=== PATIENT | female | born 1980 | race Caucasian/White ===

== ENCOUNTER 2017-01-28 10:43 | Emergency (ER) | payer OTHER ==
[~2017-01-28] VITALS: Ht 157.5 cm; Wt 94.0 kg
[~2017-01-28 10:43] MED LIST: GLC/500 PO; GLIM4TAB2 PO; REPA2TAB13 PO
[2017-01-28 10:52] VITALS: TEMP 36.5; Ht 157.5 cm; Wt 94.0 kg
[2017-01-28] MEDS ORDERED: GI COCKTAIL PO STA (11:18)
--- NOTE | 2017-01-28 11:23 | EMERGENCY ROOM VISIT NOTE ---
History First contact with patient: 11:10 Chief Complaint: BACK PAIN Stated Complaint: BACK PAIN,CHEST PAIN History of Present Illness The patient is a 36 year old female who presents to the Emergency Room via private vehicle accompanied by male with complaints of "back pain, chest pain". The patient states that she was sitting comfortably at home around midnight this past evening, when she developed back pain described as between the shoulder blades, and chest pain. This is not associated with any shortness of breath. She states this has continued, and she is tried eozy-eia-jnemdlm medications without relief. She is tried Tums, aspirin and similar medications but continues to vomit. She states that last evening she did eat [place] food. She also has a history of reflux of which she takes ranitidine, but has not taken the medication recently. She currently points to the substernal/ epigastric region of her abdomen as a location of pain she rates as a 6/10. She has never had this before. She denies chance of . There is associated nausea, vomiting. Her bowel movements and urinations have been normal. She has a past medical history of diabetes. She denies any history of blood clots or shortness of breath. Review of Systems A complete 10-point Review of Systems was discussed with the patient, with pertinent positives and negatives listed in the History of Present Illness. All remaining Review of Systems questions can be considered negative unless otherwise specified. Past Medical/Surgical History Medical Problems: (1) Diabetes (2) HTN (hypertension) Surgical Problems: (1) Hx of tonsillectomy Family History FH: diabetes mellitus Social History Smoking Status: Never Smoker Patient lives locally. Current/Historical Medications Scheduled Cephalexin Monohydrate (Keflex), 500 MG PO BID Glimepiride (Glimepiride), 4 MG PO QAM Metformin Hcl (Glucophage), 500 MG PO BID Repaglinide (Prandin), 2 MG PO AC Physical Exam Vital Signs Date Time Temp Pulse Resp B/P (MAP) Pulse Ox O2 Delivery O2 Flow Rate FiO2 01/28/17 15:05 89 18 165/102 98 Room Air 01/28/17 14:05 98 96 182/113 96 Room Air 01/28/17 12:55 79 01/28/17 12:05 98 Room Air 01/28/17 12:05 72 17 144/94 98 Room Air 01/28/17 10:52 36.5 75 18 190/104 99 Room Air Physical Exam VITAL SIGNS - Vital signs and nursing notes were reviewed. Stable. Hypertensive at 190/104, non-tachycardic and is saturating well on room air at 99%. GENERAL -36-year-old female appearing her stated age who is in no acute distress. Communicates well with provider and answers questions appropriately. SKIN - Without rashes. No petechial rashes. There are well-healed scars on the back. HEAD - NC/AT. EYES - Sclera anicteric. EARS - No deformities of external structures noted on gross examination bilaterally. NOSE - Midline and without cyanosis. No epistaxis or purulent drainage noted. Septum midline without deviation or septal hematoma noted. MOUTH/OROPHARYNX - Without perioral cyanosis. LUNGS - Chest wall symmetric without accessory muscle use, intercostals retractions, or central cyanosis. Normal vesicular breath sounds CTA B/L. No wheezes, rales, or rhonchi appreciated. CARDIAC - RRR with S1/S2. No murmur, rubs, or gallops appreciated. ABDOMEN - Abdominal contour without pulsations or visible masses. BS normoactive all four quadrants. There is minimal epigastric abdominal tenderness. No palpable masses, hepatosplenomegaly, or ascites noted. EXTREMITIES - No clubbing or peripheral cyanosis. No pretibial edema present. +5 /5 strength noted in UE/LE bilaterally. NEUROLOGIC - Cranial nerves II through XII grossly intact. PSYCH - A&O, and cooperates fully with examiner. Pt is very pleasant and interacts well with examiner. Medical Decision & Procedures ER Provider Diagnostic Interpretation: CHEST ONE VIEW PORTABLE CLINICAL HISTORY: Chest and back pain. COMPARISON STUDY: Chest radiograph February 25, 2012. FINDINGS: Lung volumes are normal. No pneumothorax or pleural effusion is present. Pulmonary vascularity is normal. No consolidation is identified. Cardiomediastinal silhouette is normal. The appearance of the chest is unchanged. IMPRESSION: No acute cardiopulmonary findings. Electronically signed by: Chalino Jacobsen M.D. 01/28/2017 11:30 AM Dictated Date/Time: 01/28/2017 11:29 AM Laboratory Results 01/28/17 11:45 Red Blood Count 5.57, Mean Corpuscular Volume 83.5, Mean Corpuscular Hemoglobin 28.4, Mean Corpuscular Hemoglobin Concent 34.0, Mean Platelet Volume 9.7, Neutrophils (%) (Auto) 85.7, Lymphocytes (%) (Auto) 10.1, Monocytes (%) (Auto) 3.8, Eosinophils (%) (Auto) 0.0, Basophils (%) (Auto) 0.1, Neutrophils # (Auto) 10.24, Lymphocytes # (Auto) 1.21, Monocytes # (Auto) 0.45, Eosinophils # (Auto) 0.00, Basophils # (Auto) 0.01 01/28/17 11:45 Test 01/28/17 11:45 01/28/17 12:00 White Blood Count 11.95 K/uL (4.8-10.8) Red Blood Count 5.57 M/uL (4.2-5.4) Hemoglobin 15.8 g/dL (12.0-16.0) Hematocrit 46.5 % (37-47) Mean Corpuscular Volume 83.5 fL (80-100) Mean Corpuscular Hemoglobin 28.4 pg (25-34) Mean Corpuscular Hemoglobin Concent 34.0 g/dl (32-36) Platelet Count 279 K/uL (130-400) Mean Platelet Volume 9.7 fL (7.4-10.4) Neutrophils (%) (Auto) 85.7 % Lymphocytes (%) (Auto) 10.1 % Monocytes (%) (Auto) 3.8 % Eosinophils (%) (Auto) 0.0 % Basophils (%) (Auto) 0.1 % Neutrophils # (Auto) 10.24 K/uL (1.4-6.5) Lymphocytes # (Auto) 1.21 K/uL (1.2-3.4) Monocytes # (Auto) 0.45 K/uL (0.11-0.59) Eosinophils # (Auto) 0.00 K/uL (0-0.5) Basophils # (Auto) 0.01 K/uL (0-0.2) RDW Standard Deviation 38.0 fL (36.4-46.3) RDW Coefficient of Variation 12.6 % (11.5-14.5) Immature Granulocyte % (Auto) 0.3 % Immature Granulocyte # (Auto) 0.04 K/uL (0.00-0.02) Prothrombin Time 10.2 SECONDS (9.0-12.0) Prothromb Time International Ratio 1.0 (0.9-1.1) Activated Partial Thromboplast Time 26.8 SECONDS (21.0-31.0) Partial Thromboplastin Ratio 1.0 Anion Gap 8.0 mmol/L (3-11) Est Creatinine Clear Calc Drug Dose 96.4 ml/min Estimated GFR () 100.0 Estimated GFR (Non- 86.3 BUN/Creatinine Ratio 10.7 (10-20) Calcium Level 9.0 mg/dl (8.5-10.1) Total Bilirubin 0.8 mg/dl (0.2-1) Aspartate Amino Transf (AST/SGOT) 25 U/L (15-37) Alanine Aminotransferase (ALT/SGPT) 34 U/L (12-78) Alkaline Phosphatase 82 U/L (45-117) Troponin I < 0.015 ng/ml (0-0.045) Total Protein 8.7 gm/dl (6.4-8.2) Albumin 4.1 gm/dl (3.4-5.0) Globulin 4.6 gm/dl (2.5-4.0) Albumin/Globulin Ratio 0.9 (0.9-2) Thyroid Stimulating Hormone (TSH) 2.980 uIu/ml (0.300-4.500) Urine Color YELLOW Urine Appearance TURBID (CLEAR) Urine pH 6.0 (4.5-7.5) Urine Specific [place] 1.028 (1.000-1.030) Urine Protein 3+ (NEG) Urine Glucose (UA) 3+ (NEG) Urine Ketones 2+ (NEG) Urine Occult Blood 3+ (NEG) Urine Nitrite NEG (NEG) Urine Bilirubin NEG (NEG) Urine Urobilinogen NEG (NEG) Urine Leukocyte Esterase MODERATE (NEG) Urine WBC (Auto) >30 /hpf (0-5) Urine RBC (Auto) >30 /hpf (0-4) Urine Hyaline Casts (Auto) 1-5 /lpf (0-5) Urine Epithelial Cells (Auto) 10-20 /lpf (0-5) Urine Bacteria (Auto) 4+ (NEG) Urine Yeast (Auto) (NONE PRSENT) Urine Test NEG (NEG) Medications Administered Medications (Trade) Dose Ordered Sig/Clau Route Start Time Stop Time Status Last Admin Dose Admin Lidocaine HCl (Viscous Lidocaine 2% Soln) 20 ml STK-MED ONCE .ROUTE 01/28/17 11:25 01/28/17 11:26 DC 01/28/17 11:29 10 ML Al Hydroxide/Mg Hydroxide (Maalox Susp) 30 ml STK-MED ONCE .ROUTE 01/28/17 11:25 01/28/17 11:26 DC 01/28/17 11:29 30 ML Morphine Sulfate (MoRPHine SULFATE INJ) 4 mg NOW STAT IV 01/28/17 12:49 01/28/17 12:50 DC 01/28/17 12:54 4 MG Ondansetron HCl (Zofran Inj) 4 mg NOW STAT IV 01/28/17 12:49 01/28/17 12:50 DC 01/28/17 12:54 4 MG Medical Decision Patient was seen and evaluated as above. She presents to us today with chest pain in her back as well as anterior chest. This was after eating a [place] meal. She has a history of reflux, but has not been taking her ranitidine. Her bedside EKG, reveals normal sinus rhythm, with sinus arrhythmia, rate of 77 bpm, without ectopy or ischemic change. She does have a prolonged QT. I provided her with a GI cocktail, reevaluated her and she was feeling slightly better. She requests something more for pain, therefore was given morphine, a small amount of Zofran. I used caution to not provide a large Zofran dose secondary to the QT prolongation. CBC reveals leukocytosis of 11.95, red blood cell count high at 5.57. Coags normal. Sodium low at 134, glucose high at 283 , protein high at 8.7 urine reveals 2+ ketones, 3+ occult blood, moderate leukocyte, greater than 30 white blood cells, greater than 30 red blood cells, epithelial cells and bacteria. I suspect UTI she has had some dysuria as well as incomplete emptying. She denies any vaginal discharge. She'll be started on Keflex. Chest x-ray was negative. Case was discussed with the attending physician, with the troponin being negative, which was drawn almost 12 hours after her initial symptoms I do not suspect cardiac etiology. In regard to long etiology, she is PERC negative. She is not hypoxic neither she tachycardic. She does not smoke. Although the QT is prolonged, I do not suspect torsades or any other cardiac arrhythmia. I recommend she follows with her family doctor, and she indicated she does not have one. I did enlist the help of our geriatric case manager, to help her find a family doctor. She notes that she does have medical insurance. At this time she appears well, nontoxic but still hypertensive. She notes that she does have high blood pressure, and does not take any medication for this. She is to also follow-up with her family doctor regarding this. She appears stable for outpatient management. She was educated upon worrisome symptoms in which to return, had questions about it hurt , and was discharged home in good condition. I had this time suspect she is most likely experiencing reflux/acid burning. I will recommend she use an umxr-fyp-qwhodgh medication such as what she took previously: ranitidine. In evaluation treatment this patient following differential diagnoses were obtained: ME, PE, for solids, GERD, among others. Impression Primary Impression: Chest pain Additional Impressions: HTN (hypertension) UTI (urinary tract infection) Departure Information Dispostion Home / Self-Care Condition GOOD Prescriptions Cephalexin Monohydrate (Keflex) 500 Mg Cap 500 MG PO BID for 10 Days, #20 CAP Prov: Deniz Read PA-C 01/28/17 Referrals No Doctor, Assigned (PCP) Patient Instructions My [facility] Additional Instructions You have been treated in the Emergency Department your chest Pain. Laboratory results and imaging studies have ruled out any emergent causes for your pain which would warrant admission or surgery. You have been found to have a UTI on urinalysis. I recommend taking Keflex 500 mg twice daily for 10 days. For pain control, you can use the following ocah-xtc-bbhaqos medicines : - Regular strength (325mg/tab) Tylenol (acetaminophen) 2 tabs every 4-6 hours as needed. Do not exceed 12 tablets in a 24 hour period. Avoid taking more than 3 grams (3000 mg) of Tylenol per day. This includes any other sources of acetaminophen you may take on a regular basis. Drink plenty of water and stay well hydrated. As with any trip to the Emergency Department, you should follow-up with your Primary Care Provider from today's visit. Please follow-up to have your EKG repeated, as well as fear chest pain, and elevated blood pressure. It was found to be significantly high here. Please call them later today to schedule follow-up. Return to the emergency department if your symptoms persist despite treatment plan outlined above or if the following symptoms occur: increased fevers, chills , worsening nausea/vomiting, blood in your stool or urine. Please return to the emergency department with any new/concerning symptoms. Problem Qualifiers
[2017-01-28] MEDS ORDERED: ALUMINUM/MAGNESIUM SUSP 30 ML UDC ONE (11:25)
[2017-01-28] MEDS ORDERED: LIDOCAINE HCL 2% VISC SOLN 20 ML UDC ONE (11:25)
--- NOTE | 2017-01-28 11:31 | DIAGNOSTIC IMAGING REPORT ---
CHEST ONE VIEW PORTABLE CLINICAL HISTORY: Chest and back pain. COMPARISON STUDY: Chest radiograph February 25, 2012. FINDINGS: Lung volumes are normal. No pneumothorax or pleural effusion is present. Pulmonary vascularity is normal. No consolidation is identified. Cardiomediastinal silhouette is normal. The appearance of the chest is unchanged. IMPRESSION: No acute cardiopulmonary findings. Electronically signed by: Chalino Jacobsen M.D. 01/28/2017 11:30 AM Dictated Date/Time: 01/28/2017 11:29 AM
[2017-01-28 12:04] LABS: BASO % 0.1 %; BASO ABS # 0.01 K/uL (0-0.2); COMPLETE YES; HEMATOCRIT 46.5 % (37-47); IG% 0.3 %; LYMPH % 10.1 %; LYMPH ABS # 1.21 K/uL (1.2-3.4); MEAN CELL VOLUME 83.5 fL (80-100); MEAN CORPUSCULAR HEMOGLOBIN 28.4 pg (25-34); MEAN PLATELET VOLUME 9.7 fL (7.4-10.4); MONO % 3.8 %; NEUT % 85.7 %; PLATELET COUNT 279 K/uL (130-400); RED BLOOD COUNT 5.57 M/uL (4.2-5.4); WHITE BLOOD COUNT 11.95 K/uL (4.8-10.8)
[2017-01-28 12:05] VITALS: O2SAT 98
[2017-01-28 12:13] LABS: PROTHROMBIN TIME (PATIENT) 10.2 SECONDS (9.0-12.0)
[2017-01-28 12:24] LABS: ALT/SGPT 34 U/L (12-78); AST/SGOT 25 U/L (15-37); BLOOD UREA NITROGEN 9 mg/dl (7-18); BUN/CREATININE RATIO 10.7 (10-20); CARBON DIOXIDE 26 mmol/L (21-32); CHLORIDE 100 mmol/L (98-107); CREATININE 0.87 mg/dl (0.60-1.20); GLUCOSE 283 mg/dl (70-99); POTASSIUM 4.1 mmol/L (3.5-5.1); SODIUM 134 mmol/L (136-145)
[2017-01-28 12:34] LABS: ALB/GLOB RATIO 0.9 (0.9-2); ALKALINE PHOSPHATASE 82 U/L (45-117)
[2017-01-28 12:34] LABS: URINE APPEARANCE TURBID (CLEAR); URINE BILIRUBIN NEG (NEG); URINE COLOR YELLOW; URINE NITRITE NEG (NEG); URINE SPECIFIC GRAVITY 1.028 (1.000-1.030); UROBILINOGEN NEG (NEG); ZZUR CULT IF INDIC CLEAN CATCH YES
[2017-01-28 12:46] LABS: MANUAL MICROSCOPIC REQUIRED? NO; REVIEW REQ? YES
[2017-01-28] MEDS ORDERED: MoRPHine SULFATE 4 MG/ML 1 ML CARP\\VIAL IV STA (12:49)
[2017-01-28] MEDS ORDERED: ONDANSETRON INJ 2 MG/ML 2 ML VIAL IV STA (12:49)
[2017-01-28] MEDS ORDERED: CEPH500C PO (14:17)
[2017-01-28 15:05] VITALS: BP 165/102; PULSE 89; O2SAT 98
== END 2017-01-28 15:20 | disposition home or self-care (01) ==
LOC: C.EDB 10:44 → C.EDC 15:20
DX: R07.9 Chest pain, unspecified (principal); I10 Essential (primary) hypertension; N39.0 Urinary tract infection, site not specified; E11.9 Type 2 diabetes mellitus without complications; Z98.890 Other specified postprocedural states; Z79.84 Long term (current) use of oral hypoglycemic drugs; Z79.899 Other long term (current) drug therapy

== ENCOUNTER → 2017-09-26 | Outpatient (CLI) | payer OTHER ==
[~2017-09-26] MED LIST changes: +REPA2TAB12 PO; -REPA2TAB13 PO
[2017-09-26 13:04] LABS: BASO % 0.4 %; BASO ABS # 0.03 K/uL (0-0.2); EOS % 2.8 %; EOS ABS # 0.23 K/uL (0-0.5); HEMATOCRIT 43.4 % (37-47); HEMOGLOBIN 15.3 g/dL (12.0-16.0); IG# 0.01 K/uL (0.00-0.02); LYMPH % 36.8 %; LYMPH ABS # 3.08 K/uL (1.2-3.4); MEAN CELL VOLUME 85.3 fL (80-100); MEAN CORPUSCULAR HEMOGLOBIN 30.1 pg (25-34); MEAN CORPUSCULAR HGB CONC 35.3 g/dl (32-36); MEAN PLATELET VOLUME 10.2 fL (7.4-10.4); MONO % 6.3 %; MONO ABS # 0.53 K/uL (0.11-0.59); NEUT % 53.6 %; NEUT ABS # 4.48 K/uL (1.4-6.5); PLATELET COUNT 297 K/uL (130-400); RED CELL DISTRIBUTION WIDTH CV 12.4 % (11.5-14.5); RED CELL DISTRIBUTION WIDTH SD 39.3 fL (36.4-46.3); WHITE BLOOD COUNT 8.36 K/uL (4.8-10.8)
[2017-09-26 13:39] LABS: CREATININE RANDOM URINE 23.7 mg/dl
== END | disposition home or self-care (01) ==
LOC: C.LABBC 09:28
PROVIDERS: ATTEND Neuromusculoskeletal Medicine & OMM
DX: E11.9 Type 2 diabetes mellitus without complications (principal); E78.5 Hyperlipidemia, unspecified; E28.2 Polycystic ovarian syndrome; E66.9 Obesity, unspecified

== ENCOUNTER → 2017-10-05 | Outpatient (CLI) | payer OTHER ==
[2017-10-05 11:55] LABS: ALBUMIN 3.2 gm/dl (3.4-5.0); ALKALINE PHOSPHATASE 77 U/L (45-117); ALT/SGPT 24 U/L (12-78); AST/SGOT 15 U/L (15-37); BLOOD UREA NITROGEN 14 mg/dl (7-18); CALCIUM 8.8 mg/dl (8.5-10.1); CARBON DIOXIDE 28 mmol/L (21-32); CHOLESTEROL 208 mg/dl (0-200); GLUCOSE 275 mg/dl (70-99); LDL CHOLESTEROL CALCULATED 126 mg/dl; POTASSIUM 4.1 mmol/L (3.5-5.1); SODIUM 136 mmol/L (136-145); TOTAL PROTEIN 7.5 gm/dl (6.4-8.2)
== END | disposition home or self-care (01) ==
LOC: C.LABBC 08:47
PROVIDERS: ATTEND Urology
DX: E11.9 Type 2 diabetes mellitus without complications (principal); E28.2 Polycystic ovarian syndrome; E78.5 Hyperlipidemia, unspecified; E66.9 Obesity, unspecified

== ENCOUNTER 2020-08-21 22:27 | Observation (INO) ==
[2020-08-21 23:03] LABS: Basophils # (auto) 0.05 K/uL (0-0.2); Basophils % (auto) 0.9 %; Eosinophils # (auto) 0.24 K/uL (0-0.5); Eosinophils % (auto) 4.5 %; Hemoglobin 10.5 g/dL (12.0-16.0); Immature Granulocytes # (auto) 0.01 K/uL (0.00-0.02); Immature Granulocytes % (auto) 0.2 %; Lymphocytes # (auto) 1.92 K/uL (1.2-3.4); Lymphocytes % (auto) 36.2 %; Mean Corpuscular Hgb Conc 32.8 g/dL (32-36); Mean Corpuscular Volume 91.4 fL (80-100); Monocytes # (auto) 0.67 K/uL (0.11-0.59); Monocytes % (auto) 12.6 %; Neutrophils # (auto) 2.42 K/uL (1.4-6.5); Neutrophils % (auto) 45.6 %; Platelet Count 320 K/uL (130-400); RDW Coefficient of Variation 13.5 % (11.5-14.5); RDW Standard Deviation 44.9 fL (36.4-46.3); White Blood Count 5.31 K/uL (4.8-10.8)
--- NOTE | 2020-08-21 23:10 | Emergency Department Note ---
Impression & Plan Pulmonary edema, Shortness of breath ED Provider Note NAME: MARC NEWMAN AGE: 40 SEX: F : 1980 ARRIVES VIA: Walk-In INFORMANT: Patient, ED PROVIDER(S): Balwinder Rdz DO CHIEF COMPLAINT: Shortness of breath HPI: The patient is a 40-year-old female who presented to the emergency department for shortness of breath. The patient is status post for delivery. The patient's was complicated with preeclampsia. She gave at 27 weeks to a daughter. The patient was in high risk and delivered at [facility]. She has been having worsening shortness of breath and lower extremity edema over the course of the last few days. The patient noticed an increase in her symptoms especially with exertion and lying flat. She was seen by her primary care physician today and had some laboratory and radiographic studies ordered. She was called this evening and told to come to the emergency department for admission for further work-up of congestive heart failure. The patient denies having any chest pain but does complain of shortness of breath. She complains of orthopnea. She complains of dyspnea on exertion. Symptoms are improved with sitting up. She denies having any fever or cough. She has had no abdominal pain. ROS: See above HPI for pertinent positives & negatives. A total of 10 systems reviewed and were otherwise negative. PAST MEDICAL HISTORY: See Below PAST SURGICAL HISTORY: See Below FAMILY HISTORY: See Below SOCIAL HISTORY: See Below HOME MEDICATIONS: See Below ALLERGIES: See Below VITALS: See Below PHYSICAL EXAMINATION: GENERAL: Patient is awake alert in no acute distress patient is resting comfortably and showing no signs of anxiety EYES: The conjunctivae are clear. The pupils are round and reactive. EARS, NOSE, MOUTH AND THROAT: The nose is without any evidence of any deformity. Mucous membranes are moist. Tongue is midline. NECK: The neck is nontender and supple. Positive HJR RESPIRATORY: Shallow respirations were noted. There were rales at both bases left greater than right. CARDIOVASCULAR: Regular rate and rhythm noted there no murmurs rubs or gallops normal S1 normal S2. GASTROINTESTINAL: The abdomen is soft. Abdomen is nontender. MUSCULOSKELETAL/EXTREMITIES: There is no evidence of gross deformity full range of motion is noted in the hips and shoulders. SKIN: There is no obvious evidence of any rash. Pedal edema was noted bilaterally. NEUROLOGIC: Patient is awake alert and oriented x3. MEDICAL DECISION MAKING: The patient is a 40-year-old female who presented to the emergency department for shortness of breath. The patient is 5 weeks status post for preeclampsia on a recent . The patient was noted to continue having shortness of breath and lower extremity swelling. Her symptoms continue to worsen especially over the last few days. She had an outpatient x-ray and laboratory studies by her primary care physician. She was found to have pulmonary edema on radiographic studies and was sent to the emergency department for further evaluation. The patient was treated with Lasix in the emergency department. She was reevaluated multiple times. I discussed the patient's laboratory and radiographic studies with her. I also discussed her case with the on-call [facility] hospitalist. Triage Nursing notes reviewed. Prior medical records reviewed Vital Signs: reviewed and remarkable for elevated blood pressure. Differential diagnosis: Reactive airway disease, pneumonia, pneumothorax, COPD, CHF, infections, car diac ischemia, pulmonary embolism, musculoskeletal, gastrointestinal, as well as other pathologies. ER treatment provided: See below Diagnostics interpreted by me: ECG: EKG was obtained in the emergency department. My interpretation is normal sinus rhythm at 85 bpm. There is no ectopy. Poor R wave progression was noted. This was compared to a tracing from January 282016. No significant changes were noted. Cardiac Monitoring: An order was placed for continuous cardiac monitoring. The monitor shows a rate of 85 bpm with sinus rhythm. Laboratory studies: As stated above and show below. Imaging studies: See below Consultation(s): I discussed this case with Dr. Haque who is on-call for the [facility] group. Past Med/Surg History Medical History Endometriosis Facial cellulitis Hirsutism Irregular menstrual cycle Learning disability Supervision of elderly primigravida Surgical History History of tonsillectomy Hx of tonsillectomy S/P section 07/15/20 at [facility] Family History Unknown Endometriosis Grandmother (Maternal) Type 2 diabetes mellitus Denies family history of Ovarian cancer Prostate cancer Myocardial infarction Breast cancer Colorectal cancer Social History Smoking Status: Never smoker Hx Alcohol Use: No Hx Substance Use: No Preferred Language: Setswana Communication Ability: Effective Visual Impairment: No Limitations Hearing Ability: Normal Rock Cutter Required: No Beliefs That Will Affect Care: None marital status: marital status details: Deny Newman (39) [phone] Current Living Situation: Spouse Current Living Situation Comment: pt and spouse live next door to her parents. current occupational status: employed current occupation: [employer] Feels Safe at Home: Yes Childhood Exposure to Second-Hand Smoke: Yes Dental Care, Regularly: Yes Physical Activity Frequency: Does not Exercise Seatbelt Use: always Sunscreen Use: Yes Assistive Devices: None Allergies Allergies Allergy/AdvReac Type Severity Reaction Status Date / Time omeprazole Allergy Unknown HIVES Verified 08/21/20 23:03 Home Meds Home Medications Medication Instructions Recorded Confirmed prenat.vits,willie,kxb-gvua-oqgmg 1 tab PO DAILY 03/17/20 08/21/20 aspirin [Aspirin Low Dose] 81 mg PO DAILY 08/21/20 08/21/20 docusate sodium [Colace] 100 mg PO DAILY 08/21/20 08/21/20 insulin detemir U-100 [Levemir 10 unit SUBCUT HS 08/21/20 08/21/20 FlexTouch U-100 Insuln] ferrous fumarate-vitamin C 1 tab PO UD 08/22/20 08/22/20 Previous Rx's Medication Instructions Recorded lancets [OneTouch Delica Lancets] #100 ea 03/05/18 insulin aspart U-100 100 unit/mL See Rx Instructions SUBCUT BID #15 04/28/20 (3 mL) subcutaneous pen ml blood sugar diagnostic #400 ea 05/15/20 acetaminophen 325 mg tablet 650 mg PO QID PRN #90 tab 07/23/20 ibuprofen 600 mg tablet 600 mg PO Q6H PRN #30 tab 07/23/20 labetalol 200 mg tablet 400 mg PO Q8H #60 tab 07/23/20 pen needle, diabetic 31 gauge x #200 ea 07/23/20 1/4" hydrochlorothiazide 25 mg tablet 25 mg PO DAILY #30 tab 08/21/20 Results & Data (ED) Vital Signs Vital Signs - 24 hr 08/21/20 22:30 08/21/20 23:04 08/21/20 23:30 Temperature 36.5 C Temperature Source Temporal Artery Scan Pulse Rate 90 86 86 Pulse Rate from SpO2 Sensor 86 86 Respiratory Rate 18 16 18 Respiratory Effort / Characteristics Non-Labored Spontaneous Respiratory Depth Normal Blood Pressure 128/69 186/96 H 174/100 H Blood Pressure Mean 88 126 124 Pulse Oximetry 93 93 91 Oxygen Delivery Method Room Air Sepsis Recent Fever Within 48 Hours No Sepsis New/Unexplained Change in Mental Status N/A Sepsis Action Taken by Nursing No Action Required 08/22/20 00:30 Temperature Temperature Source Pulse Rate 85 Pulse Rate from SpO2 Sensor 85 Respiratory Rate 18 Respiratory Effort / Characteristics Respiratory Depth Blood Pressure 184/109 H Blood Pressure Mean 134 Pulse Oximetry 92 Oxygen Delivery Method Sepsis Recent Fever Within 48 Hours Sepsis New/Unexplained Change in Mental Status Sepsis Action Taken by Retirement Medications Current Medication List: was personally reviewed by me Laboratory Data Attestation: I reviewed the patient's lab results. Result diagrams: 08/21/20 22:50 08/21/20 22:50 Lab Results 08/21/20 08/21/20 08/21/20 Range/Units 22:50 22:50 22:50 WBC 5.31 (4.8-10.8) K/uL RBC 3.50 L (4.2-5.4) M/uL Hgb 10.5 L (12.0-16.0) g/dL Hct 32.0 L (37-47) % MCV 91.4 (80-100) fL MCH 30.0 (25-34) pg MCHC 32.8 (32-36) g/dL RDW Std Deviation 44.9 (36.4-46.3) fL RDW Coeff of Jessica 13.5 (11.5-14.5) % Plt Count 320 (130-400) K/uL MPV 9.0 (7.4-10.4) fL Immature Gran % (Auto) 0.2 % Neut % (Auto) 45.6 % Lymph % (Auto) 36.2 % Wagoner % (Auto) 12.6 % Eos % (Auto) 4.5 % Baso % (Auto) 0.9 % Neut # (Auto) 2.42 (1.4-6.5) K/uL Lymph # (Auto) 1.92 (1.2-3.4) K/uL Wagoner # (Auto) 0.67 H (0.11-0.59) K/uL Eos # (Auto) 0.24 (0-0.5) K/uL Baso # (Auto) 0.05 (0-0.2) K/uL Immature Gran # (Auto) 0.01 (0.00-0.02) K/uL PT 10.3 (9.0-12.0) Seconds INR 1.0 (0.9-1.1) APTT 25.4 (21.0-31.0) Seconds PTT Ratio 1.0 D-Dimer 1590 H* (0-500) ug/L FEU Sodium 139 (136-145) mmol/L Potassium 4.1 (3.5-5.1) mmol/L Chloride 109 H (98-107) mmol/L Carbon Dioxide 25 (21-32) mmol/L Anion Gap 5.0 (3-11) BUN 20 H (7-18) mg/dl Creatinine 1.20 (0.6-1.2) mg/dl Est Cr Clr Drug Dosing 73.0 ml/min Est GFR ( Amer) 65.9 Est GFR (Non-Af Amer) 56.9 BUN/Creatinine Ratio 16.8 (10-20) Glucose 94 (70-99) mg/dl Calcium 9.1 (8.5-10.1) mg/dl Magnesium 2.0 (1.8-2.4) mg/dl Total Bilirubin 0.4 (0.2-1) mg/dl AST 23 (15-37) U/L ALT 45 (12-78) U/L Alkaline Phosphatase 123 H (45-117) U/L Troponin I < 0.015 (0-0.045) ng/ml Total Protein 6.5 (6.4-8.2) gm/dl Albumin 3.0 L (3.4-5.0) gm/dl Globulin 3.5 (2.5-4.0) gm/dl Albumin/Globulin Ratio 0.9 (0.9-2) COVID-19 Eval Order SARS-CoV-2 (PCR) (Negative) Influenza Type A (PCR) (Neg) Influenza Type B (PCR) (Neg) RSV (RT-PCR) (Neg) 08/21/20 08/21/20 Range/Units 22:53 22:53 WBC (4.8-10.8) K/uL RBC (4.2-5.4) M/uL Hgb (12.0-16.0) g/dL Hct (37-47) % MCV (80-100) fL MCH (25-34) pg MCHC (32-36) g/dL RDW Std Deviation (36.4-46.3) fL RDW Coeff of Jessica (11.5-14.5) % Plt Count (130-400) K/uL MPV (7.4-10.4) fL Immature Gran % (Auto) % Neut % (Auto) % Lymph % (Auto) % Wagoner % (Auto) % Eos % (Auto) % Baso % (Auto) % Neut # (Auto) (1.4-6.5) K/uL Lymph # (Auto) (1.2-3.4) K/uL Wagoner # (Auto) (0.11-0.59) K/uL Eos # (Auto) (0-0.5) K/uL Baso # (Auto) (0-0.2) K/uL Immature Gran # (Auto) (0.00-0.02) K/uL PT (9.0-12.0) Seconds INR (0.9-1.1) APTT (21.0-31.0) Seconds PTT Ratio D-Dimer (0-500) ug/L FEU Sodium (136-145) mmol/L Potassium (3.5-5.1) mmol/L Chloride (98-107) mmol/L Carbon Dioxide (21-32) mmol/L Anion Gap (3-11) BUN (7-18) mg/dl Creatinine (0.6-1.2) mg/dl Est Cr Clr Drug Dosing ml/min Est GFR ( Amer) Est GFR (Non-Af Amer) BUN/Creatinine Ratio (10-20) Glucose (70-99) mg/dl Calcium (8.5-10.1) mg/dl Magnesium (1.8-2.4) mg/dl Total Bilirubin (0.2-1) mg/dl AST (15-37) U/L ALT (12-78) U/L Alkaline Phosphatase (45-117) U/L Troponin I (0-0.045) ng/ml Total Protein (6.4-8.2) gm/dl Albumin (3.4-5.0) gm/dl Globulin (2.5-4.0) gm/dl Albumin/Globulin Ratio (0.9-2) COVID-19 Eval Order CovFluRsv at [facility] SARS-CoV-2 (PCR) NEGATIVE (Negative) Influenza Type A (PCR) Negative (Neg) Influenza Type B (PCR) Negative (Neg) RSV (RT-PCR) Negative (Neg) Administered Medications Discontinued Medications Furosemide (Furosemide 40 Mg/4 Ml Vial) 40 mg IV NOW STA Stop: 08/21/20 23:38 Last Admin: 08/21/20 23:59 Dose: 40 mg Documented by: [id number] Imaging Data Attestation: I personally reviewed and interpreted this imaging study as follows: My Impression: 1 view chest x-ray was obtained in the emergency department. My interpretation is cardiomegaly with pulmonary vascular congestion. There is a pleural effusion at the left base. This was compared to a chest x-ray done earlier today. The changes at the left base appear increased compared to previous. Discharge Plan Visit Data Chief Complaint: Illness Stated Complaint: CHF, LE SWELLING, DYSPNEA ED Provider: Balwinder Rdz Discharge Problem: Pulmonary edema, Shortness of breath Patient Disposition: Being Evaluated by Hospitalist Condition: Good Forms Stand Alone Forms: My [facility] Prescriptions Prescriptions: No Action insulin aspart U-100 [Novolog Flexpen U-100 Insulin] 100 unit/mL (3 mL) insulin pen See Rx Instructions subcut BID Qty: 15 RF: 2 (DME) OneTouch Ultra Blue Test Strip Strip See Dose Instructions .ROUTE .MEDSUPPLY Qty: 400 RF: 1 labetalol 200 mg tablet 400 mg PO Q8H Qty: 60 RF: 0 acetaminophen 325 mg tablet 650 mg PO QID PRN (Reason: pain) Qty: 90 RF: 0 ibuprofen 600 mg tablet 600 mg PO Q6H PRN (Reason: pain) Qty: 30 RF: 0 (DME) pen needle, diabetic 31 gauge x 1/4" needle See Dose Instructions .ROUTE .MEDSUPPLY Qty: 200 RF: 5 prenat.vits,willie,uig-uvke-bgrhl Tablet 1 tab PO DAILY RF: 0 hydrochlorothiazide 25 mg tablet 25 mg PO DAILY Qty: 30 RF: 2 (DME) lancets [OneTouch Delica Lancets] 33 gauge misc See Dose Instructions .ROUTE .MEDSUPPLY Qty: 100 RF: 0 Levemir FlexTouch U-100 Insuln 100 unit/mL (3 mL) insulin pen 10 unit subcut HS RF: 0 aspirin [Aspirin Low Dose] 81 mg Tablet,Delayed Release (Dr/Ec) 81 mg PO DAILY RF: 0 docusate sodium [Colace] 100 mg Capsule 100 mg PO DAILY RF: 0 ferrous fumarate-vitamin C 200 mg (65 mg iron)-25 mg Tablet Extended Release 1 tab PO UD RF: 0 Referrals Referrals: Charles Gonzalez DO [Primary Care Provider] - Discharge Problem: Pulmonary edema Qualifiers: Chronicity: acute Qualified Code(s): J81.0 - Acute pulmonary edema
[2020-08-21 23:30] LABS: Alanine Aminotransferase 45 U/L (12-78); Aspartate Aminotransferase 23 U/L (15-37); BUN Creatinine Ratio 16.8 (10-20); Blood Urea Nitrogen 20 mg/dl (7-18); Calcium 9.1 mg/dl (8.5-10.1); Carbon Dioxide 25 mmol/L (21-32); Chloride 109 mmol/L (98-107); Est GFR (African American) 65.9; Est GFR (Non-African American) 56.9; Glucose 94 mg/dl (70-99); Potassium 4.1 mmol/L (3.5-5.1); Sodium 139 mmol/L (136-145)
[2020-08-21 23:33] LABS: Partial Thromboplastin Time 25.4 Seconds (21.0-31.0); Prothrombin Time 10.3 Seconds (9.0-12.0)
[2020-08-21 23:34] LABS: D Dimer 1590 ug/L FEU (0-500)
[2020-08-21 23:35] LABS: Albumin Globulin Ratio 0.9 (0.9-2); Alkaline Phosphatase 123 U/L (45-117); Bilirubin,Total 0.4 mg/dl (0.2-1); Globulin 3.5 gm/dl (2.5-4.0); Total Protein 6.5 gm/dl (6.4-8.2); Troponin I < 0.015 ng/ml (0-0.045)
[2020-08-21] MEDS ORDERED: FUROSEMIDE 40 MG/4 ML VIAL IV STA (23:37)
[2020-08-21 23:44] LABS: Influenza A virus by PCR Negative (Neg); Influenza B virus by PCR Negative (Neg); RSV by PCR Negative (Neg); SARS CoV2 RNA(COVID-19) InHosp NEGATIVE (Negative)
[2020-08-22 01:13] LABS: Appearance Urine Clear (Clear); Bacteria Urine Automated Negative (Negative); Bilirubin Urine Negative (Negative); Blood Urine 3+ (Negative); Color Urine Yellow; Glucose Urine UA Negative (Negative); Ketones Urine Negative (Negative); Leukocyte Esterase Urine Negative (Negative); Nitrite Urine Negative (Negative); Protein Urine 2+ (Negative); RBC Urine Automated >30 /hpf (0-4); Specific Gravity Urine 1.009 (1.000-1.030); Urobilinogen Urine Negative (Negative); pH Urine 6.5 (4.5-7.5)
--- NOTE | 2020-08-22 02:34 | History & Physical Report ---
Date of Service August 22, 2020 Assessment & Plan (1) Shortness of breath: Patient is a pleasant 40 year old female with PMHx DM2, HTN, PCOS, Preeclampsia that presents with worsening of LE swelling the past 2.5 weeks in addition to worsening SOB on exertion and orthopnea. LE Edema secondary to Post- Cardiomyopathy vs Preeclampsia -Patient presenting with features concerning for heart failure including LE edema, Orthopnea, JVD, rales bilateral. -BNP elevated at 1311 -CXR showing pulmonary edema -With recent delivery via 07/15/20 and hx of preeclampsia -Suspect that patients current Heart Failure picture is secondary to PPCM as she is only 4 weeks post -Cannot fully rule out Preeclampsia at this time as well with Cr 1.2 (>1.1), pulmonary edema, though lower suspicion as patients BPs have been significantly elevated in the past prior to . -Will order for Echo in AM -Pt given Lasix 40mg IV in ED to good effect, will continue Lasix 40mg IV QD for diuresis -Pending results of echo, may consider Cardiology consult in addition to starting HF medications -Patient IS NOT planning on continuing to breast feed at this time. -Will continue patient's ASA 81mg daily Elevated D-Dimer -D-Dimer elevated at 1590 -Patient post- with surgery () 1 month ago elevating risk -COVID-19 negative -No obvious signs of DVT, though will order for b/l venous dopplers to r/o -If patient's respiratory status worsens, would consider chest CTA to screen for PE Hypertension -Certainly does lead to cause for concern of preeclampsia, though patient with history of elevated BP in general -Will give 1x dose of IV labetalol 10mg -Will continue home Labetalol 400mg TID -Patient may require further BP control as her Nifedepine was dc'd as well DM2 -Will order for SSI and basal bolus -Pharmacy consulted for assistance in glucose management -Previously was on Metformin, though DC'd during PCOS -Was previously on metformin, though DC'd during -Can consider resuming in future Dispo: Med/Surg Telemetry for continuous monitoring and continued diuresis. FEN: DM2 diet DVT: Lovenox QD Code: Full (2) Neck mass: (3) Intellectual disability: (4) PCOS (polycystic ovarian syndrome): (5) HTN (hypertension): History of Present Illness Chief Complaint: B/L leg swelling Primary Care Provider: Charles Gonzalez DO Patient is a pleasant 40 year old female with PMHx DM2, HTN, PCOS, Preeclampsia that presents with worsening of LE swelling the past 2.5 weeks in addition to worsening SOB on exertion and orthopnea. Patient notes that she has had ongoing swelling since her Section on 07/15/20 where she delivered her 27 week old daughter due to the patient having significant issues with Preeclampsia. She notes that initially the swelling was restricted to her mid- calves and below, however, in the past 2.5 weeks has progressed upwards to the point where it was reaching her hips and pelvis. She notes that she saw her PCP today who had discontinued her nifedepine in addition to ordering for a BNP and XR. Patients results were concerning for new onset heart failure and she was encouraged to go to the ED for further evaluation. In the ED patient was again noted to have b/l edema to her pelvis. She was given 40mg IV lasix to good e ffect, putting out >1400ml of urine. She feels that her swelling may have improved slightly since arrival to the ED. She has never had this before prior to her . Patient notes that she has had ongoing issues with her blood pressure during her and her partner who is also present in the room states that the patient's BP is always more elevated when they are a physicians office. He states she has been running between 112-140 systolic since the delivery. Currently patient notes that she primarily has SOB on exertion that improves rapidly upon rest in addition to orthopnea. She denies any headache, visual changes, RUQ pain, chest pain, abdominal pain, dysuria, nausea, SOB at rest, fever, chills. She notes that she stopped breast feeding 1 week ago and does not have plans to continue doing so as much of her milk supply has stopped. Med Hx: DM2, HTN, PCOS, Preeclampsia Surg Hx: Section, Tonsillectomy Soc Hx: No tobacco, alcohol, or illicit drug use. Allergies Allergy/AdvReac Type Severity Reaction Status Date / Time omeprazole Allergy Unknown HIVES Verified 08/21/20 23:03 Home Medications Medication Instructions Recorded Confirmed Type lancets [OneTouch Delica Lancets] #100 ea 03/05/18 08/21/20 Rx prenat.vits,willie,bmo-dxxt-momnv 1 tab PO DAILY 03/17/20 08/21/20 History insulin aspart U-100 100 unit/mL See Rx Instructions SUBCUT BID #15 04/28/20 08/21/20 Rx (3 mL) subcutaneous pen ml blood sugar diagnostic #400 ea 05/15/20 08/21/20 Rx acetaminophen 325 mg tablet 650 mg PO QID PRN #90 tab 07/23/20 08/21/20 Rx ibuprofen 600 mg tablet 600 mg PO Q6H PRN #30 tab 07/23/20 08/21/20 Rx labetalol 200 mg tablet 400 mg PO Q8H #60 tab 07/23/20 08/21/20 Rx pen needle, diabetic 31 gauge x #200 ea 07/23/20 08/21/20 Rx /" aspirin [Aspirin Low Dose] 81 mg PO DAILY 08/21/20 08/21/20 History docusate sodium [Colace] 100 mg PO DAILY 08/21/20 08/21/20 History hydrochlorothiazide 25 mg tablet 25 mg PO DAILY #30 tab 08/21/20 08/21/20 Rx insulin detemir U-100 [Levemir 10 unit SUBCUT HS 08/21/20 08/21/20 History FlexTouch U-100 Insuln] ferrous fumarate-vitamin C 1 tab PO UD 08/22/20 08/22/20 History Past Med/Surg History Medical History Endometriosis Facial cellulitis Hirsutism Irregular menstrual cycle Learning disability Supervision of elderly primigravida Surgical History History of tonsillectomy Hx of tonsillectomy S/P section 07/15/20 at [facility] Family History Unknown Endometriosis Grandmother (Maternal) Type 2 diabetes mellitus Denies family history of Ovarian cancer Prostate cancer Myocardial infarction Breast cancer Colorectal cancer Social History Smoking Status: Never smoker Hx Alcohol Use: No Hx Substance Use: No Preferred Language: Swedish Communication Ability: Effective Visual Impairment: No Limitations Hearing Ability: Normal Communications Editor Required: No Beliefs That Will Affect Care: None marital status: marital status details: Deny Newman (40) [phone] Current Living Situation: Spouse Current Living Situation Comment: pt and spouse live next door to her parents. 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 [employer] Feels Safe at Home: No Is there a partner from a previous relationship who is making you feel unsafe now?: No Childhood Exposure to Second-Hand Smoke: Yes Dental Care, Regularly: Yes Physical Activity Frequency: Does not Exercise Seatbelt Use: always Sunscreen Use: Yes Assistive Devices: Glasses Review of Systems Review of Systems: All systems reviewed & are unremarkable except as noted in Subjective Physical Exam Constitutional: cooperative; no acute distress Eyes: PERRL, conjunctivae normal, anicteric sclerae Patient wears glasses that have a yellow tint to them, upon removal reveals anicteric sclerae ENMT: external ear and nose normal, oropharynx normal Mouth: + poor dentition Respiratory: normal respiratory effort; no respiratory distress and no labored breathing Auscultation: + diminished lung sounds and + rales (at bases ) Cardiovascular: Rate/Rhythm: regular rate and regular rhythm Heart Sounds: no murmur Extremities: + edema (2+ edema below the knee, 1+ from hips to knees); no calf tenderness Gastrointestinal (Abdomen): normal bowel sounds, soft, nontender, no h epatosplenomegaly Inspection/Auscultation: + abdominal surgical incision (low-transverse incision well healing) Musculoskeletal: no cyanosis or clubbing, extremities motor strength 5/5 Skin: no rashes, warm and dry Neurologic: PERRL, EOMI, accommodation nl, no face palsy, no dysarthria Psychiatric: A+Ox3, euthymic affect Results & Data Results & Data ([facility]) Vital Signs (Past 12 Hours) Vital Signs Temp Pulse Resp BP Pulse Ox 08/22/20 02:00 84 20 188/104 H 93 08/22/20 01:30 86 18 187/106 H 92 08/22/20 01:11 86 18 176/104 H 93 08/22/20 01:00 84 21 182/99 H 93 08/22/20 00:30 85 18 184/109 H 92 08/21/20 23:30 86 18 174/100 H 91 04/08/21 23:04 86 16 186/96 H 93 08/21/20 22:30 36.5 C 90 18 128/69 93 Laboratory Results Laboratory Results - last 24 hr 08/21/20 08/21/20 08/21/20 22:50 22:50 22:50 WBC 5.31 RBC 3.50 L Hgb 10.5 L Hct 32.0 L MCV 91.4 MCH 30.0 MCHC 32.8 RDW Std Deviation 44.9 RDW Coeff of Jessica 13.5 Plt Count 320 MPV 9.0 Immature Gran % (Auto) 0.2 Neut % (Auto) 45.6 Lymph % (Auto) 36.2 [place] % (Auto) 12.6 Eos % (Auto) 4.5 Baso % (Auto) 0.9 Neut # (Auto) 2.42 Lymph # (Auto) 1.92 [place] # (Auto) 0.67 H Eos # (Auto) 0.24 Baso # (Auto) 0.05 Immature Gran # (Auto) 0.01 PT 10.3 INR 1.0 APTT 25.4 PTT Ratio 1.0 D-Dimer 1590 H* Sodium 139 Potassium 4.1 Chloride 109 H Carbon Dioxide 25 Anion Gap 5.0 BUN 20 H Creatinine 1.20 Est Cr Clr Drug Dosing 73.0 Est GFR ( Amer) 65.9 Est GFR (Non-Af Amer) 56.9 BUN/Creatinine Ratio 16.8 Glucose 94 Calcium 9.1 Magnesium 2.0 Total Bilirubin 0.4 AST 23 ALT 45 Alkaline Phosphatase 123 H Troponin I < 0.015 Total Protein 6.5 Albumin 3.0 L Globulin 3.5 Albumin/Globulin Ratio 0.9 Urine Color Urine Appearance Urine pH Ur Specific Chana Urine Protein Urine Glucose (UA) Urine Ketones Urine Blood Urine Nitrite Urine Bilirubin Urine Urobilinogen Ur Leukocyte Esterase Urine WBC (Auto) Urine RBC (Auto) U Hyaline Cast (Auto) U Epithel Cells (Auto) Urine Bacteria (Auto) COVID-19 Eval Order SARS-CoV-2 (PCR) Influenza Type A (PCR) Influenza Type B (PCR) RSV (RT-PCR) 08/21/20 08/21/20 08/22/20 22:53 22:53 Unknown WBC RBC Hgb Hct MCV MCH MCHC RDW Std Deviation RDW Coeff of Jessica Plt Count MPV Immature Gran % (Auto) Neut % (Auto) Lymph % (Auto) [place] % (Auto) Eos % (Auto) Baso % (Auto) Neut # (Auto) Lymph # (Auto) [place] # (Auto) Eos # (Auto) Baso # (Auto) Immature Gran # (Auto) PT INR APTT PTT Ratio D-Dimer Sodium Potassium Chloride Carbon Dioxide Anion Gap BUN Creatinine Est Cr Clr Drug Dosing Est GFR ( Amer) Est GFR (Non-Af Amer) BUN/Creatinine Ratio Glucose Calcium Magnesium Total Bilirubin AST ALT Alkaline Phosphatase Troponin I Total Protein Albumin Globulin Albumin/Globulin Ratio Urine Color Yellow Urine Appearance Clear Urine pH 6.5 Ur Specific Chana 1.009 Urine Protein 2+ H Urine Glucose (UA) Negative Urine Ketones Negative Urine Blood 3+ H Urine Nitrite Negative Urine Bilirubin Negative Urine Urobilinogen Negative Ur Leukocyte Esterase Negative Urine WBC (Auto) 1-5 Urine RBC (Auto) >30 H U Hyaline Cast (Auto) 1-5 U Epithel Cells (Auto) 5-10 H Urine Bacteria (Auto) Negative COVID-19 Eval Order CovFluRsv at [facility] SARS-CoV-2 (PCR) NEGATIVE Influenza Type A (PCR) Negative Influenza Type B (PCR) Negative RSV (RT-PCR) Negative Diagnostic Findings XR abdomen 2V w PA chest CLINICAL HISTORY: R09.89 - Other specified symptoms and signs involving the circulatory and respiratory systems COMPARISON STUDY: 01/28/2017 FINDINGS: The heart is enlarged. There is radiographic evidence of mild pulmonary vascular congestion. There are small bilateral pleural effusions left greater than right. Left basilar opacities are statistically atelectatic. There is no free intraperitoneal air. Erect and supine views the abdomen reveal no abnormally dilated loops of large or small bowel. There are no transition zones indicate bowel obstruction. IMPRESSION: 1. No evidence of bowel obstruction. No evidence of free air 2. Cardiomegaly and radiographic evidence of congestive failure/fluid overload with small bilateral pleural effusions Code Status & VTE Plan VTE Prophylaxis Plan VTE Prophylaxis will be ordered: Yes Supervising Physician Co-Signing Physician Notes Patient seen and examined, chart reviewed, case discussed with Dr. Pelayo and I agree with his assessment and plan as above. Briefly, patient is a 40yo female with progressive LE edema, weight gain, orthopnea and GA. Patient had c- section performed on 07/15/20. She had preeclampsia during . Denies visual changes, CHERRY, nausea. Denies edema of hands. No seizure On exam she is afebrile, hypertensive, NAD, resting comfortably Skin - well healing site, no evidence of infection HEENT - NC/AT, PERRL, EOMI Heart - +S1/S2, regular Lungs - +Crackles in bilateral bases to mid-lung Abd - +BS, soft, NT/ND Ext - +pitting edema to thighs Neuro - nonfocal Labs and images reviewed Concern for post- cardiomyopathy, less likely pre-eclampsia with edema and hypertension - she is technically still within 6 week post- window -Lasix, monitor I/Os. She has responded quite well to 40mg IV given in ER -Check 2D echo -Labetalol PO and IV for BP control - patient with history of very high BPs in our system. -Remainder of plan as above Resident Activity Tracking Resident Involvement: Resident Care Provided Care Provided: Adult Hospital Medicine (1) HTN (hypertension) Hypertension type: unspecified Qualified Code(s): I10 - Essential (primary) hypertension
[2020-08-22] MEDS ORDERED: LABETALOL HCL IV 5 MG/ML 20ML IV STA ×4 (03:14→19:51)
[2020-08-22] MEDS ORDERED: LABETALOL HCL 100 MG TAB PO STA (03:31)
--- NOTE | 2020-08-22 05:37 | Billing Data ---
Date of Service August 22, 2020 Coding Level of Care Code 36379 OBS Care - Level 2
[2020-08-22] MEDS ORDERED: GLUCAGON FOR INJ 1 MG VIAL SQ PRN (05:53)
[2020-08-22] MEDS ORDERED: CARBOHYDRATES FOR HYPOGLYCEMIA PO PRN (05:53)
[2020-08-22] MEDS ORDERED: DEXTROSE 50% 50 ML SYRINGE IV PRN (05:53)
[2020-08-22] MEDS ORDERED: ACETAMINOPHEN 325 MG TAB PO PRN (05:53)
[2020-08-22] MEDS ORDERED: GLUCOSE 10 TABS/TUBE PO PRN (05:53)
[2020-08-22] MEDS ORDERED: ONDANSETRON INJ 2 MG/ML 2 ML VIAL IV PRN (05:53)
[2020-08-22] MEDS ORDERED: GLUCOSE 40% GEL 15 GM TUBE PO PRN (05:53)
[2020-08-22] MEDS ORDERED: PHARMACY GLYCEMIC MGMT CONSULT PRN (05:58)
--- NOTE | 2020-08-22 06:32 | Ultrasound Report ---
BILATERAL LOWER EXTREMITY VENOUS DOPPLER HISTORY: Acute pain and swelling of the lower extremities ?DVT COMPARISON STUDY: None. FINDINGS: There is normal compressibility, flow, and augmentation within the bilateral lower extremit y deep venous systems. Subcutaneous edema. Venous waveforms are noted bilaterally, possibly indicativ e of elevated right heart pressures. IMPRESSION: No DVT within the right or left lower extremity. ACT 112: Negative or not required by law. Electronically signed by: Raz Castro M.D. 08/22/2020 6:31 AM
--- NOTE | 2020-08-22 07:49 | XRay Report ---
SINGLE VIEW CHEST CLINICAL HISTORY: Dyspnea. FINDINGS: An AP, portable, upright chest radiograph is compared to study performed earlier the same d ay 08/21/2020. The examination is degraded by portable technique and apical lordotic positioning. The h eart appears mildly enlarged. There is perivascular congestion. There are small pleural effusions wit h left basilar consolidation. Trace fluid is noted along the minor fissure. No pneumothorax is seen. The bony thorax is grossly intact. IMPRESSION: 1. The heart appears mildly enlarged and there is pulmonary vascular congestion. 2. There are small pleural effusions with left basilar consolidation. This could represent atelectasi s versus a mild infectious/inflammatory pneumonitis. Clinical correlation will be required ACT 112: Negative or not required by law. Electronically signed by: Hank Jonas M.D. 08/22/2020 7:47 AM
[2020-08-22] MEDS: INSULIN ASPART 100 UNITS/ML 3 ML PEN SC SCH ×4 (08:19→20:30)
[2020-08-22] MEDS: ASPIRIN 81 MG ECTAB PO SCH (08:21)
[2020-08-22] MEDS: ENOXAPARIN INJ 40 MG/0.4 ML SYR SQ SCH ×2 (08:21→20:01)
[2020-08-22] MEDS: LABETALOL HCL 200 MG TAB PO SCH ×3 (08:21→23:48)
[2020-08-22] MEDS ORDERED: FUROSEMIDE 40 MG/4 ML VIAL IV SCH (09:00)
[2020-08-22] MEDS ORDERED: FUROSEMIDE 40 MG in SYRINGE 0 ML IV SCH (09:00)
[2020-08-22] MEDS ORDERED: INSULIN GLARGINE SOLOSTAR 100 UNITS/ML 3 ML PEN SC SCH ×2 (09:00→21:00)
--- NOTE | 2020-08-22 09:04 | XCELERA ---
[id number]
[2020-08-22] MEDS ORDERED: MAG SULFATE BOLUS FROM BAG 4 GM IV ONE (13:04)
[2020-08-22] MEDS ORDERED: MAGNESIUM SULFATE IV ONE (13:45)
[2020-08-22] MEDS ORDERED: DEXTROSE 5% IV ONE (13:45)
--- NOTE | 2020-08-22 13:46 | OB/GYN Consultation ---
Date of Consultation August 22, 2020 Assessment & Plan (1) HTN (hypertension): At this stage I do not think this is related to preeclampsia primarily because she is almost 6 weeks out from delivery her AST and ALT are normal her platelets are normal her creatinine is elevated but this is known as she has diabetic nephropathy she also does not have the classic signs or symptoms of preeclampsia such as a severe headache visual changes or right upper quadrant pain Her reflexes are not brisk, incision is clean dry and intact After reviewing her blood pressures the patient does have a long history of extremely high blood pressure levels, dating back to 2018. once again when she was she had a systolic of 230, which was treated acutely and she was transferred out to a tertiary care facility this is an extremely high level for however at this stage I do not think her blood pressures or potential pulmonary edema are related to . Certainly I see no evidence of preeclampsia at this time. I would not recommend any therapeutics for preeclampsia at this time sp ecifically would not recommend magnesium sulfate (2) Pulmonary edema: History of Present Illness Attending Physician: Thank you for the consult Patient is known to us that she was in May 2020 she had a severe hypertensive episode and was transferred to tertiary care center as her systolics were in the 230 range she subsequently delivered a baby at approximately 27 weeks gestational age with baby still being in the intensive care At that time the delivery date was July 15 we are now over 5-1/2 weeks The patient reported increased swelling especially in her legs going up to her right upper thigh and side she does not say she is overtly short of breath at this time she does not have a cough she does not have any visual changes she does not have a headache she does not have any right upper quadrant pain. Allergies Allergy/AdvReac Type Severity Reaction Status Date / Time omeprazole Allergy Unknown HIVES Verified 08/21/20 23:03 Home Medications Medication Instructions Recorded Confirmed Type lancets [OneTouch Delica Lancets] #100 ea 03/05/18 08/21/20 Rx prenat.vits,willie,zne-ynjt-sbgmh 1 tab PO DAILY 03/17/20 08/21/20 History insulin aspart U-100 100 unit/mL See Rx Instructions SUBCUT BID #15 04/28/20 08/21/20 Rx (3 mL) subcutaneous pen ml blood sugar diagnostic #400 ea 05/15/20 08/21/20 Rx acetaminophen 325 mg tablet 650 mg PO QID PRN #90 tab 07/23/20 08/21/20 Rx ibuprofen 600 mg tablet 600 mg PO Q6H PRN #30 tab 07/23/20 08/21/20 Rx labetalol 200 mg tablet 400 mg PO Q8H #60 tab 07/23/20 08/21/20 Rx pen needle, diabetic 31 gauge x #200 ea 07/23/20 08/21/20 Rx /" aspirin [Aspirin Low Dose] 81 mg PO DAILY 08/21/20 08/21/20 History docusate sodium [Colace] 100 mg PO DAILY 08/21/20 08/21/20 History hydrochlorothiazide 25 mg tablet 25 mg PO DAILY #30 tab 08/21/20 08/21/20 Rx insulin detemir U-100 [Levemir 10 unit SUBCUT HS 08/21/20 08/21/20 History FlexTouch U-100 Insuln] ferrous fumarate-vitamin C 1 tab PO UD 08/22/20 08/22/20 History Patient History Medical History Endometriosis Facial cellulitis Hirsutism Irregular menstrual cycle Learning disability Supervision of elderly primigravida Surgical History History of tonsillectomy Hx of tonsillectomy S/P section 07/15/20 at [facility] Family History Unknown Endometriosis Grandmother (Maternal) Type 2 diabetes mellitus Denies family history of Ovarian cancer Prostate cancer Myocardial infarction Breast cancer Colorectal cancer Social History Smoking Status: Never smoker Hx Alcohol Use: No Hx Substance Use: No Preferred Language: Tunisian Communication Ability: Effective Visual Impairment: No Limitations Hearing Ability: Normal Ncqa Specialist Required: No Beliefs That Will Affect Care: None marital status: marital status details: Deny Newman (39) [phone] Current Living Situation: Spouse Current Living Situation Comment: pt and spouse live next door to her parents. 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 [employer] Feels Safe at Home: No Is there a partner from a previous relationship who is making you feel unsafe now?: No Childhood Exposure to Second-Hand Smoke: Yes Dental Care, Regularly: Yes Physical Activity Frequency: Does not Exercise Seatbelt Use: always Sunscreen Use: Yes Assistive Devices: Glasses Physical Exam Constitutional: WD/WN, vitals as above Respiratory: normal respiratory effort Neurologic: patellar DTR's 2+ bilat, sensation intact Results & Data ([facility]) Vital Signs (Past 12 Hours) Vital Signs Temp Pulse Pulse Resp BP BP BP 08/22/20 11:34 97.7 F 79 16 183/99 H 08/22/20 08:17 97.7 F 81 19 182/90 H 178/100 H 08/22/20 07:12 83 08/22/20 05:40 97.7 F 82 84 18 180/99 H 08/22/20 05:00 198/110 H 08/22/20 04:48 176/102 H 08/22/20 04:30 86 18 176/102 H 08/22/20 02:30 87 21 175/99 H 08/22/20 02:00 84 20 188/104 H Pulse Ox Pulse Ox 08/22/20 11:34 93 08/22/20 08:17 91 08/22/20 07:12 08/22/20 05:40 95 95 08/22/20 05:00 94 08/22/20 04:48 92 08/22/20 04:30 91 08/22/20 02:30 92 08/22/20 02:00 93 PG Care Time/CCT Total # of Minutes Spent Total Time Spent with Patient: Total time spent is greater than 50% in coordination of care (as documented) at patient's floor/unit and/or counseling patient: Coding Level of Care Code 60384 Inpt Consult Level 3 Diagnoses HTN (hypertension) I10 Hypertension type: unspecified Pulmonary edema J81.0 Chronicity: acute (1) Pulmonary edema Chronicity: acute Qualified Code(s): J81.0 - Acute pulmonary edema (2) HTN (hypertension) Hypertension type: unspecified Qualified Code(s): I10 - Essential (primary) hypertension
--- NOTE | 2020-08-22 14:11 | Nephrology Consultation ---
Date of Consultation August 22, 2020 Assessment & Plan (1) HTN (hypertension): * Chronic hypertension was present prior to and previously managed w/ BAYLEE inhibitor therapy * Patient is s/p due to preecalmpsia 07/15/20. She does not intend to breast feed * LFT's are wnl. Primary service has ordered Labetalol 400 mg po TID for blood pressure management * Will start low dose Lisinopril for BP management and to lower urinary protein * Target SBP is < or = 130 mmHG. Attempt to transition entirely to BAYLEE + low dose diuretic * Urine microscopy is negative for cellular casts (2) Peripheral edema: * Agree w/ low dose Furosemide to help mobilize peripheral edema (3) Intellectual disability: History of Present Illness Reason for Consultation: HTN, peripheral edema Attending Physician: Livier Zambrano MD History of Present Illness Mrs. Newman is a 40 year old white female who is seen at the request of Dr. Zambrano for evaluation of HTN and peripheral edema. Medical records in the EMR were reviewed and are summarized as follows: Mrs. Newman has a longstanding h/o HTN. Notes from PCP indicate that BP has been poorly controlled in the past. Patient has mild cognitive impairment and adherence to prescribed medical therapy has been questionable. In early 2019 her blood pressure was managed w/ Lisinopril 20 mg daily. Mrs. Newman's medical history is also significant for insulin requiring T2DM, PCOS, and documented proteinuria. Mrs. Newman was last hospitalized 06/05. She was and presented w/ severe HTN (SBP 230 mmHg). She was transferred to a tertiary care facility and delivered her baby at 27 weeks gestation. She is now ~ 5 weeks and presented to the ED w/ concerns of progressive LE swelling and dyspnea. CXR revealed mild pulmonary edema. Mrs. Newman was given 40 mg IV Furosemide and admitted to the hospitalist service for ongoing medical management. Echocardiogram this admission reveals LVEF 55-60%, no RWMA. Nephrology consultation has been requested to assist w/ management of HTN and peripheral edema Allergies Allergy/AdvReac Type Severity Reaction Status Date / Time omeprazole Allergy Unknown HIVES Verified 08/21/20 23:03 Home Medications Medication Instructions Recorded Confirmed Type lancets [OneTouch Delica Lancets] #100 ea 03/05/18 08/21/20 Rx prenat.vits,willie,yxd-mfav-obxbx 1 tab PO DAILY 03/17/20 08/21/20 History insulin aspart U-100 100 unit/mL See Rx Instructions SUBCUT BID #15 04/28/20 08/21/20 Rx (3 mL) subcutaneous pen ml blood sugar diagnostic #400 ea 05/15/20 08/21/20 Rx acetaminophen 325 mg tablet 650 mg PO QID PRN #90 tab 07/23/20 08/21/20 Rx ibuprofen 600 mg tablet 600 mg PO Q6H PRN #30 tab 07/23/20 08/21/20 Rx labetalol 200 mg tablet 400 mg PO Q8H #60 tab 07/23/20 08/21/20 Rx pen needle, diabetic 31 gauge x #200 ea 07/23/20 08/21/20 Rx 05/19" aspirin [Aspirin Low Dose] 81 mg PO DAILY 08/21/20 08/21/20 History docusate sodium [Colace] 100 mg PO DAILY 08/21/20 08/21/20 History hydrochlorothiazide 25 mg tablet 25 mg PO DAILY #30 tab 08/21/20 08/21/20 Rx insulin detemir U-100 [Levemir 10 unit SUBCUT HS 08/21/20 08/21/20 History FlexTouch U-100 Insuln] ferrous fumarate-vitamin C 1 tab PO UD 08/22/20 08/22/20 History Patient History Medical History Endometriosis Facial cellulitis Hirsutism Irregular menstrual cycle Learning disability Supervision of elderly primigravida Surgical History History of tonsillectomy Hx of tonsillectomy S/P section 07/15/20 at [facility] Family History Unknown Endometriosis Grandmother (Maternal) Type 2 diabetes mellitus Denies family history of Ovarian cancer Prostate cancer Myocardial infarction Breast cancer Colorectal cancer Social History Smoking Status: Never smoker Hx Alcohol Use: No Hx Substance Use: No Preferred Language: [place] Communication Ability: Effective Visual Impairment: No Limitations Hearing Ability: Normal 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 Feels Safe at Home: No Is there a partner from a previous relationship who is making you feel unsafe now?: No Childhood Exposure to Second-Hand Smoke: Yes Dental Care, Regularly: Yes Physical Activity Frequency: Does not Exercise Seatbelt Use: always Sunscreen Use: Yes Assistive Devices: Glasses Review of Systems Constitutional: no fever Eyes: no problem reported Ear, Nose, Mouth, Throat: no problem reported Respiratory: no dyspnea Cardiovascular: + edema; no chest pain Gastrointestinal: no abdominal pain Genitourinary: no dysuria and no hematuria Musculoskeletal: no back pain Integumentary: no rash Neurologic: no dizziness and no confusion Physical Exam Constitutional: + overweight; not in distress Eyes: PERRL, conjunctivae normal, anicteric sclerae ENMT: external ear and nose normal, oropharynx normal Neck: trachea midline, no thyromegaly Respiratory: normal respiratory effort, lungs clear to auscultation Cardiovascular: Rate/Rhythm: regular rate and regular rhythm Extremities: + edema (1+ edema extending from the hips distal to the feet) Gastrointestinal (Abdomen): normal bowel sounds, soft, nontender, no hepatosplenomegaly Skin: no rashes Neurologic: awake; not confused Results & Data ([facility]) Vital Signs (Past 12 Hours) Vital Signs Temp Pulse Pulse Resp BP BP BP 08/22/20 11:34 36.5 C 79 16 183/99 H 08/22/20 08:17 36.5 C 81 19 182/90 H 178/100 H 08/22/20 07:12 83 08/22/20 05:40 36.5 C 82 84 18 180/99 H 08/22/20 05:00 198/110 H 08/22/20 04:48 176/102 H 08/22/20 04:30 86 18 176/102 H 08/22/20 02:30 87 21 175/99 H Pulse Ox Pulse Ox 08/22/20 11:34 93 08/22/20 08:17 91 08/22/20 07:12 08/22/20 05:40 95 95 08/22/20 05:00 94 08/22/20 04:48 92 08/22/20 04:30 91 08/22/20 02:30 92 Laboratory Tests 09/26/17 04/09/20 08/21/20 09:42 09:05 22:50 WBC Hgb Hct Plt Count Sodium 139 Potassium 4.1 Chloride 109 H Carbon Dioxide 25 BUN 20 H Creatinine 1.20 Glucose 94 AST 23 ALT 45 Alkaline Phosphatase 123 H Albumin 3.0 L Urine Color Ur Specific Fabius Urine Protein Urine Glucose (UA) Urine Blood Urine WBC (Auto) Urine RBC (Auto) U Hyaline Cast (Auto) Microalb/Creat Ratio 843.9 H Ur Total Protein 24 Hr 4215.0 H 08/21/20 08/22/20 22:50 Unknown WBC 5.31 Hgb 10.5 L Hct 32.0 L Plt Count 320 Sodium Potassium Chloride Carbon Dioxide BUN Creatinine Glucose AST ALT Alkaline Phosphatase Albumin Urine Color Yellow Ur Specific Fabius 1.009 Urine Protein 2+ H Urine Glucose (UA) Negative Urine Blood 3+ H Urine WBC (Auto) 1-5 Urine RBC (Auto) >30 H U Hyaline Cast (Auto) 1-5 Microalb/Creat Ratio Ur Total Protein 24 Hr PG Care Time/CCT Total # of Minutes Spent Total Time Spent with Patient: Total time spent is greater than 50% in coordination of care (as documented) at patient's floor/unit and/or counseling patient: Coding Level of Care Code 38294 Inpt Consult Level 5 Diagnoses HTN (hypertension) I10 Hypertension type: unspecified Peripheral edema R60.9 Intellectual disability F79 (1) HTN (hypertension) Hypertension type: unspecified Qualified Code(s): I10 - Essential (primary) hypertension
[2020-08-22] MEDS: lisinopril 10 MG TAB PO SCH (14:54)
--- NOTE | 2020-08-22 14:55 | Pharmacy Report ---
Pharmacy Glycemic Short Note 2 - Date of Service August 22, 2020 - Glycemic Short BSG Results (Last 24 hours): 08/21/20 08/22/20 08/22/20 22:50 05:42 07:43 Glucose 94 POC Glucose 91 91 08/22/20 11:19 Glucose POC Glucose 120 H OUTPATIENT ANTIDIABETIC REGIMEN: * Levemir 10 units HS * Novolog Sliding scale (~20 units/day) ASSESSMENT: * 40 year old female with PMHx DM2, HTN, PCOS, Preeclampsia that presents with worsening of LE swelling the past 2.5 weeks in addition to worsening SOB on exertion and orthopnea. 5 weeks post , s/p at 27 weeks gestation. * Patient took 10 units Levemir SOURCING INTERN yesterday, blood sugars at goal, will continue basal dose and CF/CR and titrate to goal. PLAN FOR INPATIENT GLYCEMIC CONTROL: * Basal insulin * Lantus 10 units SQ HS * Bolus insulin * NovoLog per scale ACHS or Q6hrs while NPO * Goal Range: Low 110 mg/dL - High 140 mg/dL * Correction Factor: 35 mg/dL/unit * Nutritional / Prandial insulin per carb ratio of 1 unit per 12 grams CHO consumed
--- NOTE | 2020-08-22 14:57 | Electrocardiogram Report ---
Test Reason : Blood Pressure : / mmHG Vent. Rate : 085 BPM Atrial Rate : 085 BPM P-R Int : 174 ms QRS Dur : 070 ms QT Int : 402 ms P-R-T Axes : 055 023 005 degrees QTc Int : 478 ms Normal sinus rhythm Possible Anterior infarct , age undetermined Abnormal ECG When compared with ECG of 28-JAN-2017 11:00, No significant change was found Confirmed by Jose Lamar ([id number]) on 08/22/2020 2:56:44 PM Referred By: Charles Gonzalez Confirmed By:Jose Lamar
[2020-08-22] MEDS ORDERED: ALPRAZolam 0.5 MG TABLET PO STA (15:54)
[2020-08-22 16:21] LABS: Appearance Urine Clear (Clear); Bacteria Urine Automated Negative (Negative); Bilirubin Urine Negative (Negative); Blood Urine 2+ (Negative); Color Urine Yellow; Epithelial Cell Urine Auto 0-5 /lpf (0-5); Glucose Urine UA Negative (Negative); Ketones Urine Negative (Negative); Leukocyte Esterase Urine Negative (Negative); Nitrite Urine Negative (Negative); Specific Gravity Urine 1.009 (1.000-1.030); Urobilinogen Urine Negative (Negative); pH Urine 7.5 (4.5-7.5)
[2020-08-22 16:47] LABS: Protein Urine 3+ (Negative)
[2020-08-22 17:16] LABS: Creatinine Urine Random 15.4 mg/dl; Total Protein Urine Random 153.7 mg/dl (0-11.9)
--- NOTE | 2020-08-22 18:19 | Hospitalist Progress Note ---
Date of Service August 22, 2020 Assessment & Plan (1) Shortness of breath: 40yo female with PMHx DM2, HTN, PCOS, preeclampsia with severe features, [place]07[place]15/[address] [facility] [place] presents with a 2.5 week history of worsening LE edema and severe range BP in addition to worsening SOB on exertion. Hypertensive urgency in setting of Chronic HTN LE edema Proteinuria Microscopic Hematuria -Presentation concerning for CHF given LE edema, Orthopnea, JVD, rales ирина ateral; BNP elevated at 1311, CXR showing pulmonary edema -EF 55-60% suggests against cardiomyopathy -Per OBGYN, PEE w/ SF is an unlikely unifying diagnosis given the time since delivery, normal AST/ALT/platelets. Cr elevated but not new given patient's history of diabetic nephropathy, and patient is without severe headache, visual changes, or RUQ pain -Nephrology consulted, recommends continuation of labetalol, starting low-dose lisinopril for BP and proteinuria management, target SBP<130, goal to eventually transition entirely to ACEI + low-dose diuretic -continue labetalol 400mg PO tid -lasix IV converted to lasix 40mg PO qd, to start 08/22 -continue lisinopril -continue ASA 81mg qd -CBC, CMP in AM -late night salivary cortisol DM2 -Previously on metformin though this was discontinued during -Continue SSI and basal/bolus -Pharmacy consult placed for glycemic control, recommendations appreciated Anxiety -08/22: patient very anxious and tearful today; xanax 0.5mg trialed with good effect -xanax 0.5mg PO q6h prn - will reevaluate daily -consider SSRI PCOS -Previously on metformin, though discontinued during -Recommend outpatient follow-up to consider restarting this Dispo: med/surg telemetry for continuous monitoring and diuresis FEN: DM2 diet DVT ppx: lovenox Code status: full (2) Neck mass: (3) Intellectual disability: (4) PCOS (polycystic ovarian syndrome): (5) HTN (hypertension): Admission and Anticipated Discharge Date Admission Date: August 22, 2020 Supervising Physician Co-Signing Physician Notes Resident Physician Supervision Note: I independently interviewed and examined the patient and verified the jansen history and physical, reviewed labs and image studies, discussed the case with the resident Dr. Mcqueen and agree with the findings and care plan. Subjective Patient seen at bedside this morning. Feels "fine" overall, no acute distress. Endorses mild shortness of breath, and the LE edema is bothering her, but otherw ise is relatively asymptomatic. Denies pain including leg pain, abdominal pain (including RUQ pain), or headache, denies CP, nausea, vomiting, vision changes, dizziness, lightheadedness, or other symptoms. Anxious and easily becomes tearful during interview, telling me she cries easily and doesn't want to be in the hospital, although she does feel safe here. Noted bruises on her back - tells me she feels safe at home and has a good relationship with her . No other concerns voiced. Asked me to call her - I did, could not reach him, left a voicemail. Review of Systems Review of Systems: See HPI Physical Exam Physical Exam: Well-appearing, NAD, cooperative CV: regular rhythm, no murmur or gallop appreciated, LE edema up to the hips Resp: no respiratory distress, no tachypnea or increased WOB, diminished lung sounds, no wheezes appreciated, faint rales appreciated at lung bases Abd: soft, nontender, nondistended Skin: two 5x5cm ecchymosis noted on back, one medially at the thoracic level, another a bit higher on the right side MSK: reflexes normal, not brisk Neuro: no focal deficits appreciated Psych: labile affect, pleasant and cooperative then quickly becomes tearful, anxious but redirectable, able to be reassured, linear logical thought process Results & Data Results & Data ([facility]) Vital Signs (Past 12 Hours) Vital Signs Temp Pulse Pulse Resp BP BP Pulse Ox 08/22/20 16:29 81 206/107 H 193/104 H 08/22/20 16:22 84 08/22/20 15:23 36.6 C 82 17 195/116 H 188/85 H 91 08/22/20 11:34 36.5 C 79 16 183/99 H 93 08/22/20 08:17 36.5 C 81 19 182/90 H 178/100 H 91 08/22/20 07:12 83 Resident Activity Tracking Resident Involvement: Resident Care Provided Care Provided: Adult Hospital Medicine (1) HTN (hypertension) Hypertension type: unspecified Qualified Code(s): I10 - Essential (primary) hypertension
[2020-08-22] MEDS ORDERED: ALPRAZolam 0.5 MG TABLET PO PRN (21:00)
[2020-08-23 06:33] LABS: Basophils # (auto) 0.05 K/uL (0-0.2); Basophils % (auto) 0.9 %; Eosinophils # (auto) 0.17 K/uL (0-0.5); Eosinophils % (auto) 3.1 %; Hematocrit (blood only) 31.1 % (37-47); Hemoglobin 10.4 g/dL (12.0-16.0); Immature Granulocytes # (auto) 0.01 K/uL (0.00-0.02); Immature Granulocytes % (auto) 0.2 %; Lymphocytes # (auto) 1.76 K/uL (1.2-3.4); Lymphocytes % (auto) 32.6 %; Mean Corpuscular Hemoglobin 29.9 pg (25-34); Mean Corpuscular Hgb Conc 33.4 g/dL (32-36); Mean Corpuscular Volume 89.4 fL (80-100); Mean Platelet Volume 9.1 fL (7.4-10.4); Monocytes # (auto) 0.77 K/uL (0.11-0.59); Monocytes % (auto) 14.3 %; Neutrophils # (auto) 2.64 K/uL (1.4-6.5); Neutrophils % (auto) 48.9 %; Platelet Count 310 K/uL (130-400); RDW Coefficient of Variation 13.4 % (11.5-14.5); RDW Standard Deviation 44.2 fL (36.4-46.3); Red Blood Count 3.48 M/uL (4.2-5.4)
[2020-08-23 07:06] LABS: Albumin Globulin Ratio 0.8 (0.9-2); Albumin Level 2.7 gm/dl (3.4-5.0); BUN Creatinine Ratio 15.4 (10-20); Bilirubin,Total 0.6 mg/dl (0.2-1); Calcium 8.7 mg/dl (8.5-10.1); Creatinine Clr Calc Pharmacy 94.7 ml/min; Est GFR (African American) 95.9; Est GFR (Non-African American) 82.8; Globulin 3.5 gm/dl (2.5-4.0); Potassium 3.5 mmol/L (3.5-5.1); Total Protein 6.2 gm/dl (6.4-8.2)
--- NOTE | 2020-08-23 07:21 | Hospitalist Progress Note ---
Date of Service August 23, 2020 Assessment & Plan (1) Shortness of breath: 40yo female with PMHx DM2, HTN, PCOS, preeclampsia with severe features, recent (07/15/20 at [facility] [place] presents with a 2.5 week history of worsening LE edema and severe range BP in addition to worsening SOB on exertion. Hypertensive urgency in setting of Chronic HTN LE edema Proteinuria Microscopic Hematuria -Presentation concerning for CHF given LE edema, Orthopnea, JVD, rales bi lateral; BNP elevated at 1311, CXR showing pulmonary edema -EF 55-60% suggests against cardiomyopathy -Per OBGYN, PEE w/ SF is an unlikely unifying diagnosis given the time since delivery, normal AST/ALT/platelets. Cr elevated but not new given patient's history of diabetic nephropathy, and patient is without severe headache, visual changes, or RUQ pain -Nephrology consulted, recommends continuation of labetalol, starting low-dose lisinopril for BP and proteinuria management, target SBP<130, goal to eventually transition entirely to ACEI + low-dose diuretic -continue labetalol 400mg PO tid -lasix IV converted to lasix 40mg PO qd (on 08/22) -continue lisinopril (increased from 5mg qd to 40mg qd on 08/23 - patient was on an ACEI before ) -hydralazine 25mg tid (added 08/23 per nephro recommendation) -nocturnal pulse oximetry to evaluate for possible sleep apnea -continue ASA 81mg qd -CBC, CMP in AM DM2 -Previously on metformin though this was discontinued during -Continue SSI and basal/bolus -Pharmacy consult placed for glycemic control, recommendations appreciated Anxiety -08/22: patient very anxious and tearful today; xanax 0.5mg trialed with good effect -08/23: patient more calm and comfortable on exam; will continue to treat anxiety -continue xanax 0.5mg PO tid scheduled (changed from q6h prn to tid scheduled on 08/23 per nephro recommendation) -start sertraline 50mg PO qAM PCOS -Previously on metformin, though discontinued during -Recommend outpatient follow-up to consider restarting this Dispo: med/surg telemetry for continuous monitoring and diuresis FEN: DM2 diet DVT ppx: lovenox Code status: full (2) Neck mass: (3) Intellectual disability: (4) PCOS (polycystic ovarian syndrome): (5) HTN (hypertension): Admission and Anticipated Discharge Date Admission Date: August 22, 2020 Supervising Physician Co-Signing Physician Notes Resident Physician Supervision Note: I independently interviewed and examined the patient and verified the jansen history and physical, reviewed labs and image studies, discussed the case with the resident Dr. Mcqueen and agree with the findings and care plan. Subjective Patient seen at bedside this morning. Feels "okay" today. Per patient, shortness of breath has resolved. The LE edema continues to bug her, but "not too much". Otherwise feels well. Denies leg pain, abdominal pain, or headache, denies CP, nausea, vomiting, vision changes, dizziness, lightheadedness. Calm, cooperative, interactive today. Spoke to her today, his questions were answered to his satisfaction, he is pleased with our care and appreciated the call. Review of Systems Review of Systems: See HPI Physical Exam Physical Exam: Well-appearing, NAD CV: regular rhythm, no murmur or gallop appreciated, LE edema up to the hips, same level as 08/22 Resp: lung sounds diminished but CTABL, no tachypnea or increased WOB Abd: soft, nontender, nondistended Neuro: no focal deficits appreciated Psych: euthymic, pleasant, cooperative, mood stable, linear logical thought process Results & Data Results & Data ([facility]) Vital Signs (Past 12 Hours) Vital Signs Temp Pulse Pulse Pulse Resp BP Pulse Ox 08/23/20 07:09 83 08/23/20 06:46 36.7 C 87 18 200/96 H 91 08/23/20 04:00 36.6 C 81 18 198/102 H 90 08/23/20 00:00 79 08/22/20 23:00 36.6 C 81 81 H 197/102 H 91 08/22/20 20:31 81 197/104 H Resident Activity Tracking Resident Involvement: Resident Care Provided Care Provided: Adult Hospital Medicine (1) HTN (hypertension) Hypertension type: unspecified Qualified Code(s): I10 - Essential (primary) hypertension
[2020-08-23] MEDS: ASPIRIN 81 MG ECTAB PO SCH (07:51)
[2020-08-23] MEDS: ENOXAPARIN INJ 40 MG/0.4 ML SYR SQ SCH ×2 (07:51→20:27)
[2020-08-23] MEDS: LABETALOL HCL 200 MG TAB PO SCH ×2 (07:51→16:55)
[2020-08-23] MEDS: FUROSEMIDE 40 MG TAB PO SCH (07:51)
[2020-08-23] MEDS: lisinopril 10 MG TAB PO SCH (07:52)
[2020-08-23] MEDS: INSULIN ASPART 100 UNITS/ML 3 ML PEN SC SCH ×4 (07:55→20:40)
--- NOTE | 2020-08-23 08:26 | Ultrasound Report ---
ABDOMINAL ULTRASOUND, RIGHT UPPER QUADRANT HISTORY: lower extremity edema, elevated Alk Phos. COMPARISON: None. FINDINGS: Pancreas: The pancreatic head and tail are obscured by overlying bowel gas. The remaining portions of the pancreas are within normal limits. Liver: Mildly enlarged measuring 19 cm in length. A right pleural effusion is noted. The Gallbladder: The gallbladder is completely filled with stones. No definite gallbladder wall thickenin g. CBD: 6 mm. Right kidney: No hydronephrosis. IMPRESSION: 1. The gallbladder is completely filled with stones. No definite gallbladder wall thickening. 2. Hepatomegaly. 3. Right pleural effusion. ACT 112: Negative or not required by law. Electronically signed by: Mark Mcclure M.D. 08/23/2020 8:24 AM
--- NOTE | 2020-08-23 12:16 | Nephrology Progress Note ---
Date of Service August 23, 2020 Assessment & Plan (1) Hypertensive urgency: 40-year-old female with recent preeclampsia during status post on 07/15/2020. she has been doing well until recently when she started to have shortness of breath, weight gain and came to the hospital. Prior to hospital admission, at home her blood pressure has been very well controlled with history of primary hypertension and diabetes before. Since admission her blood pressure has been running high with systolic around 190s to 200. Has more than 10 g proteinuria, hypoalbuminemia as well as lower extremity edema. She was seen by OBGYN and concluded at that she does not have pr eeclampsia. Blood pressure remained elevated or on labetalol, lisinopril and Lasix although volume status and respiratory status slightly improved. Spoke with her Deny ( H: [phone], C: [phone]) over telephone who reported that she was previously diagnosed with extreme social anxiety although she was not on any medication. She also had significantly elevated blood pressure prior to DC from [facility] however within 2 hours after coming home her blood pressure came down to 130s from 170s systolic. BP also 120 to 130 at her PCP visit. Creatinine has been normal, electrolyte acceptable. Unclear whether more than 10 g of proteinuria, hypoalbuminemia, recent weight gain and poorly-controlled hypertension all can be attributed to her underlying hypertension and diabetes or she in fact has preeclampsia superimposed on primary hypertension although she does not have headache or visual changes. --start on hydralazine 25 mg t.i.d. and increase dose as needed --increase lisinopril to 40 mg p.o. daily, continue on furosemide 40 and labetalol current dose. --recommend changing Xanax .5 mg t.i.d. instead of p.r.n. Will follow Thank you for allowing me to participate in your patient's care. It was a pleasure to see August (2) Pulmonary edema: (3) Nephrotic syndrome: Admission and Anticipated Discharge Date Admission Date: August 22, 2020 Subjective Delaney was seen and evaluated in her room this morning. Shortness of breath im proved but she continues to have some lower extremity edema. Denies headache, chest pain, visual changes or flank pain. She denies being anxious. Blood pressure remained elevated with systolic around 190s to 200 diastolic 90-100. Creatinine and other electrolyte acceptable. Review of Systems Review of Systems: All systems reviewed & are unremarkable except as noted in Subjective Physical Exam Constitutional: WD/WN, vitals as above no acute distress Neck: normal visual inspection Respiratory: normal respiratory effort; no respiratory distress Auscultation: + rales Cardiovascular: Rate/Rhythm: regular rate and regular rhythm Heart Sounds: normal S1 and normal S2 Extremities: + edema Skin: no rashes, warm and dry Neurologic: no focal motor deficits and not confused Psychiatric: A+Ox3, euthymic affect Results & Data ([facility]) Vital Signs (Past 12 Hours) Vital Signs Temp Pulse Pulse Pulse Resp BP BP 08/23/20 11:52 36.7 C 83 18 190/99 H 188/107 H 08/23/20 07:09 83 08/23/20 06:46 36.7 C 87 18 200/96 H 08/23/20 04:00 36.6 C 81 18 198/102 H Pulse Ox 08/23/20 11:52 94 08/23/20 07:09 08/23/20 06:46 91 08/23/20 04:00 90 PG Care Time/CCT Total # of Minutes Spent Total Time Spent with Patient: Total time spent is greater than 50% in coordination of care (as documented) at patient's floor/unit and/or counseling patient: Coding Level of Care Code 45517 Subseq Hosp Care Lvl 3 Diagnoses Hypertensive urgency I16.0 Pulmonary edema J81.0 Chronicity: acute Nephrotic syndrome N04.9 (1) Pulmonary edema Chronicity: acute Qualified Code(s): J81.0 - Acute pulmonary edema
[2020-08-23] MEDS: lisinopril 40 MG TAB PO SCH (12:56)
[2020-08-23] MEDS: hydrALAZINE HCL 25 MG TAB PO SCH ×2 (12:56→20:27)
[2020-08-23] MEDS: ALPRAZolam 0.5 MG TABLET PO SCH ×2 (14:30→20:27)
[2020-08-23] MEDS: SERTRALINE HCL 50 MG TABLET PO SCH (14:36)
[2020-08-23] MEDS ORDERED: INSULIN GLARGINE SOLOSTAR 100 UNITS/ML 3 ML PEN SC SCH (21:00)
[2020-08-24] MEDS: LABETALOL HCL 200 MG TAB PO SCH ×3 (00:28→17:34)
[2020-08-24] MEDS: lisinopril 40 MG TAB PO SCH (07:25)
[2020-08-24] MEDS: FUROSEMIDE 40 MG TAB PO SCH ×2 (07:26→17:34)
[2020-08-24] MEDS: SERTRALINE HCL 50 MG TABLET PO SCH (07:26)
[2020-08-24] MEDS: ASPIRIN 81 MG ECTAB PO SCH (07:26)
[2020-08-24] MEDS: hydrALAZINE HCL 25 MG TAB PO SCH (07:26)
[2020-08-24] MEDS: ENOXAPARIN INJ 40 MG/0.4 ML SYR SQ SCH ×2 (07:27→20:32)
[2020-08-24] MEDS: ALPRAZolam 0.5 MG TABLET PO SCH ×3 (07:30→20:32)
[2020-08-24 07:49] LABS: Basophils # (auto) 0.05 K/uL (0-0.2); Basophils % (auto) 0.9 %; Eosinophils # (auto) 0.16 K/uL (0-0.5); Eosinophils % (auto) 2.8 %; Hematocrit (blood only) 30.6 % (37-47); Hemoglobin 10.3 g/dL (12.0-16.0); Immature Granulocytes # (auto) 0.01 K/uL (0.00-0.02); Immature Granulocytes % (auto) 0.2 %; Lymphocytes # (auto) 1.82 K/uL (1.2-3.4); Lymphocytes % (auto) 32.1 %; Mean Corpuscular Hemoglobin 30.1 pg (25-34); Mean Corpuscular Hgb Conc 33.7 g/dL (32-36); Mean Corpuscular Volume 89.5 fL (80-100); Monocytes # (auto) 0.69 K/uL (0.11-0.59); Monocytes % (auto) 12.2 %; Neutrophils # (auto) 2.94 K/uL (1.4-6.5); Neutrophils % (auto) 51.8 %; Platelet Count 296 K/uL (130-400); RDW Coefficient of Variation 13.3 % (11.5-14.5); RDW Standard Deviation 43.6 fL (36.4-46.3); Red Blood Count 3.42 M/uL (4.2-5.4); White Blood Count 5.67 K/uL (4.8-10.8)
--- NOTE | 2020-08-24 07:53 | Hospitalist Progress Note ---
Date of Service August 24, 2020 Assessment & Plan (1) Shortness of breath: 40yo female with PMHx DM2, HTN, PCOS, preeclampsia with severe features, recent (07/15/20 at [facility] [place]) presents with a 2.5 week history of worsening LE edema and severe range BP in addition to worsening SOB on exertion. Hypertensive urgency in setting of Chronic HTN Acute on chronic diastolic heart failure causing LE edema Proteinuria Microscopic Hematuria -Presentation concerning for HF given LE edema, orthopnea, JVD, bilateral rales on admission; BNP elevated at 1311, CXR showing pulmonary edema -EF 55-60% suggests against cardiomyopathy; HFpEF remains in the diff erential -OBGYN consult - low suspicion for preeclampsia (OBGYN has signed off) -Nephrology following, appreciate ongoing recommendations -Nocturnal pulse oximetry unremarkable - low suspicion for VERNELL contributing to elevated BP -Lasix 40mg PO bid (increased from daily to twice daily on 08/24 per nephrology) -Hydralazine 50mg PO tid (increased from 25mg tid to 50mg tid on 08/24 per nephrology) -Labetalol 400mg PO tid -Lisinopril 40mg qd -ASA 81mg qd -CBC, CMP in AM DM2 -Previously on metformin though this was discontinued during -Continue SSI and basal/bolus -Pharmacy consult placed for glycemic control, recommendations appreciated -Patient had endocrinology appointment planned just prior to delivery, did not make appointment - recommend following up with them Anxiety -Per patient's , patient has been diagnosed in the past with severe social anxiety, but did not pursue treatment; patient was not on anxiety meds prior to admission -Continue xanax 0.5mg PO tid scheduled -Continue sertraline 50mg PO qAM (started 08/23) PCOS -Previously on metformin, though discontinued during -Recommend outpatient endocrinology follow-up as above Dispo: med/surg telemetry for continuous monitoring and diuresis FEN: DM2 diet DVT ppx: lovenox Code status: full (2) Neck mass: (3) Intellectual disability: (4) PCOS (polycystic ovarian syndrome): (5) HTN (hypertension): Admission and Anticipated Discharge Date Admission Date: August 22, 2020 Supervising Physician Co-Signing Physician Notes Resident Physician Supervision Note: I independently interviewed and examined the patient and verified the jansen history and physical, reviewed labs and image studies, discussed the case with the resident Dr. Mcqueen and agree with the findings and care plan. Subjective Patient seen at bedside. Feels well today, edema continues, subjectively unchanged per patient from yesterday. No SOB, CP, abdominal pain, headache, nausea, vomiting, or other symptoms. Reports her anxiety is "fine" today, she feels "alright", tolerating the hospital well but misses her . Let patient know I would give him another call today. RN noted dark BM today described as gritty and blackish in color but not tarry - noted that patient is on oral iron supplementation at home. Review of Systems Review of Systems: See HPI Physical Exam Physical Exam: Well-appearing, NAD CV: regular rhythm, no murmur or gallop appreciated, LE edema up to the hips unchanged from prevous day Resp: lung sounds diminished but CTABL, no tachypnea or increased WOB Abd: soft, nontender, nondistended Skin: two bruises noted on back, unchanged from 08/22 Neuro: no focal deficits appreciated Psych: euthymic, pleasant, cooperative, mood stable, linear logical thought process Results & Data Results & Data ([facility]) Vital Signs (Past 12 Hours) Vital Signs Temp Pulse Pulse Pulse Pulse Resp BP 08/24/20 07:09 85 08/24/20 06:50 36.9 C 77 20 177/96 H 08/24/20 05:51 88 08/24/20 05:13 90 08/24/20 03:45 36.8 C 90 20 179/91 H 08/24/20 03:34 87 08/24/20 00:29 95 H 08/24/20 00:25 36.6 C 91 H 18 188/112 H 08/23/20 22:58 87 08/23/20 21:34 87 Pulse Ox Pulse Ox 08/24/20 07:09 08/24/20 06:50 93 08/24/20 05:51 08/24/20 05:13 91 08/24/20 03:45 96 08/24/20 03:34 89 L 08/24/20 00:29 93 08/24/20 00:25 89 L 08/23/20 22:58 89 L 08/23/20 21:34 93 Resident Activity Tracking Resident Involvement: Resident Care Provided Care Provided: Adult Hospital Medicine (1) HTN (hypertension) Hypertension type: unspecified Qualified Code(s): I10 - Essential (primary) hypertension
[2020-08-24 08:20] LABS: Albumin Level 2.7 gm/dl (3.4-5.0); BUN Creatinine Ratio 17.9 (10-20); Calcium 8.7 mg/dl (8.5-10.1); Creatinine Clr Calc Pharmacy 94.7 ml/min; Est GFR (African American) 95.9; Est GFR (Non-African American) 82.8; Potassium 3.7 mmol/L (3.5-5.1)
[2020-08-24 08:23] LABS: Albumin Globulin Ratio 0.9 (0.9-2); Bilirubin,Total 0.5 mg/dl (0.2-1); Total Protein 5.7 gm/dl (6.4-8.2)
[2020-08-24] MEDS: INSULIN ASPART 100 UNITS/ML 3 ML PEN SC SCH ×4 (08:33→21:18)
--- NOTE | 2020-08-24 10:42 | Nephrology Progress Note ---
Date of Service August 24, 2020 Assessment & Plan (1) Hypertensive urgency: 40-year-old female with recent preeclampsia during status post on 07/15/2020. she has been doing well until recently when she started to have shortness of breath, weight gain and came to the hospital. Prior to hospital admission, at home her blood pressure has been very well controlled with history of primary hypertension and diabetes before. Since admission her blood pressure has been running high with systolic around 190s to 200. Has more than 10 g proteinuria, hypoalbuminemia as well as lower extremity edema. She was seen by OBGYN and concluded at that she does not have pr eeclampsia. Blood pressure remained elevated or on labetalol, lisinopril and Lasix although volume status and respiratory status slightly improved. Spoke with her Deny ( H: [phone], C: [phone]) over telephone who reported that she was previously diagnosed with extreme social anxiety although she was not on any medication. She also had significantly elevated blood pressure prior to DC from [facility] however within 2 hours after coming home her blood pressure came down to 130s from 170s systolic. BP also 120 to 130 at her PCP visit. Creatinine has been normal, electrolyte acceptable. Unclear whether more than 10 g of proteinuria, hypoalbuminemia, recent weight gain and poorly-controlled hypertension all can be attributed to her underlying hypertension and diabetes or she in fact has preeclampsia superimposed on primary hypertension although she does not have headache or visual changes. --increase hydralazine to 50 mg t.i.d. and increase dose as needed --continue lisinopril 40 mg p.o. daily, increase furosemide to 40 mg BID and labetalol current dose. --on Xanax .5 mg t.i.d but did not make much difference yet Will follow (2) Pulmonary edema: (3) Nephrotic syndrome: Admission and Anticipated Discharge Date Admission Date: August 22, 2020 Subjective August was seen and examined in his room this am. Denies SOB, CP, headache, visual changes, has persistent LE edema. BP remained elevated. Decent UO. Review of Systems Review of Systems: All systems reviewed & are unremarkable except as noted in Subjective Physical Exam Constitutional: WD/WN, vitals as above no acute distress Neck: normal visual inspection Respiratory: Auscultation: + diminished lung sounds; no crackles and no wheezes Cardiovascular: Rate/Rhythm: regular rate and regular rhythm Heart Sounds: normal S1 and normal S2 Extremities: + edema Skin: no rashes, warm and dry Neurologic: no focal motor deficits and not confused Psychiatric: A+Ox3, euthymic affect Results & Data ([facility]) Vital Signs (Past 12 Hours) Vital Signs Temp Pulse Pulse Pulse Pulse Resp BP 08/24/20 07:09 85 08/24/20 06:50 36.9 C 77 20 177/96 H 08/24/20 05:51 88 08/24/20 05:13 90 08/24/20 03:45 36.8 C 90 20 179/91 H 08/24/20 03:34 87 08/24/20 00:29 95 H 08/24/20 00:25 36.6 C 91 H 18 188/112 H 08/23/20 22:58 87 Pulse Ox Pulse Ox 08/24/20 07:09 08/24/20 06:50 93 08/24/20 05:51 08/24/20 05:13 91 08/24/20 03:45 96 08/24/20 03:34 89 L 08/24/20 00:29 93 08/24/20 00:25 89 L 08/23/20 22:58 89 L PG Care Time/CCT Total # of Minutes Spent Total Time Spent with Patient: Total time spent is greater than 50% in coordination of care (as documented) at patient's floor/unit and/or counseling patient: Coding Level of Care Code 35068 Subseq Hosp Care Lvl 3 Diagnoses Hypertensive urgency I16.0 Pulmonary edema J81.0 Chronicity: acute Nephrotic syndrome N04.9 (1) Pulmonary edema Chronicity: acute Qualified Code(s): J81.0 - Acute pulmonary edema
--- NOTE | 2020-08-24 11:00 | Pharmacy Report ---
Pharmacy Glycemic Short Note 2 - Date of Service August 24, 2020 - Glycemic Short BSG Results (Last 24 hours): 08/23/20 08/23/20 08/23/20 12:03 16:22 19:59 Glucose POC Glucose 108 H 102 H 115 H 08/24/20 08/24/20 07:22 08:00 Glucose 91 POC Glucose 117 H OUTPATIENT ANTIDIABETIC REGIMEN: * Levemir 10 units HS * Novolog Sliding scale (~20 units/day) ASSESSMENT: 08/24 * Patient received total of 9 units of insulin yesterday, no basal insulin * Fasting BSG 91 mg/dL - plan to continue to hold basal insulin * BSGs well controlled over last 48 hrs PLAN FOR INPATIENT GLYCEMIC CONTROL: * Basal insulin * Lantus - hold * Bolus insulin * NovoLog per scale ACHS or Q6hrs while NPO * Goal Range: Low 110 mg/dL - High 140 mg/dL * Correction Factor: 35 mg/dL/unit * Nutritional / Prandial insulin per carb ratio of 1 unit per 12 grams CHO consumed PLAN FOR INPATIENT GLYCEMIC CONTROL: * A1c 5.1 - would ensure patient not experiencing frequent hypoglycemia outpatient if home regimen would be continued on discharge
[2020-08-24] MEDS: hydrALAZINE TAB 50 MG TAB PO SCH ×2 (13:25→20:32)
[2020-08-24 13:42] LABS: Appearance Urine Clear (Clear); Bilirubin Urine Negative (Negative); Blood Urine Negative (Negative); Color Urine Yellow; Epithelial Cell Urine Auto >30 /lpf (0-5); Glucose Urine UA Negative (Negative); Ketones Urine Trace (Negative); Leukocyte Esterase Urine Negative (Negative); Nitrite Urine Negative (Negative); Protein Urine 4+ (Negative); Specific Gravity Urine 1.021 (1.000-1.030); Urobilinogen Urine Negative (Negative); pH Urine 5.5 (4.5-7.5)
[2020-08-24 14:02] LABS: Bacteria Urine Automated 1+ (Negative); RBC Urine Automated 0-4 /hpf (0-4)
[2020-08-25] MEDS: LABETALOL HCL 200 MG TAB PO SCH ×2 (00:15→08:30)
[2020-08-25 07:47] LABS: Basophils # (auto) 0.07 K/uL (0-0.2); Basophils % (auto) 1.3 %; Eosinophils # (auto) 0.18 K/uL (0-0.5); Eosinophils % (auto) 3.4 %; Hematocrit (blood only) 29.9 % (37-47); Hemoglobin 10.1 g/dL (12.0-16.0); Lymphocytes # (auto) 1.98 K/uL (1.2-3.4); Lymphocytes % (auto) 37.9 %; Mean Corpuscular Hemoglobin 30.1 pg (25-34); Mean Corpuscular Hgb Conc 33.8 g/dL (32-36); Mean Corpuscular Volume 89.3 fL (80-100); Mean Platelet Volume 9.3 fL (7.4-10.4); Monocytes # (auto) 0.38 K/uL (0.11-0.59); Monocytes % (auto) 7.3 %; Neutrophils # (auto) 2.61 K/uL (1.4-6.5); Neutrophils % (auto) 50.1 %; Platelet Count 269 K/uL (130-400); RDW Coefficient of Variation 13.2 % (11.5-14.5); RDW Standard Deviation 43.1 fL (36.4-46.3); Red Blood Count 3.35 M/uL (4.2-5.4); White Blood Count 5.22 K/uL (4.8-10.8)
[2020-08-25 08:25] LABS: Albumin Level 2.7 gm/dl (3.4-5.0); BUN Creatinine Ratio 17.7 (10-20); Calcium 8.4 mg/dl (8.5-10.1); Creatinine Clr Calc Pharmacy 84.6 ml/min; Est GFR (African American) 84.2; Est GFR (Non-African American) 72.7; Potassium 3.7 mmol/L (3.5-5.1)
[2020-08-25 08:28] LABS: Albumin Globulin Ratio 0.9 (0.9-2); Bilirubin,Total 0.6 mg/dl (0.2-1); Globulin 3.2 gm/dl (2.5-4.0); Total Protein 5.9 gm/dl (6.4-8.2)
[2020-08-25] MEDS: ASPIRIN 81 MG ECTAB PO SCH (08:30)
[2020-08-25] MEDS: ALPRAZolam 0.5 MG TABLET PO SCH (08:30)
[2020-08-25] MEDS: SERTRALINE HCL 50 MG TABLET PO SCH (08:31)
[2020-08-25] MEDS: hydrALAZINE TAB 50 MG TAB PO SCH ×2 (08:31→13:24)
[2020-08-25] MEDS: ENOXAPARIN INJ 40 MG/0.4 ML SYR SQ SCH (08:32)
[2020-08-25] MEDS: FUROSEMIDE 40 MG TAB PO SCH (08:32)
[2020-08-25] MEDS: INSULIN ASPART 100 UNITS/ML 3 ML PEN SC SCH ×2 (08:35→12:04)
[2020-08-25] MEDS: lisinopril 40 MG TAB PO SCH (08:51)
--- NOTE | 2020-08-25 10:36 | Nephrology Progress Note ---
Date of Service August 25, 2020 Assessment & Plan (1) Hypertensive urgency: 40-year-old female with recent preeclampsia during status post on 07/15/2020. she has been doing well until recently when she started to have shortness of breath, weight gain and came to the hospital. Prior to hospital admission, at home her blood pressure has been very well controlled with history of primary hypertension and diabetes before. Since admission her blood pressure has been running high with systolic around 190s to 200. Has more than 10 g proteinuria, hypoalbuminemia as well as lower extremity edema. She was seen by OBGYN and concluded at that she does not have pr eeclampsia. Blood pressure remained elevated or on labetalol, lisinopril and Lasix although volume status and respiratory status slightly improved. Spoke with her Deny ( H: [phone], C: [phone]) over telephone who reported that she was previously diagnosed with extreme social anxiety although she was not on any medication. She also had significantly elevated blood pressure prior to DC from [facility] however within 2 hours after coming home her blood pressure came down to 130s from 170s systolic. BP also 120 to 130 at her PCP visit. Creatinine has been normal, electrolyte acceptable. Unclear whether more than 10 g of proteinuria, hypoalbuminemia, recent weight gain and poorly-controlled hypertension all can be attributed to her underlying hypertension and diabetes or she in fact has preeclampsia superimposed on primary hypertension although she does not have headache or visual changes. --decrease Xanax to 0.5 mg b.i.d. and plan to slowly taper off as there has been no significant effect on blood pressure and she has been feeling more tired --continue hydralazine 50 mg t.i.d. and increase dose as needed --continue lisinopril 40 mg p.o. daily, furosemide 40 mg BID and labetalol current dose. Will follow (2) Pulmonary edema: (3) Nephrotic syndrome: Admission and Anticipated Discharge Date Admission Date: August 22, 2020 Subjective Delaney was seen and examined in her room this morning. Spoke with her Deny over telephone at bedside. She reports being more tired and lethargy after she was started on Xanax. Blood pressure remained significantly elevated without much improvement. Lower extremity edema improved and she is more than 1 L net negative. Denies shortness of breath. Renal function electrolyte acceptable. Review of Systems Review of Systems: All systems reviewed & are unremarkable except as noted in Subjective Physical Exam Constitutional: WD/WN, vitals as above no acute distress Neck: normal visual inspection Respiratory: normal respiratory effort, lungs clear to auscultation Cardiovascular: RRR, no murmur, no edema Skin: no rashes, warm and dry Neurologic: no focal motor deficits and not confused Psychiatric: A+Ox3, euthymic affect Results & Data ([facility]) Vital Signs (Past 12 Hours) Vital Signs Temp Pulse Pulse Resp BP Pulse Ox 08/25/20 07:30 82 08/25/20 07:27 36.4 C L 81 16 186/100 H 90 08/25/20 04:14 36.7 C 85 20 178/109 H 92 08/24/20 23:10 36.5 C 83 20 185/104 H 95 PG Care Time/CCT Total # of Minutes Spent Total Time Spent with Patient: Total time spent is greater than 50% in coordination of care (as documented) at patient's floor/unit and/or counseling patient: Coding Level of Care Code 87731 Subseq Hosp Care Lvl 3 Diagnoses Hypertensive urgency I16.0 Pulmonary edema J81.0 Chronicity: acute Nephrotic syndrome N04.9 (1) Pulmonary edema Chronicity: acute Qualified Code(s): J81.0 - Acute pulmonary edema
--- NOTE | 2020-08-25 15:30 | Ultrasound Report ---
US duplex renal artery CLINICAL HISTORY: Resistant hypertension. Assess for renal artery stenosis. COMPARISON STUDY: None. FINDINGS: The right kidney measures 11.3 cm and the left kidney measures 10.4 cm. No hydronephrosis. The bilateral renal veins are patent. Resistive indices within the bilateral renal arcuate arteries a re within normal limits. The peak systolic velocity within the mid right renal artery is 89 cm/s in t he proximal left renal artery is 68 cm/s. IMPRESSION: No evidence for renal artery stenosis. ACT 112: Negative or not required by law. Electronically signed by: Mark Mcclure M.D. 08/25/2020 3:29 PM
--- NOTE | 2020-08-25 16:20 | Med Student Discharge Summary ---
Date of Service August 25, 2020 Admission HPI Per Admitting Provider Patient is a pleasant 40 year old female with PMHx DM2, HTN, PCOS, Preeclampsia that presents with worsening of LE swelling the past 2.5 weeks in addition to worsening SOB on exertion and orthopnea. Patient notes that she has had ongoing swelling since her Section on 07/15/20 where she delivered her 27 week old daughter due to the patient having significant issues with Preeclampsia. She notes that initially the swelling was restricted to her mid- calves and below, however, in the past 2.5 weeks has progressed upwards to the point where it was reaching her hips and pelvis. She notes that she saw her PCP today who had discontinued her nifedepine in addition to ordering for a BNP and XR. Patients results were concerning for new onset heart failure and she was encouraged to go to the ED for further evaluation. In the ED patient was again noted to have b/l edema to her pelvis. She was given 40mg IV lasix to good effect, putting out >1400ml of urine. She feels that her swelling may have improved slightly since arrival to the ED. She has never had this before prior to her . Patient notes that she has had ongoing issues with her blood pressure during her and her partner who is also present in the room states that the patient's BP is always more elevated when they are a physicians office. He states she has been running between 112-140 systolic since the delivery. Currently patient notes that she primarily has SOB on exertion that improves rapidly upon rest in addition to orthopnea. She denies any headache, visual changes, RUQ pain, chest pain, abdominal pain, dysuria, nausea, SOB at rest, fever, chills. She notes that she stopped breast feeding 1 week ago and does not have plans to continue doing so as much of her milk supply has stopped. Med Hx: DM2, HTN, PCOS, Preeclampsia Surg Hx: Section, Tonsillectomy Soc Hx: No tobacco, alcohol, or illicit drug use. Admission Exam (Per Admitting) Constitutional Constitutional: cooperative; no acute distress Eyes PERRL, conjunctivae normal, anicteric sclerae Patient wears glasses that have a yellow tint to them, upon removal reveals anicteric sclerae ENMT external ear and nose normal, oropharynx normal Mouth: + poor dentition Respiratory normal respiratory effort; no respiratory distress and no labored breathing + diminished lung sounds and + rales (at bases ) Cardiovascular Rate/Rhythm: regular rate and regular rhythm Heart Sounds: no murmur + edema (2+ edema below the knee, 1+ from hips to knees); no calf tenderness Gastrointestinal (Abdomen) Gastrointestinal (Abdomen): normal bowel sounds, soft, nontender, no hepatosplenomegaly Inspection/Auscultation: + abdominal surgical incision (low- transverse incision well healing) Musculoskeletal Musculoskeletal: no cyanosis or clubbing, extremities motor strength 5/5 Skin Skin: no rashes, warm and dry Neurologic Neurologic: PERRL, EOMI, accommodation nl, no face palsy, no dysarthria Psychiatric Psychiatric: A+Ox3, euthymic affect Discharge Data Consultations 08/22/20 11:52 Consult Nephrology Routine 08/22/20 13:02 Consult Obstetrics Routine Hospital Course (1) Hypertensive urgency: 40F with a history of diabetes, hypertension, and 6 weeks ago at 27 weeks gestation due to preeclampsia w/ severe features, presented 3 days ago with progressive bilateral lower extremity edema and shortness of breath. Hypertension and Edema Multifactorial -Nephropathy--Patient has 4+ proteinuria, this is consistent with findings from 18 months ago. Patient was admitted with a mildly elevated creatinine of 1.2, during her stay it came down to .88. BUN was within normal range, 20 on admission and 16 at discharge. -Chronic hypertension--180s/100 for majority of hospital stay. Highest was 206/107, lowest was 149/87. Patient has had high bp in the 180s for several years. -Stress and anxietypatient attributes her high readings to anxiety, describes them as normal at home but elevated in the office. She is under a great deal of stress right now due to her still being in the NICU at [facility]. -Sleep apneapatients weight is a risk factor for sleep apnea, which may contribute to her resistant hypertension. -CHF--presentation was concerning for congestive heart failure and post- cardiomyopathyLess likely considering ECHO showed normal ejection fraction, no ventricular hypertrophy, mild tricuspid and mitral regurgitation. HFpEF remains in the differential. -Pre-eclampsia low on differential per OB6 wks post-, normal liver enzymes, lack of headaches, visual changes, or RUQ pain. -Fibromuscular dysplasia with renal artery stenosispatient is a young woman with resistant hypertension. Renal artery duplex was completed and showed no evidence of stenosis, making this diagnosis unlikely. Medications to continue on discharge to address hypertension and edema -Lasix 40mg PO bid (increased from daily to twice daily on 08/24 per nephrology) -Hydralazine 50mg PO tid (increased from 25mg tid to 50mg tid on 08/24 per nephrology) -Labetalol 400mg PO tid -Lisinopril 40mg qd -Aspirin 81mg qd -Sertraline 50 mg qd Recommend close follow-up with PCP for hypertension and nephropathy. (2) Type 2 diabetes mellitus: Previously well controlled on metforminlast A1c was 5.1. Metformin was discontinued during pregnancyrecommend restarting. -Glucose 141 08/25 (3) Anxiety: Patient was given .5mg Xanax tid to help with tearfulness and anxiety during her hospital stay. Per , patient was diagnosed with social anxiety which she was not being treated for. This was considered as a possible factor in her resistant hypertension and treatment with 50mg sertraline was initiated. Recommend continuation of sertraline outpatient with close follow-up with PCP, as well as connection with counseling to manage her anxiety. Discharge Plan Discharge Items Patient Disposition: Home - Self-Care Reason For Visit: ?PPCM VS PREECLAMPSIA Discharge Diagnosis: Resistant Hypertension Nephropathy Social Anxiety Condition on Discharge: Good Activity: Per Instructions section Non-emergency contact: Hospitalist, Fisheries Director and [employer] Call non-emergency contact if: you have any medication questions and your symptoms worsen Follow-up/Referrals: Charles Gonzalez, [Primary Care Provider] - 09/01/20 9:20 am (You have an appt on TuesdaySeptember 01 at 0920am. Please arrive 15 minutes proir to your appt. It is important that you keep your appt. If for any reason this appt does not fit your schedule please call [phone] to reschedule. ) Diet: Carb Consistent or DM2 Addtl Attending Provider Instructions: You were admitted to [facility] on 08/22/2020 for severe high blood pressure and generalized swelling in your legs that spread up to your abdomen. Given that you have had high blood pressure as well as protein in your urine since before your , it is most likely that your symptoms are due to these chronic conditions. Additionally, anxiety can often increase blood pressure and, in your case, is likely worsening your high blood pressure as well. You were given several medications for the high blood pressure: Linisopril, Labetalol and Hydralazine. Your blood pressure mildly improved on these medications, but you were also started on medications for social anxiety, which will likely continue to help decrease your blood pressure and help you feel better overall. You will continue to take all three blood pressure medications as well as the Zoloft anti-depressant medication after discharge. Additionally, we tested your urine, and consulted the kidney physician, which confirmed the presence of your protein-losing kidney condition (nephropathy). This is likely the cause of your severe lower extremity swelling, and it is most likely due to both your high blood pressure and diabetes. You were given Lasix which helped to improve your swelling. You should continue to take Lasix twice daily after discharge. You should follow up closely with your PCP after discharge for further evaluation and management of the nephropathy, and you should continue to take your regular diabetes medications. Lastly, we took an ultrasound of your heart (echocardiogram) while you were here, which thankfully showed intact function although it did show slight increase in size of your heart. You should also follow up with your PCP regarding this. We hope you continue to feel better. It was a pleasure to help provide your care while you were hospitalized. Pending Studies at Discharge: Yes Studies:: bilateral renal artery duplex Stand-Alone Forms: My [facility] Query[facility], Smoking Cessation Medications and DC Order Prescriptions: New labetalol 200 mg Tablet 400 mg PO Q8H Qty: 90 RF: 3 hydralazine 50 mg Tablet 50 mg PO TID Qty: 90 RF: 3 lisinopril [Zestril] 40 mg Tablet 40 mg PO QAM Qty: 90 RF: 3 sertraline 50 mg Tablet 50 mg PO QAM Qty: 30 RF: 2 furosemide 40 mg Tablet 40 mg PO BID17 Qty: 60 RF: 3 hydralazine 50 mg tablet 50 mg PO TID Qty: 90 RF: 3 Continued insulin aspart U-100 [Novolog Flexpen U-100 Insulin] 100 unit/mL (3 mL) insulin pen See Rx Instructions subcut BID Qty: 15 RF: 2 (DME) [employer] Ultra Blue Test Strip Strip See Dose Instructions .ROUTE .MEDSUPPLY Qty: 400 RF: 1 acetaminophen 325 mg tablet 650 mg PO QID PRN (Reason: pain) Qty: 90 RF: 0 ibuprofen 600 mg tablet 600 mg PO Q6H PRN (Reason: pain) Qty: 30 RF: 0 (DME) pen needle, diabetic 31 gauge x 1/4" needle See Dose Instructions .ROUTE .MEDSUPPLY Qty: 200 RF: 5 prenat.vits,willie,qyi-zgac-qejar Tablet 1 tab PO DAILY RF: 0 (DME) lancets [OneTouch Delica Lancets] 33 gauge misc See Dose Instructions .ROUTE .MEDSUPPLY Qty: 100 RF: 0 Levemir FlexTouch U-100 Insuln 100 unit/mL (3 mL) insulin pen 10 unit subcut HS RF: 0 aspirin [Aspirin Low Dose] 81 mg Tablet,Delayed Release (Dr/Ec) 81 mg PO DAILY RF: 0 docusate sodium [Colace] 100 mg Capsule 100 mg PO DAILY RF: 0 ferrous fumarate-vitamin C 200 mg (65 mg iron)-25 mg Tablet Extended Release 1 tab PO UD RF: 0 Discontinued labetalol 200 mg tablet 400 mg PO Q8H Qty: 60 RF: 0 hydrochlorothiazide 25 mg tablet 25 mg PO DAILY Qty: 30 RF: 2 Discharge Orders: Discharge Order (Routine); Ordered 08/25/20 Ordered By: Jonathan De Santiago Admission Data Admit Date/Time: 08/22/20 01:57 Attending Provider: Oscar Blake Admit Provider: Sher Pelayo Primary Care Provider: Charles Gonzalez Other Providers: Chiara Haque ; Rajendra Ayon ; Jacob Guerra ; Livier Zambrano Other Interventions: Discharge Summary Assessment (RN) Last Done: 08/25/20 13:50 Supervising Attestation I personally examined the patient and verified all jansen points of history and exam, discussed case, and agree with decision making with Jose SNOW Feeling okay. Swelling is improved from whenever she was admitted, feels up to going home. Extensive discussion with patient and (over the phone) . Discussed plans and follow-up. Vitals noted, in general she is awake and alert pleasant no distress. HEENT normocephalic atraumatic mucous membranes moist. Breathing unlabored no accessory muscle use good effort. Skin shows no rashes no pallor or icterus. Bilateral lower extremity approximately 1-2+ edema. No erythema no cords. Hypertensive urgency/nephrotic syndromeappears stable for home and close outpatient management. Meds as per current regimen, with her anxiety as well as her track record of blood pressure control, I suspect that her pressures will drop significantly just on discharge, although certainly they we will be monitoring her closely anyway. Continue current diuresis, with p.o. diuretics, follow-up outpatient BMP closely. Discussed movement to help mobilize venous stasis type fluid. Otherwise as above.
--- NOTE | 2020-08-25 20:22 | Billing Data ---
Date of Service August 25, 2020 Coding Level of Care Code D/C Day Management <30 mins
--- NOTE | 2020-08-25 20:22 | Billing Data ---
Date of Service August 25, 2020 Coding Level of Care Code 75334 OBS Care - Discharge Comment disregard <30mins discharge, thanks
[2020-08-25] MEDS ORDERED: ALPRAZolam 0.5 MG TABLET PO SCH (21:00)
== END 2020-08-25 17:00 | disposition home or self-care (01) ==
LOC: ED 22:27 → 2N 22:27 → SUATTDRO 08-22 01:57 → 2N 08-22 05:21 → 2W 08-23 23:36

== ENCOUNTER 2021-10-05 09:14 | Inpatient (IN) ==
[2021-10-05] MEDS ORDERED: LABETALOL HCL IV 5 MG/ML 20ML IV STA (09:53)
[2021-10-05] MEDS ORDERED: MAG SULFATE BOLUS FROM BAG 4 GM IV ONE (10:03)
--- NOTE | 2021-10-05 10:05 | Emergency Department Note ---
Impression & Plan Hypertension ADMIT ED Provider Note HPI: The patient is a 41-year-old female with history of severe preeclampsia, baseline hypertension, type 2 diabetes, intellectual disability, anxiety, presents the emergency department with a chief complaint of hypertension. Patient is following unremarkable performed at [facility] on September 11, 2021. Patient presents with her spouse at the bedside who states that the patient has had elevated blood pressure readings at home, she has had some acute on chronic issues with visual changes and blurry vision. This has reportedly been thought to be secondary to hypertensive disease following patient's recent inpatient stay at [facility] where she was evaluated by ophthalmology according to the patient's spouse. Patient denies any chest pain or shortness of breath, denies any nausea or vomiting, she has not had any seizure-like activity. On arrival patient does have elevated blood pressure at 192/91, she is in no acute distress on my initial evaluation. ROS: -Neuro: Acute on chronic visual changes -General: Concern for hypertension *10 point review systems was conducted and is otherwise negative unless stated above *Outpatient medications and allergy history reviewed PE: General: Alert, NAD HEENT: Normocephalic, atraumatic Eyes: Extraocular eye movement is intact, no scleral erythema Pulmonary: Clear to auscultation bilaterally, no wheezing Cardio: Regular rate and rhythm GI: Abdomen is soft, nontender : No suprapubic tenderness MSK: No evidence of trauma or malformation of the extremities, no edema Skin: No evidence of rash Neuro: Alert, no focal deficits Psychiatric: Cooperative electronic device monitor: - An order was placed for continuous cardiac monitoring - Patient was noted to be in sinus rhythm with rate of 80 EKG: Rate: 76 Rhythm: Sinus rhythm Intervals: Within normal limits ST changes: No ST elevation Time: 0940 Medical Decision Making: Patient presented to the emergency department with concern for hypertension, she has had elevated readings on her blood pressure cuff at home according to her spouse at the bedside who is the primary historian, patient does answer simple questions appropriately on my exam however she does have a history of intellectual disability and her spouse is serving as the primary historian. Patient has complained of some acute on chronic visual changes during this time, in review of her recent documentation this is more of a chronic issue, she has not had any amaurosis fugax or symptoms that would concern me for central retinal artery occlusion, she does not have any pain, low suspicion for glaucoma, blurriness of vision has been a chronic issue for her I do not think this represents an acute retinal detachment. According to the patient spouse at the bedside, she has been evaluated for this issue at [facility] by ophthalmology and this was thought to be multifactorial including hypertension and diabetic retinopathy. CT imaging of the head was obtained that shows no evidence of any acute intracranial process, patient was given IV labetalol shortly after arrival and started on magnesium 4 g given concern for preeclampsia as she is only 4 weeks . She was also given a dose of IV hydralazine. I did discuss the case initially with on-call [facility] who is familiar with the patient, Dr. Jose, states that the patient's symptoms were thought to likely be secondary to her underlying hypertension and not necessarily preeclampsia on her last visit earlier this month. She was sent to [facility] at this time and therefore I did also contact the on-call [facility] physician at [facility], Dr. Mcdonnell, who is in agreement at this time that this is a medical issue primarily and that the patient is likely not to be suffering from preeclampsia, does not recommend continuing on magnesium drip following the initial bolus of 4 g. On my reassessment the patient's blood pressure has down trended into the 150s systolic, her lab work shows evidence of a mildly elevated high-sensitivity troponin in the 30s, EKG does not show any acute ischemic changes, creatinine is elevated at 2.02 and the patient's baseline creatinine is around 1.1. Patient is comfortable appearing on my reassessment, given her lab abnormalities, presenting hypertension requiring multiple IV antihypertensive medications for correction, and the fact that she is on 4 oral antihypertensive medications at home with poor control, I did discuss with the patient and her and they are in agreement for admission. Dr. Jose [facility] with [facility] consultation if needed, therefore I did discuss the case with the on-call hospitalist for [facility], Dr. Weller, who accepted the patient to a monitored bed for further management of hypertensive urgency and acute kidney injury. Patient was admitted in improved condition. Critical care time: 35 minutes -Management of hypertensive urgency in patient with acute kidney injury, requiring IV medications for blood pressure control, interpretation of diagnostic studies, time spent at the bedside, discussion with multiple subspecialty physicians as well as admitting physician/medicine service, arrangement of admission Diagnosis: 1. Hypertensive urgency 2. Acute kidney injury 3. Proteinuria 4. status, week #5 5. Acute on chronic visual changes Disposition: Admission Baltazar Mitchell DO Emergency Medicine Past Med/Surg History Medical History Chronic hypertension affecting Elderly primigravida, antepartum Endometriosis Facial cellulitis Hirsutism Irregular menstrual cycle Learning disability Nephrotic syndrome Preeclampsia complicating hypertension Pulmonary edema Shortness of breath Supervision of elderly primigravida Type 2 diabetes mellitus affecting , antepartum Surgical History History of tonsillectomy Hx of tonsillectomy S/P section S/P section Family History Unknown Endometriosis Grandmother (Maternal) Type 2 diabetes mellitus Denies family history of Ovarian cancer Prostate cancer Myocardial infarction Breast cancer Colorectal cancer Social History Smoking Status: Never smoker Second Hand Exposure: No; Hx Alcohol Use: No Hx Substance Use: No Preferred Language: Tongan Communication Ability: Effective Visual Impairment: No Limitations Hearing Ability: Normal Exploitation Analyst Required: No Beliefs That Will Affect Care: None marital status: marital status details: Deny Newman (40) [phone] Current Living Situation: Spouse and Family Current Living Situation Comment: lives with spouse, daughter, guinea pigs, cat-spouse changing litter current occupational status: unemployed 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 Feels Safe at Home: Yes Childhood Exposure to Second-Hand Smoke: Yes Dental Care, Regularly: Yes Physical Activity Frequency: Does not Exercise Seatbelt Use: always Sunscreen Use: Yes Assistive Devices: Glasses Allergies Allergies Allergy/AdvReac Type Severity Reaction Status Date / Time omeprazole Allergy Unknown HIVES Verified 10/01/21 16:03 nifedipine AdvReac Severe Edema and Unverified 10/01/21 16:03 Congestive Heart Failure Home Meds Home Medications Medication Instructions Recorded Confirmed prenat.vits,willie,oqm-[id number]-nmjrn 1 tab PO QAM 03/17/20 10/01/21 labetalol 200 mg tablet 800 mg PO TID tab 09/18/21 10/01/21 calcium carbonate 500 mg calcium 500 mg PO UD 09/19/21 10/01/21 (1,250 mg) chewable tablet famotidine 20 mg tablet 20 mg PO BID PRN 09/19/21 10/01/21 iron,carbonyl 65 mg-vitamin C 125 1 tab PO TID 09/19/21 10/01/21 mg tablet,delayed release (Vitron-C) chlorthalidone 25 mg tablet 25 mg PO DAILY 10/01/21 10/01/21 lisinopril 20 mg tablet 20 mg PO BID 10/01/21 10/01/21 Previous Rx's Medication Instructions Recorded lancets 33 gauge (Exavio [employer] #100 ea 03/05/18 Lancets) blood sugar diagnostic #400 ea 01/27/21 pen needle, diabetic 31 gauge x #200 ea 02/05/21 1/" insulin aspart U-100 100 unit/mL See Rx Instructions SUBCUT BID #15 03/27/21 (3 mL) subcutaneous pen (Novolog ml Flexpen U-100 Insulin aspart) insulin detemir U-100 100 unit/mL 16 unit SUBCUT HS #15 ml 04/02/21 (3 mL) subcutaneous pen (Levemir FlexTouch U-100 Insulin) magnesium oxide 400 mg (241.3 mg 400 mg PO BID #60 tab 06/05/21 magnesium) tablet blood sugar diagnostic #200 ea 06/08/21 lancing device with lancets kit #1 ea 06/08/21 ([employer]uch [employer] Lanc Device) breast pump #1 ea 06/24/21 docusate sodium 100 mg capsule 100 mg PO BID PRN #30 cap 09/18/21 hydralazine 25 mg tablet 50 mg PO QID #90 tab 10/02/21 Results & Data (ED) Vital Signs Vital Signs - 24 hr 10/05/21 09:19 10/05/21 09:44 10/05/21 10:00 Temperature 36.4 C L Temperature Source Temporal Artery Scan Pulse Rate 78 72 Pulse Rate [Apical] Pulse Rate from SpO2 Sensor 76 Pulse Rhythm [Apical] Pulse Strength [Apical] Respiratory Rate 18 16 Respiratory Effort / Characteristics Non-Labored Spontaneous Respiratory Depth Normal Respiratory Pattern Regular Blood Pressure 192/91 H Blood Pressure [Left Arm] Blood Pressure Mean 124 Blood Pressure Mean [Left Arm] Blood Pressure Position Sitting Blood Pressure Position [Left Arm] Pulse Oximetry 94 91 89 L Oxygen Delivery Method Room Air Room Air Oxygen Flow Rate Sepsis Recent Fever Within 48 Hours No Sepsis New/Unexplained Change in Mental Status No Sepsis Action Taken by Nursing No Action Required 10/05/21 10:01 10/05/21 10:04 10/05/21 10:24 Temperature Temperature Source Pulse Rate 79 79 Pulse Rate [Apical] Pulse Rate from SpO2 Sensor 79 74 Pulse Rhythm [Apical] Pulse Strength [Apical] Respiratory Rate 20 16 Respiratory Effort / Characteristics Respiratory Depth Respiratory Pattern Blood Pressure 197/108 H 192/102 H 204/128 H Blood Pressure [Left Arm] Blood Pressure Mean 137 132 153 Blood Pressure Mean [Left Arm] Blood Pressure Position Blood Pressure Position [Left Arm] Pulse Oximetry 91 90 Oxygen Delivery Method Oxygen Flow Rate Sepsis Recent Fever Within 48 Hours Sepsis New/Unexplained Change in Mental Status Sepsis Action Taken by Nursing 10/05/21 10:30 10/05/21 10:45 10/05/21 10:50 Temperature Temperature Source Pulse Rate 79 78 Pulse Rate [Apical] Pulse Rate from SpO2 Sensor 76 Pulse Rhythm [Apical] Pulse Strength [Apical] Respiratory Rate 16 19 Respiratory Effort / Characteristics Respiratory Depth Respiratory Pattern Blood Pressure 195/110 H 184/141 H Blood Pressure [Left Arm] Blood Pressure Mean 138 155 Blood Pressure Mean [Left Arm] Blood Pressure Position Blood Pressure Position [Left Arm] Pulse Oximetry 91 90 Oxygen Delivery Method Oxygen Flow Rate Sepsis Recent Fever Within 48 Hours Sepsis New/Unexplained Change in Mental Status Sepsis Action Taken by Nursing 10/05/21 11:00 10/05/21 11:10 10/05/21 11:15 Temperature Temperature Source Pulse Rate 76 78 Pulse Rate [Apical] Pulse Rate from SpO2 Sensor Pulse Rhythm [Apical] Pulse Strength [Apical] Respiratory Rate 13 19 Respiratory Effort / Characteristics Respiratory Depth Respiratory Pattern Blood Pressure 196/96 H 183/86 H Blood Pressure [Left Arm] Blood Pressure Mean 129 118 Blood Pressure Mean [Left Arm] Blood Pressure Position Blood Pressure Position [Left Arm] Pulse Oximetry 97 96 Oxygen Delivery Method Oxygen Flow Rate Sepsis Recent Fever Within 48 Hours Sepsis New/Unexplained Change in Mental Status Sepsis Action Taken by Nursing 10/05/21 11:20 10/05/21 11:30 10/05/21 11:31 Temperature Temperature Source Pulse Rate 77 77 77 Pulse Rate [Apical] Pulse Rate from SpO2 Sensor Pulse Rhythm [Apical] Pulse Strength [Apical] Respiratory Rate 17 15 19 Respiratory Effort / Characteristics Respiratory Depth Respiratory Pattern Blood Pressure 188/89 H Blood Pressure [Left Arm] Blood Pressure Mean 122 Blood Pressure Mean [Left Arm] Blood Pressure Position Blood Pressure Position [Left Arm] Pulse Oximetry 97 97 97 Oxygen Delivery Method Oxygen Flow Rate Sepsis Recent Fever Within 48 Hours Sepsis New/Unexplained Change in Mental Status Sepsis Action Taken by Nursing 10/05/21 11:40 10/05/21 11:45 10/05/21 11:50 Temperature Temperature Source Pulse Rate 78 70 Pulse Rate [Apical] Pulse Rate from SpO2 Sensor Pulse Rhythm [Apical] Pulse Strength [Apical] Respiratory Rate 14 14 Respiratory Effort / Characteristics Respiratory Depth Respiratory Pattern Blood Pressure 170/82 H Blood Pressure [Left Arm] Blood Pressure Mean 111 Blood Pressure Mean [Left Arm] Blood Pressure Position Blood Pressure Position [Left Arm] Pulse Oximetry 98 97 Oxygen Delivery Method Oxygen Flow Rate Sepsis Recent Fever Within 48 Hours Sepsis New/Unexplained Change in Mental Status Sepsis Action Taken by Nursing 10/05/21 12:00 10/05/21 12:10 10/05/21 12:15 Temperature Temperature Source Pulse Rate 79 72 73 Pulse Rate [Apical] Pulse Rate from SpO2 Sensor 79 Pulse Rhythm [Apical] Pulse Strength [Apical] Respiratory Rate 12 16 20 Respiratory Effort / Characteristics Respiratory Depth Respiratory Pattern Blood Pressure 158/82 H 159/77 H Blood Pressure [Left Arm] Blood Pressure Mean 107 104 Blood Pressure Mean [Left Arm] Blood Pressure Position Blood Pressure Position [Left Arm] Pulse Oximetry 98 98 95 Oxygen Delivery Method Oxygen Flow Rate Sepsis Recent Fever Within 48 Hours Sepsis New/Unexplained Change in Mental Status Sepsis Action Taken by Nursing 10/05/21 12:31 10/05/21 12:40 10/05/21 12:46 Temperature Temperature Source Pulse Rate 80 79 Pulse Rate [Apical] 71 Pulse Rate from SpO2 Sensor Pulse Rhythm [Apical] Regular Pulse Strength [Apical] Normal Respiratory Rate 18 19 19 Respiratory Effort / Characteristics Non-Labored Spontaneous Respiratory Depth Normal Respiratory Pattern Regular Blood Pressure 172/90 H Blood Pressure [Left Arm] 150/73 H Blood Pressure Mean 117 Blood Pressure Mean [Left Arm] 98 Blood Pressure Position Blood Pressure Position [Left Arm] Sitting Pulse Oximetry 91 92 92 Oxygen Delivery Method Nasal Cannula Room Air Room Air Oxygen Flow Rate 2 Sepsis Recent Fever Within 48 Hours Sepsis New/Unexplained Change in Mental Status Sepsis Action Taken by Nursing 10/05/21 12:50 10/05/21 13:00 10/05/21 13:10 Temperature Temperature Source Pulse Rate 76 77 70 Pulse Rate [Apical] Pulse Rate from SpO2 Sensor 76 Pulse Rhythm [Apical] Pulse Strength [Apical] Respiratory Rate 15 15 18 Respiratory Effort / Characteristics Respiratory Depth Respiratory Pattern Blood Pressure 182/94 H Blood Pressure [Left Arm] Blood Pressure Mean 123 Blood Pressure Mean [Left Arm] Blood Pressure Position Blood Pressure Position [Left Arm] Pulse Oximetry 93 95 91 Oxygen Delivery Method Room Air Oxygen Flow Rate Sepsis Recent Fever Within 48 Hours Sepsis New/Unexplained Change in Mental Status Sepsis Action Taken by Nursing 10/05/21 13:15 10/05/21 13:20 10/05/21 13:30 Temperature Temperature Source Pulse Rate 71 64 77 Pulse Rate [Apical] Pulse Rate from SpO2 Sensor Pulse Rhythm [Apical] Pulse Strength [Apical] Respiratory Rate 16 14 17 Respiratory Effort / Characteristics Respiratory Depth Respiratory Pattern Blood Pressure 171/99 H 176/95 H Blood Pressure [Left Arm] Blood Pressure Mean 123 122 Blood Pressure Mean [Left Arm] Blood Pressure Position Blood Pressure Position [Left Arm] Pulse Oximetry 94 93 93 Oxygen Delivery Method Room Air Room Air Room Air Oxygen Flow Rate Sepsis Recent Fever Within 48 Hours Sepsis New/Unexplained Change in Mental Status Sepsis Action Taken by Nursing 10/05/21 13:40 10/05/21 13:47 Temperature Temperature Source Pulse Rate 76 Pulse Rate [Apical] 75 Pulse Rate from SpO2 Sensor 77 Pulse Rhythm [Apical] Pulse Strength [Apical] Respiratory Rate 14 18 Respiratory Effort / Characteristics Respiratory Depth Respiratory Pattern Blood Pressure Blood Pressure [Left Arm] 154/84 H Blood Pressure Mean Blood Pressure Mean [Left Arm] 107 Blood Pressure Position Blood Pressure Position [Left Arm] Pulse Oximetry 90 91 Oxygen Delivery Method Room Air Room Air Oxygen Flow Rate Sepsis Recent Fever Within 48 Hours Sepsis New/Unexplained Change in Mental Status Sepsis Action Taken by Nursing Laboratory Data Result diagrams: 10/05/21 09:45 10/05/21 09:45 Lab Results 10/05/21 10/05/21 10/05/21 Range/Units 09:45 09:45 09:45 WBC 6.25 (4.8-10.8) K/uL RBC 3.90 L (4.2-5.4) M/uL Hgb 11.1 L (12.0-16.0) g/dL Hct 35.1 L (37-47) % MCV 90.0 (80-100) fL MCH 28.5 (25-34) pg MCHC 31.6 L (32-36) g/dL RDW Std Deviation 49.0 H (36.4-46.3) fL RDW Coeff of Jessica 15.1 H (11.5-14.5) % Plt Count 356 (130-400) K/uL MPV 9.3 (7.4-10.4) fL Immature Gran % (Auto) 0.3 % Neut % (Auto) 65.5 % Lymph % (Auto) 17.9 % [place] % (Auto) 10.6 % Eos % (Auto) 5.1 % Baso % (Auto) 0.6 % Neut # (Auto) 4.09 (1.4-6.5) K/uL Lymph # (Auto) 1.12 L (1.2-3.4) K/uL [place] # (Auto) 0.66 H (0.11-0.59) K/uL Eos # (Auto) 0.32 (0-0.5) K/uL Baso # (Auto) 0.04 (0-0.2) K/uL Immature Gran # (Auto) 0.02 (0.00-0.02) K/uL Sodium 139 (136-145) mmol/L Potassium 3.2 L (3.5-5.1) mmol/L Chloride 105 (98-107) mmol/L Carbon Dioxide 23 (21-32) mmol/L Anion Gap 11 (3-11) BUN 24 H (6-23) mg/dl Creatinine 2.02 H (0.6-1.2) mg/dl Est Cr Clr Drug Dosing Not Reportable Est GFR ( Amer) 34.9 ml/min Est GFR (Non-Af Amer) 30.1 ml/min BUN/Creatinine Ratio 11.9 (10-20) Glucose 105 H (70-99(Fasting)) mg/dl Calcium 9.7 (8.5-10.1) mg/dl Total Bilirubin 0.9 (0.2-1.0) mg/dl AST 18 (13-39) U/L ALT 20 (7-52) U/L Alkaline Phosphatase 111 H (34-104) U/L Troponin I High Sens 36.6 H (0-14) pg/ml Total Protein 5.4 L (6.0-8.3) gm/dl Albumin 2.9 L (3.4-5.0) gm/dl Globulin 2.5 (2.5-4.0) gm/dl Albumin/Globulin Ratio 1.2 (0.9-2) Lipase 12 (11-82) U/L Urine Color Yellow Urine Appearance Clear (Clear) Urine pH 6.0 (4.5-7.5) Ur Specific [place] 1.015 (1.000-1.030) Urine Protein 3+ H (Negative) Urine Glucose (UA) Negative (Negative) Urine Ketones Trace H (Negative) Urine Blood Trace H (Negative) Urine Nitrite Negative (Negative) Urine Bilirubin Negative (Negative) Urine Urobilinogen Negative (Negative) Ur Leukocyte Esterase Negative (Negative) Urine WBC (Auto) 10-30 H (0-5) /hpf Urine RBC (Auto) 10-30 H (0-4) /hpf U Hyaline Cast (Auto) 1-5 (0-5) /lpf U Epithel Cells (Auto) >30 H (0-5) /lpf Urine Bacteria (Auto) 1+ H (Negative) Ur Renal Epithelial Cell Not Reportable Granular Casts 1-5 H (0) /lpf SARS-CoV-2, RNA, NAAT (NEGATIVE) 10/05/21 Range/Units 12:10 WBC (4.8-10.8) K/uL RBC (4.2-5.4) M/uL Hgb (12.0-16.0) g/dL Hct (37-47) % MCV (80-100) fL MCH (25-34) pg MCHC (32-36) g/dL RDW Std Deviation (36.4-46.3) fL RDW Coeff of Jessica (11.5-14.5) % Plt Count (130-400) K/uL MPV (7.4-10.4) fL Immature Gran % (Auto) % Neut % (Auto) % Lymph % (Auto) % [place] % (Auto) % Eos % (Auto) % Baso % (Auto) % Neut # (Auto) (1.4-6.5) K/uL Lymph # (Auto) (1.2-3.4) K/uL [place] # (Auto) (0.11-0.59) K/uL Eos # (Auto) (0-0.5) K/uL Baso # (Auto) (0-0.2) K/uL Immature Gran # (Auto) (0.00-0.02) K/uL Sodium (136-145) mmol/L Potassium (3.5-5.1) mmol/L Chloride (98-107) mmol/L Carbon Dioxide (21-32) mmol/L Anion Gap (3-11) BUN (6-23) mg/dl Creatinine (0.6-1.2) mg/dl Est Cr Clr Drug Dosing Est GFR ( Amer) ml/min Est GFR (Non-Af Amer) ml/min BUN/Creatinine Ratio (10-20) Glucose (70-99(Fasting)) mg/dl Calcium (8.5-10.1) mg/dl Total Bilirubin (0.2-1.0) mg/dl AST (13-39) U/L ALT (7-52) U/L Alkaline Phosphatase (34-104) U/L Troponin I High Sens (0-14) pg/ml Total Protein (6.0-8.3) gm/dl Albumin (3.4-5.0) gm/dl Globulin (2.5-4.0) gm/dl Albumin/Globulin Ratio (0.9-2) Lipase (11-82) U/L Urine Color Urine Appearance (Clear) Urine pH (4.5-7.5) Ur Specific [place] (1.000-1.030) Urine Protein (Negative) Urine Glucose (UA) (Negative) Urine Ketones (Negative) Urine Blood (Negative) Urine Nitrite (Negative) Urine Bilirubin (Negative) Urine Urobilinogen (Negative) Ur Leukocyte Esterase (Negative) Urine WBC (Auto) (0-5) /hpf Urine RBC (Auto) (0-4) /hpf U Hyaline Cast (Auto) (0-5) /lpf U Epithel Cells (Auto) (0-5) /lpf Urine Bacteria (Auto) (Negative) Ur Renal Epithelial Cell Granular Casts (0) /lpf SARS-CoV-2, RNA, NAAT NEGATIVE (NEGATIVE) Administered Medications Nitroglycerin (Nitroglycerin 2% Ointment 30gm Tube) 0.5 inch EXT Q6H HUGO Stop: 11/04/21 12:59 Last Admin: 10/05/21 13:05 Dose: 0.5 inch Documented by: [id number] Discontinued Medications Hydralazine HCl (Hydralazine Hcl 20 Mg/Ml Vial) 10 mg IV NOW STA Stop: 10/05/21 11:04 Last Admin: 10/05/21 11:27 Dose: 10 mg Documented by: [id number] Labetalol HCl (Labetalol Hcl Iv 5 Mg/Ml 20ml) 20 mg IV NOW STA Stop: 10/05/21 09:54 Last Admin: 10/05/21 10:02 Dose: 20 mg Documented by: [id number] Cosigned by: [id number] Magnesium Sulfate (Mag Sulfate Bolus From Bag) 4 gm IV ONE ONE Stop: 10/05/21 10:16 Last Admin: 10/05/21 10:48 Dose: 4 gm Documented by: [id number] Cosigned by: [id number] Potassium Chloride (Potassium Chloride Crtab 20 Meq Tabcr) 40 meq PO NOW STA Stop: 10/05/21 12:37 Last Admin: 10/05/21 12:43 Dose: 40 meq Documented by: [id number] Potassium Chloride (Potassium Chloride Crtab 20 Meq Tabcr) 20 meq PO NOW STA Stop: 10/05/21 13:39 Last Admin: 10/05/21 13:44 Dose: 20 meq Documented by: [id number] Imaging Data Radiologist's Impression: Chest X-Ray 10/05/21 09:44 XR chest 1V portable HISTORY: Atypical Chest Pain COMPARISON: Chest 09/19/2021. FINDINGS: The cardiac silhouette remains mildly enlarged. No pneumothorax. No pleural effusions. No focal lung consolidations to suggest pneumonia. No evidence for pulmonary edema. IMPRESSION: Mild cardiomegaly, unchanged. ACT 112: Negative or not required by law. Electronically signed by: Mark Mcclure M.D. 10/05/2021 10:[address] 10/05/21 10:04 CT head/brain wo con CLINICAL HISTORY: visual changes, HTN Technique: Contiguous axial CT images of the head were acquired from the base of the skull to the vertex without intravenous contrast administration. Images were viewed in brain, subdural and bone windows. Automated dose lowering techniques and/or adjustment according to patient size were utilized for this exam. Comparison: None available at the time of this dictation. Findings: The ventricles, basal cisterns, and cerebral sulci are normal. There is no acute intracranial hemorrhage or evidence of acute territorial infarction. Neither mass effect, shift of the midline structures, nor abnormal extra-axial fluid collections are shown. Imaged portions of the paranasal sinuses and mastoid air cells are clear. The orbits appear normal. There are no acute fractures of the calvaria or scalp s welling. Impression: No acute intracranial hemorrhage, no evidence of acute territorial infarction or other acute intracranial disease process. ACT 112: Negative or not required by law. Electronically signed by: Shaji James M.D. 10/05/2021 10:24 AM Discharge Plan Visit Data Chief Complaint: Hypertension Stated Complaint: HIGH BLOOD PRESSURE ED Provider: Baltazar Mitchell Discharge Problem: Hypertension Forms Stand Alone Forms: [facility] [employer] Prescriptions Prescriptions: No Action (DME) OneTouch Ultra Blue Test Strip Strip See Dose Instructions .ROUTE .MEDSUPPLY Qty: 400 RF: 1 (DME) pen needle, diabetic 31 gauge x 1/4" needle See Dose Instructions .ROUTE .MEDSUPPLY Qty: 200 RF: 5 insulin aspart U-100 [Novolog Flexpen U-100 Insulin] 100 unit/mL (3 mL) i nsulin pen See Rx Instructions subcut BID Qty: 15 RF: 2 Levemir FlexTouch U-100 Insuln 100 unit/mL (3 mL) insulin pen 16 unit subcut HS Qty: 15 RF: 2 docusate sodium 100 mg capsule 100 mg PO BID PRN (Reason: constipation) Qty: 30 RF: 0 labetalol 200 mg tablet 800 mg PO TID RF: 0 prenat.vits,willie,[id number] Tablet 1 tab PO QAM RF: 0 (DME) breast pump Device See Rx Instructions .ROUTE .MEDSUPPLY Qty: 1 RF: 0 lisinopril 20 mg tablet 20 mg PO BID RF: 0 chlorthalidone 25 mg tablet 25 mg PO DAILY RF: 0 hydralazine 25 mg tablet 50 mg PO QID Qty: 90 RF: 0 (DME) blood sugar diagnostic Strip See Rx Instructions miscellaneous .MEDSUPPLY Qty: 200 RF: 8 (DME) lancing device with lancets [OneTouch Delica Lanc Device] Kit See Rx Instructions miscellaneous .MEDSUPPLY Qty: 1 RF: 0 (DME) lancets [OneTouch Delica Lancets] 33 gauge misc See Dose Instructions .ROUTE .MEDSUPPLY Qty: 100 RF: 0 magnesium oxide 400 mg (241.3 mg magnesium) tablet 400 mg PO BID Qty: 60 RF: 0 calcium carbonate [Tums 500] 500 mg calcium (1,250 mg) Tablet,Chewable 500 mg PO UD RF: 0 Vitron-C 65 mg iron- 125 mg Tablet,Delayed Release (Dr/Ec) 1 tab PO TID RF: 0 famotidine 20 mg tablet 20 mg PO BID PRN (Reason: Acid Reflux) RF: 0 Referrals Referrals: Charles Gonzalez DO [Primary Care Provider] - Discharge Problem: Hypertension Qualifiers: Hypertension type: unspecified Qualified Code(s): I10 - Essential (primary) hypertension
--- NOTE | 2021-10-05 10:08 | XRay Report ---
XR chest 1V portable HISTORY: Atypical Chest Pain COMPARISON: Chest 09/19/2021. FINDINGS: The cardiac silhouette remains mildly enlarged. No pneumothorax. No pleural effusions. No f ocal lung consolidations to suggest pneumonia. No evidence for pulmonary edema. IMPRESSION: Mild cardiomegaly, unchanged. ACT 112: Negative or not required by law. Electronically signed by: Mark Mcclure M.D. 10/05/2021 10:06 AM
[2021-10-05 10:14] LABS: Basophils # (auto) 0.04 K/uL (0-0.2); Basophils % (auto) 0.6 %; Eosinophils # (auto) 0.32 K/uL (0-0.5); Eosinophils % (auto) 5.1 %; Hematocrit (blood only) 35.1 % (37-47); Hemoglobin 11.1 g/dL (12.0-16.0); Immature Granulocytes # (auto) 0.02 K/uL (0.00-0.02); Immature Granulocytes % (auto) 0.3 %; Lymphocytes # (auto) 1.12 K/uL (1.2-3.4); Lymphocytes % (auto) 17.9 %; Mean Corpuscular Hemoglobin 28.5 pg (25-34); Mean Corpuscular Hgb Conc 31.6 g/dL (32-36); Mean Platelet Volume 9.3 fL (7.4-10.4); Monocytes # (auto) 0.66 K/uL (0.11-0.59); Monocytes % (auto) 10.6 %; Neutrophils # (auto) 4.09 K/uL (1.4-6.5); Neutrophils % (auto) 65.5 %; Platelet Count 356 K/uL (130-400); RDW Coefficient of Variation 15.1 % (11.5-14.5); White Blood Count 6.25 K/uL (4.8-10.8)
[2021-10-05] MEDS ORDERED: MAG SULFATE BOLUS FROM BAG IV ONE (10:15)
--- NOTE | 2021-10-05 10:25 | CT Scan Report ---
CT head/brain wo con CLINICAL HISTORY: visual changes, HTN Technique: Contiguous axial CT images of the head were acquired from the base of the skull to the jose nuvia without intravenous contrast administration. Images were viewed in brain, subdural and [facility]. Automated dose lowering techniques and/or adjustment according to patient size were utilized for this exam. Comparison: None available at the time of this dictation. Findings: The ventricles, basal cisterns, and cerebral sulci are normal. There is no acute intracranial hemorrh age or evidence of acute territorial infarction. Neither mass effect, shift of the midline structures , nor abnormal extra-axial fluid collections are shown. Imaged portions of the paranasal sinuses and mastoid air cells are clear. The orbits appear normal. There are no acute fractures of the calvaria or scalp swelling. Impression: No acute intracranial hemorrhage, no evidence of acute territorial infarction or other acute intracra nial disease process. ACT 112: Negative or not required by law. Electronically signed by: Shaji James M.D. 10/05/2021 10:24 AM
[2021-10-05 10:30] LABS: Appearance Urine Clear (Clear); Bilirubin Urine Negative (Negative); Blood Urine Trace (Negative); Color Urine Yellow; Epithelial Cell Urine Auto >30 /lpf (0-5); Glucose Urine UA Negative (Negative); Ketones Urine Trace (Negative); Leukocyte Esterase Urine Negative (Negative); Nitrite Urine Negative (Negative); Protein Urine 3+ (Negative); Specific Gravity Urine 1.015 (1.000-1.030); Urobilinogen Urine Negative (Negative)
[2021-10-05] MEDS ORDERED: MAGNESIUM SULFATE / WTR 40 GM/1,000 ML BAG IV SCH (10:45)
[2021-10-05 10:46] LABS: Bacteria Urine Automated 1+ (Negative)
[2021-10-05 10:51] LABS: Troponin I High Sensitivity 36.6 pg/ml (0-14)
[2021-10-05 10:56] LABS: Alanine Aminotransferase 20 U/L (7-52); Albumin Globulin Ratio 1.2 (0.9-2); Albumin Level 2.9 gm/dl (3.4-5.0); Alkaline Phosphatase 111 U/L (34-104); Anion Gap 11 (3-11); Aspartate Aminotransferase 18 U/L (13-39); BUN Creatinine Ratio 11.9 (10-20); Bilirubin,Total 0.9 mg/dl (0.2-1.0); Blood Urea Nitrogen 24 mg/dl (6-23); Calcium 9.7 mg/dl (8.5-10.1); Carbon Dioxide 23 mmol/L (21-32); Chloride 105 mmol/L (98-107); Est GFR (African American) 34.9 ml/min; Est GFR (Non-African American) 30.1 ml/min; Globulin 2.5 gm/dl (2.5-4.0); Glucose 105 mg/dl (70-99(Fasting)); Lipase 12 U/L (11-82); Potassium 3.2 mmol/L (3.5-5.1); Sodium 139 mmol/L (136-145); Total Protein 5.4 gm/dl (6.0-8.3)
[2021-10-05] MEDS ORDERED: hydrALAZINE HCL 20 MG/ML VIAL IV STA (11:03)
[2021-10-05] MEDS ORDERED: POTASSIUM CHLORIDE CRTAB 20 MEQ TABCR PO STA ×2 (12:36→13:38)
[2021-10-05] MEDS: NITROGLYCERIN 2% OINTMENT 30GM TUBE EXT SCH ×2 (13:05→20:52)
--- NOTE | 2021-10-05 13:37 | History & Physical Report ---
Date of Service October 05, 2021 Assessment & Plan (1) HTN (hypertension): Plan: Patient here with hypertensive urgency. Evidence of endorgan damage with acute kidney injury. Existing difficult to control blood pressure in the peripartum period with consideration of preeclampsia Given 4 g magnesium in the emergency department intravenously, labetalol 20 and hydralazine 10 Personal discussion with [employer] [facility] on-call does not recommend any additional magnesium Personal discussion with nephrology continuation of labetalol 800 3 times daily hydralazine 100 3 times daily adding Nitropaste half inch every 6 consideration of adding Procardia or methyldopa Holding previous outpatient lisinopril 20 twice daily due to acute kidney injury (2) Type 2 diabetes mellitus: Plan: Longstanding insulin requiring diabetic typically taking 16 units of Levemir at bedtime and sliding scale. Sliding scale according to her has a carb ratio of 1:12 with correction factor of 20 we will continue sliding scale insulin plus carbohydrate conservative diet. Patient has previous history of endorgan damage including retinopathy requiring laser surgery and nephropathy including protein losing nephropathy and consideration of nephrotic syndrome. (3) Nephrotic syndrome: Plan: Acute kidney injury on chronic kidney disease stage II. Her GFR typically is around 80s and her prepregnancy.. Patient will have nephrology consultation, stopping BAYLEE inhibitor, low-salt diet, she has no electrolyte abnormalities of concern right now with exception of mildly low potassium which could be related to her recent complaints of diarrhea. Referral urine collection and peripheral smear for schistocytes to be undertaken for hypertensive angiopathy. (4) Elevated troponin: Plan: Patient is elevated troponin with a history of some chest pain 1 night prior. EKG does not have acute current of injury. Certainly could be demand ischemia from her significant hypertension. We will trend her troponins. Plan: Patient is a full code Heparin will be used for DVT prevention. History of Present Illness Primary Care Provider: Charles Gonzalez, 41-year-old female who presents with hypertensive urgency, acute kidney injury, and in the state approximately 24 days. Patient has pre-existing history of labile hypertension chronic kidney disease of diabetes endorgan damage with concern for nephrotic syndrome in the past. Patient's had a challenging high risk peripartum. As she has had rachid vation of blood pressure and proteinuria which could have been exacerbations of her chronic conditions versus preeclampsia. She had established at [facility] for high risk given her comorbid medical conditions and her age of 41 years. Patient was admitted to their facility and delivered September 11 due to concerns for preeclampsia with worsening renal function and difficult to control blood pressure. Prior to her delivery the patient had laser surgery for retinopathy and she did have worsening of vision associate with a high blood pressure and eventually found to be associate with a retinal intravitreous hemorrhage. She remains with variable vision changes now worsening in her left eye. Patient presented to the emergency department on 10/05/2021 due to elevated blood pressure readings as an outpatient. The emergency room physician spent time discussing with both [place] and our OB here and it was decided that this is likely not due to preeclampsia although wearing the 6-week period from delivery and we should not initiate more aggressive magnesium replacement but just control her hypertension. This was based upon reevaluation of this patient at [facility] for similar presentation being discharged approximately September 24. In the emergency department she is accompanied by her . He said last evening she did have transient chest pain but it occurred 20 minutes after taking medications, it was not associate with any other additional symptoms. During that time she also felt mildly short of breath. These issues have subsequently resolved. In the emergency department she is found to be markedly hypertensive which was controlled with intravenous labetalol and hydralazine. Elevation of her creatinine to 2.012 from a baseline of 1. Interestingly prepump delivery she was 2.35 creatinine. She does have evidence of 3+ protein in her urine along with red and white cells. Otherwise she has not been having any other new issues with vision as she is got chronic vision issues her left eye visual issue occurred days ago. She has no bloody vaginal discharge, she is not breast-feeding, she has been having no changes in urine production and has been recently having some mild diarrhea. She IS COVID-negative in the emergency department Allergies Allergy/AdvReac Type Severity Reaction Status Date / Time omeprazole Allergy Unknown HIVES Verified 10/01/21 16:03 nifedipine AdvReac Severe Edema and Unverified 10/01/21 16:03 Congestive Heart Failure Home Medications Medication Instructions Recorded Confirmed Type lancets 33 gauge (Davideuch Delnano #100 ea 03/05/18 10/01/21 Rx Lancets) prenat.vits,willie,pld-jfki-shaok 1 tab PO QAM 03/17/20 10/01/21 History blood sugar diagnostic #400 ea 01/27/21 10/01/21 Rx pen needle, diabetic 31 gauge x #200 ea 02/05/21 10/01/21 Rx 1/4" insulin aspart U-100 100 unit/mL See Rx Instructions SUBCUT BID #15 03/27/21 10/01/21 Rx (3 mL) subcutaneous pen (Novolog ml Flexpen U-100 Insulin aspart) insulin detemir U-100 100 unit/mL 16 unit SUBCUT HS #15 ml 04/02/21 10/01/21 Rx (3 mL) subcutaneous pen (Levemir FlexTouch U-100 Insulin) magnesium oxide 400 mg (241.3 mg 400 mg PO BID #60 tab 06/05/21 10/01/21 Rx magnesium) tablet blood sugar diagnostic #200 ea 06/08/21 10/01/21 Rx lancing device with lancets kit #1 ea 06/08/21 10/01/21 Rx (OneTouch Delica Lanc Device) breast pump #1 ea 06/24/21 10/01/21 Rx docusate sodium 100 mg capsule 100 mg PO BID PRN #30 cap 09/18/21 10/01/21 Rx labetalol 200 mg tablet 800 mg PO TID tab 09/18/21 10/01/21 History calcium carbonate 500 mg calcium 500 mg PO UD 09/19/21 10/01/21 History (1,250 mg) chewable tablet famotidine 20 mg tablet 20 mg PO BID PRN 09/19/21 10/01/21 History iron,carbonyl 65 mg-vitamin C 125 1 tab PO TID 09/19/21 10/01/21 History mg tablet,delayed release (Vitron-C) chlorthalidone 25 mg tablet 25 mg PO DAILY 10/01/21 10/01/21 History lisinopril 20 mg tablet 20 mg PO BID 10/01/21 10/01/21 History hydralazine 25 mg tablet 50 mg PO QID #90 tab 10/02/21 10/02/21 Rx Past Med/Surg History Medical History (Updated 10/05/21 @ 13:33 by Sher Encinas MD) Chronic hypertension affecting Elderly primigravida, antepartum Endometriosis Facial cellulitis Hirsutism Irregular menstrual cycle Learning disability Nephrotic syndrome Preeclampsia complicating hypertension Pulmonary edema Shortness of breath Supervision of elderly primigravida Type 2 diabetes mellitus affecting , antepartum Surgical History (Updated 10/05/21 @ 00:08 by Lindsey Loja) History of tonsillectomy Hx of tonsillectomy S/P section 07/15/20 at [facility] S/P section 09/11/21 Family History Unknown Endometriosis Grandmother (Maternal) Type 2 diabetes mellitus Denies family history of Ovarian cancer Prostate cancer Myocardial infarction Breast cancer Colorectal cancer Social History Smoking Status: Never smoker Second Hand Exposure: No; Hx Alcohol Use: No Hx Substance Use: No Preferred Language: Austrian Communication Ability: Effective Visual Impairment: No Limitations Hearing Ability: Normal Ct Scan Technologist Required: No Beliefs That Will Affect Care: None marital status: marital status details: Deny Newman (40) [phone] Current Living Situation: Spouse and Family Current Living Situation Comment: lives with spouse, daughter, guinea pigs, cat-spouse changing litter current occupational status: unemployed 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 Feels Safe at Home: Yes Childhood Exposure to Second-Hand Smoke: Yes Dental Care, Regularly: Yes Physical Activity Frequency: Does not Exercise Seatbelt Use: always Sunscreen Use: Yes Assistive Devices: Glasses Review of Systems Review of Systems: Mild distress and fatigue no headache, patient has bilateral visual changes consistent with her diabetic retinopathy no speech or swallowing issues 1 day prior to admission chest pain, passing 5 minutes no associated symptoms or radiation, no pressure or palpitations 1 day prior to admission shortness of breath, no chest pain now resolved, no cough or wheezes no abdominal pain, nausea or vomiting, loose bowel movements of late no dysuria, hematuria or frequency no focal joint pain or swelling no back pain, CVA tenderness or radicular pain no bruising, bleeding or rashes no focal signs of weakness or numbness or altered sensation exception of her visual changes no complaints of anxiety or depression.. Physical Exam Physical Exam: The patient appeared well nourished and normally developed. He does have a look of compensated chronic illness Vital signs as documented. Head exam is normocephalic atraumatic Neck is without JVD, thyromegaly, or carotid bruits. Lungs are clear to auscultation, no focal loss of breath sounds Cardiac exam, Rhythm is regular.. No murmurs, rubs or gallops. Abdominal exam reveals normal bowel sounds, soft non tender, no masses no renal bruits are heard Extremities are nonedematous and both pedal pulses are present Neurologic exam is alert and oriented, no focal loss of strength or sensation Skin is without bruises or rashes Psychologically is without concerns for anxiety or depression.. Results & Data Results & Data ([facility]) Vital Signs (Past 12 Hours) Vital Signs Temp Pulse Pulse Resp BP BP Pulse Ox 10/05/21 13:00 77 15 182/94 H 95 10/05/21 12:50 76 15 93 10/05/21 12:46 79 19 172/90 H 92 10/05/21 12:40 80 19 92 10/05/21 12:31 71 18 150/73 H 91 10/05/21 12:15 73 20 159/77 H 95 10/05/21 12:10 72 16 98 10/05/21 12:00 79 12 158/82 H 98 10/05/21 11:50 70 14 97 10/05/21 11:45 170/82 H 10/05/21 11:40 78 14 98 10/05/21 11:31 77 19 188/89 H 97 10/05/21 11:30 77 15 97 10/05/21 11:20 77 17 97 10/05/21 11:15 183/86 H 10/05/21 11:10 78 19 96 10/05/21 11:00 76 13 196/96 H 97 10/05/21 10:50 78 19 90 10/05/21 10:45 79 16 184/141 H 91 10/05/21 10:30 195/110 H 10/05/21 10:24 204/128 H 10/05/21 10:04 79 16 192/102 H 90 10/05/21 10:01 79 20 197/108 H 91 10/05/21 10:00 72 16 89 L 10/05/21 09:44 91 10/05/21 09:19 97.5 F L 78 18 192/91 H 94 Diagnostic Findings Chest X-Ray 10/05/21 09:44 XR chest 1V portable HISTORY: Atypical Chest Pain COMPARISON: Chest 09/19/2021. FINDINGS: The cardiac silhouette remains mildly enlarged. No pneumothorax. No pleural effusions. No focal lung consolidations to suggest pneumonia. No evidence for pulmonary edema. IMPRESSION: Mild cardiomegaly, unchanged. ACT 112: Negative or not required by law. Electronically signed by: Mark Mcclure M.D. 10/05/2021 10:[address] 10/05/21 10:04 CT head/brain wo con CLINICAL HISTORY: visual changes, HTN Technique: Contiguous axial CT images of the head were acquired from the base of the skull to the vertex without intravenous contrast administration. Images were viewed in brain, subdural and bone windows. Automated dose lowering techniques and/or adjustment according to patient size were utilized for this exam. Comparison: None available at the time of this dictation. Findings: The ventricles, basal cisterns, and cerebral sulci are normal. There is no acute intracranial hemorrhage or evidence of acute territorial infarction. Neither mass effect, shift of the midline structures, nor abnormal extra-axial fluid collections are shown. Imaged portions of the paranasal sinuses and mastoid air cells are clear. The orbits appear normal. There are no acute fractures of the calvaria or scalp swelling. Impression: No acute intracranial hemorrhage, no evidence of acute territorial infarction or other acute intracranial disease process. ACT 112: Negative or not required by law. Electronically signed by: Shaji James M.D. 10/05/2021 10:24 AM ECG Additional Comments: Sinus rhythm LVH by voltage flattened T waves Code Status & VTE Plan VTE Prophylaxis Plan VTE Prophylaxis will be ordered: Yes PG Care Time/CCT Total # of Minutes Spent Total Time Spent with Patient: Total time spent is greater than 50% in coordination of care (as documented) at patient's floor/unit and/or counseling patient: Coding Level of Care Code 74516 Initial Inpt Care Lvl 3 Diagnoses HTN (hypertension) I10 Hypertension type: unspecified Type 2 diabetes mellitus E11.9 Nephrotic syndrome N04.9 Elevated troponin R77.8 (1) HTN (hypertension) Hypertension type: unspecified Qualified Code(s): I10 - Essential (primary) hypertension
--- NOTE | 2021-10-05 15:24 | Electrocardiogram Report ---
Test Reason : Blood Pressure : / mmHG Vent. Rate : 076 BPM Atrial Rate : 076 BPM P-R Int : 162 ms QRS Dur : 074 ms QT Int : 400 ms P-R-T Axes : 051 000 -61 degrees QTc Int : 450 ms Sinus rhythm with frequent Premature ventricular complexes Nonspecific ST and T wave abnormality Abnormal ECG When compared with ECG of 19-SEP-2021 17:20, Premature ventricular complexes are now Present Nonspecific T wave abnormality, worse in Inferior leads Nonspecific T wave abnormality now evident in Anterolateral leads Confirmed by Balwinder Arellano ([id number]) on 10/05/2021 3:23:52 PM Referred By: REFERRED SELF Confirmed By:Balwinder Arellano
[2021-10-05] MEDS ORDERED: CARBOHYDRATES FOR HYPOGLYCEMIA PO PRN (16:59)
[2021-10-05] MEDS ORDERED: ONDANSETRON INJ 2 MG/ML 2 ML VIAL IV PRN (16:59)
[2021-10-05] MEDS ORDERED: GLUCOSE 40% GEL 15 GM TUBE PO PRN (16:59)
[2021-10-05] MEDS ORDERED: FAMOTIDINE 20 MG TAB PO PRN (16:59)
[2021-10-05] MEDS ORDERED: GLUCOSE 10 TABS/TUBE PO PRN (16:59)
[2021-10-05] MEDS ORDERED: ALUMINUM/MAGNESIUM SUSP 30 ML UDC PO PRN (16:59)
[2021-10-05] MEDS ORDERED: DOCUSATE SODIUM 100 MG CAP PO PRN (16:59)
[2021-10-05] MEDS ORDERED: ACETAMINOPHEN 325 MG TAB PO PRN (16:59)
[2021-10-05] MEDS ORDERED: DEXTROSE 50% 50 ML SYRINGE IV PRN (16:59)
[2021-10-05] MEDS ORDERED: GLUCAGON FOR INJ 1 MG VIAL SQ PRN (16:59)
--- NOTE | 2021-10-05 18:23 | Nephrology Consultation ---
Date of Consultation October 05, 2021 Assessment & Plan (1) Hypertension: Titrate nitro paste as needed/tolerated to 2 inches. Hydralazine increased to 100 mg TID. Continue labetalol 800 mg TID. Lisinopril held. Diuretics held for now. Consider minoxidil as alternative addition in the future as needed. Presentation atypical for pre-eclampsia. Remains on tele monitor. Low sodium diet. Document I/O's. (2) ТАТЬЯНА (acute kidney injury): No emergent indications for dialysis. Medications appropriate for kidney dysfunction. Non-oliguric by recent history. Granular casts. Active sediment. Renal US pending. Peripheral smear pending. LFTS normal. Hgb stable. Atypical presentation for TMA/pre-eclampsia. Complement levels with AM labs. Cannot exclude GN. Non-oliguric. No acute indication for HD. Primary goal is improvement BP control. ACEi held. (3) Diabetic nephropathy: Baseline creatinine 1.1-1.5 mg/dL. Notable recent increase in proteinuria concerning. ACEi held. Close outpatient follow up will be necessary. Delaney followed with Dr. Montaño in the past. (4) Nephrotic syndrome: 24 hours urine requested. History of Present Illness Reason for Consultation: Accelerated hypertension, ТАТЬЯНА Requesting Physician: Sher Encinas MD Attending Physician: Sher Encinas MD History of Present Illness Mrs. Delaney Newman was seen and evaluated in her hospital room this evening. I was contacted by Dr. Encinas and discussed the patient's medical history and plan of care when she was in the emergency department earlier today. 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 Montaño. I also spoke to the patient's by phone and reviewed the plan of care. BP unfortunately remains accelerated despite IV hydralazine and labetalol. Nitro paste recently applied. Mrs. Newman attributes elevated BP in part to anxiety. Overall, she reports feeling well otherwise. She denies any acute visual changes. She reports some changes following recent vitreous hemorrhage during recent hospitalization at [facility]. Records from [facility] were reviewed today. She denies any headache or focal neurologic deficits. She has not experienced chest pain or shortness of breath. She denies fluid retention or edema. She has been taking medications at home as prescribed. Her expressed concerns that BP has been well controlled with IV medications during her recent hospitalizations but not once medications are converted to PO at hospital discharge. Mrs. Newman notes that her BP is always slightly elevated. She does not believe it was at goal on her home regimen of labetalol 100 mg TID, hydralazine 50 mg QID, lisinopril 20 mg BID, and chlorthalidone 25 mg daily. She describes a history of paroxysmal accelerated BP readings. She does not experience palpitations or flushing. She rarely experiences headaches. Prior evaluation for secondary causes included a renal duplex demonstrating no TRAVIS in August of 2020. Mrs. Newman is non-oliguric. Appetite is good. She denies nausea. She denies any GI symptoms including vomiting or diarrhea. She does no consume NSAIDS. No concerning bleeding or bruising reported. No skin rash. No synovitis or joint effusions. Mrs. Newman is a 41-year-old female with IDDM, complications of DM including retinopathy and DKD, CKD II A3, resistant hypertension, history of pre- eclampsia, and social anxiety disorder. August underwent emergency at [facility] on September 11 for pre-eclampsia. Subsequent readmission for accelerated hypertension. Similar history with prior in July 2020. Urine PCR 2 g/g in August. 24 hour urine demonstrating 2.3 grams in May 2021. PCR most recently 9.8 g/g. Lisinopril was started ~1.5 weeks ago. She feels that she has been tolerating the medication well. Complications of her recent and delivery included acute anemia requiring PRBC transfusion support. Hemoglobin is currently stable at 11.6. UA demonstrating 3+ protein, trace blood, 10-30 WBC, 10-30 RBC, and 1-5 granular casts. Baseline creatinine following recently hospitalization was 1.5 mg/dL. Previously 1.2 mg/dL. Serum electrolytes have been normal. Allergies Allergy/AdvReac Type Severity Reaction Status Date / Time omeprazole Allergy Intermediate HIVES Verified 10/05/21 15:04 nifedipine AdvReac Severe Edema and Verified 10/05/21 15:04 Congestive Heart Failure Home Medications Medication Instructions Recorded Confirmed Type lancets 33 gauge (OneTouch Delica #100 ea 03/05/18 10/01/21 Rx Lancets) prenat.vits,willie,war-yptn-vaftr 1 tab PO QAM 03/17/20 10/05/21 History blood sugar diagnostic #400 ea 01/27/21 10/01/21 Rx pen needle, diabetic 31 gauge x #200 ea 02/05/21 10/01/21 Rx 1/4" insulin aspart U-100 100 unit/mL See Rx Instructions SUBCUT BID #15 03/27/21 10/05/21 Rx (3 mL) subcutaneous pen (Novolog ml Flexpen U-100 Insulin aspart) insulin detemir U-100 100 unit/mL 16 unit SUBCUT HS #15 ml 04/02/21 10/05/21 Rx (3 mL) subcutaneous pen (Levemir FlexTouch U-100 Insulin) magnesium oxide 400 mg (241.3 mg 400 mg PO BID #60 tab 06/05/21 10/05/21 Rx magnesium) tablet blood sugar diagnostic #200 ea 06/08/21 10/01/21 Rx lancing device with lancets kit #1 ea 06/08/21 10/01/21 Rx (OneTouch Delica Lanc Device) breast pump #1 ea 06/24/21 10/01/21 Rx docusate sodium 100 mg capsule 100 mg PO BID PRN #30 cap 09/18/21 10/05/21 Rx labetalol 200 mg tablet 800 mg PO TID tab 09/18/21 10/05/21 History calcium carbonate 500 mg calcium 500 mg PO DIRECTED PRN 09/19/21 10/05/21 History (1,250 mg) chewable tablet famotidine 20 mg tablet 20 mg PO BID PRN 09/19/21 10/05/21 History iron,carbonyl 65 mg-vitamin C 125 1 tab PO TID 09/19/21 10/05/21 History mg tablet,delayed release (Vitron-C) chlorthalidone 25 mg tablet 25 mg PO DAILY 10/01/21 10/05/21 History lisinopril 20 mg tablet 20 mg PO BID 10/01/21 10/05/21 History hydralazine 25 mg tablet 50 mg PO QID #90 tab 10/02/21 10/05/21 Rx Patient History Medical History Chronic hypertension affecting Elderly primigravida, antepartum Endometriosis Facial cellulitis Hirsutism Irregular menstrual cycle Learning disability Nephrotic syndrome Preeclampsia complicating hypertension Pulmonary edema Shortness of breath Supervision of elderly primigravida Type 2 diabetes mellitus affecting , antepartum Surgical History History of tonsillectomy Hx of tonsillectomy S/P section S/P section Family History Unknown Endometriosis Grandmother (Maternal) Type 2 diabetes mellitus Denies family history of Ovarian cancer Prostate cancer Myocardial infarction Breast cancer Colorectal cancer Social History Smoking Status: Never smoker Second Hand Exposure: No; Hx Alcohol Use: No Hx Substance Use: No Preferred Language: Persian Communication Ability: Effective Visual Impairment: No Limitations Hearing Ability: Normal Ehs Engineer Required: No Beliefs That Will Affect Care: None marital status: marital status details: Deny Newman [phone]) [phone] Current Living Situation: Spouse and Family Current Living Situation Comment: lives with spouse, daughter, guinea pigs, cat-spouse changing litter current occupational status: unemployed 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 Feels Safe at Home: Yes Safety Concerns: Feels Safe At This Time Childhood Exposure to Second-Hand Smoke: Yes Dental Care, Regularly: Yes Physical Activity Frequency: Does not Exercise Seatbelt Use: always Sunscreen Use: Yes Assistive Devices: None Review of Systems Review of Systems: All systems reviewed & are unremarkable except as noted in HPI & below Physical Exam Constitutional: well developed; no acute distress Eyes: + anicteric sclerae; no corneal abnormality ENMT: Mouth: no oral mucosal abnormality and oral mucous membranes not dry Neck: normal visual inspection and trachea midline Thyroid: normal thyroid Respiratory: normal respiratory effort Auscultation: lungs clear to a uscultation bilaterally Cardiovascular: Rate/Rhythm: regular rate Heart Sounds: normal S1 and normal S2; no murmur Extremities: normal capillary refill and + pedal edema Musculoskeletal: Extremities: no cyanosis and no clubbing Skin: normal turgor; no lesions Neurologic: Motor/Sensory: no tremor and no asterixis Psychiatric: Orientation: alert and oriented x 3 Results & Data ([facility]) Vital Signs (Past 12 Hours) Vital Signs Temp Pulse Pulse Resp BP BP Pulse Ox 10/05/21 17:01 76 10/05/21 17:00 36.4 C L 79 18 170/80 H 95 05 16:23 67 16 184/97 H 94 05 16:07 67 16 180/96 H 92 05 15:15 74 14 172/91 H 94 05 15:10 69 18 94 05 15:00 71 77 18 187/98 H 185/95 H 94 05 14:50 74 18 94 05 14:45 76 13 92 05 14:40 77 18 92 05 14:30 77 17 190/98 H 93 05 14:20 75 14 92 05/ 14:15 75 16 185/102 H 94 05 14:10 75 16 93 05 14:00 75 14 194/99 H 91 05 13:50 74 17 92 05 13:47 75 18 154/84 H 91 05 13:45 77 14 90 05 13:40 76 14 90 05 13:30 77 17 176/95 H 93 05 13:20 64 14 93 05 13:15 71 16 171/99 H 94 05 13:10 70 18 91 05 13:00 77 15 182/94 H 95 10/05/21 12:50 76 15 93 10/05/21 12:46 79 19 172/90 H 92 05 12:40 80 19 92 05 12:31 71 18 150/73 H 91 05 12:15 73 20 159/77 H 95 05 12:10 72 16 98 05 12:00 79 12 158/82 H 98 05 11:50 70 14 97 05 11:45 170/82 H 05 11:40 78 14 98 05 11:31 77 19 188/89 H 97 05 11:30 77 15 97 05 11:20 77 17 97 05/ 11:15 183/86 H 05 11:10 78 19 96 05 11:00 76 13 196/96 H 97 05 10:50 78 19 90 10/05/21 10:45 79 16 184/141 H 91 10/05/21 10:30 195/110 H 10/05/21 10:24 204/128 H 10/05/21 10:04 79 16 192/102 H 90 10/05/21 10:01 79 20 197/108 H 91 10/05/21 10:00 72 16 89 L 10/05/21 09:44 91 10/05/21 09:19 36.4 C L 78 18 192/91 H 94 Laboratory Results Laboratory Results - last 24 hr 10/05/21 10/05/21 10/05/21 09:45 09:45 09:45 WBC 6.25 RBC 3.90 L Hgb 11.1 L Hct 35.1 L MCV 90.0 MCH 28.5 MCHC 31.6 L RDW Std Deviation 49.0 H RDW Coeff of Jessica 15.1 H Plt Count 356 MPV 9.3 Immature Gran % (Auto) 0.3 Neut % (Auto) 65.5 Lymph % (Auto) 17.9 [place] % (Auto) 10.6 Eos % (Auto) 5.1 Baso % (Auto) 0.6 Neut # (Auto) 4.09 Lymph # (Auto) 1.12 L [place] # (Auto) 0.66 H Eos # (Auto) 0.32 Baso # (Auto) 0.04 Immature Gran # (Auto) 0.02 Peripher Smr Path Cons Sodium 139 Potassium 3.2 L Chloride 105 Carbon Dioxide 23 Anion Gap 11 BUN 24 H Creatinine 2.02 H Est Cr Clr Drug Dosing Not Reportable Est GFR ( Amer) 34.9 Est GFR (Non-Af Amer) 30.1 BUN/Creatinine Ratio 11.9 Glucose 105 H POC Glucose Calcium 9.7 Total Bilirubin 0.9 AST 18 ALT 20 Alkaline Phosphatase 111 H Troponin I High Sens 36.6 H Total Protein 5.4 L Albumin 2.9 L Globulin 2.5 Albumin/Globulin Ratio 1.2 Lipase 12 Urine Color Yellow Urine Appearance Clear Urine pH 6.0 Ur Specific [place] 1.015 Urine Protein 3+ H Urine Glucose (UA) Negative Urine Ketones Trace H Urine Blood Trace H Urine Nitrite Negative Urine Bilirubin Negative Urine Urobilinogen Negative Ur Leukocyte Esterase Negative Urine WBC (Auto) 10-30 H Urine RBC (Auto) 10-30 H U Hyaline Cast (Auto) 1-5 U Epithel Cells (Auto) >30 H Urine Bacteria (Auto) 1+ H Ur Renal Epithelial Cell Not Reportable Granular Casts 1-5 H SARS-CoV-2, RNA, NAAT 10/05/21 10/05/21 10/05/21 12:10 16:57 17:20 WBC RBC Hgb Hct MCV MCH MCHC RDW Std Deviation RDW Coeff of Jessica Plt Count MPV Immature Gran % (Auto) Neut % (Auto) Lymph % (Auto) [place] % (Auto) Eos % (Auto) Baso % (Auto) Neut # (Auto) Lymph # (Auto) [place] # (Auto) Eos # (Auto) Baso # (Auto) Immature Gran # (Auto) Peripher Smr Path Cons Pending Sodium Potassium Chloride Carbon Dioxide Anion Gap BUN Creatinine Est Cr Clr Drug Dosing Est GFR ( Amer) Est GFR (Non-Af Amer) BUN/Creatinine Ratio Glucose POC Glucose 88 Calcium Total Bilirubin AST ALT Alkaline Phosphatase Troponin I High Sens Total Protein Albumin Globulin Albumin/Globulin Ratio Lipase Urine Color Urine Appearance Urine pH Ur Specific [place] Urine Protein Urine Glucose (UA) Urine Ketones Urine Blood Urine Nitrite Urine Bilirubin Urine Urobilinogen Ur Leukocyte Esterase Urine WBC (Auto) Urine RBC (Auto) U Hyaline Cast (Auto) U Epithel Cells (Auto) Urine Bacteria (Auto) Ur Renal Epithelial Cell Granular Casts SARS-CoV-2, RNA, NAAT NEGATIVE 10/05/21 17:20 WBC RBC Hgb Hct MCV MCH MCHC RDW Std Deviation RDW Coeff of Jessica Plt Count MPV Immature Gran % (Auto) Neut % (Auto) Lymph % (Auto) [place] % (Auto) Eos % (Auto) Baso % (Auto) Neut # (Auto) Lymph # (Auto) [place] # (Auto) Eos # (Auto) Baso # (Auto) Immature Gran # (Auto) Peripher Smr Path Cons Sodium Potassium Chloride Carbon Dioxide Anion Gap BUN Creatinine Est Cr Clr Drug Dosing Est GFR ( Amer) Est GFR (Non-Af Amer) BUN/Creatinine Ratio Glucose POC Glucose Calcium Total Bilirubin AST ALT Alkaline Phosphatase Troponin I High Sens 45.9 H Total Protein Albumin Globulin Albumin/Globulin Ratio Lipase Urine Color Urine Appearance Urine pH Ur Specific [place] Urine Protein Urine Glucose (UA) Urine Ketones Urine Blood Urine Nitrite Urine Bilirubin Urine Urobilinogen Ur Leukocyte Esterase Urine WBC (Auto) Urine RBC (Auto) U Hyaline Cast (Auto) U Epithel Cells (Auto) Urine Bacteria (Auto) Ur Renal Epithelial Cell Granular Casts SARS-CoV-2, RNA, NAAT PG Care Time/CCT Total # of Minutes Spent Total Time Spent with Patient: Total time spent is greater than 50% in coordination of care (as documented) at patient's floor/unit and/or counseling patient: Coding Level of Care Code 71334 Inpt Consult Level 5 Diagnoses Hypertension I10 Hypertension type: unspecified Diabetic nephropathy E11.21 Nephrotic syndrome N04.9 ТАТЬЯНА (acute kidney injury) N17.9 (1) Hypertension Hypertension type: unspecified Qualified Code(s): I10 - Essential (primary) hypertension
[2021-10-05] MEDS: INSULIN ASPART PER UNIT SC SCH ×2 (18:31→20:55)
[2021-10-05] MEDS: hydrALAZINE TAB 50 MG TAB PO SCH ×2 (19:38→20:52)
[2021-10-05] MEDS: LABETALOL HCL 200 MG TAB PO SCH ×2 (19:39→20:53)
[2021-10-05] MEDS: HEPARIN SOD 5,000 UNIT/0.5 ML VIAL SQ SCH (20:53)
[2021-10-05] MEDS: MAGNESIUM OXIDE 400 MG TAB PO SCH (20:54)
[2021-10-05] MEDS: INSULIN GLARGINE SOLOSTAR 100 UNITS/ML 3 ML PEN SC SCH (20:55)
[2021-10-06] MEDS: NITROGLYCERIN 2% OINTMENT 30GM TUBE EXT SCH ×4 (01:50→20:49)
[2021-10-06 06:08] LABS: Hematocrit (blood only) 31.9 % (37-47); Hemoglobin 10.2 g/dL (12.0-16.0); Mean Corpuscular Hemoglobin 28.7 pg (25-34); Mean Corpuscular Volume 89.9 fL (80-100); Mean Platelet Volume 9.2 fL (7.4-10.4); Platelet Count 301 K/uL (130-400); RDW Coefficient of Variation 15.1 % (11.5-14.5); RDW Standard Deviation 49.1 fL (36.4-46.3); Red Blood Count 3.55 M/uL (4.2-5.4); White Blood Count 4.85 K/uL (4.8-10.8)
[2021-10-06 06:39] LABS: BUN Creatinine Ratio 12.5 (10-20); Creatinine Clr Calc Pharmacy 35.9 ml/min; Est GFR (African American) 32.2 ml/min; Est GFR (Non-African American) 27.8 ml/min; Magnesium 1.9 mg/dl (1.7-2.4); Potassium 3.8 mmol/L (3.5-5.1)
[2021-10-06 07:02] LABS: Estimated Average Glucose 120 mg/dl; Hemoglobin A1C 5.8 % (4.5-5.6)
--- NOTE | 2021-10-06 07:39 | Ultrasound Report ---
US renal/blad retro comp CLINICAL HISTORY: ТАТЬЯНА TECHNIQUE: Multiple sonographic real-time images of the kidneys and bladder were obtained. COMPARISON: None available at the time of this dictation. FINDINGS: The right kidney measures 12.7 cm in length, and the left kidney measures 11.4 cm in length. The right kidney is normal in size, contour, cortical thickness, and echogenicity. No hydronephrosis is identified. No renal lesion is identified. No perinephric fluid collection is seen. The left kidney is normal in size, contour, cortical thickness and echogenicity. No hydronephrosis i s identified. No renal lesion is identified. No perinephric fluid collection is seen. The bladder is partially distended. No large intraluminal mass is seen. IMPRESSION: Unremarkable renal ultrasound. ACT 112: Negative or not required by law. Electronically signed by: Shaji James M.D. 10/06/2021 7:38 AM
[2021-10-06] MEDS: INSULIN ASPART PER UNIT SC SCH ×4 (08:41→20:53)
[2021-10-06] MEDS: LABETALOL HCL 200 MG TAB PO SCH ×3 (08:42→20:51)
[2021-10-06] MEDS: hydrALAZINE TAB 50 MG TAB PO SCH ×3 (08:43→20:50)
[2021-10-06] MEDS: HEPARIN SOD 5,000 UNIT/0.5 ML VIAL SQ SCH ×2 (08:43→20:51)
[2021-10-06] MEDS: MAGNESIUM OXIDE 400 MG TAB PO SCH ×2 (08:43→20:50)
--- NOTE | 2021-10-06 09:35 | Nephrology Progress Note ---
Date of Service October 06, 2021 Assessment & Plan (1) Hypertension: Plan: Hydralazine increased to 100 mg TID. Continue labetalol 800 mg TID. Nitro paste 1 inch applied this AM. Chlorthalidone 25 mg daily restarted this AM. Consider supplementing with added spironolactone as needed. Lisinopril held due to ТАТЬЯНА. Presentation atypical for pre-eclampsia. Remains on tele monitor. Low sodium diet. Document I/O's. (2) ТАТЬЯНА (acute kidney injury): Plan: No emergent indications for dialysis. Medications appropriate for kidney dysfunction. Creatinine stable. Volume status acceptable. PO intake is very good. Non-oliguric. Granular casts. Active sediment. Renal US demonstrated normal appearing kidney. Peripheral smear pending. LFTS normal. Hgb stable. Atypical presentation for TMA/pre-eclampsia. Complement levels with AM labs. Cannot exclude GN. Non-oliguric. No acute indication for HD. Primary goal is improvement BP control. ACEi held. Peripheral smear and complement levels pending. Repeat UA/microscopy today. (3) Diabetic nephropathy: Plan: Baseline creatinine 1.1-1.5 mg/dL. Notable recent increase in proteinuria concerning. ACEi held. Close outpatient follow up will be necessary. Delaney followed with Dr. Montaño in the past. (4) Nephrotic syndrome: Plan: 24 hours urine pending. Admission and Anticipated Discharge Date Admission Date: October 05, 2021 Subjective No acute events overnight. Delaney feels reasonably well this AM. She reports a mild headache. She has had similar headaches in the past. Describes suboccipital tension. No chest pain or shortness of breath. No vision changes. Appetite is good. Review of Systems Review of Systems: All systems reviewed & are unremarkable except as noted in HPI & below Physical Exam Constitutional: well developed; no acute distress Eyes: + anicteric sclerae; no corneal abnormality ENMT: Mouth: no oral mucosal abnormality and oral mucous membranes not dry Neck: normal visual inspection and trachea midline Thyroid: normal thyroid Respiratory: normal respiratory effort Auscultation: lungs clear to auscultation bilaterally Cardiovascular: Rate/Rhythm: regular rate Heart Sounds: normal S1 and normal S2; no murmur Extremities: normal capillary refill and + pedal edema Musculoskeletal: Extremities: no cyanosis and no clubbing Skin: normal turgor; no lesions Neurologic: Motor/Sensory: no tremor and no asterixis Psychiatric: Orientation: alert and oriented x 3 Results & Data [facility]) Vital Signs (Past 12 Hours) Vital Signs Temp Pulse Pulse Resp BP Pulse Ox 10/06/21 09:18 78 10/06/21 07:25 36.9 C 78 19 175/79 H 90 10/06/21 04:09 37.3 C 79 18 158/77 H 92 10/06/21 00:00 36.8 C 75 75 19 174/80 H 94 Laboratory Results Laboratory Results - last 24 hr 10/05/21 10/05/21 10/05/21 09:45 09:45 09:45 WBC 6.25 RBC 3.90 L Hgb 11.1 L Hct 35.1 L MCV 90.0 MCH 28.5 MCHC 31.6 L RDW Std Deviation 49.0 H RDW Coeff of Jessica 15.1 H Plt Count 356 MPV 9.3 Immature Gran % (Auto) 0.3 Neut % (Auto) 65.5 Lymph % (Auto) 17.9 [place] % (Auto) 10.6 Eos % (Auto) 5.1 Baso % (Auto) 0.6 Neut # (Auto) 4.09 Lymph # (Auto) 1.12 L [place] # (Auto) 0.66 H Eos # (Auto) 0.32 Baso # (Auto) 0.04 Immature Gran # (Auto) 0.02 Peripher Smr Path Cons Sodium 139 Potassium 3.2 L Chloride 105 Carbon Dioxide 23 Anion Gap 11 BUN 24 H Creatinine 2.02 H Est Cr Clr Drug Dosing Not Reportable Est GFR ( Amer) 34.9 Est GFR (Non-Af Amer) 30.1 BUN/Creatinine Ratio 11.9 Glucose 105 H POC Glucose Estimat Average Glucose Hemoglobin A1c Calcium 9.7 Magnesium Total Bilirubin 0.9 AST 18 ALT 20 Alkaline Phosphatase 111 H Troponin I High Sens 36.6 H Total Protein 5.4 L Albumin 2.9 L Globulin 2.5 Albumin/Globulin Ratio 1.2 Lipase 12 Urine Color Yellow Urine Appearance Clear Urine pH 6.0 Ur Specific [place] 1.015 Urine Protein 3+ H Urine Glucose (UA) Negative Urine Ketones Trace H Urine Blood Trace H Urine Nitrite Negative Urine Bilirubin Negative Urine Urobilinogen Negative Ur Leukocyte Esterase Negative Urine WBC (Auto) 10-30 H Urine RBC (Auto) 10-30 H U Hyaline Cast (Auto) 1-5 U Epithel Cells (Auto) >30 H Urine Bacteria (Auto) 1+ H Ur Renal Epithelial Cell Not Reportable Granular Casts 1-5 H Complement C3 Complement C4 Tot Complement (CH50) SARS-CoV-2, RNA, NAAT 10/05/21 10/05/21 10/05/21 12:10 16:57 17:20 WBC RBC Hgb Hct MCV MCH MCHC RDW Std Deviation RDW Coeff of Jessica Plt Count MPV Immature Gran % (Auto) Neut % (Auto) Lymph % (Auto) [place] % (Auto) Eos % (Auto) Baso % (Auto) Neut # (Auto) Lymph # (Auto) [place] # (Auto) Eos # (Auto) Baso # (Auto) Immature Gran # (Auto) Peripher Smr Path Cons Pending Sodium Potassium Chloride Carbon Dioxide Anion Gap BUN Creatinine Est Cr Clr Drug Dosing Est GFR ( Amer) Est GFR (Non-Af Amer) BUN/Creatinine Ratio Glucose POC Glucose 88 Estimat Average Glucose Hemoglobin A1c Calcium Magnesium Total Bilirubin AST ALT Alkaline Phosphatase Troponin I High Sens Total Protein Albumin Globulin Albumin/Globulin Ratio Lipase Urine Color Urine Appearance Urine pH Ur Specific [place] Urine Protein Urine Glucose (UA) Urine Ketones Urine Blood Urine Nitrite Urine Bilirubin Urine Urobilinogen Ur Leukocyte Esterase Urine WBC (Auto) Urine RBC (Auto) U Hyaline Cast (Auto) U Epithel Cells (Auto) Urine Bacteria (Auto) Ur Renal Epithelial Cell Granular Casts Complement C3 Complement C4 Tot Complement (CH50) SARS-CoV-2, RNA, NAAT NEGATIVE 10/05/21 10/05/21 10/06/21 17:20 20:53 00:26 WBC RBC Hgb Hct MCV MCH MCHC RDW Std Deviation RDW Coeff of Jessica Plt Count MPV Immature Gran % (Auto) Neut % (Auto) Lymph % (Auto) [place] % (Auto) Eos % (Auto) Baso % (Auto) Neut # (Auto) Lymph # (Auto) [place] # (Auto) Eos # (Auto) Baso # (Auto) Immature Gran # (Auto) Peripher Smr Path Cons Sodium Potassium Chloride Carbon Dioxide Anion Gap BUN Creatinine Est Cr Clr Drug Dosing Est GFR ( Amer) Est GFR (Non-Af Amer) BUN/Creatinine Ratio Glucose POC Glucose 116 H Estimat Average Glucose Hemoglobin A1c Calcium Magnesium Total Bilirubin AST ALT Alkaline Phosphatase Troponin I High Sens 45.9 H 43.7 H Total Protein Albumin Globulin Albumin/Globulin Ratio Lipase Urine Color Urine Appearance Urine pH Ur Specific [place] Urine Protein Urine Glucose (UA) Urine Ketones Urine Blood Urine Nitrite Urine Bilirubin Urine Urobilinogen Ur Leukocyte Esterase Urine WBC (Auto) Urine RBC (Auto) U Hyaline Cast (Auto) U Epithel Cells (Auto) Urine Bacteria (Auto) Ur Renal Epithelial Cell Granular Casts Complement C3 Complement C4 Tot Complement (CH50) SARS-CoV-2, RNA, NAAT 10/06/21 10/06/21 10/06/21 05:41 05:41 05:41 WBC 4.85 RBC 3.55 L Hgb 10.2 L Hct 31.9 L MCV 89.9 MCH 28.7 MCHC 32.0 RDW Std Deviation 49.1 H RDW Coeff of Jessica 15.1 H Plt Count 301 MPV 9.2 Immature Gran % (Auto) Neut % (Auto) Lymph % (Auto) [place] % (Auto) Eos % (Auto) Baso % (Auto) Neut # (Auto) Lymph # (Auto) [place] # (Auto) Eos # (Auto) Baso # (Auto) Immature Gran # (Auto) Peripher Smr Path Cons Sodium 138 Potassium 3.8 Chloride 106 Carbon Dioxide 24 Anion Gap 8 BUN 27 H Creatinine 2.16 H Est Cr Clr Drug Dosing 35.9 Est GFR ( Amer) 32.2 Est GFR (Non-Af Amer) 27.8 BUN/Creatinine Ratio 12.5 Glucose 79 POC Glucose Estimat Average Glucose 120 Hemoglobin A1c 5.8 H Calcium 9.0 Magnesium 1.9 Total Bilirubin AST ALT Alkaline Phosphatase Troponin I High Sens Total Protein Albumin Globulin Albumin/Globulin Ratio Lipase Urine Color Urine Appearance Urine pH Ur Specific [place] Urine Protein Urine Glucose (UA) Urine Ketones Urine Blood Urine Nitrite Urine Bilirubin Urine Urobilinogen Ur Leukocyte Esterase Urine WBC (Auto) Urine RBC (Auto) U Hyaline Cast (Auto) U Epithel Cells (Auto) Urine Bacteria (Auto) Ur Renal Epithelial Cell Granular Casts Complement C3 Complement C4 Tot Complement (CH50) SARS-CoV-2, RNA, NAAT 10/06/21 10/06/21 05:41 07:28 WBC RBC Hgb Hct MCV MCH MCHC RDW Std Deviation RDW Coeff of Jessica Plt Count MPV Immature Gran % (Auto) Neut % (Auto) Lymph % (Auto) [place] % (Auto) Eos % (Auto) Baso % (Auto) Neut # (Auto) Lymph # (Auto) [place] # (Auto) Eos # (Auto) Baso # (Auto) Immature Gran # (Auto) Peripher Smr Path Cons Sodium Potassium Chloride Carbon Dioxide Anion Gap BUN Creatinine Est Cr Clr Drug Dosing Est GFR ( Amer) Est GFR (Non-Af Amer) BUN/Creatinine Ratio Glucose POC Glucose 90 Estimat Average Glucose Hemoglobin A1c Calcium Magnesium Total Bilirubin AST ALT Alkaline Phosphatase Troponin I High Sens Total Protein Albumin Globulin Albumin/Globulin Ratio Lipase Urine Color Urine Appearance Urine pH Ur Specific [place] Urine Protein Urine Glucose (UA) Urine Ketones Urine Blood Urine Nitrite Urine Bilirubin Urine Urobilinogen Ur Leukocyte Esterase Urine WBC (Auto) Urine RBC (Auto) U Hyaline Cast (Auto) U Epithel Cells (Auto) Urine Bacteria (Auto) Ur Renal Epithelial Cell Granular Casts Complement C3 Pending Complement C4 Pending Tot Complement (CH50) Pending SARS-CoV-2, RNA, NAAT PG Care Time/CCT Total # of Minutes Spent Total Time Spent with Patient: Total time spent is greater than 50% in coordination of care (as documented) at patient's floor/unit and/or counseling patient: Coding Level of Care Code 67115 Subseq Hosp Care Lvl 3 Diagnoses Hypertension I10 Hypertension type: unspecified ТАТЬЯНА (acute kidney injury) N17.9 Diabetic nephropathy E11.21 Nephrotic syndrome N04.9 (1) Hypertension Hypertension type: unspecified Qualified Code(s): I10 - Essential (primary) hypertension
--- NOTE | 2021-10-06 10:54 | Hospitalist Progress Note ---
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 HTN - Admitted for hypertensive emergency with BP peaked at 204/128 and signs of ТАТЬЯНА and elevated troponin - Differential for etiology include pre-eclampsia vs. worsening renal function from nephrotic syndrome vs. ТАТЬЯНА - s/p magnesium for eclampsia prevention. No additional doses required per OB - No evidence of secondary causes: no renal artery stenosis, normal aldosterone and TSH levels, no sleep apnea - Hydralazine 100 mg TID, labetalol 800 mg TID. Chlorthalidone 25 mg daily restarted this AM - BP 158/77 today with goal of <130/80 outpatient going forward - Consider supplementing with added spironolactone as needed - Lisinopril held due to ТАТЬЯНА - Plan for close outpatient follow-up ТАТЬЯНА - Creatine of 2.02 at admission, up from 1.1-1.5 baseline. 2.16 today - Likely secondary to hypertension vs. worsening nephrotic syndrome - No indication for dialysis currently: no signs of fluid overload, no electrolyte abnormalities, no signs of uremia, or ingestion of toxins - Lisinopril on hold to prevent further insult - Nephro consulted: pending peripheral smear, complement levels for additional etiology work up - Repeat UA/micro with FeNa today - Low sodium diet - Encourage PO fluid intake of 3L/day. Will defer IV fluids given elevated BPs, however want to ensure intravascular hydration with PO fluid maintenance - Track I&Os Diabetic nephropathy - Baseline creatinine of 1.1-1.5 - Lisinopril held due to acute ТАТЬЯНА - Most recent A1c 5.8 this admission, highest in past was in 14s in 2018 Elevated troponin - Troponin peaked at 45.9, downtrending - EKG showed no acute injury - Likely secondary to hypertension - Tapering nitro paste for control of chest pain Diabetes - Continue home regimen of 16u Levemir, sliding scale carb ratio of 1:12 with correction of 20 - Carb consistent diet Proteinuria/Nephrotic syndrome workup - 3+ proteinuria - Differential includes nephrotic syndrome with history of edema and hypoalbuminemia of 2.9 - 24 hour urine pending - Complement C3 and C4 pending - Appreciate ongoing assistance from nephrology team FEN/GI: Carb consistent DVT Prophylaxis: Heparin subQ Code Status: Full code (2) Hypertension: (3) Elevated troponin: (4) Type 2 diabetes mellitus: (5) Diabetic nephropathy: (6) Nephrotic syndrome: Admission and Anticipated Discharge Date Admission Date: October 05, 2021 Supervising Physician Co-Signing Physician Notes I personally examined the patient and verified all jansen points of history and exam, discussed case, and agree with decision making with Thomas Vann MS2 feeling ok no acute complaints. BP noted. plan noted, appreciate nephrology input vitals noted nad heent nc at mmm breathing unlabored no accessory muscles good effort skin no rashes no pallor or icterus uncontrolled HTN, ТАТЬЯНА, proteinuria - extensive w/u underway, working to manage BP as well, fortunately no significant sx. very mild trop but with marked HTN - check echo otherwise as above Subjective August is feeling well this morning. No acute events overnight. She reports a brief episode of chest achiness and has been urinating. Review of Systems Constitutional: no fatigue and no weakness Eyes: + problem reported (left eye blurriness) Respiratory: no dyspnea and no snoring Gastrointestinal: no nausea and no vomiting Genitourinary: no urinary incontinence and no hematuria Neurologic: no localized weakness, no tremor(s), no seizure-like activity, no dizziness, no syncope and no confusion Psychiatric: no anxiety Hematologic / Lymphatic: no easy bleeding and no easy bruising Physical Exam Constitutional: cooperative; no acute distress Respiratory: normal respiratory effort, lungs clear to auscultation Cardiovascular: Rate/Rhythm: regular rate and regular rhythm Heart Sounds: normal S1 and normal S2 Extremities: + pedal edema (bilaterally) Gastrointestinal (Abdomen): normal bowel sounds, soft, nontender, no hepatosplenomegaly Skin: no rashes, warm and dry Neurologic: normal touch/pain/proprioception and CN's II-XI intact bilaterally Results & Data Results & Data ([facility]) Vital Signs (Past 12 Hours) Vital Signs Temp Pulse Pulse Resp BP Pulse Ox 10/06/21 09:18 78 10/06/21 07:25 36.9 C 78 19 175/79 H 90 10/06/21 04:09 37.3 C 79 18 158/77 H 92 10/06/21 00:00 36.8 C 75 75 19 174/80 H 94 Laboratory Results 10/06/21 10/06/21 10/06/21 Range/Units 11:23 09:03 07:28 POC Glucose 99 90 (70-99) mg/dl Troponin I High Sens 36.0 H (0-14) pg/ml 10/06/21 10/06/21 10/06/21 Range/Units 05:41 05:41 05:41 Sodium 138 (136-145) mmol/L Potassium 3.8 (3.5-5.1) mmol/L Chloride 106 (98-107) mmol/L Carbon Dioxide 24 (21-32) mmol/L Anion Gap 8 (3-11) BUN 27 H (6-23) mg/dl Creatinine 2.16 H (0.6-1.2) mg/dl Est Cr Clr Drug Dosing 35.9 ml/min Est GFR ( Amer) 32.2 ml/min Est GFR (Non-Af Amer) 27.8 ml/min BUN/Creatinine Ratio 12.5 (10-20) Glucose 79 (70-99(Fasting)) mg/dl Estimat Average Glucose 120 mg/dl Hemoglobin A1c 5.8 H (4.5-5.6) % Calcium 9.0 (8.5-10.1) mg/dl Magnesium 1.9 (1.7-2.4) mg/dl Complement C3 Pending Complement C4 Pending Tot Complement (CH50) Pending 10/06/21 10/06/21 10/05/21 Range/Units 05:41 00:26 20:53 WBC 4.85 (4.8-10.8) K/uL RBC 3.55 L (4.2-5.4) M/uL Hgb 10.2 L (12.0-16.0) g/dL Hct 31.9 L (37-47) % MCV 89.9 (80-100) fL MCH 28.7 (25-34) pg MCHC 32.0 (32-36) g/dL RDW Std Deviation 49.1 H (36.4-46.3) fL RDW Coeff of Jessica 15.1 H (11.5-14.5) % Plt Count 301 (130-400) K/uL MPV 9.2 (7.4-10.4) fL POC Glucose 116 H (70-99) mg/dl Troponin I High Sens 43.7 H (0-14) pg/ml 10/05/21 10/05/21 Range/Units 17:20 16:57 POC Glucose 88 (70-99) mg/dl Troponin I High Sens 45.9 H (0-14) pg/ml 10/05/21 Range/Units 09:45 Ur Random Creatinine 50.6 mg/dl Ur Random Sodium 103 mmol/L Diagnostic Findings Renal US: Unremarkable renal ultrasound. Head CT: No acute intracranial hemorrhage, no evidence of acute territorial infarction or other acute intracranial disease process. CXR: Mild cardiomegaly, unchanged. (1) Hypertension Hypertension type: unspecified Qualified Code(s): I10 - Essential (primary) hypertension
[2021-10-06] MEDS: CHLORTHALIDONE 25 MG TAB PO SCH (10:56)
[2021-10-06 11:41] LABS: Creatinine Urine Random 50.6 mg/dl
--- NOTE | 2021-10-06 14:36 | XCELERA ---
[id number]
--- NOTE | 2021-10-06 15:47 | Billing Data ---
Date of Service October 06, 2021 Coding Level of Care Code 69281 Subseq Hosp Care Lvl 2
[2021-10-06] MEDS: INSULIN GLARGINE SOLOSTAR 100 UNITS/ML 3 ML PEN SC SCH (20:37)
[2021-10-06 22:48] LABS: Urine Total Protein > 1000.0 mg/dl
[2021-10-06 22:49] LABS: Total Volume Urine 690 mL
[2021-10-07] MEDS: METOPROLOL TARTRATE 1 MG/ML VIAL IV PRN ×2 (03:06→06:32)
[2021-10-07] MEDS: NITROGLYCERIN 2% OINTMENT 30GM TUBE EXT SCH ×5 (03:06→23:36)
[2021-10-07 06:24] LABS: Hematocrit (blood only) 29.7 % (37-47); Hemoglobin 9.6 g/dL (12.0-16.0); Mean Corpuscular Hemoglobin 29.1 pg (25-34); Mean Corpuscular Hgb Conc 32.3 g/dL (32-36); Mean Platelet Volume 9.1 fL (7.4-10.4); Platelet Count 266 K/uL (130-400); RDW Coefficient of Variation 15.1 % (11.5-14.5); RDW Standard Deviation 49.8 fL (36.4-46.3); White Blood Count 5.21 K/uL (4.8-10.8)
[2021-10-07 06:38] LABS: BUN Creatinine Ratio 12.4 (10-20); Calcium 8.3 mg/dl (8.5-10.1); Creatinine Clr Calc Pharmacy 29.2 ml/min; Est GFR (African American) 24.9 ml/min; Est GFR (Non-African American) 21.5 ml/min; Magnesium 1.7 mg/dl (1.7-2.4); Potassium 3.8 mmol/L (3.5-5.1)
[2021-10-07] MEDS ORDERED: hydrALAZINE HCL 20 MG/ML VIAL IV STA (07:37)
[2021-10-07] MEDS: INSULIN ASPART PER UNIT SC SCH ×4 (08:08→20:12)
[2021-10-07] MEDS: LABETALOL HCL 200 MG TAB PO SCH ×3 (08:12→20:10)
[2021-10-07] MEDS: CHLORTHALIDONE 25 MG TAB PO SCH (08:12)
[2021-10-07] MEDS: MAGNESIUM OXIDE 400 MG TAB PO SCH ×2 (08:13→20:10)
[2021-10-07] MEDS: HEPARIN SOD 5,000 UNIT/0.5 ML VIAL SQ SCH ×2 (08:13→20:09)
[2021-10-07] MEDS: hydrALAZINE TAB 50 MG TAB PO SCH ×3 (08:13→20:09)
--- NOTE | 2021-10-07 09:09 | Hospitalist Progress Note ---
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 HTN - Admitted for hypertensive emergency with BP peaked at 204/128 and signs of ТАТЬЯНА and elevated troponin - Likely secondary to worsening renal function from nephrotic syndrome vs. ТАТЬЯНА - s/p magnesium for eclampsia prevention. No additional doses required per OB - No evidence of secondary causes thus far: no renal artery stenosis per updated duplex, previously normal aldosterone, no sleep apnea, normal random cortisol - Elevated TSH at 6.027, normal T4. Repeat - Ordered AM cortisol for further work up - Hydralazine 100 mg TID, labetalol 800 mg TID, chlorthalidone 25 mg daily, and tapering nitro paste. Added spironolactone 25 mg daily - Metoprolol 5 mg IV PRN for persistent SBP >185, DBP >95, or BP>120 - Lisinopril held due to ТАТЬЯНА - Plan for close outpatient follow-up ТАТЬЯНА - Creatine of 2.67 today, up from 2.02 at admission and 1.1-1.5 baseline - Likely secondary to hypertension vs. worsening nephrotic syndrome - No indication for dialysis currently: no signs of fluid overload, no electrolyte abnormalities, no signs of uremia, or ingestion of toxins - Lisinopril on hold to prevent further insult - FENa 3.3%, although on chlorthalidone, suggesting intrinsic renal injury - No schistocytes on peripheral smear - Nephro consult appreciated: pending complement levels for additional etiology work up - Low sodium diet - Track I&Os Diabetic nephropathy - Baseline creatinine of 1.1-1.5 - Lisinopril held due to acute ТАТЬЯНА - Most recent A1c 5.8 this admission, highest in past was in 14s in 2018 Nephrotic Syndrome - 24 hour urine protein 6.9 g - Complement C3 and C4 pending - PLA2r ordered - HIV, Hep C antibodies from 04/2021 negative; denies h/o IVDU - Consider kidney biopsy - Appreciate ongoing assistance from nephrology team Hematuria - RBCs on admission UA - Appreciate ongoing assistance from nephrology team: Serologic GN evaluation (including KERVIN, dsDNA, and ANCA) if urine microscopy continues to demonstrate active sediment - Repeat UA ordered Elevated troponin - Troponin peaked at 45.9, downtrending - EKG showed no acute injury - Likely secondary to hypertension and persistent elevation d/t ТАТЬЯНА Anemia - Hgb 9.6 - Peripheral smear demonstrate normochromic, normocytic RBCs - RBCs 3.3 down from 3.9 at admission. Baseline 3.5 - Likely secondary to CKD vs. malnutrition - Consider reticulocyte count, B12, folate, iron studies Diabetes - Continue home regimen of 16u Levemir, sliding scale carb ratio of 1:12 with correction of 20 - Carb consistent diet FEN/GI: Carb consistent, low salt. Encourage PO fluid intake of 3L/day. Will defer IV fluids given elevated BPs, however want to ensure intravascular hydration with PO fluid maintenance DVT Prophylaxis: Heparin subQ Disposition: Med/Surg with tele Code Status: Full code (2) Hypertension: (3) Elevated troponin: (4) Type 2 diabetes mellitus: (5) Diabetic nephropathy: (6) Nephrotic syndrome: Admission and Anticipated Discharge Date Admission Date: October 05, 2021 Supervising Physician Co-Signing Physician Notes I personally examined the patient and verified all jansen points of history and exam, discussed case, and agree with decision making with Thomas Vann MS2 still feels OK. nephrology input appreciated. pt updated to the best of my ability. vitals noted nad heent nc at mmm breathing unlabored no accessory muscles good effort skin no rashes no pallor or icterus uncontrolled HTN, ТАТЬЯНА, proteinuria - appearing most c/w nephrotic syndrome, possible nephritic as well; extensive w/u underway, working to manage BP as well, fortunately no significant sx. otherwise as above Subjective blood pressure was asymptomatically elevated at 178/111 this AM and responded to 2 doses of metoprolol 5 mg IV and hydralazine 10 mg IV. She reports feeling well this morning and no symptoms with the hypertension. She reports two brief episodes of whole-body tingling that last 1 second. No new bleeding or bruising. Review of Systems Constitutional: no fatigue Respiratory: no dyspnea and no snoring Gastrointestinal: no nausea and no vomiting Genitourinary: no urinary incontinence and no hematuria Neurologic: no localized weakness, no tremor(s), no seizure-like activity, no dizziness, no syncope and no confusion Hematologic / Lymphatic: as per Subjective / HPI Physical Exam Constitutional: cooperative; no acute distress Respiratory: normal respiratory effort, lungs clear to auscultation Cardiovascular: Rate/Rhythm: regular rate and regular rhythm Heart Sounds: normal S1 and normal S2 Extremities: + pedal edema (bilaterally) Gastrointestinal (Abdomen): normal bowel sounds, soft, nontender, no hepatosplenomegaly Skin: no rashes, warm and dry healing bruise on right upper arm Neurologic: normal touch/pain/proprioception and CN's II-XI intact bilaterally Results & Data Results & Data ([facility]) Vital Signs (Past 12 Hours) Vital Signs Temp Pulse Pulse Resp BP BP Pulse Ox 10/07/21 07:33 36.8 C 79 17 195/96 H 92 10/07/21 06:13 78 185/103 H 10/07/21 03:42 89 180/95 H 10/07/21 03:06 79 178/111 H 10/07/21 02:51 36.8 C 79 18 178/111 H 97 10/06/21 23:30 75 10/06/21 23:25 37.2 C 77 20 178/92 H 96 Laboratory Results 10/07/21 10/07/21 Range/Units 05:55 05:55 WBC 5.21 (4.8-10.8) K/uL RBC 3.30 L (4.2-5.4) M/uL Hgb 9.6 L (12.0-16.0) g/dL Hct 29.7 L (37-47) % MCV 90.0 (80-100) fL MCH 29.1 (25-34) pg MCHC 32.3 (32-36) g/dL RDW Std Deviation 49.8 H (36.4-46.3) fL RDW Coeff of Jessica 15.1 H (11.5-14.5) % Plt Count 266 (130-400) K/uL MPV 9.1 (7.4-10.4) fL Sodium 137 (136-145) mmol/L Potassium 3.8 (3.5-5.1) mmol/L Chloride 106 (98-107) mmol/L Carbon Dioxide 23 (21-32) mmol/L Anion Gap 8 (3-11) BUN 33 H (6-23) mg/dl Creatinine 2.67 H D (0.6-1.2) mg/dl Est Cr Clr Drug Dosing 29.2 ml/min Est GFR ( Amer) 24.9 ml/min Est GFR (Non-Af Amer) 21.5 ml/min BUN/Creatinine Ratio 12.4 (10-20) Glucose 101 H (70-99(Fasting)) mg/dl POC Glucose (70-99) mg/dl Calcium 8.3 L (8.5-10.1) mg/dl Magnesium 1.7 (1.7-2.4) mg/dl 10/06/21 Range/Units 16:20 Troponin I High Sens 29.3 H (0-14) pg/ml 10/06/21 10/05/21 Range/Units 09:03 21:30 Troponin I High Sens 36.0 H (0-14) pg/ml Urine Total Volume 690 mL Ur Total Protein 24 Hr 6900.0 H (0-149.1) mg/24 Hr Urine Total Protein > 1000.0 mg/dl 10/05/21 Range/Units 09:45 Ur Random Creatinine 50.6 mg/dl Ur Random Sodium 103 mmol/L 10/07/21 10/07/21 10/07/21 Range/Units 10:14 10:14 10:14 Ionized Calcium 1.14 (1.12-1.32) mmol/L TSH 6.027 H (0.300-4.500) uIu/ml Free T4 1.12 (0.61-1.60) ng/dl Random Cortisol 8.08 mcg/dl Micro Urine Specimen: More than three types of organisms present, all moderate counts mixed probable skin fabiola. No further identifications or sensitivities to follow. Peripheral Blood Smear: #1. Normochromic/normocytic red blood cells, mild anisocytosis of the red blood cells, unremarkable leukocytes and unremarkable platelets are all seen. #2. Blasts, schistocytes, and spherocytes are all not seen. #3. Rare echinocytes are noted. #4. There is no evidence of intravascular or extravascular hemolysis on this slide. Diagnostic Findings ECHO: LV systolic function is normal. No regional wall motion abnormalities noted. Ejection fraction = 55-60% There is mild tricuspid regurgitation. Compared with study from 08/22/20, no significant change. Renal Artery Duplex: No evidence of renal artery stenosis. (1) Hypertension Hypertension type: unspecified Qualified Code(s): I10 - Essential (primary) hypertension
--- NOTE | 2021-10-07 09:48 | Nephrology Progress Note ---
Date of Service October 07, 2021 Assessment & Plan (1) Hypertension: Plan: Accelerated BP overnight and early this AM. Additional IV metoprolol was provided. Remains on PO hydralazine 100 mg TID, labetalol 800 mg TID, and chlorthalidone 25 mg daily. A low dose of spironolactone will be added now with close monitoring of the serum metabolic profile. Remains on Nitro paste 1 inch. Unfortunately, we continue to see persistent uncontrolled hypertension. I would consider adding Minoxidil and attempting to wean topical nitro. Lisinopril held due to ТАТЬЯНА. Renal artery duplex will be updated today. Low sodium diet. Document strict I/O's. (2) ТАТЬЯНА (acute kidney injury): Plan: No emergent indications for dialysis. Medications appropriate for kidney dysfunction. Unfortunately rise in creatinine in past 24 hours. Volume status acceptable. Electrolytes normal. Thankfully, there is no emergent indication for dialysis. Urine protein excretion increased from 2.2 in May to 6.9 grams. Ultimately, Delaney should have a kidney biopsy for definitive diagnosis. Now that 24 hour urine has been completed, urine microscopy will be repeated. Non-oliguric. Granular casts. Active sediment. Renal US demonstrated normal appearing kidneys. No schistocytes on peripheral smear. Atypical presentation for TMA/pre-eclampsia. Complement levels pending. Cannot exclude GN. Continue to hold ACEi. Complement levels pending. (3) Diabetic nephropathy: Plan: Baseline creatinine 1.1-1.5 mg/dL. Notable recent increase in proteinuria concerning. ACEi held. Ultimately, Delaney will need to return to a facility able to perform kidney biopsy for definitive diagnosis. Followed by Dr. oMntaño as outpatient. (4) Nephrotic syndrome: Plan: As above. Admission and Anticipated Discharge Date Admission Date: October 05, 2021 Subjective No acute events overnight. Delaney feels well this AM. She denies any headaches. She denies visual changes. No shortness of breath. No chest pain or palpitations. She reports some persistent fluid retention in her legs and abdomen but notes that edema in her ankles has improved. Appetite is good. Review of Systems Review of Systems: All systems reviewed & are unremarkable except as noted in HPI & below Physical Exam Constitutional: well developed; no acute distress Eyes: + anicteric sclerae; no corneal abnormality ENMT: Mouth: no oral mucosal abnormality and oral mucous membranes not dry Neck: normal visual inspection and trachea midline Thyroid: normal thyroid Respiratory: normal respiratory effort Auscultation: lungs clear to auscultation bilaterally Cardiovascular: Rate/Rhythm: regular rate Heart Sounds: normal S1 and normal S2; no murmur Extremities: normal capillary refill and + pedal edema (improved) Musculoskeletal: Extremities: no cyanosis and no clubbing Skin: normal turgor; no lesions Neurologic: Motor/Sensory: no tremor and no asterixis Psychiatric: Orientation: alert and oriented x 3 Results & Data ([facility]) Vital Signs (Past 12 Hours) Vital Signs Temp Pulse Pulse Resp BP BP Pulse Ox 10/07/21 09:15 79 159/85 H 10/07/21 07:33 36.8 C 79 17 195/96 H 92 10/07/21 06:13 78 185/103 H 10/07/21 03:42 89 180/95 H 10/07/21 03:06 79 178/111 H 10/07/21 02:51 36.8 C 79 18 178/111 H 97 10/06/21 23:30 75 10/06/21 23:25 37.2 C 77 20 178/92 H 96 Laboratory Results Laboratory Results - last 24 hr 10/05/21 10/05/21 10/05/21 09:45 17:20 21:30 WBC RBC Hgb Hct MCV MCH MCHC RDW Std Deviation RDW Coeff of Jessica Plt Count MPV Peripher Smr Path Cons Sodium Potassium Chloride Carbon Dioxide Anion Gap BUN Creatinine Est Cr Clr Drug Dosing Est GFR ( Amer) Est GFR (Non-Af Amer) BUN/Creatinine Ratio Glucose POC Glucose Calcium Magnesium Troponin I High Sens Ur Random Creatinine 50.6 Ur Random Sodium 103 Urine Total Volume 690 Ur Total Protein 24 Hr 6900.0 H Urine Total Protein > 1000.0 10/06/21 10/06/21 10/06/21 09:03 11:23 16:20 WBC RBC Hgb Hct MCV MCH MCHC RDW Std Deviation RDW Coeff of Jessica Plt Count MPV Peripher Smr Path Cons Sodium Potassium Chloride Carbon Dioxide Anion Gap BUN Creatinine Est Cr Clr Drug Dosing Est GFR ( Amer) Est GFR (Non-Af Amer) BUN/Creatinine Ratio Glucose POC Glucose 99 Calcium Magnesium Troponin I High Sens 36.0 H 29.3 H Ur Random Creatinine Ur Random Sodium Urine Total Volume Ur Total Protein 24 Hr Urine Total Protein 10/06/21 10/06/21 10/07/21 16:27 20:37 05:55 WBC 5.21 RBC 3.30 L Hgb 9.6 L Hct 29.7 L MCV 90.0 MCH 29.1 MCHC 32.3 RDW Std Deviation 49.8 H RDW Coeff of Jessica 15.1 H Plt Count 266 MPV 9.1 Peripher Smr Path Cons Sodium Potassium Chloride Carbon Dioxide Anion Gap BUN Creatinine Est Cr Clr Drug Dosing Est GFR ( Amer) Est GFR (Non-Af Amer) BUN/Creatinine Ratio Glucose POC Glucose 165 H 108 H Calcium Magnesium Troponin I High Sens Ur Random Creatinine Ur Random Sodium Urine Total Volume Ur Total Protein 24 Hr Urine Total Protein 10/07/21 10/07/21 05:55 07:06 WBC RBC Hgb Hct MCV MCH MCHC RDW Std Deviation RDW Coeff of Jessica Plt Count MPV Peripher Smr Path Cons Sodium 137 Potassium 3.8 Chloride 106 Carbon Dioxide 23 Anion Gap 8 BUN 33 H Creatinine 2.67 H D Est Cr Clr Drug Dosing 29.2 Est GFR ( Amer) 24.9 Est GFR (Non-Af Amer) 21.5 BUN/Creatinine Ratio 12.4 Glucose 101 H POC Glucose 101 H Calcium 8.3 L Magnesium 1.7 Troponin I High Sens Ur Random Creatinine Ur Random Sodium Urine Total Volume Ur Total Protein 24 Hr Urine Total Protein PG Care Time/CCT Total # of Minutes Spent Total Time Spent with Patient: Total time spent is greater than 50% in coordination of care (as documented) at patient's floor/unit and/or counseling patient: Coding Level of Care Code 20043 Subseq Hosp Care Lvl 3 Diagnoses Hypertension I10 Hypertension type: unspecified ТАТЬЯНА (acute kidney injury) N17.9 Diabetic nephropathy E11.21 Nephrotic syndrome N04.9 (1) Hypertension Hypertension type: unspecified Qualified Code(s): I10 - Essential (primary) hypertension
[2021-10-07] MEDS ORDERED: SPIRONOLACTONE 25 MG TAB PO SCH (10:30)
[2021-10-07 10:58] LABS: Albumin Level 2.8 gm/dl (3.4-5.0); Bilirubin Direct 0.1 mg/dl (0-0.2); Bilirubin,Total 0.5 mg/dl (0.2-1.0)
[2021-10-07 11:22] LABS: Thyroid Stimulating Hormone 6.027 uIu/ml (0.300-4.500)
[2021-10-07 12:00] LABS: T4 Free Thyroxine 1.12 ng/dl (0.61-1.60)
--- NOTE | 2021-10-07 14:20 | Ultrasound Report ---
US duplex renal artery CLINICAL HISTORY: ТАТЬЯНА, accelerated hypertension TECHNIQUE: Real-time grayscale and color and spectral Doppler ultrasound imaging of the kidneys was p erformed. Comparison: None available at the time of this dictation. FINDINGS: Right kidney measures 11.3 cm. Left kidney measures 11.4 cm. RIGHT: Normal echogenicity with preserved corticomedullary differentiation. Normal cortical thickness. No hy dronephrosis. No convincing evidence of calculus or mass. Spectral analysis: Intrarenal resistive indices range from 0.59 to 0.62. Waveforms are normal in appearance.. Renal mickey ry patent with peak systolic velocity 33 cm/s proximally, 48 cm/s in the midportion, and 49 cm/s dist ally. Renal vein patent. LEFT: Normal echogenicity with preserved corticomedullary differentiation. Normal cortical thickness. No hy dronephrosis. No convincing evidence of calculus or mass. Spectral analysis: Intrarenal resistive indices range from 0.62 to 0.69. Waveforms are normal in appearance. Renal arter y patent with peak systolic velocity 68 cm/s proximally, 61 cm/s in the midportion, and 62 cm/s dista lly. Renal vein patent. Abdominal aorta: Patent. Peak systolic velocity 101 cm/s. Reference ranges: Normal main renal artery peak systolic velocity less than 180 cm/s. Ratio of renal artery PSV to aort ic PSV less than 3.5 equates to normal or less than 60% stenosis. Only one of the two criteria listed needs to be met for diagnosis. IMPRESSION: No evidence of renal artery stenosis. ACT 112: Negative or not required by law. Electronically signed by: Shaji James M.D. 10/07/2021 2:18 PM
--- NOTE | 2021-10-07 14:56 | Billing Data ---
Date of Service October 07, 2021 Coding Level of Care Code 18386 Subseq Hosp Care Lvl 3
[2021-10-07 16:02] LABS: BUN Creatinine Ratio 13.1 (10-20); Calcium 8.5 mg/dl (8.5-10.1); Creatinine Clr Calc Pharmacy 30.1 ml/min; Est GFR (African American) 25.8 ml/min; Est GFR (Non-African American) 22.3 ml/min; Potassium 3.6 mmol/L (3.5-5.1)
[2021-10-07 16:27] LABS: Bacteria Urine Automated Negative (Negative); Epithelial Cell Urine Auto >30 /lpf (0-5)
[2021-10-07] MEDS: INSULIN GLARGINE SOLOSTAR 100 UNITS/ML 3 ML PEN SC SCH (20:10)
[2021-10-08] MEDS: NITROGLYCERIN 2% OINTMENT 30GM TUBE EXT SCH (06:21)
[2021-10-08 07:31] LABS: Hematocrit (blood only) 29.3 % (37-47); Hemoglobin 9.4 g/dL (12.0-16.0); Mean Corpuscular Hemoglobin 29.2 pg (25-34); Mean Corpuscular Hgb Conc 32.1 g/dL (32-36); Mean Platelet Volume 9.5 fL (7.4-10.4); Platelet Count 268 K/uL (130-400); RDW Coefficient of Variation 15.1 % (11.5-14.5); RDW Standard Deviation 50.7 fL (36.4-46.3); Red Blood Count 3.22 M/uL (4.2-5.4)
[2021-10-08] MEDS: INSULIN ASPART PER UNIT SC SCH ×4 (07:46→20:06)
[2021-10-08 07:52] LABS: Albumin Globulin Ratio 1.2 (0.9-2); Albumin Level 2.9 gm/dl (3.4-5.0); BUN Creatinine Ratio 15.4 (10-20); Bilirubin,Total 0.6 mg/dl (0.2-1.0); Calcium 8.3 mg/dl (8.5-10.1); Creatinine Clr Calc Pharmacy 32.2 ml/min; Est GFR (African American) 28.3 ml/min; Est GFR (Non-African American) 24.4 ml/min; Globulin 2.4 gm/dl (2.5-4.0); Magnesium 1.7 mg/dl (1.7-2.4); Potassium 3.7 mmol/L (3.5-5.1); Total Protein 5.3 gm/dl (6.0-8.3)
[2021-10-08] MEDS: METOPROLOL TARTRATE 1 MG/ML VIAL IV PRN (07:57)
[2021-10-08] MEDS: LABETALOL HCL 200 MG TAB PO SCH ×3 (08:31→20:04)
[2021-10-08] MEDS: MAGNESIUM OXIDE 400 MG TAB PO SCH ×2 (08:31→20:04)
[2021-10-08] MEDS: hydrALAZINE TAB 50 MG TAB PO SCH ×3 (08:31→20:05)
[2021-10-08] MEDS: CHLORTHALIDONE 25 MG TAB PO SCH (08:31)
[2021-10-08] MEDS: HEPARIN SOD 5,000 UNIT/0.5 ML VIAL SQ SCH ×2 (08:32→20:06)
[2021-10-08] MEDS ORDERED: amLODIPine BESYLATE 5 MG TAB PO SCH (09:00)
[2021-10-08] MEDS: SPIRONOLACTONE 25 MG TAB PO SCH (09:26)
--- NOTE | 2021-10-08 09:29 | Nephrology Progress Note ---
Date of Service October 08, 2021 Assessment & Plan (1) Hypertension: Plan: Improved control throughout day yesterday. Will stop nitro paste this AM. Increased spironolactone to 50 mg daily. Start amlodipine 5 mg daily. Remains on PO hydralazine 100 mg TID, labetalol 800 mg TID, and chlorthalidone 25 mg daily. Lisinopril held due to ТАТЬЯНА. Renal artery duplex negative for TRAVIS. Low sodium diet. Document strict I/O's. (2) ТАТЬЯНА (acute kidney injury): Plan: No emergent indications for dialysis. Medications appropriate for kidney dysfunction. Creatinine relatively stable. Volume status acceptable. Electrolytes normal. Thankfully, there is no emergent indication for dialysis. Urine protein excretion increased from 2.2 in May to 6.9 grams. Ultimately, kidney biopsy will be required for definitive diagnosis. Still a few RBC's and WBC's on repeat urine microscopy. No obvious GN. Non-oliguric. Granular casts. Active sediment. Renal US demonstrated normal appearing kidneys. No schistocytes on peripheral smear. Atypical presentation for TMA/pre-eclampsia. Complement levels pending. PLA2r pending. Consider sending KERVIN, dsDNA, and ANCA titers if there is no improvement. Continue to hold ACEi. Complement levels pending. (3) Diabetic nephropathy: Plan: Baseline creatinine 1.1-1.5 mg/dL. Notable recent increase in proteinuria concerning. ACEi held. Ultimately, Delaney will need to return to a facility able to perform kidney biopsy for definitive diagnosis. Plan of care discussed with Dr. Garcia this AM. Followed by Dr. Montaño as outpatient. (4) Nephrotic syndrome: Plan: As above. Admission and Anticipated Discharge Date Admission Date: October 05, 2021 Subjective No acute events overnight. Delaney feels reasonably well this AM. She denies fluid retention. No headaches. Review of Systems Review of Systems: All systems reviewed & are unremarkable except as noted in HPI & below Physical Exam Constitutional: well developed; no acute distress Eyes: + anicteric sclerae; no corneal abnormality ENMT: Mouth: no oral mucosal abnormality and oral mucous membranes not dry Neck: normal visual inspection and trachea midline Thyroid: normal thyroid Respiratory: normal respiratory effort Auscultation: lungs clear to auscultation bilaterally Cardiovascular: Rate/Rhythm: regular rate Heart Sounds: normal S1 and normal S2; no murmur Extremities: normal capillary refill and + pedal edema (improved) Musculoskeletal: Extremities: no cyanosis and no clubbing Skin: normal turgor; no lesions Neurologic: Motor/Sensory: no tremor and no asterixis Psychiatric: Orientation: alert and oriented x 3 Results & Data ([facility]) Vital Signs (Past 12 Hours) Vital Signs Temp Pulse Pulse Pulse Resp BP BP 10/08/21 07:57 85 192/97 H 10/08/21 07:55 36.8 C 85 18 190/92 H 10/08/21 06:20 92 H 10/08/21 03:51 36.6 C 80 17 10/07/21 23:06 69 10/07/21 22:42 36.7 C 76 18 163/88 H BP Pulse Ox 10/08/21 07:57 10/08/21 07:55 192/97 H 95 10/08/21 06:20 151/98 H 10/08/21 03:51 169/91 H 96 10/07/21 23:06 10/07/21 22:42 95 Laboratory Results Laboratory Results - last 24 hr 10/07/21 10/07/21 10/07/21 10:14 10:14 10:14 WBC RBC Hgb Hct MCV MCH MCHC RDW Std Deviation RDW Coeff of Jessica Plt Count MPV Sodium Potassium Chloride Carbon Dioxide Anion Gap BUN Creatinine Est Cr Clr Drug Dosing Est GFR ( Amer) Est GFR (Non-Af Amer) BUN/Creatinine Ratio Glucose POC Glucose Calcium Ionized Calcium 1.14 Magnesium Total Bilirubin Direct Bilirubin AST ALT Alkaline Phosphatase Total Protein Albumin Globulin Albumin/Globulin Ratio TSH 6.027 H Free T4 1.12 Random Cortisol 8.08 Urine WBC (Auto) Urine RBC (Auto) U Hyaline Cast (Auto) U Epithel Cells (Auto) Urine Bacteria (Auto) Ur Renal Epithelial Cell Phospholip A2 Rec IFA Phospholip A2 Rec HARESH 10/07/21 10/07/21 10/07/21 10:14 11:21 13:48 WBC RBC Hgb Hct MCV MCH MCHC RDW Std Deviation RDW Coeff of Jessica Plt Count MPV Sodium Potassium Chloride Carbon Dioxide Anion Gap BUN Creatinine Est Cr Clr Drug Dosing Est GFR ( Amer) Est GFR (Non-Af Amer) BUN/Creatinine Ratio Glucose POC Glucose 97 132 H Calcium Ionized Calcium Magnesium Total Bilirubin 0.5 Direct Bilirubin 0.1 AST 17 ALT 14 Alkaline Phosphatase 85 Total Protein 5.0 L Albumin 2.8 L Globulin Albumin/Globulin Ratio TSH Free T4 Random Cortisol Urine WBC (Auto) Urine RBC (Auto) U Hyaline Cast (Auto) U Epithel Cells (Auto) Urine Bacteria (Auto) Ur Renal Epithelial Cell Phospholip A2 Rec IFA Phospholip A2 Rec HARESH 10/07/21 10/07/21 10/07/21 14:55 15:55 16:29 WBC RBC Hgb Hct MCV MCH MCHC RDW Std Deviation RDW Coeff of Jessica Plt Count MPV Sodium 139 Potassium 3.6 Chloride 107 Carbon Dioxide 23 Anion Gap 9 BUN 34 H Creatinine 2.59 H Est Cr Clr Drug Dosing 30.1 Est GFR ( Amer) 25.8 Est GFR (Non-Af Amer) 22.3 BUN/Creatinine Ratio 13.1 Glucose 153 H POC Glucose 149 H Calcium 8.5 Ionized Calcium Magnesium Total Bilirubin Direct Bilirubin AST ALT Alkaline Phosphatase Total Protein Albumin Globulin Albumin/Globulin Ratio TSH Free T4 Random Cortisol Urine WBC (Auto) 5-10 H Urine RBC (Auto) 5-10 H U Hyaline Cast (Auto) 5-10 H U Epithel Cells (Auto) >30 H Urine Bacteria (Auto) Negative Ur Renal Epithelial Cell 5-10 H Phospholip A2 Rec IFA Phospholip A2 Rec HARESH 10/07/21 10/08/21 10/08/21 20:06 06:43 06:43 WBC 4.60 L RBC 3.22 L Hgb 9.4 L Hct 29.3 L MCV 91.0 MCH 29.2 MCHC 32.1 RDW Std Deviation 50.7 H RDW Coeff of Jessica 15.1 H Plt Count 268 MPV 9.5 Sodium 139 Potassium 3.7 Chloride 108 H Carbon Dioxide 23 Anion Gap 8 BUN 37 H Creatinine 2.40 H Est Cr Clr Drug Dosing 32.2 Est GFR ( Amer) 28.3 Est GFR (Non-Af Amer) 24.4 BUN/Creatinine Ratio 15.4 Glucose 85 POC Glucose 144 H Calcium 8.3 L Ionized Calcium Magnesium 1.7 Total Bilirubin 0.6 Direct Bilirubin AST 19 ALT 16 Alkaline Phosphatase 86 Total Protein 5.3 L Albumin 2.9 L Globulin 2.4 L Albumin/Globulin Ratio 1.2 TSH Free T4 Random Cortisol Urine WBC (Auto) Urine RBC (Auto) U Hyaline Cast (Auto) U Epithel Cells (Auto) Urine Bacteria (Auto) Ur Renal Epithelial Cell Phospholip A2 Rec IFA Phospholip A2 Rec HARESH 10/08/21 10/08/21 06:43 07:19 WBC RBC Hgb Hct MCV MCH MCHC RDW Std Deviation RDW Coeff of Jessica Plt Count MPV Sodium Potassium Chloride Carbon Dioxide Anion Gap BUN Creatinine Est Cr Clr Drug Dosing Est GFR ( Amer) Est GFR (Non-Af Amer) BUN/Creatinine Ratio Glucose POC Glucose 89 Calcium Ionized Calcium Magnesium Total Bilirubin Direct Bilirubin AST ALT Alkaline Phosphatase Total Protein Albumin Globulin Albumin/Globulin Ratio TSH Free T4 Random Cortisol Urine WBC (Auto) Urine RBC (Auto) U Hyaline Cast (Auto) U Epithel Cells (Auto) Urine Bacteria (Auto) Ur Renal Epithelial Cell Phospholip A2 Rec IFA Pending Phospholip A2 Rec HARESH Pending PG Care Time/CCT Total # of Minutes Spent Total Time Spent with Patient: Total time spent is greater than 50% in coordination of care (as documented) at patient's floor/unit and/or counseling patient: Coding Level of Care Code 56297 Subseq Hosp Care Lvl 3 Diagnoses Hypertension I10 Hypertension type: unspecified ТАТЬЯНА (acute kidney injury) N17.9 Diabetic nephropathy E11.21 Nephrotic syndrome N04.9 (1) Hypertension Hypertension type: unspecified Qualified Code(s): I10 - Essential (primary) hypertension
--- NOTE | 2021-10-08 13:16 | Hospitalist Progress Note ---
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 HTN - Admitted for hypertensive emergency with BP peaked at 204/128 and signs of ТАТЬЯНА and elevated troponin - Likely secondary to worsening renal function from nephrotic syndrome vs. ТАТЬЯНА - s/p magnesium for eclampsia prevention. No additional doses required per OB - No evidence of other secondary causes thus far: no renal artery stenosis per updated duplex, previously normal aldosterone, no sleep apnea, normal random cortisol - Elevated TSH at 6.027, normal T4. Repeat - Hydralazine 100 mg TID, labetalol 800 mg TID, and chlorthalidone 25 mg daily. Increased spironolactone 50 mg daily. Added amlodipine 5 mg daily. Discontinued nitro paste. - Metoprolol 5 mg IV PRN for persistent SBP >185, DBP >95, or HR>120 - Lisinopril held due to ТАТЬЯНА - Plan for close outpatient follow-up ТАТЬЯНА - Creatine downtrending at 2.4 today. 2.02 at admission and 1.1-1.5 baseline - Likely secondary to hypertension vs. worsening nephrotic syndrome - No indication for dialysis currently: no signs of fluid overload, no electrolyte abnormalities, no signs of uremia, or ingestion of toxins - Lisinopril on hold to prevent further insult - FENa 3.3%, although on chlorthalidone, suggesting intrinsic renal injury - No schistocytes on peripheral smear - Nephro following and assisting - Low sodium diet - Track I&Os Diabetic nephropathy - Baseline creatinine of 1.1-1.5 - Lisinopril held due to acute ТАТЬЯНА - Most recent A1c 5.8 this admission, highest in past was in 14s in 2018 Nephrotic Syndrome - 24 hour urine protein 6.9 g - Complement C3 and C4 pending - PLA2r pending - HIV, Hep C antibodies from 04/2021 negative; denies h/o IVDU - Discussed with nephrology- will work with CM to coordinate outpatient kidney biopsy with Dr. Smith at [facility] following discharge - Nephro following and assisting - Considering drawing other rheumatological labs per nephrology Hematuria - RBCs on UA - Consider serologic GN evaluation (including KERVIN, dsDNA, and ANCA) if no improvement - Nephro following and assisting Elevated troponin - Troponin peaked at 45.9, downtrending - EKG showed no acute injury - Likely secondary to hypertension and persistent elevation d/t ТАТЬЯНА Anemia - Hgb 9.6 - Peripheral smear demonstrate normochromic, normocytic RBCs - RBCs 3.22 down from 3.9 at admission. Baseline 3.5 - Likely secondary to CKD Diabetes - Continue home regimen of 16u Levemir, sliding scale carb ratio of 1:12 with correction of 20 - Carb consistent diet FEN/GI: Carb consistent, low salt. Encourage PO fluid intake of 3L/day. Will defer IV fluids given elevated BPs, however want to ensure intravascular hydration with PO fluid maintenance DVT Prophylaxis: Heparin subQ Disposition: Med/Surg with tele Code Status: Full code (2) Hypertension: (3) Elevated troponin: (4) Type 2 diabetes mellitus: (5) Diabetic nephropathy: (6) Nephrotic syndrome: Admission and Anticipated Discharge Date Admission Date: October 05, 2021 Supervising Physician Co-Signing Physician Notes I personally examined the patient and verified all jansen points of history and exam, discussed case, and agree with decision making with Thomas Vann MS2 still feels OK. no new complaints. updated pt and to the best of my ability. he noted that he recalled years ago that she went through a similar (albeit shorter) episode that ended with her being on steroids for a little wh ile and the problem corrected. vitals noted nad heent nc at mmm breathing unlabored no accessory muscles good effort skin no rashes no pallor or icterus uncontrolled HTN, ТАТЬЯНА, proteinuria - appearing most c/w nephrotic syndrome, possible nephritic as well; extensive w/u underway, complement/etc pending, bx being set up as outpt, working to manage BP as well (improving), fortunately no significant sx. otherwise as above Subjective This morning, Delaney had an elevated BP of 192/97 that responded to metoprolol 5mg IV. Delaney feels well this morning with no pain or shortness of breath. Review of Systems Respiratory: no dyspnea Cardiovascular: no chest pain Gastrointestinal: no nausea and no vomiting Genitourinary: no urinary incontinence Neurologic: no localized weakness, no tremor(s), no seizure-like activity, no dizziness, no syncope and no confusion Physical Exam Constitutional: cooperative; no acute distress Respiratory: normal respiratory effort, lungs clear to auscultation Cardiovascular: Rate/Rhythm: regular rate and regular rhythm Heart Sounds: normal S1 and normal S2 Extremities: + pedal edema (bilaterally, improved) Gastrointestinal (Abdomen): normal bowel sounds, soft, nontender, no hepatosplenomegaly Neurologic: normal touch/pain/proprioception Results & Data Results & Data ([facility]) Vital Signs (Past 12 Hours) Vital Signs Temp Pulse Pulse Pulse Resp BP BP 10/08/21 12:34 36.5 C 74 18 10/08/21 08:15 76 158/75 H 10/08/21 07:57 85 192/97 H 10/08/21 07:55 36.8 C 85 18 190/92 H 10/08/21 06:20 92 H 10/08/21 03:51 36.6 C 80 17 BP Pulse Ox 10/08/21 12:34 96 10/08/21 08:15 10/08/21 07:57 10/08/21 07:55 192/97 H 95 10/08/21 06:20 151/98 H 10/08/21 03:51 169/91 H 96 Laboratory Results 10/08/21 10/08/21 10/08/21 Range/Units 11:27 07:19 06:43 POC Glucose 168 H 89 (70-99) mg/dl Phospholip A2 Rec IFA Pending Phospholip A2 Rec HARESH Pending 10/08/21 10/08/21 10/07/21 Range/Units 06:43 06:43 20:06 WBC 4.60 L (4.8-10.8) K/uL RBC 3.22 L (4.2-5.4) M/uL Hgb 9.4 L (12.0-16.0) g/dL Hct 29.3 L (37-47) % MCV 91.0 (80-100) fL MCH 29.2 (25-34) pg MCHC 32.1 (32-36) g/dL RDW Std Deviation 50.7 H (36.4-46.3) fL RDW Coeff of Jessica 15.1 H (11.5-14.5) % Plt Count 268 (130-400) K/uL MPV 9.5 (7.4-10.4) fL Sodium 139 (136-145) mmol/L Potassium 3.7 (3.5-5.1) mmol/L Chloride 108 H (98-107) mmol/L Carbon Dioxide 23 (21-32) mmol/L Anion Gap 8 (3-11) BUN 37 H (6-23) mg/dl Creatinine 2.40 H (0.6-1.2) mg/dl Est Cr Clr Drug Dosing 32.2 ml/min Est GFR ( Amer) 28.3 ml/min Est GFR (Non-Af Amer) 24.4 ml/min BUN/Creatinine Ratio 15.4 (10-20) Glucose 85 (70-99(Fasting)) mg/dl POC Glucose 144 H (70-99) mg/dl Calcium 8.3 L (8.5-10.1) mg/dl Magnesium 1.7 (1.7-2.4) mg/dl Total Bilirubin 0.6 (0.2-1.0) mg/dl AST 19 (13-39) U/L ALT 16 (7-52) U/L Alkaline Phosphatase 86 (34-104) U/L Total Protein 5.3 L (6.0-8.3) gm/dl Albumin 2.9 L (3.4-5.0) gm/dl Globulin 2.4 L (2.5-4.0) gm/dl Albumin/Globulin Ratio 1.2 (0.9-2) 10/07/21 10/07/21/ Range/Units 16:29 15:55 14:55 Sodium 139 (136-145) mmol/L Potassium 3.6 (3.5-5.1) mmol/L Chloride 107 (98-107) mmol/L Carbon Dioxide 23 (21-32) mmol/L Anion Gap 9 (3-11) BUN 34 H (6-23) mg/dl Creatinine 2.59 H (0.6-1.2) mg/dl Est Cr Clr Drug Dosing 30.1 ml/min Est GFR ( Amer) 25.8 ml/min Est GFR (Non-Af Amer) 22.3 ml/min BUN/Creatinine Ratio 13.1 (10-20) Glucose 153 H (70-99(Fasting)) mg/dl POC Glucose 149 H (70-99) mg/dl Calcium 8.5 (8.5-10.1) mg/dl Urine WBC (Auto) 5-10 H (0-5) /hpf Urine RBC (Auto) 5-10 H (0-4) /hpf U Hyaline Cast (Auto) 5-10 H (0-5) /lpf U Epithel Cells (Auto) >30 H (0-5) /lpf Urine Bacteria (Auto) Negative (Negative) Ur Renal Epithelial Cell 5-10 H (0-5) /lpf 05// Range/Units 13:48 POC Glucose 132 H (70-99) mg/dl (1) Hypertension Hypertension type: unspecified Qualified Code(s): I10 - Essential (primary) hypertension
--- NOTE | 2021-10-08 18:23 | Billing Data ---
Date of Service October 08, 2021 Coding Level of Care Code 41297 Subseq Hosp Care Lvl 2
[2021-10-08] MEDS: INSULIN GLARGINE SOLOSTAR 100 UNITS/ML 3 ML PEN SC SCH (20:05)
[2021-10-09 06:21] LABS: Hematocrit (blood only) 30.8 % (37-47); Hemoglobin 9.8 g/dL (12.0-16.0); Mean Corpuscular Hemoglobin 28.7 pg (25-34); Mean Corpuscular Hgb Conc 31.8 g/dL (32-36); Mean Corpuscular Volume 90.3 fL (80-100); Mean Platelet Volume 9.6 fL (7.4-10.4); Platelet Count 276 K/uL (130-400); RDW Coefficient of Variation 15.2 % (11.5-14.5); RDW Standard Deviation 50.1 fL (36.4-46.3); Red Blood Count 3.41 M/uL (4.2-5.4); White Blood Count 5.07 K/uL (4.8-10.8)
[2021-10-09 06:55] LABS: BUN Creatinine Ratio 15.8 (10-20); Calcium 8.3 mg/dl (8.5-10.1); Creatinine Clr Calc Pharmacy 31.6 ml/min; Est GFR (African American) 27.4 ml/min; Est GFR (Non-African American) 23.6 ml/min; Potassium 3.9 mmol/L (3.5-5.1)
[2021-10-09] MEDS: INSULIN ASPART PER UNIT SC SCH ×2 (08:19→12:24)
[2021-10-09] MEDS: LABETALOL HCL 200 MG TAB PO SCH ×2 (08:20→13:36)
[2021-10-09] MEDS: CHLORTHALIDONE 25 MG TAB PO SCH (08:21)
[2021-10-09] MEDS: SPIRONOLACTONE 25 MG TAB PO SCH (08:21)
[2021-10-09] MEDS: hydrALAZINE TAB 50 MG TAB PO SCH ×2 (08:22→13:37)
[2021-10-09] MEDS: HEPARIN SOD 5,000 UNIT/0.5 ML VIAL SQ SCH (08:22)
[2021-10-09] MEDS: MAGNESIUM OXIDE 400 MG TAB PO SCH (08:28)
[2021-10-09] MEDS ORDERED: amLODIPine BESYLATE 5 MG TAB PO SCH (09:00)
--- NOTE | 2021-10-09 10:45 | Hospitalist Progress Note ---
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 HTN - Admitted for hypertensive emergency with BP peaked at 204/128 and signs of ТАТЬЯНА and elevated troponin - Likely secondary to worsening renal function from nephrotic syndrome vs. ТАТЬЯНА - s/p magnesium for eclampsia prevention. No additional doses required per OB - No evidence of other secondary causes thus far: no renal artery stenosis per updated duplex, previously normal aldosterone, no sleep apnea, normal random cortisol - Elevated TSH at 6.027, normal T4. Repeat - Hydralazine 100 mg TID, labetalol 800 mg TID, and chlorthalidone 25 mg daily. Increased amlodipine 10 mg daily. Increase spironolactone 100 mg PRN. - Metoprolol 5 mg IV PRN for persistent SBP >185, DBP >95, or HR>120 - Lisinopril held due to ТАТЬЯНА - Recommend checking BP at home. Plan for close outpatient follow-up with Dr. Montaño within 1 week of discharge ТАТЬЯНА - Creatine stable at 2.47 today. 2.02 at admission and 1.1-1.5 baseline - Likely secondary to hypertension vs. worsening nephrotic syndrome - No indication for dialysis currently: no signs of fluid overload, no electrolyte abnormalities, no signs of uremia, or ingestion of toxins - Lisinopril on hold to prevent further insult - FENa 3.3%, although on chlorthalidone, suggesting intrinsic renal injury - No schistocytes on peripheral smear - Nephro following and assisting - Low sodium diet - Track I&Os Diabetic nephropathy - Baseline creatinine of 1.1-1.5 - Lisinopril held due to acute ТАТЬЯНА - Most recent A1c 5.8 this admission, highest in past was in 14s in 2018 Nephrotic Syndrome - 24 hour urine protein 6.9 g - Complement C3 and C4 pending - PLA2r pending - HIV, Hep C antibodies from 04/2021 negative; denies h/o IVDU - Discussed with nephrology- will work with CM to coordinate outpatient kidney biopsy with Dr. Smith at [facility] [address] following discharge - Nephro following and assisting - Considering drawing other rheumatological labs per nephrology Hematuria - RBCs on UA - Consider serologic GN evaluation (including KERVIN, dsDNA, and ANCA) if no improvement - Nephro following and assisting Elevated troponin - Troponin peaked at 45.9, downtrending - EKG showed no acute injury - Likely secondary to hypertension and persistent elevation d/t ТАТЬЯНА Anemia - Hgb 9.6 - Peripheral smear demonstrate normochromic, normocytic RBCs - RBCs 3.22 down from 3.9 at admission. Baseline 3.5 - Likely secondary to CKD Diabetes - Continue home regimen of 16u Levemir, sliding scale carb ratio of 1:12 with correction of 20 - Carb consistent diet FEN/GI: Carb consistent, low salt. Encourage PO fluid intake of 3L/day. Will defer IV fluids given elevated BPs, however want to ensure intravascular hydration with PO fluid maintenance DVT Prophylaxis: Heparin subQ Disposition: Med/Surg with tele Code Status: Full code (2) Hypertension: (3) Elevated troponin: (4) Type 2 diabetes mellitus: (5) Diabetic nephropathy: (6) Nephrotic syndrome: Admission and Anticipated Discharge Date Admission Date: October 05, 2021 Subjective No acute overnight events. Delaney feels well this morning with no pain or shortness of breath. Review of Systems Respiratory: no dyspnea Cardiovascular: no chest pain Neurologic: no tingling and no headache(s) Physical Exam Constitutional: cooperative; no acute distress Respiratory: normal respiratory effort, lungs clear to auscultation Cardiovascular: Rate/Rhythm: regular rate and regular rhythm Heart Sounds: normal S1 and normal S2 Extremities: + pedal edema (bilaterally, improved) Gastrointestinal (Abdomen): normal bowel sounds, soft, nontender, no hepatosplenomegaly Neurologic: normal touch/pain/proprioception Results & Data Results & Data ([facility]) Vital Signs (Past 12 Hours) Vital Signs Temp Pulse Pulse Resp BP BP Pulse Ox 10/09/21 08:00 77 10/09/21 07:49 36.6 C 79 18 174/103 H 98 10/09/21 03:44 36.5 C 77 18 134/81 96 10/08/21 23:21 36.5 C 75 16 139/81 96 10/08/21 22:56 72 Laboratory Results 10/09/21 10/09/21 10/09/21 Range/Units 07:24 05:36 05:36 WBC 5.07 (4.8-10.8) K/uL RBC 3.41 L (4.2-5.4) M/uL Hgb 9.8 L (12.0-16.0) g/dL Hct 30.8 L (37-47) % MCV 90.3 (80-100) fL MCH 28.7 (25-34) pg MCHC 31.8 L (32-36) g/dL RDW Std Deviation 50.1 H (36.4-46.3) fL RDW Coeff of Jessica 15.2 H (11.5-14.5) % Plt Count 276 (130-400) K/uL MPV 9.6 (7.4-10.4) fL Sodium 138 (136-145) mmol/L Potassium 3.9 (3.5-5.1) mmol/L Chloride 108 H (98-107) mmol/L Carbon Dioxide 23 (21-32) mmol/L Anion Gap 7 (3-11) BUN 39 H (6-23) mg/dl Creatinine 2.47 H (0.6-1.2) mg/dl Est Cr Clr Drug Dosing 31.6 ml/min Est GFR ( Amer) 27.4 ml/min Est GFR (Non-Af Amer) 23.6 ml/min BUN/Creatinine Ratio 15.8 (10-20) Glucose 77 (70-99(Fasting)) mg/dl POC Glucose 82 (70-99) mg/dl Calcium 8.3 L (8.5-10.1) mg/dl 10/08/21 10/08/21 10/08/21 Range/Units 20:02 16:13 11:27 POC Glucose 116 H 110 H 168 H (70-99) mg/dl (1) Hypertension Hypertension type: unspecified Qualified Code(s): I10 - Essential (primary) hypertension
--- NOTE | 2021-10-09 10:49 | Nephrology Progress Note ---
Date of Service October 09, 2021 Assessment & Plan (1) Hypertension: Plan: Increase amlodipine to 10 mg daily. Remains on chlorthalidone 25 mg daily, spironolactone 50 mg daily, hydralazine 100 mg TID, and labetalol 800 mg TID. Tolerating current therapy well. Increase spironolactone to 100 mg PRN. Lisinopril held due to ТАТЬЯНА. Renal artery duplex negative for TRAVIS. Low sodium diet. Document strict I/O's. Home monitoring of BP encouraged. Follow up with Dr. Montaño in the nephrology clinic within 1 week of discharge. (2) ТАТЬЯНА (acute kidney injury): Plan: Creatinine stable. No emergent indications for dialysis. Medications appropriate for kidney dysfunction. Volume status acceptable. Electrolytes normal. 24 hour urine protein excretion: 4.2 grams in 2019, 2.2 grams in May 2020 and 6.9 grams this admission. Ultimately, kidney biopsy would be required for definitive diagnosis. Unclear if this would change management expert. Still a few RBC's and WBC's on repeat urine microscopy. No obvious GN. Given rise in creatinine. Biopsy would be encouraged once BP adequately controlled. Non-oliguric. Granular casts. Active sediment. Renal US demonstrated normal appearing kidneys. No schistocytes on peripheral smear. Atypical presentation for TMA/pre-eclampsia. Complement levels pending. PLA2r pending. Continue to hold ACEi. (3) Diabetic nephropathy: Plan: Baseline creatinine 1.1-1.5 mg/dL. Notable recent increase in proteinuria concerning. ACEi held. Care coordination assistance appreciated with outpatient kidney biopsy at [facility] post discharge. Plan of care discussed with Dr. Garcia this AM. Followed by Dr. Montaño as outpatient. (4) Nephrotic syndrome: Plan: As above. Admission and Anticipated Discharge Date Admission Date: October 05, 2021 Subjective No acute overnight events. Delaney feels well this morning. She is hopeful to be discharged home before the weekend. We discussed the indications for kidney biopsy. Delaney expressed understanding. She also expressed understanding of the importance of close outpatient follow up and home BP monitoring. Review of Systems Review of Systems: All systems reviewed & are unremarkable except as noted in HPI & below Physical Exam Constitutional: well developed; no acute distress Eyes: + anicteric sclerae; no corneal abnormality ENMT: Mouth: no oral mucosal abnormality and oral mucous membranes not dry Neck: normal visual inspection and trachea midline Thyroid: normal thyroid Respiratory: normal respiratory effort Auscultation: lungs clear to auscultation bilaterally Cardiovascular: Rate/Rhythm: regular rate Heart Sounds: normal S1 and normal S2; no murmur Extremities: normal capillary refill and + pedal edema (improved) Musculoskeletal: Extremities: no cyanosis and no clubbing Skin: normal turgor; no lesions Neurologic: Motor/Sensory: no tremor and no asterixis Psychiatric: Orientation: alert and oriented x 3 Results & Data ([facility]) Vital Signs (Past 12 Hours) Vital Signs Temp Pulse Pulse Resp BP BP Pulse Ox 10/09/21 08:00 77 10/09/21 07:49 36.6 C 79 18 174/103 H 98 10/09/21 03:44 36.5 C 77 18 134/81 96 10/08/21 23:21 36.5 C 75 16 139/81 96 10/08/21 22:56 72 Laboratory Results Laboratory Results - last 24 hr 10/08/21 10/08/21 10/08/21 11:27 16:13 20:02 WBC RBC Hgb Hct MCV MCH MCHC RDW Std Deviation RDW Coeff of Jessica Plt Count MPV Sodium Potassium Chloride Carbon Dioxide Anion Gap BUN Creatinine Est Cr Clr Drug Dosing Est GFR ( Amer) Est GFR (Non-Af Amer) BUN/Creatinine Ratio Glucose POC Glucose 168 H 110 H 116 H Calcium 10/09/21 10/09/21 10/09/21 05:36 05:36 07:24 WBC 5.07 RBC 3.41 L Hgb 9.8 L Hct 30.8 L MCV 90.3 MCH 28.7 MCHC 31.8 L RDW Std Deviation 50.1 H RDW Coeff of Jessica 15.2 H Plt Count 276 MPV 9.6 Sodium 138 Potassium 3.9 Chloride 108 H Carbon Dioxide 23 Anion Gap 7 BUN 39 H Creatinine 2.47 H Est Cr Clr Drug Dosing 31.6 Est GFR ( Amer) 27.4 Est GFR (Non-Af Amer) 23.6 BUN/Creatinine Ratio 15.8 Glucose 77 POC Glucose 82 Calcium 8.3 L PG Care Time/CCT Total # of Minutes Spent Total Time Spent with Patient: Total time spent is greater than 50% in coordination of care (as documented) at patient's floor/unit and/or counseling patient: Coding Level of Care Code 08269 Subseq Hosp Care Lvl 3 Diagnoses Hypertension I10 Hypertension type: unspecified ТАТЬЯНА (acute kidney injury) N17.9 Diabetic nephropathy E11.21 Nephrotic syndrome N04.9 (1) Hypertension Hypertension type: unspecified Qualified Code(s): I10 - Essential (primary) hypertension
--- NOTE | 2021-10-09 15:13 | Discharge Summary ---
Date of Service October 09, 2021 Admission HPI Per Admitting Provider 41-year-old female who presents with hypertensive urgency, acute kidney injury, and in the state approximately 24 days. Patient has pre-existing history of labile hypertension chronic kidney disease of diabetes endorgan damage with concern for nephrotic syndrome in the past. Patient's had a challenging high risk peripartum. As she has had elevation of blood pressure and proteinuria which could have been exacerbations of her chronic conditions versus preeclampsia. She had established at [facility] for high risk given her comorbid medical conditions and her age of 41 years. Patient was admitted to their facility and delivered September 11 due to concerns for preeclampsia with worsening renal function and difficult to control blood pressure. Prior to her delivery the patient had laser surgery for retinopathy and she did have worsening of vision associate with a high blood pressure and eventually found to be associate with a retinal intravitreous hemorrhage. She remains with variable vision changes now worsening in her left eye. Patient presented to the emergency department on 10/05/2021 due to elevated blood pressure readings as an outpatient. The emergency room physician spent time discussing with both Clementina and our OB here and it was decided that this is likely not due to preeclampsia although wearing the 6-week period from delivery and we should not initiate more aggressive magnesium replacement but just control her hypertension. This was based upon reevaluation of this patient at [facility] for similar presentation being discharged approximately September 24. In the emergency department she is accompanied by her . He said last evening she did have transient chest pain but it occurred 20 minutes after taking medications, it was not associate with any other additional symptoms. During that time she also felt mildly short of breath. These issues have subsequently resolved. In the emergency department she is found to be markedly hypertensive which was controlled with intravenous labetalol and hydralazine. Elevation of her creatinine to 2.012 from a baseline of 1. Interestingly prepump delivery she was 2.35 creatinine. She does have evidence of 3+ protein in her urine along with red and white cells. Otherwise she has not been having any other new issues with vision as she is got chronic vision issues her left eye visual issue occurred days ago. She has no bloody vaginal discharge, she is not breast-feeding, she has been having no changes in urine production and has been recently having some mild diarrhea. She IS COVID-negative in the emergency department Admission Exam Per Admitting Provider The patient appeared well nourished and normally developed. He does have a look of compensated chronic illness Vital signs as documented. Head exam is normocephalic atraumatic Neck is without JVD, thyromegaly, or carotid bruits. Lungs are clear to auscultation, no focal loss of breath sounds Cardiac exam, Rhythm is regular.. No murmurs, rubs or gallops. Abdominal exam reveals normal bowel sounds, soft non tender, no masses no renal bruits are heard Extremities are nonedematous and both pedal pulses are present Neurologic exam is alert and oriented, no focal loss of strength or sensation Skin is without bruises or rashes Psychologically is without concerns for anxiety or depression. Principal Diagnosis Nephrotic Syndrome, Hypertensive Urgency Discharge Exam Constitutional WD/WN, vitals as above well developed, + obese and cooperative Eyes PERRL, conjunctivae normal, anicteric sclerae ENMT Mouth: + poor dentition Respiratory normal respiratory effort, lungs clear to auscultation Cardiovascular RRR, no murmur, no edema Musculoskeletal no cyanosis or clubbing, extremities motor strength 5/5 Skin no rashes, warm and dry Discharge Data Allergies Allergy/AdvReac Type Severity Reaction Status Date / Time omeprazole Allergy Intermediate HIVES Verified 10/05/21 15:04 nifedipine AdvReac Severe Edema and Verified 10/05/21 15:04 Congestive Heart Failure Consultations 10/05/21 12:33 ED Decision to Admit Stat 10/05/21 16:59 Consult Nephrology Routine Ordered Studies 10/05/21 10:04 CT head/brain wo con Stat 10/05/21 18:17 US renal/blad retro comp Routine 10/07/21 07:53 US duplex renal artery Routine Hospital Course (1) Severe preeclampsia: 41 year old female who has recently had a history of severe preeclampsia and chronic hypertension affecting her , type 2 diabetes affecting , history of cranial nerve palsies and demyelinating disease who presented to the hospital on 10/05 after being found to have elevated blood pressures in the outpatient clinic. She was seen by the hospitalist team and after discussion with her she and Thanh beyer was admitted to the hospital for management of her hypertension as a possible preeclamptic presentation. Initial lab work was concerning for acute kidney injury secondary to hypertensive urgency continue monitoring showed a more likely scenario of nephrotic syndrome that was causing the hypertension to be continuously uncontrolled. Renal ultrasound was negative for any vascular or parenchymal abnormalities.CT head without contrast negative for any intracranial hemorrhage, territorial infarct or intracranial disease process. 24 hour urine protein e xcretion: 4.2 grams in 2019, 2.2 grams in May 2020 and 6.9 grams this admission. Nephrology recommendations: We will likely need renal biopsy in the future for confirmation of diagnosis. Primary control of hypertension in the meantime as below. Low-sodium diet, will need to follow-up with Dr. Montaño in the next week for repeat lab work and monitoring. Current hypertension regimen: Labetalol 800 mg TID Hydralazine 100 mg TID Chlorthalidone 25 mg Daily Spironolactone 50 mg Daily Amlodipine 10 mg Daily Follow up [address] Montaño. BMP in 3-4 days. All other medical conditions managed per home regimens. (2) Type 2 diabetes mellitus: (3) Nephrotic syndrome: (4) Diabetic nephropathy: (5) ТАТЬЯНА (acute kidney injury): (6) Elevated troponin: Total Time Total Time Spent Total Time Spent (In Minutes): <30 Discharge Plan Discharge Items Patient Disposition: Home - Self-Care Reason For Visit: HYPERTENSIVE URGENCY Discharge Diagnosis: HTN emergency nephrotic syndrome, unclear etiology Activity: Per Instructions section Non-emergency contact: Primary Care Provider and Bead Picker Call non-emergency contact if: you have any medication questions, your symptoms worsen and your temperature is above 101 Follow-up/Referrals: Katherine Montaño MD [Physician] - (within 1 week of discharge) Charles Gonzalez DO [Primary Care Provider] - 10/15/21 2:00 pm Diet: Low Sodium (2gm) Addtl Attending Provider Instructions: You were seen in [facility] for evaluation of high blood pressure. Upon arrival here, you underwent extensive evaluation determine the cause of this issue. During your work-up, you were found to have significant evidence of kidney stress. In addition to treating your high blood pressure, we did consult our kidney doctor colleagues (nephrology) who made recommendations with your blood pressure regimen and helped investigate the cause of kidney stress. At this time, more information is still needed before the exact cause of your kidney stress (nephrotic syndrome) is found. This will include a biopsy of the kidneysee message below. Upon your discharge, please note the following medication additions/deletions/changes: Labetalol 800 mg TID Hydralazine 100 mg TID Chlorthalidone 25 mg Daily Spironolactone 50 mg Daily Amlodipine 10 mg Daily Please follow-up with your primary care physician within 1 week to review this visit. You will also have an appointment with Dr. Montaño to follow up on your kidney disease next week. Further, please obtain labs to evaluate your kidneys within the next 5 to 7 days. In the interim, if you experience worsening headache, new changes in vision, chest pain, palpitations, shortness of breath, sudden onset acute sharp back/chest pain, or other worrisome symptoms, please report to the ER immediately for evaluation. Is a pleasure for caring for you while here, we wish you all the best in your recovery. ------ Biopsy information: [facility] Central Scheduling should contact you regarding your kidney biopsy. If you do not hear from them within one week of your discharge, please call [phone] and select option 3 for central scheduling to follow up. Pending Studies at Discharge: No Stand-Alone Forms: My [facility] [employer], Smoking Cessation Medications and DC Order Prescriptions: New labetalol 200 mg Tablet 800 mg PO TID 30 Days Qty: 360 RF: 0 amlodipine [Norvasc] 5 mg Tablet 10 mg PO QAM 30 Days Qty: 60 RF: 0 hydralazine 50 mg Tablet 100 mg PO TID 30 Days Qty: 180 RF: 0 spironolactone 25 mg Tablet 50 mg PO QAM 30 Days Qty: 60 RF: 0 chlorthalidone 25 mg Tablet 25 mg PO QAM 30 Days Qty: 30 RF: 0 Continued (DME) blood sugar diagnostic Strip See Dose Instructions .ROUTE .MEDSUPPLY Qty: 400 RF: 1 (DME) pen needle, diabetic 31 gauge x 1/4" needle See Dose Instructions .ROUTE .MEDSUPPLY Qty: 200 RF: 5 insulin aspart U-100 [Novolog Flexpen U-100 Insulin] 100 unit/mL (3 mL) insulin pen See Rx Instructions subcut BID Qty: 15 RF: 2 Levemir FlexTouch U-100 Insuln 100 unit/mL (3 mL) insulin pen 16 unit subcut HS Qty: 15 RF: 2 docusate sodium 100 mg capsule 100 mg PO BID PRN (Reason: constipation) Qty: 30 RF: 0 famotidine 20 mg tablet See Rx Instructions .ROUTE .COMPLEX Qty: 180 RF: 0 prenat.vits,willie,wub-qawy-gfgzn Tablet 1 tab PO QAM RF: 0 (DME) breast pump Device See Rx Instructions .ROUTE .MEDSUPPLY Qty: 1 RF: 0 (DME) blood sugar diagnostic Strip See Rx Instructions miscellaneous .MEDSUPPLY Qty: 200 RF: 8 (DME) lancing device with lancets [Trunk Show Lanc Device] Kit See Rx Instructions miscellaneous .MEDSUPPLY Qty: 1 RF: 0 (DME) lancets [OneTouch Delica Lancets] 33 gauge misc See Dose Instructions .ROUTE .MEDSUPPLY Qty: 100 RF: 0 magnesium oxide 400 mg (241.3 mg magnesium) tablet 400 mg PO BID Qty: 60 RF: 0 calcium carbonate 500 mg calcium (1,250 mg) Tablet,Chewable 500 mg PO DIRECTED PRN (Reason: HEARTBURN/INDIGESTION) RF: 0 Vitron-C 65 mg iron- 125 mg Tablet,Delayed Release (Dr/Ec) 1 tab PO TID RF: 0 Discontinued labetalol 200 mg tablet 800 mg PO TID RF: 0 lisinopril 20 mg tablet 20 mg PO BID RF: 0 chlorthalidone 25 mg tablet 25 mg PO DAILY RF: 0 hydralazine 25 mg tablet 50 mg PO QID Qty: 90 RF: 0 Discharge Orders: Discharge Order (Routine); Ordered 10/09/21 Ordered By: Maria M Pepper Admission Data Admit Date/Time: 10/05/21 12:59 Attending Provider: Oscar Blake Admit Provider: Sher Encinas Primary Care Provider: Charles Gonzalez Other Providers: Sher Encinas ; Keon Rojas Other Interventions: Discharge Summary Assessment (RN) Last Done: 10/09/21 14:14 Supervising Physician Co-Signing Physician Notes I personally examined the patient and verified all jansen points of history and exam, discussed case, and agree with decision making with Dr Pepper feels up to going home. vitals noted nad heent nc at mmm breathing unlabored no accessory muscles good effort skin no rashes no pallor or icterus uncontrolled HTN, ТАТЬЯНА, proteinuria - appearing most c/w nephrotic syndrome, pos sible nephritic as well; extensive w/u underway, complement/etc pending, bx being set up as outpt, BP reasonable for dc on current meds, fortunately no significant sx.close outpt nephrology and PCP follow up otherwise as above Resident Activity Tracking Resident Involvement: Resident Care Provided Care Provided: Adult Hospital Medicine
--- NOTE | 2021-10-09 18:17 | Billing Data ---
Date of Service October 09, 2021 Coding Level of Care Code D/C DAY MANAGEMENT <30 MINS
[2021-10-10 02:36] LABS: Complement C3 90 mg/dL (83-193); Complement Total(CH50) >60 U/mL (31-60)
== END 2021-10-09 16:32 | disposition home or self-care (01) | DRG 305 ==
LOC: ED 09:14 → 2S 12:59 → SUATTDRO 12:59 → 2S 16:23

== ENCOUNTER 2022-12-29 07:23 | Inpatient (IN) ==
--- NOTE | 2022-12-28 08:38 | Anesthesiology Consultation ---
Date of Service December 28, 2022 Assessment & Plan (1) Encounter for pre-operative examination: - COVID screening: Per assessment on 12/28/22: No known COVID-19 positive co ntacts or current COVID-19 related symptoms. No recent Covid positive test result. - PCP visit (02/02/22): "Hypertension: Well-controlled at this time. Patient was advised to continue all medications despite slight lower extremity swelling and follow-up with nephrology. Was explained to the patient that the benefits outweigh the risk at this time as uncontrolled hypertension and hypertensive urgency poses a greater health risk than lower extremity swelling at this time. Advised to limit dietary sodium intake. Limit caffeine intake.. Type 2 diabetes: Well-controlled based on last A1c. Advised patient to reestablish with endocrinology for continued management. We will take over if needed. For now we will continue current regimen.. Nephrotic syndrome: Managed by nephrology. Renal function currently at its baseline." - Seen by PCP (11/22/22): "She was gone for 2 weeks on vacation and reports her cat is always a little crazy when they first get back. The cat bit her on her left hand a couple days ago. She then developed redness, swelling, and drainage the next day. The cat is not vaccinated but patient reports that the cat has never been outside. Denies fever, chills.. Plan.. Start Augmentin. Her tetanus vaccine is up to date, 08/27/21. Likelihood of rabies is low. Informed patient to call with any questions or concerns, if symptoms persist. Otherwise, follow up as scheduled.. BP 144/83" - Check BSG AM DOS - Preop testing: No recent labs or EKG. Will order CBC, BMP + EKG for DOS. Chart Review Chart Review: Acceptable Risk for Surgery (pending preop testing DOS) and Patient NOT seen in Pre Admission Testing Consults Requested none ASA ASA3 Proposed Anesthesia Anesthesia Type: General Risk / Benefits Reviewed With: PT / POA / Parent / Guardian, Accepts Plan and Informed Consent Obtained History Surgery Operation Date: 12/29/22 09:00 Proposed Procedures p Dilation of the Cervix, Evacuation and Curettage (Removal of Products of Conception) - Donny Romero MD Height/Weight Height: 5 ft 2 in Weight: 101.151 kg Allergies Allergy/AdvReac Type Severity Reaction Status Date / Time omeprazole Allergy Unknown Hives Verified 12/29/22 07:52 nifedipine AdvReac Severe Edema, Verified 12/29/22 07:52 Congestive Heart Failure Medications Home Medications Medication Instructions Recorded Confirmed Last Taken lancets 33 gauge (RiskIQTouch Delica #100 ea 03/05/18 12/28/22 Unknown Lancets) pen needle, diabetic 31 gauge x #200 ea 02/05/21 12/28/22 Unknown 05/19" blood sugar diagnostic #200 ea 06/08/21 12/28/22 Unknown lancing device with lancets kit #1 ea 06/08/21 12/28/22 Unknown (OneTouch Delica Lancing Device kit) chlorthalidone 25 mg tablet 25 mg PO QAM 90 days #90 tabs 02/25/22 12/29/22 12/28/22 08:30 blood sugar diagnostic (OneTouch #400 strips 10/20/22 12/28/22 Unknown Ultra Test strips) ferrous fumarate-ascorbic 1 tab PO TID 12/28/22 12/29/22 12/28/22 21:00 acid-ascorbate sod 65 mg iron-125 mg tablet hydralazine 100 mg tablet 100 mg PO TID 12/28/22 12/29/22 12/29/22 07:00 insulin aspart U-100 100 unit/mL 1 sliding scale dose subcut UD 12/28/2212/2912/28/22 21:00 (3 mL) subcutaneous pen (Novolog 7 units FlexPen U-100 Insulin aspart) lisinopril 10 mg tablet 10 mg PO QAM 12/28/22 12/29/22 12/28/22 08:30 vitamins no.144-folic 1 tab PO DAILY 12/28/22 12/29/22 12/28/22 08:30 acid 400 mcg chewable tablet () insulin detemir U-100 100 unit/mL 16 unit subcut HS 12/29/22 12/29/22 12/28/22 21:00 (3 mL) subcutaneous pen (Levemir 16 units FlexPen) spironolactone 25 mg tablet 50 mg PO QAM 12/29/22 12/29/22 12/28/22 08:30 (Aldactone) Active Medications Generic Name Dose Route Start Last Admin Trade Name Freq PRN Reason Stop Dose Admin Lactated Ringer's 1,000 mls @ 125 mls/hr 12/29/22 06:00 12/29/22 08:06 Lr IV 12/29/22 13:59 125 mls/hr .Q8H HUGO Administration NPO Date Last Intake of Fluids: 12/29/22 Time Last Intake of Fluids: 00:00 Date Last Intake of Solids: 12/29/22 Time Last Intake of Solids: 00:00 Past Medical History Medical History Demyelinating disease Per [facility] neurology visit 01/02/21, "doubt that she has multiple sclerosis. However.. 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, left Per remote [facility] neurology notes (12/2020) Social anxiety disorder Stage 2 chronic kidney disease Monitored by [facility] nephro/PCP Type 2 diabetes mellitus affecting , antepartum Exercise / Class Metabolic Activity II 4-5 Yardwork/Stairs/Walk up hill Past Family History Family History Unknown Endometriosis Grandmother (Maternal) Type 2 diabetes mellitus Denies family history of Ovarian cancer Prostate cancer Myocardial infarction Breast cancer Colorectal cancer Past Surgical History Surgical History Hx of tonsillectomy S/P section 07/15/20 C S/P section 09/11/21 Past Anesthesia History No Hx of Anesthesia Complications and No Family Hx of Anesthesia Complications History of PONV No Hx of PONV and No Hx of Motion Sickness Social History Smoking Status: Never smoker Do You Dip or Chew Tobacco: No Hx Alcohol Use: No Hx Substance Use: No Physical Exam Vital Signs Last Vital Signs Temp 98.2 F 12/29/22 07:56 Pulse 86 12/29/22 07:56 Resp 18 12/29/22 07:56 BP 189/100 H 12/29/22 07:56 Pulse Ox 98 12/29/22 07:56 O2 Del Method Room Air 12/29/22 07:56 ENMT Mouth: no dentition abnormality Thyromental Distance: > or= 3.5 Finger Breadths Mallampati Class: II Neck normal visual inspection Respiratory normal respiratory effort Auscultation: lungs clear to auscultation bilaterally Cardiovascular Rate/Rhythm: regular rate and regular rhythm Testing Laboratory Results 12/29/22 07:37 12/29/22 07:37 12/29/22 08:00 POC Glucose 117 H Electrocardiogram Date: 10/05/21 SR with frequent PVCs at 76bpm. NS ST/TWA. Echocardiogram Date: 10/06/21 EF 55-60%. No regional wall motion abnormalities. Mild TR. Compared with prior study 08/22/2020, no significant change per report. Other Testing Renal artery duplex Date: 10/07/21 No evidence of renal artery stenosis. Mansi ultrasound Date: 10/05/21 FINDINGS: The right kidney measures 12.7 cm in length, and the left kidney measures 11.4 cm in length. The right kidney is normal in size, contour, cortical thickness, and echogenicity. No hydronephrosis is identified. No renal lesion is identified. No perinephric fluid collection is seen. The left kidney is normal in size, contour, cortical thickness and echogenicity. No hydronephrosis is identified. No renal lesion is identified. No perinephric fluid collection is seen. The bladder is partially distended. No large intraluminal mass is seen. IMPRESSION: Unremarkable renal ultrasound. Head CT Date: 10/05/21 Findings: The ventricles, basal cisterns, and cerebral sulci are normal. There is no acute intracranial hemorrhage or evidence of acute territorial infarction. Neither mass effect, shift of the midline structures, nor abnormal extra-axial fluid collections are shown. Imaged portions of the paranasal sinuses and mastoid air cells are clear. The orbits appear normal. There are no acute fractures of the calvaria or scalp swelling. Impression: No acute intracranial hemorrhage, no evidence of acute territorial infarction or other acute intracranial disease process. Carotid doppler Date: 01/09/21 Blood pressure in the right arm measured 199/100. Blood pressure in the left arm measured 218/110. No evidence for a hemodynamically significant stenosis. Significantly elevated blood pressure, as above. Cervical spine MRI Date: 01/09/21 The cervical spinal cord is normal in morphology and signal intensity. There are right posterolateral disc protrusions at C4-C5 and C5-C6 as above. No destructive bony process is seen.
[~2022-12-29 07:23] MED LIST changes: +DEXAMETHASONE SOD INJ 4 MG/ML VIAL ONE; +DOXYCYCLINE HYCLATE 100 MG CAP PO SCH; -GLC/500 PO; -GLIM4TAB2 PO; +LACTATED RINGER'S 1,000 ML IV SCH; +LIDOCAINE 2% 2 ML VIAL/AMP(20MG/ML) INFIL ONE; +MIDAZOLAM HCL 1 MG/ML 2ML VIAL ONE; +ONDANSETRON INJ 2 MG/ML 2 ML VIAL ONE; +PROPOFOL IV EMULSION 10 MG/ML 20 ML VIAL IV ONE; -REPA2TAB12 PO; +fentaNYL citrate PF 100 MCG/2 ML VIAL ONE
[2022-12-29] MEDS ORDERED: KETAMINE 50 MG/5 ML SYRINGE ONE (07:59)
[2022-12-29] MEDS ORDERED: DOXYCYCLINE HYCLATE 100 MG PO SCH (08:00)
[2022-12-29] MEDS ORDERED: [UNRECOGNIZED DRUG - OTHER] PO SCH (08:00)
[2022-12-29 08:03] LABS: Basophils # (auto) 0.06 K/uL (0-0.2); Basophils % (auto) 0.6 %; Eosinophils # (auto) 0.27 K/uL (0-0.50); Eosinophils % (auto) 2.5 %; Hematocrit (blood only) 34.2 % (37.0-47.0); Hemoglobin 11.2 g/dl (12.0-16.0); Immature Granulocytes # (auto) 0.09 K/uL (0.01-0.20); Immature Granulocytes % (auto) 0.8 %; Lymphocytes # (auto) 2.41 K/uL (1.2-3.4); Lymphocytes % (auto) 22.1 %; Mean Corpuscular Hemoglobin 28.9 pg (25.0-34.0); Mean Corpuscular Hgb Conc 32.7 g/dL (32.0-36.0); Mean Corpuscular Volume 88.1 fL (80.0-100.0); Mean Platelet Volume 9.8 fL (9.4-12.4); Monocytes # (auto) 0.74 K/uL (0.11-0.59); Monocytes % (auto) 6.8 %; Neutrophils # (auto) 7.33 K/uL (1.40-6.50); Neutrophils % (auto) 67.2 %; Platelet Count 309 K/uL (130-400); RDW Coefficient of Variation 12.7 % (11.5-14.5); RDW Standard Deviation 40.7 fL (36.4-46.3); Red Blood Count 3.88 M/uL (4.20-5.40)
[2022-12-29 08:06] LABS: BUN Creatinine Ratio 24.3 (10-20); Calcium 9.3 mg/dl (8.6-10.3); Creatinine Clr Calc Pharmacy 38.3 ml/min; Est GFR (African American) 32.3 ml/min; Est GFR (Non-African American) 27.9 ml/min; Potassium 4.4 mmol/L (3.5-5.1)
[2022-12-29] MEDS ORDERED: ePHEDrine sulfate 50 MG/ML AMP IV PRN (08:44)
[2022-12-29] MEDS ORDERED: ONDANSETRON INJ 2 MG/ML 2 ML VIAL IV PRN ×2 (08:44→22:10)
[2022-12-29] MEDS ORDERED: ATROPINE SULFATE 0.1 MG/ML 10ML SYR IV PRN (08:44)
--- NOTE | 2022-12-29 08:52 | History & Physical Bridge Note ---
Date of Service December 29, 2022 History & Physical Bridge Note I have examined the patient, reviewed the History & Physical and in the interval since the performance of the History & Physical I have noted the following changes of clinical significance: no changes noted
[2022-12-29] MEDS ORDERED: SUCCINYLCHOLINE CHLORIDE 20 MG/ML 10 ML VIAL IV ONE (09:40)
[2022-12-29] MEDS ORDERED: ROCURONIUM BROMIDE 10 MG/ML 5 ML VIAL IV ONE (09:40)
[2022-12-29] MEDS ORDERED: DOXYCYCLINE HYCLATE 200 MG in DEXTROSE 5% 250 ML IV STA (09:50)
[2022-12-29] MEDS ORDERED: PHENYLEPHRINE 100MCG/ML 5ML SYR ONE (10:16)
[2022-12-29] MEDS ORDERED: GLYCOPYRROLATE 0.2 MG/ML VIAL ONE (10:20)
--- NOTE | 2022-12-29 10:43 | Post Operative Brief Note ---
PG Immediate Post Op with CF Date of Surgery December 29, 2022 Pre & Post Diagnosis Operation Date: 12/29/22 09:00 Pre-Op Diagnosis: Missed Post-Op Diagnosis: Missed I identified the patient and participated in the time-out.: Yes Procedure Operation Date: 12/29/22 09:00 Actual Procedures p Cervical Dilation, Aborted D&E(Not Applicable) - Donny Romero MD Surgeon Donny Romero MD Inventory Control Manager None Estimated Blood Loss 20 Findings Consistent with Post-Op Diagnosis Specimens Specimen Description: A: Products of conception Drains Other (Patient straight cathed: 200 mL clear yellow urine drained)
[2022-12-29] MEDS: fentaNYL citrate PF 100 MCG/2 ML VIAL IV PRN ×4 (11:00→11:20)
--- NOTE | 2022-12-29 11:34 | Anesthesiology Progress Note ---
Date of Service December 29, 2022 Anesthesia Post Procedure Vital Signs Vital Signs: Temp Pulse Pulse Resp BP Pulse Ox O2 Del Method 12/29/22 11:25 94 H 13 164/88 H 97 Room Air 12/29/22 11:15 91 H 13 147/84 H 95 Oxymask 12/29/22 11:05 92 H 21 153/93 H 95 Oxymask 12/29/22 10:55 98 H 22 165/72 H 98 Oxymask 12/29/22 10:49 96.8 F L 103 H 18 169/97 H 96 Oxymask 12/29/22 07:56 98.2 F 86 18 189/100 H 98 Room Air O2 Flow Rate 12/29/22 11:25 12/29/22 11:15 2 12/29/22 11:05 3 12/29/22 10:55 4 12/29/22 10:49 5 12/29/22 07:56 Transfer of Care Handoff Completed per policy Notes Mental Status: alert / awake / arousable and participated in evaluation Patient Amnestic to Procedure: Yes Nausea / Vomiting: adequately controlled Pain: adequately controlled Airway Patency, RR, SpO2: stable & adequate BP & HR: stable & adequate Hydration State: stable & adequate Anesthetic Complications: no major complications apparent and Pt Satisfied with anesthetic care
[2022-12-29] MEDS ORDERED: miSOPROStoL 200 MCG TAB PV SCH (13:00)
[2022-12-29] MEDS ORDERED: miSOPROStoL 200 MCG TAB PV ONE (13:00)
[2022-12-29] MEDS ORDERED: PHARMACY GLYCEMIC MGMT CONSULT PRN (13:14)
--- NOTE | 2022-12-29 13:25 | Pharmacy Report ---
Pharmacy Glycemic Short Note 2 - Date of Service December 29, 2022 - Glycemic Short BSG Results (Last 24 hours): 12/29/22 12/29/22 12/29/22 07:37 08:00 10:54 Glucose 109 H POC Glucose 117 H 189 H OUTPATIENT ANTIDIABETIC REGIMEN: * Levemir 16 units SC HS * NovoLog 7-20 units TID with meals + Sliding scale ASSESSMENT: * 42 yo female, admitted for cervical Dilation, D&E, now changing to medical evacuation of missed . * Type 2 diabetic on insulin as above, will initiate SC basal bolus insulin and titrate to goal blood sugar. * Patient NPO at this time. PLAN FOR INPATIENT GLYCEMIC CONTROL: * Basal insulin * Lantus 0-16 units SC HS (0 units BSG < 180, 10 units BSG 180-220, 16 units BSG >220) * Bolus insulin * NovoLog per scale ACHS or Q4hrs while NPO * Goal Range: Low 110 mg/dL - High 140 mg/dL * Correction Factor: 30 mg/dL/unit * Nutritional / Prandial insulin per carb ratio of 1 unit per 15 grams CHO consumed
[2022-12-29] MEDS ORDERED: GLUCOSE 10 TAB/TUBE PO PRN (13:30)
[2022-12-29] MEDS ORDERED: GLUCAGON FOR INJ 1 MG VIAL IM PRN (13:30)
[2022-12-29] MEDS ORDERED: DEXTROSE 50% 50 ML SYRINGE IV PRN (13:30)
[2022-12-29] MEDS ORDERED: GLUCOSE 40% GEL 15 GM TUBE PO PRN (13:30)
[2022-12-29] MEDS ORDERED: CARBOHYDRATES FOR HYPOGLYCEMIA PO PRN (13:30)
[2022-12-29] MEDS: INSULIN ASPART PER UNIT CHARGE SC SCH ×3 (13:39→20:57)
[2022-12-29] MEDS ORDERED: hydrALAZINE TAB 50 MG TAB PO SCH ×2 (14:00→21:00)
[2022-12-29] MEDS ORDERED: hydrALAZINE TAB 50 MG TAB PO ONE (14:43)
--- NOTE | 2022-12-29 15:47 | Electrocardiogram Report ---
Test Reason : Blood Pressure : / mmHG Vent. Rate : 078 BPM Atrial Rate : 078 BPM P-R Int : 156 ms QRS Dur : 068 ms QT Int : 414 ms P-R-T Axes : 056 008 037 degrees QTc Int : 471 ms Normal sinus rhythm Normal ECG When compared with ECG of 05-OCT-2021 09:40, Premature ventricular complexes are no longer Present Nonspecific T wave abnormality no longer evident in Inferior leads Nonspecific T wave abnormality no longer evident in Anterolateral leads Confirmed by Balwinder Arellano ([id number]) on 12/29/2022 3:47:19 PM Referred By: Donny Romero Confirmed By:Balwinder Arellano
[2022-12-29] MEDS ORDERED: LABETALOL HCL IV 5 MG/ML 20ML IV STA (16:37)
[2022-12-29] MEDS ORDERED: miSOPROStoL 200 MCG TAB PV STA (17:03)
[2022-12-29] MEDS ORDERED: miSOPROStoL 200 MCG TAB SL STA (20:37)
[2022-12-29] MEDS: hydrALAZINE TAB 50 MG TAB PO SCH (20:56)
[2022-12-29] MEDS: LANTUS PER UNIT CHARGE SC SCH (20:59)
[2022-12-29] MEDS: miSOPROStoL 200 MCG TAB PO SCH (21:29)
--- NOTE | 2022-12-29 23:36 | Operative Report ---
PG Post Operative Report Pre & Post Diagnosis Operation Date: 12/29/22 09:00 Pre-Op Diagnosis: Missed Post-Op Diagnosis: Missed I identified the patient and participated in the time-out.: Yes Procedure Operation Date: 12/29/22 09:00 Actual Procedures p Cervical Dilation attempted evacuation (Not Applicable) - Donny Romero MD Surgeon Donny Romero MD Hotel Front Desk Agent None Estimated Blood Loss 20 Findings Consistent with Post-Op Diagnosis Specimens None Complications Inability complete case Description of Procedure Patient was taken to the operating room after consents were ensured. Patient was properly identified. Anesthesia obtained. Patient prepped and draped in the normal sterile fashion. A preprocedural timeout was performed. A speculum was placed within the vagina and cervix was initially difficult to identify. Extensive evaluation was noted to have a small cervix with an anterior cephalad pulled appearance. The cervix was grasped cyst and was dilated up to 43 [place] under ultrasound guidance. The tract of the cervix into the uterus was noted to be very anterior and is suspected that the uterus was likely adhesed to the anterior abdominal wall. Attempt at placement of the suction curette was noted to have the suction curette visualized within the uterine cavity by ultrasound but the angle of the uterus cervix limited mobility of the curette and no products were able to be obtained with 2 passes. Attempt at grasping the fetus with forceps was unsuccessful as a forceps were not able to reach to the level fetus secondary to the severely anterior and upward position of the uterus. After several attempts which were unsuccessful the decision was made to end and proceed with medical management of the missed . The patient was awoken from anesthesia and taken to recovery room in stable condition. The patient was ultimately transferred up to labor and delivery for medical management of a second trimester missed . On labor and delivery I reviewed results and findings. Discussed inability to complete the procedure due to patient's anatomy and equipment limitations. Discussed proceeding with medical management which patient was agreeable to. I attest to the content of the Intraoperative Record and any orders documented therein. Any exceptions are noted below. GENERAL HOUSE WORKER Minor Procedure Codes D&E/D&C 80988 D&E, 2nd Tri (MAB)
[2022-12-30] MEDS: LACTATED RINGER'S 1,000 ML IV PRN ×3 (00:31→18:02)
[2022-12-30] MEDS: INSULIN ASPART PER UNIT CHARGE SC SCH ×6 (01:14→20:06)
[2022-12-30] MEDS ORDERED: PROMETHAZINE HCL 25 MG in SODIUM CHLORIDE 0.9% 50 ML IV PRN (01:23)
[2022-12-30] MEDS: hydrALAZINE TAB 50 MG TAB PO SCH ×6 (02:12→20:06)
[2022-12-30] MEDS: miSOPROStoL 200 MCG TAB PO SCH ×3 (02:20→09:26)
[2022-12-30] MEDS ORDERED: LANTUS PER UNIT CHARGE SC ONE (08:00)
--- NOTE | 2022-12-30 08:59 | Gynecologic Progress Note ---
Date of Service December 30, 2022 Assessment & Plan (1) Type 2 diabetes mellitus: (2) Missed with demise before 20 completed weeks of gestation: Plan: Delaney is a 42-year-old who with a 14-week missed . Patient is status post attempted D&E. Patient is status post fifth dose of Cytotec. Please see HPI for additional details. Greater than 80 minutes was spent in care of patient. (3) Chronic hypertension: Admission and Anticipated Discharge Date Admission Date: December 29, 2022 Subjective Delaney is a 42-year-old with a 14-week missed . Attempt at surgical management via a D&C was unsuccessful secondary to patient's anatomy and OR limitations. Suspected that the patient has a adhered uterus to the anterior abdominal wall which is pulling the uterus anterior and cephalad. As of this point she has received 5 doses of Cytotec per standard protocol for a second trimester missed medical management. Patient has had no noted response to the Cytotec at present. Minimal bleeding appreciated. Ultrasound again today confirms intrauterine location of the fetus. I discussed management completed up to this point. I reviewed that we cannot give another dose of Cytotec per protocol for 12 hours. I discussed at that point we can restart the protocol for a second attempt. Patient voiced her preference for expectant management over the next couple of weeks. We discussed risks and benefits of expectant management including risk of hemorrhage and infection. We also discussed potential to [facility] family-planning group for a second opinion/evaluation. Results & Data Vital Signs (Past 12 Hours) Vital Signs Temp Pulse Resp BP 12/30/22 00:55 37.1 C 18 12/30/22 08:06 97 H 196/91 H 12/30/22 08:03 96 H 175/81 H 12/30/22 06:31 94 H 188/85 H 12/30/22 04:29 37.1 C 97 H 18 195/89 H 12/30/22 04:27 99 H 199/91 H 12/30/22 02:11 102 H 178/84 H 12/30/22 00:55 18 12/30/22 00:55 37.1 C 18 184/74 H 12/30/22 00:54 91 H 189/89 H 12/29/22 20:56 66 12/29/22 20:56 144/71 H PG Care Time/CCT Total # of Minutes Spent Total Time Spent with Patient: Total time spent is greater than 50% in coordination of care (as documented) at patient's floor/unit and/or counseling patient: Coding Level of Care Code 30328 INT INP/OBS CARE 3/75MIN Diagnoses Type 2 diabetes mellitus E11.9 Missed with demise before 20 completed weeks of gestation O02.1 Chronic hypertension I10
--- NOTE | 2022-12-30 09:23 | Communication Note ---
Date of Service: December 30, 2022 Introduced myself to pt as oncoming provider. Just received 4th dose of 400mcg of cytotec after initial 800mcg load. Essentially no cervical change has happened, see prior provider's note for details. Discussed case with Dr. Renae, manager of investigations family planning doctor at [facility]. She stated that there is no specific data to say we must stop at 5 doses of cytotec and can actually keep going with 400mcg cytotec q3hr PV with no max dose. She says often times, it will be like this and can keep going until the fetus delivers as long as no s/s of infection, bleeding ok, etc. She also spoke with prior provider regarding case as he was still here and noted that if there was concern for desiring surgical management and we would not be comfortable doing it here, could reach back out to discuss transfer to [facility]. Discussed this conversation with the pt, she would like to discuss this with her when he returns from taking care of the kids at home. She desires to shower so will do this now while we are waiting for his return. Home med list was also reviewed and home lisinopril and chlorthalidone were restarted for BP management, she is on sliding scale for T2DM
[2022-12-30] MEDS: lisinopril 10 MG TAB PO SCH (09:58)
[2022-12-30] MEDS: CHLORTHALIDONE 25 MG TAB PO SCH (09:58)
--- NOTE | 2022-12-30 12:19 | Gynecologic Progress Note ---
Date of Service December 30, 2022 Assessment & Plan (1) Missed with demise before 20 completed weeks of gestation: (2) Chronic hypertension: (3) Type 2 diabetes mellitus: Plan 42 yo admitted for medical management of 14wk MAB -BPs mild range, improved with home BP regimen -upon return of , options were reviewed with continuing medical management, repeat attempt at procedure but would likely rec transfer if desiring of this. Risks and benefits of each were reviewed extensively with and pt. Hard to know how long it will take for delivery with medical management and they desired for myself to have discussion w/ [facility] family planning to discuss. Had discussed case previously with provider at [facility], discussed it with them in the setting of pt inquiring about transfer for procedure. They feel that it would be best for the pt to continue with medical management as she is clinically stable, and with this would at the earliest be able to do procedure tomorrow. They state it has taken more than 8 doses/24hrs for delivery and that there is no limit to use of the cytotec in this setting. This was discussed w/ pt and her again and they are amenable to attempting cytotec again. 400mcg cytotec placed PV, cervix is very anterior and difficult to check. Will continue q3hr dosing per discussion with [facility] family planning Admission and Anticipated Discharge Date Admission Date: December 29, 2022 Subjective Resting in bed, at bedside Physical Exam Genitourinary: 1-1.5/50/-2, very ant Results & Data Vital Signs (Past 12 Hours) Vital Signs Temp Pulse Resp BP 12/30/22 11:27 98.6 F 20 12/30/22 08:03 98.2 F 20 12/30/22 00:55 98.8 F 18 12/30/22 11:28 87 143/69 H 12/30/22 09:15 93 H 188/90 H 12/30/22 08:06 97 H 196/91 H 12/30/22 08:03 96 H 175/81 H 12/30/22 06:31 94 H 188/85 H 12/30/22 04:29 98.8 F 97 H 18 195/89 H 12/30/22 04:27 99 H 199/91 H 12/30/22 02:11 102 H 178/84 H 12/30/22 00:55 18 12/30/22 00:55 98.8 F 18 184/74 H 12/30/22 00:54 91 H 189/89 H PG Care Time/CCT Total # of Minutes Spent Total Time Spent with Patient: Total time spent is greater than 50% in coordination of care (as documented) at patient's floor/unit and/or counseling patient: Coding Level of Care Code None Diagnoses Missed with demise before 20 completed weeks of gestation O02.1 Chronic hypertension I10 Type 2 diabetes mellitus E11.9
[2022-12-30] MEDS: miSOPROStoL 200 MCG TAB PV SCH ×4 (12:36→22:30)
--- NOTE | 2022-12-30 13:15 | Pharmacy Report ---
Pharmacy Glycemic Short Note 2 - Date of Service December 30, 2022 - Glycemic Short BSG Results (Last 24 hours): 12/29/22 12/29/22 12/29/22 13:25 15:58 20:36 POC Glucose 163 H 163 H 178 H 12/30/22 12/30/22 12/30/22 00:57 04:30 08:04 POC Glucose 185 H 175 H 177 H 12/30/22 12:11 POC Glucose 147 H OUTPATIENT ANTIDIABETIC REGIMEN: * Levemir 16 units SC HS * NovoLog 7-20 units TID with meals + Sliding scale ASSESSMENT: 12/30/22 * Patient remains inpatient, NPO, continues receiving Cervidil to deliver miscarriage. * Patient is receiving 1-2 units of insulin Q4H, no basal given last night (178mg/dl BSG, just below hold parameter). * Change Lantus parameters slightly and give small dose of basal this AM. * Tighten NovoLog parameters slightly. 12/29/22 * 42 yo female, admitted for cervical Dilation, D&E, now changing to medical evacuation of missed . * Type 2 diabetic on insulin as above, will initiate SC basal bolus insulin and titrate to goal blood sugar. * Patient NPO at this time. PLAN FOR INPATIENT GLYCEMIC CONTROL: * Basal insulin * Lantus 0-16 units SC HS (0 units BSG < 140, 10 units BSG 140-220, 16 units BSG >220) * Bolus insulin * NovoLog per scale ACHS or Q4hrs while NPO * Goal Range: Low 110 mg/dL - High 140 mg/dL * Correction Factor: 20 mg/dL/unit * Nutritional / Prandial insulin per carb ratio of 1 unit per 10 grams CHO consumed
--- NOTE | 2022-12-30 16:11 | Labor Progress Brief Note ---
Date of Service December 30, 2022 Subjective Resting comfortably Assessment & Plan (1) Missed with demise before 20 completed weeks of gestation: (2) Chronic hypertension: (3) Type 2 diabetes mellitus: Plan 42 yo admitted for medical management of 14wk MAB -BPs normal, BG appropriate -7th dose of cytotec total administered, 400mcg PV. Continue current plan Admission and Anticipated Discharge Date Admission Date: December 29, 2022 Physical Exam Genitourinary: 1-1.5/50/-2, very ant Results & Data Vital Signs (Past 12 Hours) Vital Signs Temp Pulse Resp BP 12/30/22 15:59 98.6 F 18 12/30/22 11:27 98.6 F 20 12/30/22 08:03 98.2 F 20 12/30/22 16:00 86 122/60 12/30/22 13:29 88 143/69 H 12/30/22 11:28 87 143/69 H 12/30/22 09:15 93 H 188/90 H 12/30/22 08:06 97 H 196/91 H 12/30/22 08:03 96 H 175/81 H 12/30/22 06:31 94 H 188/85 H 12/30/22 04:29 98.8 F 97 H 18 195/89 H 12/30/22 04:27 99 H 199/91 H Coding Level of Care Code None Diagnoses Missed with demise before 20 completed weeks of gestation O02.1 Chronic hypertension I10 Type 2 diabetes mellitus E11.9
--- NOTE | 2022-12-30 19:29 | Labor Progress Brief Note ---
Date of Service December 30, 2022 Subjective Resting comfortably Assessment & Plan (1) Missed with demise before 20 completed weeks of gestation: (2) Chronic hypertension: (3) Type 2 diabetes mellitus: Plan 42 yo admitted for medical management of 14wk MAB -BPs normal, BG appropriate -8th dose of cytotec total administered, 400mcg PV. Continue current plan Admission and Anticipated Discharge Date Admission Date: December 29, 2022 Physical Exam Genitourinary: SVE unchanged, approx 1cm, very ant but difficult to reach Results & Data Vital Signs (Past 12 Hours) Vital Signs Temp Pulse Resp BP 12/30/22 15:59 98.6 F 18 12/30/22 11:27 98.6 F 20 12/30/22 08:03 98.2 F 20 12/30/22 19:11 85 141/70 H 12/30/22 18:07 95 H 105/50 L 12/30/22 16:00 86 122/60 12/30/22 13:29 88 143/69 H 12/30/22 11:28 87 143/69 H 12/30/22 09:15 93 H 188/90 H 12/30/22 08:06 97 H 196/91 H 12/30/22 08:03 96 H 175/81 H Coding Level of Care Code None Diagnoses Missed with demise before 20 completed weeks of gestation O02.1 Chronic hypertension I10 Type 2 diabetes mellitus E11.9
[2022-12-30] MEDS: LANTUS PER UNIT CHARGE SC SCH (20:06)
--- NOTE | 2022-12-30 22:34 | Labor Progress Brief Note ---
Date of Service December 30, 2022 Subjective Resting comfortably Assessment & Plan (1) Missed with demise before 20 completed weeks of gestation: (2) Chronic hypertension: (3) Type 2 diabetes mellitus: Plan 42 yo admitted for medical management of 14wk MAB -BPs normal, BG appropriate -9th total dose of cytotec administered, 400mcg PV placed. Cervix is ?slightly softer, maybe slightly more dilated. Will continue to reassess Admission and Anticipated Discharge Date Admission Date: December 29, 2022 Results & Data Vital Signs (Past 12 Hours) Vital Signs Temp Pulse Resp BP 12/30/22 19:10 98.6 F 18 12/30/22 15:59 98.6 F 18 12/30/22 11:27 98.6 F 20 12/30/22 22:04 70 114/57 L 12/30/22 20:02 85 136/67 12/30/22 19:11 85 141/70 H 12/30/22 18:07 95 H 105/50 L 12/30/22 16:00 86 122/60 12/30/22 13:29 88 143/69 H 12/30/22 11:28 87 143/69 H Coding Level of Care Code None Diagnoses Missed with demise before 20 completed weeks of gestation O02.1 Chronic hypertension I10 Type 2 diabetes mellitus E11.9
[2022-12-31] MEDS: miSOPROStoL 200 MCG TAB PV SCH ×3 (01:23→08:19)
[2022-12-31] MEDS: hydrALAZINE TAB 50 MG TAB PO SCH ×2 (01:23→04:40)
[2022-12-31] MEDS: INSULIN ASPART PER UNIT CHARGE SC SCH ×3 (01:24→08:20)
[2022-12-31] MEDS: LACTATED RINGER'S 1,000 ML IV PRN (01:57)
--- NOTE | 2022-12-31 05:10 | Labor Progress Brief Note ---
Date of Service December 31, 2022 Subjective Resting comfortably Assessment & Plan (1) Missed with demise before 20 completed weeks of gestation: (2) Chronic hypertension: (3) Type 2 diabetes mellitus: Plan 42 yo admitted for medical management of 14wk MAB -BPs normal, BG appropriate -11th total dose of cytotec administered, 400mcg PV placed. Not really changed from prior exam. Will review case with on coming providers when next set would be due to discuss poc Admission and Anticipated Discharge Date Admission Date: December 29, 2022 Results & Data Vital Signs (Past 12 Hours) Vital Signs Temp Pulse Resp BP 12/30/22 19:10 98.6 F 18 12/31/22 04:36 18 12/31/22 04:36 98.1 F 18 12/31/22 00:14 84 131/61 12/30/22 22:04 70 114/57 L 12/30/22 20:02 85 136/67 12/30/22 19:11 85 141/70 H 12/30/22 18:07 95 H 105/50 L Coding Level of Care Code None Diagnoses Missed with demise before 20 completed weeks of gestation O02.1 Chronic hypertension I10 Type 2 diabetes mellitus E11.9
[2022-12-31] MEDS: CHLORTHALIDONE 25 MG TAB PO SCH (08:37)
[2022-12-31] MEDS: lisinopril 10 MG TAB PO SCH (08:37)
--- NOTE | 2022-12-31 08:53 | Gynecologic Progress Note ---
Date of Service December 31, 2022 Assessment & Plan (1) Missed with demise before 20 completed weeks of gestation: (2) Chronic hypertension: (3) Type 2 diabetes mellitus: Plan 42 yo admitted for medical management of 14wk MAB -BPs normal, BG appropriate -has received 11 total doses of cytotec, the first being the 800mcg load and subsequent cytotecs 400mcg q3h, all pv in the last 24 hours. SVE is unchanged, maybe 1-1.5cm dilated, BSUS shows fetus still near fundus which is very anterior. [facility] [place] family planning attending control panel operator Dr. Renae was contacted. Case again reviewed and noted that continuing the medical regimen as she had recommended has not demonstrated any progression. Pt continues to deny any cramping or abd pain. VSS remain stable, has remained NPO. She is willing to add pt on for D&E today, however as a consulting physician cannot accept this pt for transfer so will need to go through [employer] attending control panel operator. Transfer center has been involved with trying to get [employer] provider control panel operator however they are in the OR at a point in the case that they cannot talk so they will call us back to discuss whether transfer to [facility] [employer] floor vs through the ER. Dr. Bloom is the on- coming call provider and aware of discussions w/ transfer center and physicians at [facility] [place]. This was all discussed with the pt and and they are desiring to proceed when able Admission and Anticipated Discharge Date Admission Date: December 29, 2022 Subjective Resting comfortably Results & Data Vital Signs (Past 12 Hours) Vital Signs Temp Pulse Resp BP 12/31/22 07:24 98.8 F 18 12/31/22 07:23 96 H 150/76 H 12/31/22 04:36 18 12/31/22 04:36 98.1 F 18 12/31/22 00:14 84 131/61 12/30/22 22:04 70 114/57 L PG Care Time/CCT Total # of Minutes Spent Total Time Spent with Patient: Total time spent is greater than 50% in coordination of care (as documented) at patient's floor/unit and/or counseling patient: Coding Level of Care Code None Diagnoses Missed with demise before 20 completed weeks of gestation O02.1 Chronic hypertension I10 Type 2 diabetes mellitus E11.9
--- NOTE | 2022-12-31 10:40 | Pharmacy Report ---
Pharmacy Glycemic Short Note 2 - Date of Service December 31, 2022 - Glycemic Short BSG Results (Last 24 hours): 12/30/22 12/30/22 12/30/22 12:11 16:02 20:00 POC Glucose 147 H 103 H 97 12/31/22 12/31/22 12/31/22 00:15 04:39 08:11 POC Glucose 84 92 82 OUTPATIENT ANTIDIABETIC REGIMEN: * Levemir 16 units SC HS * NovoLog 7-20 units TID with meals + Sliding scale ASSESSMENT: 12/31/22: * Patient currently still NPO. She received 5 units of basal insulin and 5 units of bolus insulin yesterday in the morning only. * BSGs trended down from 177 mg/dl in the morning to 97 mg/dl at HS. * Fasting BSG today = 82 mg/dl. Will hold off on basal insulin until HS today. HS basal ordered on a scale based on BSG. * Novolog parameters continued the same. 12/30/22 * Patient remains inpatient, NPO, continues receiving Cervidil to deliver miscarriage. * Patient is receiving 1-2 units of insulin Q4H, no basal given last night (178mg/dl BSG, just below hold parameter). * Change Lantus parameters slightly and give small dose of basal this AM. * Tighten NovoLog parameters slightly. 12/29/22 * 42 yo female, admitted for cervical Dilation, D&E, now changing to medical evacuation of missed . * Type 2 diabetic on insulin as above, will initiate SC basal bolus insulin and titrate to goal blood sugar. * Patient NPO at this time. PLAN FOR INPATIENT GLYCEMIC CONTROL: * Basal insulin * Lantus 0-15 units SC HS (0 units BSG < 140, 5 units BSG 140-180, 10 units BSG 181-220, 15 units BSG >220) * Bolus insulin * NovoLog per scale ACHS or Q4hrs while NPO * Goal Range: Low 110 mg/dL - High 140 mg/dL * Correction Factor: 20 mg/dL/unit * Nutritional / Prandial insulin per carb ratio of 1 unit per 10 grams CHO consumed
--- NOTE | 2022-12-31 10:48 | Communication Note ---
Date of Service: December 31, [address] Schmidt, promotor group ticket sales accepting physician , at [facility] [facility]. Patient will be accepted in transfer at [facility] for operative management and will be transferred to the promotor group ticket sales service with a floor bed. Explained that Dr. Medrano had been speaking with the family planning physician, Dr. Renae , who is a consulting doctor and cannot accept transfers, and Dr. Purdy the promotor group ticket sales doctor converting technician yesterday. After discussion, patient will be a direct transfer to the promotor group ticket sales service and then Dr. Renae will consult on the patient. Patient and spouse aware. Recent vitals Blood sugar 82 has been npo and on a sliding scale bp 137/65 managed on lisinopril and chlorthalidone in house, hydralizine prn not needed. puse 96, resp 18, temp37.
--- NOTE | 2023-01-03 17:20 | Discharge Summary ---
Date of Service January 03, 2023 Discharge Data Procedures Performed Operation Date: 12/29/22 09:00 Actual Procedures p Cervical Dilation(Not Applicable) - Donny Romero MD Hospital Course (1) Missed with demise before 20 completed weeks of gestation: Patient initially presented for dilation and evacuation of the uterus for a 14- week missed . Procedure was not able to be performed secondary to patient's anatomy. Transitioned patient to medical induction of a missed with Cytotec. Patient in total had approximately 11 doses of Cytotec without any signs of effectiveness. Patient denied any cramping pain or bleeding. Discussed limited options available and recommended transfer of care to [facility] family-planning department for further care and reattempt at D&E. Coding Level of Care Code None Diagnoses Missed with demise before 20 completed weeks of gestation O02.1
== END 2022-12-31 12:00 | disposition short-term general hospital (02) | DRG 779 ==
LOC: ASU 07:23 → 4E1 10:41 → 4S1 15:36

== ENCOUNTER 2023-09-22 20:50 | Inpatient (IN) ==
[2023-09-22 21:42] LABS: Basophils # (auto) 0.08 K/uL (0.00-0.20); Basophils % (auto) 0.9 %; Eosinophils # (auto) 0.35 K/uL (0.00-0.50); Eosinophils % (auto) 3.9 %; Hematocrit (blood only) 38.3 % (37.0-47.0); Hemoglobin 12.1 g/dl (12.0-16.0); Immature Granulocytes # (auto) 0.02 K/uL (0.01-0.20); Immature Granulocytes % (auto) 0.2 %; Lymphocytes # (auto) 1.52 K/uL (1.20-3.40); Lymphocytes % (auto) 16.8 %; Mean Corpuscular Hemoglobin 28.4 pg (25.0-34.0); Mean Corpuscular Hgb Conc 31.6 g/dL (32.0-36.0); Mean Corpuscular Volume 89.9 fL (80.0-100.0); Mean Platelet Volume 9.6 fL (9.4-12.4); Monocytes # (auto) 0.58 K/uL (0.11-0.59); Monocytes % (auto) 6.4 %; Neutrophils # (auto) 6.52 K/uL (1.40-6.50); Neutrophils % (auto) 71.8 %; Platelet Count 340 K/uL (130-400); RDW Coefficient of Variation 13.2 % (11.5-14.5); RDW Standard Deviation 43.8 fL (36.4-46.3); Red Blood Count 4.26 M/uL (4.20-5.40); White Blood Count 9.07 K/ul (4.8-10.8)
[2023-09-22 21:54] LABS: Appearance Urine Cloudy (Clear); Bacteria Urine Automated 1+ (None Seen); Bilirubin Urine Negative (Negative); Blood Urine Negative (Negative); Cast Urine Automated >20 /lpf (0-2); Color Urine Yellow; Glucose Urine UA 1+ (Negative); Ketones Urine Negative (Negative); Leukocyte Esterase Urine Negative (Negative); Nitrite Urine Negative (Negative); Protein Urine 4+ (Negative); RBC Urine Automated 0-2 /hpf (0-2); Specific Gravity Urine 1.015 (1.000-1.030); Urobilinogen Urine Negative (Negative); WBC Urine Automated 0-5 /hpf (0-5); pH Urine 5.5 (4.5-7.5)
[2023-09-22 21:58] LABS: Albumin Globulin Ratio 1.1 (0.9-2); Albumin Level 3.7 gm/dl (3.4-5.0); BUN Creatinine Ratio 13.8 (10-20); Bilirubin,Total 0.4 mg/dl (0.2-1.0); Calcium 8.2 mg/dl (8.6-10.3); Creatinine Clr Calc Pharmacy 16.9 ml/min; Est GFR (African American) 12.1 ml/min; Est GFR (Non-African American) 10.5 ml/min; Globulin 3.3 gm/dl (2.5-4.0); Magnesium 1.9 mg/dl (1.7-2.4); Phosphorus 5.4 mg/dl (2.5-4.9)
[2023-09-22] MEDS: hydrALAZINE HCL 20 MG/ML VIAL IV STA (22:45)
--- NOTE | 2023-09-22 23:04 | History & Physical Report ---
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 Patient's baseline Cr of 2-2.4. Presenting today with Cr of 4.78. Potassium is WNL. She does have low serum bicarbonate at 15. Patient reports normal UOP with no urinary complaints. Uncertain if there is an acute cause for patient's decline in renal function vs chronic progression of her kidney disease secondary to HTN, DM -Admit to medical with telemetry -Monitor strict intake/output -Check CK -Check urine Na and Cr -Check urine culture -Check renal ultrasound -Avoid nephrotoxic agents -Renal dosing where needed -Nephrology consultation appreciated -LR at 80mL/hr x 1L -Repeat chemistry in AM - consider initiation of PO NaHCO3 pending labs in AM (2) Type 2 diabetes mellitus: Plan: Patient reports overall well controlled blood sugars of late. She does not always take her insulin. Last [id number]=5.4 on 09/16/23 -Lantus 5u BID -ISS -Goal blood sugar 110 - 140 -Cautious use of insulin given patient's degree of renal compromise - may have delayed clearance (3) Chronic hypertension: Plan: Patient seems to have well controlled blood pressure at home when she is compliant with her medications. However, she does not take her medications routinely and her pressures are often close to 200. -Continue Hydralazine 100mg po TID -Continue Labetalol 600mg po TID -Clonidine 0.1mg po TID as needed for BP > 180/110mmHg. WOULD NOT continue Clonidine on discharge given patient's history of noncompliance and risk for rebound hypertension with Conidine non-compliance. -Hold Spironolactone, Chlorthalidone and Lisinopril (4) Anxiety: Plan: Chronic. 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 Patient had blood work performed on 09/16/23 and was found to have an elevated creatinine at 4.21. She had the blood work repeated today which again confirmed elevated Cr of 4.78 so patient was instructed to come to the ER. Patient with no complaints. She denies fever, chills, cough, chest pain or shortness of breath. She denies abdominal pain, nausea, vomiting, diarrhea. No urinary complaints, no hematuria or dysuria. She has some foamy urine but not as bad as it has been in the past. She reports she is eating and drinking normally. No NSAID use. Patient follows with Nephrology - last seen on 01/28/23. 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 Baseline Cr of 2-2.4. She has history of proteinuria - 9gm. Patient has variable compliance with her blood pressure medications. When she takes her medications regularly her blood pressure is well controlled - 140mmHg systolic at the highest. However, she does not routinely take her medications so her blood pressure is often 160-180 mmHg and at times up to 230 mmHg. She reports that her blood sugars have been well controlled lately - typically in the 100's. Allergies Allergy/AdvReac Type Severity Reaction Status Date / Time omeprazole Allergy Unknown Hives Verified 09/22/23 23:19 nifedipine AdvReac Severe Edema, Verified 09/22/23 23:19 Congestive Heart Failure Home Medications Medication Instructions Recorded Confirmed Type lancets 33 gauge (AccuVein #100 ea 03/05/18 09/22/23 Rx Lancets) pen needle, diabetic 31 gauge x #200 ea 02/05/21 09/22/23 Rx 1/4" blood sugar diagnostic #200 ea 06/08/21 09/22/23 Rx lancing device with lancets kit #1 ea 06/08/21 09/22/23 Rx ([employer] Delica Lancing Device kit) hydralazine 100 mg tablet 100 mg PO TID 12/28/22 09/22/23 History insulin aspart U-100 100 unit/mL 1 sliding scale dose subcut UD 12/28/22 09/22/23 History (3 mL) subcutaneous pen (Novolog FlexPen U-100 Insulin aspart) insulin detemir U-100 100 unit/mL 16 unit subcut HS 12/29/22 09/22/23 History (3 mL) subcutaneous pen (Levemir FlexPen) blood sugar diagnostic (OneTouch #400 strips 04/18/23 09/22/23 Rx Ultra Test strips) chlorthalidone 25 mg tablet 25 mg PO QAM 09/22/23 09/22/23 History citalopram 10 mg tablet 10 mg PO QAM 09/22/23 09/22/23 History hydroxyzine HCl 25 mg tablet 25 mg PO QID #360 tabs 09/22/23 09/22/23 Rx labetalol 200 mg tablet 600 mg PO TID 09/22/23 09/22/23 History lisinopril 40 mg tablet 40 mg PO QAM 09/22/23 09/22/23 History spironolactone 25 mg tablet 50 mg PO QAM 09/22/23 09/22/23 History Past Med/Surg History Medical History Diabetes mellitus, type 2 Anemia of chronic disease Chronic kidney disease, stage 4 (severe) History of COVID-19 2020 + Fall 2021>no current symptoms Social anxiety disorder History of PCOS History of pre-eclampsia Hypertension Demyelinating disease Per [facility] [place]/02/[place], "doubt that she has multiple sclerosis. However.. 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, left Per remote [facility] [place] (12/2020) Nephrotic syndrome Monitored by [facility] nephro/PCP Learning disability Issues with multiple or complex instructions Endometriosis Hx Hirsutism Surgical History Hx of total hysterectomy with removal of both tubes and ovaries 12/2022; [facility] [place], one ovary remains History of dilatation and curettage S/P section 09/11/21 S/P section 07/15/20 [facility] Hx of tonsillectomy Family History Unknown Endometriosis Grandmother (Maternal) Type 2 diabetes mellitus Denies family history of Ovarian cancer Prostate cancer Myocardial infarction Breast cancer Colorectal cancer Social History Smoking Status: Never smoker Second Hand Exposure: No; Do You Dip or Chew Tobacco: No; Hx Alcohol Use: No Hx Substance Use: No Preferred Language: Vietnamese Communication Ability: Effective Communication Ability Comment: learning disability with complex or mulitple in structions Visual Impairment: No Limitations Hearing Ability: Normal Mechanical Reliability Engineer Required: No Beliefs That Will Affect Care: None marital status: marital status details: Deny Newman (43) [phone] Current Living Situation: Spouse Current Living Situation Comment: Deny - spouse and 2 daughters and one cat current occupational status: unemployed 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 Feels Safe at Home: Yes Childhood Exposure to Second-Hand Smoke: Yes Diet: diabetic Dental Care, Regularly: Yes Physical Activity Frequency: Does not Exercise Seatbelt Use: always Sunscreen Use: Yes Assistive Devices: Glasses Review of Systems Review of Systems: All systems reviewed & are unremarkable except as noted in HPI & below Physical Exam Physical Exam: General: patient resting comfortably, NAD, non-toxic in appearance, AA&O x 4 Skin: warm, dry, intact, no rashes or lesions HEENT: NC/AT, PERRL, EOMI, anicteric sclera, conjunctiva without injection, external ear normal to inspection and nontender, nares patent, moist mucus membranes, dentition intact, no oropharyngeal lesions, neck supple, trachea midline, no LAD, no thyromegaly, no JVD Heart: +S1/S2, regular, no m/r/g Lungs: equal air entry bilaterally, no rales/rhonchi/wheezes Abd: +BS, soft, NT/ND, no masses/organomegaly/ascites Ext: warm, 2+ pulses in UE/LE bilaterally, no clubbing/cyanosis or edema Neuro: nonfocal, patient AA&O x 4, speech intact, no facial droop, moving all extremities on command with equal strength 5/5 Results & Data Results & Data Vital Signs (Past 12 Hours) Vital Signs Temp Pulse Resp BP Pulse Ox O2 Del Method 09/22/23 22:45 85 17 190/105 H 98 09/22/23 22:34 87 15 207/103 H 97 09/22/23 22:00 85 16 189/107 H 99 09/22/23 21:33 86 17 187/93 H 98 09/22/23 21:16 89 09/22/23 21:11 90 16 205/111 H 09/22/23 20:55 36.1 C L 86 16 165/97 H 97 Room Air Laboratory Results Laboratory Results WBC 9.07 K/ul (4.8-10.8) 09/22/23 21:23 RBC 4.26 M/uL (4.20-5.40) 09/22/23 21:23 Hgb 12.1 g/dl (12.0-16.0) 09/22/23 21:23 Hct 38.3 % (37.0-47.0) 09/22/23 21:23 MCV 89.9 fL (80.0-100.0) 09/22/23 21:23 MCH 28.4 pg (25.0-34.0) 09/22/23 21:23 MCHC 31.6 g/dL (32.0-36.0) L 09/22/23 21:23 RDW Std Deviation 43.8 fL (36.4-46.3) 09/22/23 21:23 RDW Coeff of Jessica 13.2 % (11.5-14.5) 09/22/23 21:23 Plt Count 340 K/uL (130-400) 09/22/23 21:23 MPV 9.6 fL (9.4-12.4) 09/22/23 21:23 Immature Gran % (Auto) 0.2 % 09/22/23 21:23 Neut % (Auto) 71.8 % 09/22/23 21:23 Lymph % (Auto) 16.8 % 09/22/23 21:23 [place] % (Auto) 6.4 % 09/22/23 21:23 Eos % (Auto) 3.9 % 09/22/23 21:23 Baso % (Auto) 0.9 % 09/22/23 21:23 Neut # (Auto) 6.52 K/uL (1.40-6.50) H 09/22/23 21:23 Lymph # (Auto) 1.52 K/uL (1.20-3.40) 09/22/23 21:23 [place] # (Auto) 0.58 K/uL (0.11-0.59) 09/22/23 21:23 Eos # (Auto) 0.35 K/uL (0.00-0.50) 09/22/23 21:23 Baso # (Auto) 0.08 K/uL (0.00-0.20) 09/22/23 21:23 Immature Gran # (Auto) 0.02 K/uL (0.01-0.20) 09/22/23 21:23 Sodium 136 mmol/L (136-145) 09/22/23 21:23 Potassium 5.0 mmol/L (3.5-5.1) 09/22/23 21:23 Chloride 110 mmol/L (98-107) H 09/22/23 21:23 Carbon Dioxide 15 mmol/L (21-32) L 09/22/23 21:23 Anion Gap 11 (3-11) 09/22/23 21:23 BUN 66 mg/dl (6-23) H 09/22/23 21:23 Creatinine 4.78 mg/dl (0.6-1.2) H* 09/22/23 21:23 Est Cr Clr Drug Dosing 16.9 ml/min 09/22/23 21:23 Est GFR ( Amer) 12.1 ml/min 09/22/23 21:23 Est GFR (Non-Af Amer) 10.5 ml/min 09/22/23 21:23 BUN/Creatinine Ratio 13.8 (10-20) 09/22/23 21:23 Glucose 119 mg/dl (70-99(Fasting)) H 09/22/23 21:23 Calcium 8.2 mg/dl (8.6-10.3) L 09/22/23 21:23 Phosphorus 5.4 mg/dl (2.5-4.9) H 09/22/23 21:23 Magnesium 1.9 mg/dl (1.7-2.4) 09/22/23 21:23 Total Bilirubin 0.4 mg/dl (0.2-1.0) 09/22/23 21:23 AST 22 U/L (13-39) 09/22/23 21:23 ALT 11 U/L (7-52) 09/22/23 21:23 Alkaline Phosphatase 67 U/L (34-104) 09/22/23 21:23 B-Natriuretic Peptide 70 pg/ml (0-100) 09/22/23 21: Total Protein 7.0 gm/dl (6.0-8.3) 09/22/23 21: Albumin 3.7 gm/dl (3.4-5.0) 09/22/23 21: Globulin 3.3 gm/dl (2.5-4.0) 09/22/23 21: Albumin/Globulin Ratio 1.1 (0.9-2) 09/22/23 21: Urine Color Yellow 09/22/23 21:23 Urine Appearance Cloudy (Clear) A 09/22/23 21: Urine pH 5.5 (4.5-7.5) 09/22/23 21: Ur Specific [place] 1.015 (1.000-1.030) 09/22/23 21: Urine Protein 4+ (Negative) H 09/22/23 21: Urine Glucose (UA) 1+ (Negative) H 09/22/23 21: Urine Ketones Negative (Negative) 09/22/23 21: Urine Blood Negative (Negative) 09/22/23 21: Urine Nitrite Negative (Negative) 09/22/23 21:23 Urine Bilirubin Negative (Negative) 09/22/23 21: Urine Urobilinogen Negative (Negative) 09/22/23 21: Ur Leukocyte Esterase Negative (Negative) 09/22/23 21:23 Urine WBC (Auto) 0-5 /hpf (0-5) 09/22/23 21: Urine RBC (Auto) 0-2 /hpf (0-2) 09/22/23 21:23 U Hyaline Cast (Auto) >20 /lpf (0-2) H 09/22/23 21:23 U Epithel Cells (Auto) 6-10 /hpf (0-2) H 09/22/23 21:23 Urine Bacteria (Auto) 1+ (None Seen) H 09/22/23 21:23 PG Care Time/CCT Total # of Minutes Spent Total Time Spent with Patient: Total time spent is greater than 50% in coordination of care (as documented) at patient's floor/unit and/or counseling patient: Coding Level of Care Code 99060 INT INP/OBS CARE 3/75MIN Diagnoses Acute kidney injury superimposed on CKD N17.9; N18.9 Type 2 diabetes mellitus E11.9 Chronic hypertension I10 Anxiety F41.9
--- NOTE | 2023-09-22 23:15 | Emergency Department Note ---
Impression & Plan Acute kidney failure, Chronic kidney disease ED Provider Note Diagnosis: ТАТЬЯНА on CKD Disposition: Admission CHIEF COMPLAINT: Abnormal blood work HPI: Patient is a 43-year-old female with history of diabetes chronic kidney disease presenting with abnormal kidney function as an outpatient. Patient states she had blood work last week showing increasing kidney function. Patient had a repeated today and it was even higher. Patient denies any active symptoms. Patient denies any chest pain shortness of breath. Patient's blood pressure elevated upon arrival in the emergency room. Patient states she missed multiple doses of blood pressure medications today. PAST MEDICAL HISTORY: See Below PAST SURGICAL HISTORY: See Below SOCIAL HISTORY: See Below HOME MEDICATIONS: See Below ALLERGIES: See Below VITALS: See Below PHYSICAL EXAMINATION: GENERAL: Well appearing, well nourished, NAD, non-toxic. EYE EXAM: Normal conjunctiva. OROPHARYNX: Moist mucus membranes. Grossly normal dentition. NECK: Supple, LUNGS: Clear to auscultation. Normal chest wall mechanics. HEART: NSR ABDOMEN: Abdomen soft, non-tender, normo-active bowel sounds, no masses, no rebound or guarding BACK: No CVA TTP. SKIN: No rashes and no bruising. UPPER EXTREMITIES: Upper extremities are grossly normal LOWER EXTREMITIES: Grossly normal, no edema. NEURO EXAM: A&O x3,, normal speech, moves all 4 extremities PSYCH: Cooperative MEDICAL DECISION MAKING: History obtained from: Patient ER Course: Patient is a 43-year-old female presenting with complaint of abnormal outpatient blood work. Patient found to have acute kidney injury on top of CKD. Upon review of patient's most recent nephrology note her baseline creatinine is between 2 and 2.5. Patient found earlier in the week to be at 4.1 and today at 4.7. Patient states she is asymptomatic. Patient denies any chest pain shortness of breath. Patient's potassium level is normal. Patient admitted to hospital service for further treatment evaluation. Labs (independently interpreted) are significant for: ТАТЬЯНА on CKD Medications given: Hydralazine Consultants: Hospitalist Triage Nursing notes reviewed and agree them. 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, left Nephrotic syndrome Learning disability Endometriosis Hirsutism Surgical History Hx of total hysterectomy with removal of both tubes and ovaries History of dilatation and curettage S/P section S/P section Hx of tonsillectomy Family History Unknown Endometriosis Grandmother (Maternal) Type 2 diabetes mellitus Denies family history of Ovarian cancer Prostate cancer Myocardial infarction Breast cancer Colorectal cancer Social History Smoking Status: Never smoker Second Hand Exposure: No; Do You Dip or Chew Tobacco: No; Hx Alcohol Use: No Hx Substance Use: No Preferred Language: Belarusian Communication Ability: Effective Communication Ability Comment: learning disability with complex or mulitple instructions Visual Impairment: No Limitations Hearing Ability: Normal Airline Pilot/First Officer Required: No Beliefs That Will Affect Care: None marital status: marital status details: Deny Newman (43) [phone] Current Living Situation: Spouse Current Living Situation Comment: Deny - spouse and 2 daughters and one cat current occupational status: unemployed 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 Feels Safe at Home: Yes Childhood Exposure to Second-Hand Smoke: Yes Diet: diabetic Dental Care, Regularly: Yes Physical Activity Frequency: Does not Exercise Seatbelt Use: always Sunscreen Use: Yes Assistive Devices: Glasses Allergies Allergies Allergy/AdvReac Type Severity Reaction Status Date / Time omeprazole Allergy Unknown Hives Verified 09/15/23 16:55 nifedipine AdvReac Severe Edema, Verified 09/15/23 16:55 Congestive Heart Failure Home Meds Home Medications Medication Instructions Recorded Confirmed hydralazine 100 mg tablet 100 mg PO TID 12/28/22 09/15/23 insulin aspart U-100 100 unit/mL 1 sliding scale dose subcut UD 12/28/22 09/15/23 (3 mL) subcutaneous pen (Novolog FlexPen U-100 Insulin aspart) insulin detemir U-100 100 unit/mL 16 unit subcut HS 12/29/22 09/15/23 (3 mL) subcutaneous pen (Levemir FlexPen) Previous Rx's Medication Instructions Recorded lancets 33 gauge (OneTouch Delica #100 ea 03/05/18 Lancets) pen needle, diabetic 31 gauge x #200 ea 02/05/2105/19" blood sugar diagnostic #200 ea 06/08/21 lancing device with lancets kit #1 ea 06/08/21 (OneTouch Delica Lancing Device kit) chlorthalidone 25 mg tablet See Rx Instructions .Route 01/31/23 .COMPLEX #90 tabs lisinopril 10 mg tablet 10 mg PO QAM #90 tabs 01/31/23 spironolactone 25 mg tablet See Rx Instructions .Route 01/31/23 .COMPLEX #180 tabs blood sugar diagnostic ([employer] Plasma [employer] TechnologiesTouch #400 strips 04/18/23 Ultra Test strips) citalopram 10 mg tablet 10 mg PO DAILY #90 tabs 09/16/23 hydroxyzine HCl 25 mg tablet 25 mg PO QID #360 tabs 09/22/23 Results & Data (ED) Vital Signs Vital Signs - 24 hr 09/22/23 20:55 09/22/23 21:11 09/22/23 21:16 Temperature 36.1 C L Temperature Source Temporal Artery Scan Pulse Rate 86 90 89 Pulse Rate from SpO2 Sensor Respiratory Rate 16 16 Respiratory Effort / Characteristics Non-Labored Spontaneous Respiratory Depth Normal Respiratory Pattern Regular Blood Pressure 165/97 H 205/111 H Blood Pressure Mean 119 142 Pulse Oximetry 97 Oxygen Delivery Method Room Air Sepsis Recent Fever Within 48 Hours No Sepsis New/Unexplained Change in Mental Status N/A Sepsis Action Taken by Nursing No Action Required 09/22/23 21:33 09/22/23 22:00 09/22/23 22:34 Temperature Temperature Source Pulse Rate 86 85 87 Pulse Rate from SpO2 Sensor 88 86 88 Respiratory Rate 17 16 15 Respiratory Effort / Characteristics Respiratory Depth Respiratory Pattern Blood Pressure 187/93 H 189/107 H 207/103 H Blood Pressure Mean 124 134 137 Pulse Oximetry 98 99 97 Oxygen Delivery Method Sepsis Recent Fever Within 48 Hours Sepsis New/Unexplained Change in Mental Status Sepsis Action Taken by Nursing 09/22/23 22:45 Temperature Temperature Source Pulse Rate 85 Pulse Rate from SpO2 Sensor 86 Respiratory Rate 17 Respiratory Effort / Characteristics Respiratory Depth Respiratory Pattern Blood Pressure 190/105 H Blood Pressure Mean 133 Pulse Oximetry 98 Oxygen Delivery Method Sepsis Recent Fever Within 48 Hours Sepsis New/Unexplained Change in Mental Status Sepsis Action Taken by Nursing Laboratory Data 09/22/23 21:23 09/22/23 21:23 Lab Results 09/22/23 Range/Units 21:23 WBC 9.07 (4.8-10.8) K/ul RBC 4.26 (4.20-5.40) M/uL Hgb 12.1 (12.0-16.0) g/dl Hct 38.3 (37.0-47.0) % MCV 89.9 (80.0-100.0) fL MCH 28.4 (25.0-34.0) pg MCHC 31.6 L (32.0-36.0) g/dL RDW Std Deviation 43.8 (36.4-46.3) fL RDW Coeff of Jessica 13.2 (11.5-14.5) % Plt Count 340 (130-400) K/uL MPV 9.6 (9.4-12.4) fL Immature Gran % (Auto) 0.2 % Neut % (Auto) 71.8 % Lymph % (Auto) 16.8 % [place] % (Auto) 6.4 % Eos % (Auto) 3.9 % Baso % (Auto) 0.9 % Neut # (Auto) 6.52 H (1.40-6.50) K/uL Lymph # (Auto) 1.52 (1.20-3.40) K/uL [place] # (Auto) 0.58 (0.11-0.59) K/uL Eos # (Auto) 0.35 (0.00-0.50) K/uL Baso # (Auto) 0.08 (0.00-0.20) K/uL Immature Gran # (Auto) 0.02 (0.01-0.20) K/uL Sodium 136 (136-145) mmol/L Potassium 5.0 (3.5-5.1) mmol/L Chloride 110 H (98-107) mmol/L Carbon Dioxide 15 L (21-32) mmol/L Anion Gap 11 (3-11) BUN 66 H (6-23) mg/dl Creatinine 4.78 H* (0.6-1.2) mg/dl Est Cr Clr Drug Dosing 16.9 ml/min Est GFR ( Amer) 12.1 ml/min Est GFR (Non-Af Amer) 10.5 ml/min BUN/Creatinine Ratio 13.8 (10-20) Glucose 119 H (70-99(Fasting)) mg/dl Calcium 8.2 L (8.6-10.3) mg/dl Phosphorus 5.4 H (2.5-4.9) mg/dl Magnesium 1.9 (1.7-2.4) mg/dl Total Bilirubin 0.4 (0.2-1.0) mg/dl AST 22 (13-39) U/L ALT 11 (7-52) U/L Alkaline Phosphatase 67 (34-104) U/L B-Natriuretic Peptide 70 (0-100) pg/ml Total Protein 7.0 (6.0-8.3) gm/dl Albumin 3.7 (3.4-5.0) gm/dl Globulin 3.3 (2.5-4.0) gm/dl Albumin/Globulin Ratio 1.1 (0.9-2) Urine Color Yellow Urine Appearance Cloudy A (Clear) Urine pH 5.5 (4.5-7.5) Ur Specific [place] 1.015 (1.000-1.030) Urine Protein 4+ H (Negative) Urine Glucose (UA) 1+ H (Negative) Urine Ketones Negative (Negative) Urine Blood Negative (Negative) Urine Nitrite Negative (Negative) Urine Bilirubin Negative (Negative) Urine Urobilinogen Negative (Negative) Ur Leukocyte Esterase Negative (Negative) Urine WBC (Auto) 0-5 (0-5) /hpf Urine RBC (Auto) 0-2 (0-2) /hpf U Hyaline Cast (Auto) >20 H (0-2) /lpf U Epithel Cells (Auto) 6-10 H (0-2) /hpf Urine Bacteria (Auto) 1+ H (None Seen) Administered Medications Discontinued Medications Hydralazine HCl (Hydralazine Hcl 20 Mg/Ml Vial) 10 mg IV NOW STA Stop: 09/22/23 22:38 Last Admin: 09/22/23 22:45 Dose: 10 mg Documented By: LOVELYW Discharge Plan Visit Data Chief Complaint: Abnormal Labs/Diagnostic Testing Stated Complaint: ACUTE KIDNEY FAILURE, DOC REF, ABN LABS ED Provider: Keon Valerio Discharge Problem: Acute kidney failure, Chronic kidney disease Forms Stand Alone Forms: My [facility] Prescriptions Prescriptions: No Action (DME) pen needle, diabetic 31 gauge x 1/4" needle See Dose Instructions .ROUTE .MEDSUPPLY Qty: 200 5RF Dose Instruction: As directed Rx Instructions: INJECT INSULIN TWICE DAILY; DX CODE- E11.65 chlorthalidone 25 mg tablet See Rx Instructions .ROUTE .COMPLEX Qty: 90 3RF Hold Instructions: татьяна Dose Instruction: TAKE 1 TABLET BY MOUTH EVERY DAY IN THE MORNING Rx Instructions: TAKE 1 TABLET BY MOUTH EVERY DAY IN THE MORNING spironolactone 25 mg tablet See Rx Instructions .ROUTE .COMPLEX Qty: 180 3RF Dose Instruction: TAKE 2 TABLETS BY MOUTH EVERY DAY IN THE MORNING Rx Instructions: TAKE 2 TABLETS BY MOUTH EVERY DAY IN THE MORNING lisinopril 10 mg tablet 10 mg PO QAM Qty: 90 3RF (DME) OneTouch Ultra Test Strip See Rx Instructions .ROUTE .COMPLEX Qty: 400 1RF Dose Instruction: USE UP TO 4 STRIPS DAILY. DX E11.65 Rx Instructions: USE UP TO 4 STRIPS DAILY. DX E11.65 citalopram 10 mg tablet 10 mg PO DAILY Qty: 90 1RF hydroxyzine HCl 25 mg tablet 25 mg PO QID Qty: 360 1RF (DME) blood sugar diagnostic Strip See Rx Instructions miscellaneous .MEDSUPPLY Qty: 200 8RF Rx Instructions: As directed to check blood sugars 4-6 times a day during (DME) lancing device with lancets [[employer] Delica Lanc Device] Kit See Rx Instructions miscellaneous .MEDSUPPLY Qty: 1 0RF Rx Instructions: As directed (DME) lancets [OneTouch Delica Lancets] 33 gauge misc See Dose Instructions .ROUTE .MEDSUPPLY Qty: 100 0RF Dose Instruction: As directed Rx Instructions: As directed hydralazine 100 mg tablet 100 mg PO TID Patient Comments: blood pressure was going down ,now currently taking 50 mg three times a day. not aware insulin aspart U-100 [Novolog FlexPen U-100 Insulin] 100 unit/mL (3 mL) insulin pen 1 sliding scale dose subcut UD Rx Instructions: up to 20 units a day per sliding scale. Levemir FlexPen 100 unit/mL (3 mL) insulin pen 16 unit subcut HS Referrals Referrals: Charles Gonzalez, [Primary Care Provider] -
[2023-09-23] MEDS ORDERED: GLUCOSE 40% GEL 15 GM TUBE PO PRN (00:05)
[2023-09-23] MEDS ORDERED: GLUCAGON FOR INJ 1 MG VIAL SQ PRN (00:05)
[2023-09-23] MEDS ORDERED: GLUCOSE 10 TAB/TUBE PO PRN (00:05)
[2023-09-23] MEDS ORDERED: ACETAMINOPHEN 325 MG TAB PO PRN (00:05)
[2023-09-23] MEDS ORDERED: DEXTROSE 50% 50 ML SYRINGE IV PRN (00:05)
[2023-09-23] MEDS: LACTATED RINGER'S 1,000 ML IV SCH (00:16)
[2023-09-23 06:56] LABS: Hematocrit (blood only) 35.2 % (37.0-47.0); Hemoglobin 11.1 g/dl (12.0-16.0); Mean Corpuscular Hemoglobin 28.1 pg (25.0-34.0); Mean Corpuscular Hgb Conc 31.5 g/dL (32.0-36.0); Mean Corpuscular Volume 89.1 fL (80.0-100.0); Mean Platelet Volume 9.7 fL (9.4-12.4); Platelet Count 312 K/uL (130-400); RDW Coefficient of Variation 13.2 % (11.5-14.5); RDW Standard Deviation 42.9 fL (36.4-46.3); Red Blood Count 3.95 M/uL (4.20-5.40); White Blood Count 7.36 K/ul (4.8-10.8)
[2023-09-23 07:25] LABS: BUN Creatinine Ratio 14.5 (10-20); Calcium 7.9 mg/dl (8.6-10.3); Creatinine Clr Calc Pharmacy 17.9 ml/min; Est GFR (African American) 12.5 ml/min; Est GFR (Non-African American) 10.7 ml/min; Potassium 4.6 mmol/L (3.5-5.1)
--- NOTE | 2023-09-23 08:47 | Ultrasound Report ---
US renal/blad retro comp CLINICAL HISTORY: ТАТЬЯНА on CKD TECHNIQUE: Multiple sonographic real-time images of the kidneys and bladder were obtained. COMPARISON: None available at the time of this dictation. FINDINGS: The right kidney measures 10.1 cm in length, and the left kidney measures 9.1 cm in length. The right kidney is normal in size, contour, cortical thickness, and echogenicity. No hydronephrosis is identified. Nonobstructive nephrolithiasis is seen. The left kidney is normal in size, contour, cortical thickness and echogenicity. No hydronephrosis i s identified. No renal lesion is identified. The bladder is partially distended. No large intraluminal mass is seen. IMPRESSION: No hydronephrosis or other acute abnormality. ACT 112: Negative or not required by law. Electronically signed by: Shaji James M.D. 09/23/2023 8:45 AM
[2023-09-23] MEDS: hydrALAZINE TAB 50 MG TAB PO SCH (09:31)
[2023-09-23] MEDS: hydrOXYzine HCl 25 MG TAB PO SCH (09:32)
[2023-09-23] MEDS: LABETALOL HCL 300 MG TAB PO SCH (09:32)
[2023-09-23] MEDS: INSULIN ASPART PER UNIT CHARGE SC SCH (09:34)
[2023-09-23] MEDS: LANTUS PER UNIT CHARGE SQ SCH (09:34)
[2023-09-23 10:37] LABS: Creatinine Urine Random 81.3 mg/dl
--- NOTE | 2023-09-23 10:55 | Nephrology Consultation ---
Date of Consultation September 23, 2023 Assessment & Plan (1) Acute kidney injury superimposed on CKD: Non-oliguric. Volume status acceptable. Electrolytes normal. No clinical history suggestive of an etiology for ТАТЬЯНА. I suspect change in kidney function may reflect progression of CKD. I discussed this concern with Delaney and her . No obstruction is appreciated on renal US. Urine is acellular with hyaline casts. Medications are appropriate for kidney function. It is reasonable to continue to hold lisinopril and spironolactone for now pending additional monitoring. (2) Chronic kidney disease: Baseline creatinine ~3.0 mg/dL. CKD IV A3. Kidney biopsy in 2021 demonstrating significantly advanced changes of arterionephrosclerosis and DKD. Close outpatient nephrology follow up will be required. (3) Diabetic nephropathy: Goals of care reviewed. Importance of close follow up discussed. Due to advanced CKD and possible ТАТЬЯНА, avoid SGLT2i, MRA, and BAYLEE/ARB for now. (4) Hypertension: Uncontrolled. This is the focus of management at this time. Volume status is acceptable. Delaney denies symptoms of hypertension. Home regimen includes: chlorthalidone 25 mg daily, lisinopril 10 mg daily, hydralazine 100 mg TID, and spironolactone 50 mg daily. She did not tolerate nifedipine in the past due to lower extremity edema. She has received labetalol and hydralazine this AM. She tolerated the medications well. IVF will be stopped and chlorthalidone may be restarted PRN. If kidney function stable tomorrow, I would suspect that we could restart a low dose ACEi. Will monitor for now. History of Present Illness Reason for Consultation: ТАТЬЯНА on CKD Requesting Physician: Sher Encinas MD Attending Physician: Sher Encinas MD History of Present Illness Delaney Newman is a 43 year-old female with type 1 diabetes mellitus, hypertension, and chronic kidney disease. She was referred to [facility] yesterday by her PCP for abnormal kidney function tests. Delaney has followed with Dr. Montaño in the [facility] nephrology clinic in the past. Her last clinic visit was in January 2023. In January, serum creatinine was 3.0 mg/dL. Creatinine was 4.21 mg/dL on September 15. Creatinine was 4.78 mg/dL yesterday. Creatinine 4.68 mg/dL this AM. Proteinuria was quantified at 6.9 grams in 2021. A kidney biopsy obtained in 2021 demonstrated global sclerosis of 11/24 glomeruli. Findings of advanced DKD and arterionephrosclerosis were appreciated. Severe IF/TA with severe intimal fibrosis and hyalinosis noted. In January, she suffered a spontaneous and complication of D+C, incl uding uterine perforation. At that time, she underwent laparoscopic ELA with total hysterectomy + BSO. [place] [facility] Thankfully, Delaney recovered well. Following discharge, she struggled to control her blood pressure. She had developed significant fluid retention which took several months to resolve. She was maintained on chlorthalidone and spironolactone which helped. She then stopped taking most of her blood pressure medications for an extended period of time. Around the beginning of the year and through July, blood pressure had been notably low. She continued to hold her ant ihypertensives. She notes that labetalol was stopped completely at some point (~2 months ago?). She then resumed most of her antihypertensives approximately 1.5 weeks ago due to elevated BP readings. Her was included in our conversation by phone. He provided some of the background regarding medications. Medication reconciliation was completed by her checking pill bottles at home. Delaney provided a detailed home BP log which demonstrates readings of ~106- 144 mmHg systolic and 60-76 mmHg diastolic. Her home regimen has been chlorthalidone 25 mg QAM, spironolactone 2x25 mg QAM, lisinopril 10 mg daily, and hydralazine 100 mg TID. Delaney feels that she is tolerating this regimen well. She denies fluid retention or edema. She denies any changes in urine output. She denies any symptomatic accelerated hypertension. She denies any symptoms of low BP, such as lightheadedness or dizziness. She expressed frustration regarding too many different doctors and expressed that does not kno w which of her doctors is really managing her hypertension. She states that she was not able to follow up with Dr. Montaño as previously scheduled due to too many other physician visits and obligations. On , Delaney notes that her appetite has been poor and she has been eating typically ~1 meal per day. She states that she has not been drinking much fluid. I also discussed the patient's history and plan of care with Dr. Encinas this AM. Allergies Allergy/AdvReac Type Severity Reaction Status Date / Time omeprazole Allergy Unknown Hives Verified 09/22/23 23:19 nifedipine AdvReac Severe Edema, Verified 09/22/23 23:19 Congestive Heart Failure Home Medications Medication Instructions Recorded Confirmed Type lancets 33 gauge (OneTouch Delica #100 ea 03/05/18 09/22/23 Rx Lancets) pen needle, diabetic 31 gauge x #200 ea 02/05/21 09/22/23 Rx 05/19" blood sugar diagnostic #200 ea 06/08/21 09/22/23 Rx lancing device with lancets kit #1 ea 06/08/21 09/22/23 Rx (OneTouch Delica Lancing Device kit) hydralazine 100 mg tablet 100 mg PO TID 12/28/22 09/22/23 History insulin aspart U-100 100 unit/mL 1 sliding scale dose subcut UD 12/28/22 09/22/23 History (3 mL) subcutaneous pen (Novolog FlexPen U-100 Insulin aspart) insulin detemir U-100 100 unit/mL 16 unit subcut HS 12/29/22 09/22/23 History (3 mL) subcutaneous pen (Levemir FlexPen) blood sugar diagnostic (OneTouch #400 strips 04/18/23 09/22/23 Rx Ultra Test strips) chlorthalidone 25 mg tablet 25 mg PO QAM 09/22/23 09/22/23 History citalopram 10 mg tablet 10 mg PO QAM 09/22/23 09/22/23 History hydroxyzine HCl 25 mg tablet 25 mg PO QID #360 tabs 09/22/23 09/22/23 Rx labetalol 200 mg tablet 600 mg PO TID 09/22/23 09/22/23 History lisinopril 40 mg tablet 40 mg PO QAM 09/22/23 09/22/23 History spironolactone 25 mg tablet 50 mg PO QAM 09/22/23 09/22/23 History Patient History Medical History (Updated 09/23/23 @ 12:22 by Keon Rojas DO) Diabetes mellitus, type 2 Anemia of chronic disease Chronic kidney disease, stage 4 (severe) History of COVID-19 2020 + Fall 2021>no current symptoms Social anxiety disorder History of PCOS History of pre-eclampsia Hypertension Demyelinating disease Per [facility] neurology visit 01/02/21, "doubt that she has multiple sclerosis. However.. 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 neurology notes (12/2020) Learning disability Issues with multiple or complex instructions Endometriosis Hx Hirsutism Surgical History Hx of total [place] with removal of both tubes and ovaries [place] [facility] History of dilatation and curettage S/P section 09/11/21 S/P section 07/15/[place] [facility] [place]x of tonsillectomy Family History Unknown Endometriosis Grandmother (Maternal) Type 2 diabetes mellitus Denies family history of Ovarian cancer Prostate cancer Myocardial infarction Breast cancer Colorectal cancer Social History Smoking Status: Never smoker Second Hand Exposure: No; Do You Dip or Chew Tobacco: No; Tobacco Cessation Education Requested by Patient: No Hx Alcohol Use: No Hx Substance Use: No Preferred Language: Pakistani Communication Ability: Effective Communication Ability Comment: learning disability with complex or mulitple instructions Visual Impairment: No Limitations Hearing Ability: Normal Internet Retailer Required: No Beliefs That Will Affect Care: None marital status: marital status details: Deny Newman (43) [phone] Current Living Situation: Spouse and Family Current Living Situation Comment: Deny - spouse and 2 daughters and one cat current occupational status: unemployed 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 Other Information That Helps Us Care for You: No Feels Safe at Home: Yes Safety Concerns: Feels Safe At This Time Childhood Exposure to Second-Hand Smoke: Yes Diet: diabetic Dental Care, Regularly: Yes Physical Activity Frequency: Does not Exercise Seatbelt Use: always Sunscreen Use: Yes Assistive Devices: Glasses Review of Systems Review of Systems: All systems reviewed & are unremarkable except as noted in HPI & below Physical Exam Constitutional: well developed; no acute distress Eyes: + anicteric sclerae; no corneal abnormal ity ENMT: Mouth: no oral mucosal abnormality and oral mucous membranes not dry Neck: normal visual inspection and trachea midline Respiratory: normal respiratory effort Auscultation: lungs clear to auscultation bilaterally Cardiovascular: Rate/Rhythm: regular rate Heart Sounds: normal S1 and normal S2 Extremities: no edema Musculoskeletal: Extremities: no cyanosis and no clubbing Skin: normal turgor; no jaundice Neurologic: Motor/Sensory: no tremor and no asterixis Psychiatric: Orientation: alert and oriented x 3 Results & Data Vital Signs (Past 12 Hours) Vital Signs Temp Pulse Pulse Resp BP BP Pulse Ox 09/23/23 09:48 86 09/23/23 03:28 36.6 C 92 H 18 151/79 H 96 09/23/23 02:18 92 H 09/23/23 00:05 36.7 C 18 152/78 H 94 09/22/23 23:31 09/22/23 23:30 90 15 125/74 96 09/22/23 23:00 91 H 14 161/88 H 98 O2 Del Method 09/23/23 09:48 09/23/23 03:28 Room Air 09/23/23 02:18 09/23/23 00:05 Room Air 09/22/23 23:31 Room Air 09/22/23 23:30 09/22/23 23:00 Laboratory Results Laboratory Results - last 24 hr 09/22/23 09/23/23 09/23/23 21:23 06:09 08:20 WBC 9.07 7.36 RBC 4.26 3.95 L Hgb 12.1 11.1 L Hct 38.3 35.2 L MCV 89.9 89.1 MCH 28.4 28.1 MCHC 31.6 L 31.5 L RDW Std Deviation 43.8 42.9 RDW Coeff of Jessica 13.2 13.2 Plt Count 340 312 MPV 9.6 9.7 Immature Gran % (Auto) 0.2 Neut % (Auto) 71.8 Lymph % (Auto) 16.8 Sebastian % (Auto) 6.4 Eos % (Auto) 3.9 Baso % (Auto) 0.9 Neut # (Auto) 6.52 H Lymph # (Auto) 1.52 Sebastian # (Auto) 0.58 Eos # (Auto) 0.35 Baso # (Auto) 0.08 Immature Gran # (Auto) 0.02 Sodium 136 138 Potassium 5.0 4.6 Chloride 110 H 113 H Carbon Dioxide 15 L 14 L Anion Gap 11 11 BUN 66 H 68 H Creatinine 4.78 H* 4.68 H* Est Cr Clr Drug Dosing 16.9 17.9 Est GFR ( Amer) 12.1 12.5 Est GFR (Non-Af Amer) 10.5 10.7 BUN/Creatinine Ratio 13.8 14.5 Glucose 119 H 97 POC Glucose 94 Calcium 8.2 L 7.9 L Phosphorus 5.4 H Magnesium 1.9 Total Bilirubin 0.4 AST 22 ALT 11 Alkaline Phosphatase 67 Total Creatine Kinase 267 H B-Natriuretic Peptide 70 Total Protein 7.0 Albumin 3.7 Globulin 3.3 Albumin/Globulin Ratio 1.1 Urine Color Yellow Urine Appearance Cloudy A Urine pH 5.5 Ur Specific [place] 1.015 Urine Protein 4+ H Urine Glucose (UA) 1+ H Urine Ketones Negative Urine Blood Negative Urine Nitrite Negative Urine Bilirubin Negative Urine Urobilinogen Negative Ur Leukocyte Esterase Negative Urine WBC (Auto) 0-5 Urine RBC (Auto) 0-2 U Hyaline Cast (Auto) >20 H U Epithel Cells (Auto) 6-10 H Urine Bacteria (Auto) 1+ H Ur Random Creatinine Ur Random Sodium 09/23/23 Unknown WBC RBC Hgb Hct MCV MCH MCHC RDW Std Deviation RDW Coeff of Jessica Plt Count MPV Immature Gran % (Auto) Neut % (Auto) Lymph % (Auto) Sebastian % (Auto) Eos % (Auto) Baso % (Auto) Neut # (Auto) Lymph # (Auto) Sebastian # (Auto) Eos # (Auto) Baso # (Auto) Immature Gran # (Auto) Sodium Potassium Chloride Carbon Dioxide Anion Gap BUN Creatinine Est Cr Clr Drug Dosing Est GFR ( Amer) Est GFR (Non-Af Amer) BUN/Creatinine Ratio Glucose POC Glucose Calcium Phosphorus Magnesium Total Bilirubin AST ALT Alkaline Phosphatase Total Creatine Kinase B-Natriuretic Peptide Total Protein Albumin Globulin Albumin/Globulin Ratio Urine Color Urine Appearance Urine pH Ur Specific [place] Urine Protein Urine Glucose (UA) Urine Ketones Urine Blood Urine Nitrite Urine Bilirubin Urine Urobilinogen Ur Leukocyte Esterase Urine WBC (Auto) Urine RBC (Auto) U Hyaline Cast (Auto) U Epithel Cells (Auto) Urine Bacteria (Auto) Ur Random Creatinine 81.3 Ur Random Sodium 56 Diagnostic Findings US renal/blad retro comp COMPARISON: None available at the time of this dictation. FINDINGS: The right kidney measures 10.1 cm in length, and the left kidney measures 9.1 cm in length. The right kidney is normal in size, contour, cortical thickness, and echogenicity. No hydronephrosis is identified. Nonobstructive nephrolithiasis is seen. The left kidney is normal in size, contour, cortical thickness and echogenicity. No hydronephrosis is identified. No renal lesion is identified. The bladder is partially distended. No large intraluminal mass is seen. IMPRESSION: No hydronephrosis or other acute abnormality. PG Care Time/CCT Total # of Minutes Spent Total Time Spent with Patient: Total time spent is greater than 50% in coordination of care (as documented) at patient's floor/unit and/or counseling patient: Coding Level of Care Code 10531 IN/OBS CONSULT LVL 5,80M Diagnoses Acute kidney injury superimposed on CKD N17.9; N18.9 Chronic kidney disease N18.9 Diabetic nephropathy E11.21 Hypertension I10 Hypertension type: unspecified (4) Hypertension Hypertension type: unspecified Qualified Code(s): I10 - Essential (primary) hypertension
[2023-09-23] MEDS: CITALOPRAM 20 MG TAB PO SCH (13:27)
[2023-09-23] MEDS: ONDANSETRON INJ 2 MG/ML 2 ML VIAL IV PRN (15:28)
[2023-09-23] MEDS: cloNIDine HCL 0.1 MG TAB PO PRN (16:51)
--- NOTE | 2023-09-23 19:40 | Hospitalist Progress Note ---
Date of Service September 23, 2023 Assessment & Plan (1) Acute kidney injury superimposed on CKD: Plan: 43yo female with history of CKD-IV secondary to diabetic nephropathy with proteinuria, hypertension and DM presenting at the request of her doctor for worsening renal function. Patient's baseline Cr of 2-2.4. Presented with Cr of 4.78 on admission. Potassium is WNL. She does have low serum bicarbonate at 15. Patient reports normal UOP with no urinary complaints. Uncertain if there is an acute cause for patient's decline in renal function vs chronic progression of her kidney disease secondary to HTN, DM -Admit to medical with telemetry -Monitor strict intake/output -CK elevated at 267 -Urine random Na 56, urine random creatinine 81.3 -Urine culture pending -Renal ultrasound showed no hydronephrosis or other acute abnormality -Avoid nephrotoxic agents -Renal dosing where needed -Nephrology consultation appreciated -Repeat chemistry in AM - consider initiation of PO NaHCO3 pending labs in AM Hold lisinopril and spironolactone for now Restarted chlorthalidone for 09/23/2023 AM Monitor labs in a.m. --> if stable patient can be discharged home with close outpatient nephrology follow-up (2) Type 2 diabetes mellitus: Plan: Patient reports overall well controlled blood sugars of late. She does not always take her insulin. Last DjnW4H=2.4 on 09/16/23 -Lantus 5u BID -ISS -Goal blood sugar 110 - 140 -Cautious use of insulin given patient's degree of renal compromise - may have delayed clearance Morbid obesity with BMI 42.8 (3) Anxiety: Plan: Chronic. -Continue Citalopram 10mg po daily -Continue Hydroxyzine 25mg po QID Plan Updated patient's at bedside Discussed plan with Dr. Rojas and nephrology Ordered clonidine x 1 for elevated BP Restarted chlorthalidone for tomorrow a.m. CODE STATUS: Full code Admission and Anticipated Discharge Date Admission Date: September 22, 2023 Subjective Patient seen and evaluated at bedside with her . She reports that she has no complaints at this time. She reports that she was not taking her medications as prescribed for about 2 months, until she resumed her medications approximately 2 weeks ago. Additionally, patient notes a decreased appetite recently as well as a decreased fluid intake. Discussed the plan to continue monitoring the patient overnight and reassess lab values in the morning, the patient remained stable she can be discharged tomorrow with close outpatient nephrology follow-up. Physical Exam Physical Exam: General: patient resting comfortably, NAD, non-toxic in appearance, AA&O x 4 Skin: warm, dry, intact, no rashes or lesions HEENT: NC/AT, PERRL, EOMI, anicteric sclera, conjunctiva without injection, external ear normal to inspection and nontender, nares patent, moist mucus membranes, dentition intact, no oropharyngeal lesions, neck supple, trachea midline, no LAD, no thyromegaly, no JVD Heart: +S1/S2, regular, no m/r/g Lungs: equal air entry bilaterally, no rales/rhonchi/wheezes Abd: +BS, soft, NT/ND, no masses/organomegaly/ascites Ext: warm, 2+ pulses in UE/LE bilaterally, no clubbing/cyanosis or edema Neuro: nonfocal, patient AA&O x 4, speech intact, no facial droop, moving all extremities on command with equal strength 5/5 Results & Data Results & Data Vital Signs (Past 12 Hours) Vital Signs Temp Pulse Pulse Resp BP Pulse Ox O2 Del Method 09/23/23 16:35 36.4 C L 77 17 199/93 H 94 Room Air 09/23/23 11:11 36.4 C L 89 18 179/92 H 95 Room Air 09/23/23 09:48 86 Laboratory Results Reviewed CBC Reviewed CMP Reviewed urine culture Diagnostic Findings Renal ultrasound 09/23/2023: FINDINGS: The right kidney measures 10.1 cm in length, and the left kidney measures 9.1 cm in length. The right kidney is normal in size, contour, cortical thickness, and echogenicity. No hydronephrosis is identified. Nonobstructive nephrolithiasis is seen. The left kidney is normal in size, contour, cortical thickness and echogenicity. No hydronephrosis is identified. No renal lesion is identified. The bladder is partially distended. No large intraluminal mass is seen. IMPRESSION: No hydronephrosis or other acute abnormality. PG Care Time/CCT Total # of Minutes Spent Total Time Spent with Patient: Total time spent is greater than 50% in coordination of care (as documented) at patient's floor/unit and/or counseling patient: Coding Level of Care Code 76097 SUB INP/OBS CARE 50MIN Diagnoses Acute kidney injury superimposed on CKD N17.9; N18.9 Type 2 diabetes mellitus E11.9 Anxiety F41.9
[2023-09-24 08:41] LABS: Albumin Level 3.3 gm/dl (3.4-5.0); BUN Creatinine Ratio 15.1 (10-20); Calcium 8.3 mg/dl (8.6-10.3); Creatinine Clr Calc Pharmacy 19.5 ml/min; Est GFR (African American) 13.8 ml/min; Est GFR (Non-African American) 11.9 ml/min; Phosphorus 6.7 mg/dl (2.5-4.9); Potassium 4.3 mmol/L (3.5-5.1)
--- NOTE | 2023-09-24 09:26 | Nephrology Progress Note ---
Date of Service September 24, 2023 Assessment & Plan (1) Acute kidney injury superimposed on CKD: Plan: * ТАТЬЯНА likely due to relative dehydration in the setting of ACEi therapy * Kidney function now improved. Electrolyte balance is acceptable. Patient reports good oral hydration * 10/06 renal US - mild asymmetry. No obstruction * Monitor PRP * Briefly discussed KDIGO CKD staging w/ patient and today. Reviewed biopsy results. Discussed potential need for AVF and [employer] in near future (2) Chronic kidney disease: Plan: * Baseline creatinine ~3.0 mg/dL. CKD IV A3. Kidney biopsy in 2021 demonstrating significantly advanced changes of arterionephrosclerosis and DKD. Close outpatient nephrology follow up will be required. (3) Hypertension: Plan: * BP remains elevated * Intolerant of CCB due to LE swelling * Continue Labetalol, Hydralazine, Chlorthalidone * Will add back Lisinopril 10 mg daily * If BP improved and kidney function stable tomorrow then patient may continue treatment as outpatient w/ close follow up by Dr. Montaño (4) Diabetic nephropathy: Plan: * Goals of care reviewed. Importance of close follow up discussed. Due to advanced CKD and possible ТАТЬЯНА, avoid SGLT2i, MRA Admission and Anticipated Discharge Date Admission Date: September 22, 2023 Subjective Mrs. Newman was evaluated in her hospital room this morning. Her was present via speaker phone. Mrs. Newman denied CHERRY, fever, flank pain or uremic symptoms. She denied recent use of NSAIDS or any potential nephrotoxic agents. She has not had N/V/D. She voiced no new medical concerns Review of Systems Constitutional: no fever Eyes: no problem reported Ear, Nose, Mouth, Throat: no problem reported Respiratory: no cough and no dyspnea Cardiovascular: no chest pain Gastrointestinal: no abdominal pain, no nausea, no vomiting and no diarrhea/loose stools Genitourinary: no dysuria and no hematuria Integumentary: no rash Neurologic: no headache(s) Physical Exam Constitutional: not in distress Eyes: PERRL, conjunctivae normal, anicteric sclerae ENMT: external ear and nose normal, oropharynx normal Neck: trachea midline, no thyromegaly Respiratory: normal respiratory effort, lungs clear to auscultation Cardiovascular: RRR, no murmur, no edema Gastrointestinal (Abdomen): normal bowel sounds, soft, nontender, no hepatosplenomegaly Musculoskeletal: Extremities: no cyanosis Skin: no rashes, warm and dry Neurologic: PERRL, EOMI, accommodation nl, no face palsy, no dysarthria Psychiatric: Insight: + limited insight Results & Data Vital Signs (Past 12 Hours) Vital Signs Temp Pulse Pulse Resp BP Pulse Ox O2 Del Method 09/24/23 08:21 36.3 C L 73 18 177/96 H 96 Room Air 09/24/23 03:07 36.3 C L 90 16 195/97 H 96 Room Air 09/23/23 23:09 36.5 C 97 H 16 192/84 H 93 Room Air 09/23/23 21:55 91 H Laboratory Results Laboratory Results WBC 7.36 K/ul (4.8-10.8) 09/23/23 06:09 RBC 3.95 M/uL (4.20-5.40) L 09/23/23 06:09 Hgb 11.1 g/dl (12.0-16.0) L 09/23/23 06:09 Hct 35.2 % (37.0-47.0) L 09/23/23 06:09 MCV 89.1 fL (80.0-100.0) 09/23/23 06:09 MCH 28.1 pg (25.0-34.0) 09/23/23 06:09 MCHC 31.5 g/dL (32.0-36.0) L 09/23/23 06:09 RDW Std Deviation 42.9 fL (36.4-46.3) 09/23/23 06:09 RDW Coeff of Jessica 13.2 % (11.5-14.5) 09/23/23 06:09 Plt Count 312 K/uL (130-400) 09/23/23 06:09 MPV 9.7 fL (9.4-12.4) 09/23/23 06:09 Immature Gran % (Auto) 0.2 % 09/22/23 21:23 Neut % (Auto) 71.8 % 09/22/23 21:23 Lymph % (Auto) 16.8 % 09/22/23 21:23 [place] % (Auto) 6.4 % 09/22/23 21:23 Eos % (Auto) 3.9 % 09/22/23 21:23 Baso % (Auto) 0.9 % 09/22/23 21:23 Neut # (Auto) 6.52 K/uL (1.40-6.50) H 09/22/23 21:23 Lymph # (Auto) 1.52 K/uL (1.20-3.40) 09/22/23 21:23 [place] # (Auto) 0.58 K/uL (0.11-0.59) 09/22/23 21:23 Eos # (Auto) 0.35 K/uL (0.00-0.50) 09/22/23 21:23 Baso # (Auto) 0.08 K/uL (0.00-0.20) 09/22/23 21:23 Immature Gran # (Auto) 0.02 K/uL (0.01-0.20) 09/22/23 21:23 Sodium 140 mmol/L (136-145) 09/24/23 07:37 Potassium 4.3 mmol/L (3.5-5.1) 09/24/23 07:37 Chloride 110 mmol/L (98-107) H 09/24/23 07:37 Carbon Dioxide 15 mmol/L (21-32) L 09/24/23 07:37 Anion Gap 15 (3-11) H 09/24/23 07:37 BUN 65 mg/dl (6-23) H 09/24/23 07:37 Creatinine 4.31 mg/dl (0.6-1.2) H D 09/24/23 07:37 Est Cr Clr Drug Dosing 19.5 ml/min 09/24/23 07:37 Est GFR ( Amer) 13.8 ml/min 09/24/23 07:37 Est GFR (Non-Af Amer) 11.9 ml/min 09/24/23 07:37 BUN/Creatinine Ratio 15.1 (10-20) 09/24/23 07:37 Glucose 140 mg/dl (70-99(Fasting)) H 09/24/23 07:37 POC Glucose 128 mg/dl (70-99) H 09/24/23 08:05 Calcium 8.3 mg/dl (8.6-10.3) L 09/24/23 07:37 Phosphorus 6.7 mg/dl (2.5-4.9) H 09/24/23 07:37 Magnesium 1.9 mg/dl (1.7-2.4) 09/22/23 21: Total Bilirubin 0.4 mg/dl (0.2-1.0) 09/22/23 21: AST 22 U/L (13-39) 09/22/23 21: ALT 11 U/L (7-52) 09/22/23 21: Alkaline Phosphatase 67 U/L (34-104) 09/22/23 21: Total Creatine Kinase 267 U/L (26-192) H 09/22/23 21:23 B-Natriuretic Peptide 70 pg/ml (0-100) 09/22/23 21: Total Protein 7.0 gm/dl (6.0-8.3) 09/22/23 21: Albumin 3.3 gm/dl (3.4-5.0) L 09/24/23 07:37 Globulin 3.3 gm/dl (2.5-4.0) 09/22/23 21: Albumin/Globulin Ratio 1.1 (0.9-2) 09/22/23 21: Urine Color Yellow 09/22/23 21: Urine Appearance Cloudy (Clear) A 09/22/23 21: Urine pH 5.5 (4.5-7.5) 09/22/23 21: Ur Specific [place] 1.015 (1.000-1.030) 09/22/23 21: Urine Protein 4+ (Negative) H 09/22/23 21: Urine Glucose (UA) 1+ (Negative) H 09/22/23 21: Urine Ketones Negative (Negative) 09/22/23 21: Urine Blood Negative (Negative) 09/22/23 21: Urine Nitrite Negative (Negative) 09/22/23 21: Urine Bilirubin Negative (Negative) 09/22/23 21: Urine Urobilinogen Negative (Negative) 09/22/23: Ur Leukocyte Esterase Negative (Negative) 09/22/23 21:23 Urine WBC (Auto) 0-5 /hpf (0-5) 09/22/23 21:23 Urine RBC (Auto) 0-2 /hpf (0-2) 09/22/23 21:23 U Hyaline Cast (Auto) >20 /lpf (0-2) H 09/22/23 21:23 U Epithel Cells (Auto) 6-10 /hpf (0-2) H 09/22/23 21:23 Urine Bacteria (Auto) 1+ (None Seen) H 09/22/23 21:23 Ur Random Creatinine 81.3 mg/dl 09/23/23 Unknown Ur Random Sodium 56 mmol/L 09/23/23 Unknown Impressions Renal Ultrasound 09/23/23 00:05 US renal/blad retro comp CLINICAL HISTORY: ТАТЬЯНА on CKD TECHNIQUE: Multiple sonographic real-time images of the kidneys and bladder were obtained. COMPARISON: None available at the time of this dictation. FINDINGS: The right kidney measures 10.1 cm in length, and the left kidney measures 9.1 cm in length. The right kidney is normal in size, contour, cortical thickness, and echogenicity. No hydronephrosis is identified. Nonobstructive nephrolithiasis is seen. The left kidney is normal in size, contour, cortical thickness and echogenicity. No hydronephrosis is identified. No renal lesion is identified. The bladder is partially distended. No large intraluminal mass is seen. IMPRESSION: No hydronephrosis or other acute abnormality. ACT 112: Negative or not required by law. Electronically signed by: Shaji James M.D. 09/23/2023 8:45 AM PG Care Time/CCT Total # of Minutes Spent Total Time Spent with Patient: Total time spent is greater than 50% in coordination of care (as documented) at patient's floor/unit and/or counseling patient: Coding Level of Care Code 95189 SUB INP/OBS CARE 3/50MIN Diagnoses Acute kidney injury superimposed on CKD N17.9; N18.9 Chronic kidney disease N18.9 Hypertension I10 Hypertension type: unspecified Diabetic nephropathy E11.21 (3) Hypertension Hypertension type: unspecified Qualified Code(s): I10 - Essential (primary) hypertension
[2023-09-24] MEDS: PROMETHAZINE HCL 12.5 MG in SODIUM CHLORIDE 0.9% 50 ML IV PRN (10:00)
[2023-09-24] MEDS: CHLORTHALIDONE 25 MG TAB PO SCH (10:01)
--- NOTE | 2023-09-24 12:06 | Hospitalist Progress Note ---
Date of Service September 24, 2023 Assessment & Plan (1) Acute kidney injury superimposed on CKD: Plan: - Presented to the hospital due to worsening renal function noted on abnormal outpatient lab work. Patient has history of CKD 4 secondary to diabetic nephropathy with proteinuria, hypertension, and DM. - Patient's baseline Cr of 2-2.4. Presented with Cr of 4.78 on admission. - Potassium is WNL. She did have low serum bicarbonate at 15 on admission. Patient reports normal UOP with no urinary complaints. - CK elevated at 267 on admission - Urine random Na 56, urine random creatinine 81.3 - Urine culture - pending - Renal ultrasound 09/23/23 showed no hydronephrosis or other acute abnormality - Uncertain if there is an acute cause for patient's decline in renal function vs chronic progression of her kidney disease secondary to HTN, DM - Nephrology consultation appreciated -- ТАТЬЯНА likely due to relative dehydration in the setting of ACEi therapy -- Kidney function now improved 09/24/23. Electrolyte balance is acceptable. -Repeat chemistry in AM - consider initiation of PO NaHCO3 pending labs in AM -Monitor strict intake/output -Avoid nephrotoxic agents -Renal dosing where needed -Patient will require close outpatient nephrology follow-up (2) Hypertension: Plan: - Patient reports that she was not taking her antihypertensive medications for about 2 months, then resumed her antihypertensives approximately 2 weeks prior to admission. - Patient has been intolerant of CCB in the past due to LE swelling. - BP remains elevated. - Continue labetalol, hydralazine, chlorthalidone. - Resumed lisinopril 10 mg daily 09/24/2023. - If BP improves and kidney function remained stable tomorrow, patient may continue treatment as outpatient with close follow-up with Dr. Montaño in nephrology. (3) Type 2 diabetes mellitus: Plan: Patient reports overall well controlled blood sugars of late. She does not always take her insulin. Last LtiV7C=0.4 on 09/16/23 -Lantus 5u BID -ISS -Goal blood sugar 110 - 140 -Cautious use of insulin given patient's degree of renal compromise -- may have delayed clearance. -Morbid obesity with BMI 42.8 (4) Anxiety: Plan: Chronic. -Continue Citalopram 10mg po daily -Continue Hydroxyzine 25mg po QID Plan Updated patient's at bedside Closely monitored BP readings Educated patient on importance of medication compliance Consider Reglan if patient continues to have nausea and vomiting for both its antiemetic and promotility properties. CODE STATUS: Full code Admission and Anticipated Discharge Date Admission Date: September 22, 2023 Subjective Patient seen and evaluated at bedside with . She had multiple episodes of bilious vomiting last night. Denies any nausea at this time. Denies fever, chills, abdominal pain, diarrhea, or hematemesis. Her blood pressure remains elevated. Per nursing, the patient has been noncompliant with taking her medications. Patient denies any complaints at this time. Her blood pressure, nausea/vomiting, and kidney function need to be controlled prior to the patient being discharged home. Physical Exam Physical Exam: General: No acute distress, nondiaphoretic, well-developed, well-nourished. Skin: The skin was without rashes, erythema, edema, or bruising. Cardiac: Regular rate and rhythm without murmurs gallops or rubs. Pulm: Clear to auscultation bilaterally without wheezes, rales or rhonchi. No retractions or accessory muscle use. Abdominal: Positive bowel sounds x 4. Soft, nontender, without masses or organomegaly. No guarding or rebound tenderness. Neuro: A&O x3. No focal neurological deficits. Results & Data Results & Data Vital Signs (Past 12 Hours) Vital Signs Temp Pulse Resp BP Pulse Ox O2 Del Method 09/24/23 08:21 36.3 C L 73 18 177/96 H 96 Room Air 09/24/23 03:07 36.3 C L 90 16 195/97 H 96 Room Air Laboratory Results Reviewed chemistries Reviewed urine culture PG Care Time/CCT Total # of Minutes Spent Total Time Spent with Patient: Total time spent is greater than 50% in coordination of care (as documented) at patient's floor/unit and/or counseling patient: Coding Level of Care Code 67062 SUB INP/OBS CARE 3/50MIN Diagnoses Acute kidney injury superimposed on CKD N17.9; N18.9 Hypertension I10 Hypertension type: unspecified Type 2 diabetes mellitus E11.9 Anxiety F41.9 (2) Hypertension Hypertension type: unspecified Qualified Code(s): I10 - Essential (primary) hypertension
[2023-09-24] MEDS: SODIUM BICARBONATE 650 MG TAB PO SCH (12:57)
[2023-09-24] MEDS: lisinopril 10 MG TAB PO SCH (12:57)
[2023-09-24] MEDS: SODIUM CHLORIDE 0.9% 500 ML IV ONE (18:00)
[2023-09-25 06:22] LABS: Hematocrit (blood only) 33.5 % (37.0-47.0); Hemoglobin 10.9 g/dl (12.0-16.0); Mean Corpuscular Hemoglobin 28.9 pg (25.0-34.0); Mean Corpuscular Hgb Conc 32.5 g/dL (32.0-36.0); Mean Corpuscular Volume 88.9 fL (80.0-100.0); Mean Platelet Volume 9.6 fL (9.4-12.4); Platelet Count 295 K/uL (130-400); RDW Coefficient of Variation 13.4 % (11.5-14.5); RDW Standard Deviation 43.5 fL (36.4-46.3); Red Blood Count 3.77 M/uL (4.20-5.40); White Blood Count 7.97 K/ul (4.8-10.8)
[2023-09-25 06:53] LABS: BUN Creatinine Ratio 13.9 (10-20); Calcium 7.6 mg/dl (8.6-10.3); Est GFR (African American) 10.8 ml/min; Est GFR (Non-African American) 9.3 ml/min
--- NOTE | 2023-09-25 09:09 | Nephrology Progress Note ---
Date of Service September 25, 2023 Assessment & Plan (1) Acute kidney injury superimposed on CKD: Plan: * ТАТЬЯНА likely due to relative dehydration in the setting of ACEi therapy * Because kidney function was improving yesterday, biopsy revealed extensive IF and BP remained elevated, low dose Lisinopril was reinstituted. Unfortunately patient tolerated this poorly and became hypotensive. Serum Cr has risen to 5.26. UO was not recorded * Will stop Lisinopril and Chlorthalidone. Will provide gentle IV hydration * Monitor I&O, PRP (2) Chronic kidney disease: Plan: * Baseline creatinine ~3.0 mg/dL. CKD IV A3. Kidney biopsy in 2021 demonstrating significantly advanced changes of arterionephrosclerosis and DKD. Close outpatient nephrology follow up will be required. (3) Hypertension: Plan: * BP remains labile * Intolerant of CCB due to LE swelling, ACEi results in ТАТЬЯНА * Continue Labetalol, Hydralazine * Mild renal asymmetry noted on US. Will order renal artery doppler (4) Diabetic nephropathy: Plan: * Goals of care reviewed. Importance of close follow up discussed. Due to advanced CKD and possible ТАТЬЯНА, avoid SGLT2i, MRA Admission and Anticipated Discharge Date Admission Date: September 22, 2023 Subjective Mrs. Newman was evaluated in her hospital room this morning. Her was present via speaker phone. Mrs. Newman denied CHERRY, fever, flank pain or uremic symptoms. She denied recent use of NSAIDS or any potential nephrotoxic agents. She has not had N/V/D. She voiced no new medical concerns Review of Systems Constitutional: no fever Eyes: no problem reported Ear, Nose, Mouth, Throat: no problem reported Respiratory: no cough and no dyspnea Cardiovascular: no chest pain Gastrointestinal: no abdominal pain, no nausea, no vomiting and no diarrhea/loose stools Genitourinary: no dysuria and no hematuria Integumentary: no rash Neurologic: no headache(s) Physical Exam Constitutional: not in distress Eyes: PERRL, conjunctivae normal, anicteric sclerae ENMT: external ear and nose normal, oropharynx normal Neck: trachea midline, no thyromegaly Respiratory: normal respiratory effort, lungs clear to auscultation Cardiovascular: RRR, no murmur, no edema Gastrointestinal (Abdomen): normal bowel sounds, soft, nontender, no hepatosplenomegaly Musculoskeletal: Extremities: no cyanosis Skin: no rashes, warm and dry Neurologic: PERRL, EOMI, accommodation nl, no face palsy, no dysarthria Psychiatric: Insight: + limited insight Results & Data Vital Signs (Past 12 Hours) Vital Signs Temp Pulse Pulse Resp BP Pulse Ox O2 Del Method 09/25/23 08:03 36.6 C 87 16 154/80 H 91 Room Air 09/25/23 06:40 83 09/25/23 03:04 36.5 C 79 16 135/74 95 Room Air 09/24/23 23:10 36.5 C 83 16 126/71 93 Room Air 09/24/23 22:54 79 Laboratory Results Laboratory Results WBC 7.97 K/ul (4.8-10.8) 09/25/23 05:56 RBC 3.77 M/uL (4.20-5.40) L 09/25/23 05:56 Hgb 10.9 g/dl (12.0-16.0) L 09/25/23 05:56 Hct 33.5 % (37.0-47.0) L 09/25/23 05:56 MCV 88.9 fL (80.0-100.0) 09/25/23 05:56 MCH 28.9 pg (25.0-34.0) 09/25/23 05:56 MCHC 32.5 g/dL (32.0-36.0) 09/25/23 05:56 RDW Std Deviation 43.5 fL (36.4-46.3) 09/25/23 05:56 RDW Coeff of Jessica 13.4 % (11.5-14.5) 09/25/23 05:56 Plt Count 295 K/uL (130-400) 09/25/23 05:56 MPV 9.6 fL (9.4-12.4) 09/25/23 05:56 Immature Gran % (Auto) 0.2 % 09/22/23 21:23 Neut % (Auto) 71.8 % 09/22/23 21:23 Lymph % (Auto) 16.8 % 09/22/23 21:23 [place] % (Auto) 6.4 % 09/22/23 21:23 Eos % (Auto) 3.9 % 09/22/23 21:23 Baso % (Auto) 0.9 % 09/22/23 21:23 Neut # (Auto) 6.52 K/uL (1.40-6.50) H 09/22/23 21:23 Lymph # (Auto) 1.52 K/uL (1.20-3.40) 09/22/23 21:23 [place] # (Auto) 0.58 K/uL (0.11-0.59) 09/22/23 21:23 Eos # (Auto) 0.35 K/uL (0.00-0.50) 09/22/23 21:23 Baso # (Auto) 0.08 K/uL (0.00-0.20) 09/22/23 21:23 Immature Gran # (Auto) 0.02 K/uL (0.01-0.20) 09/22/23 21:23 Sodium 138 mmol/L (136-145) 09/25/23 05:56 Potassium 4.0 mmol/L (3.5-5.1) 09/25/23 05:56 Chloride 109 mmol/L (98-107) H 09/25/23 05:56 Carbon Dioxide 18 mmol/L (21-32) L 09/25/23 05:56 Anion Gap 11 (3-11) 09/25/23 05:56 BUN 73 mg/dl (6-23) H 09/25/23 05:56 Creatinine 5.26 mg/dl (0.6-1.2) H* D 09/25/23 05:56 Est Cr Clr Drug Dosing 16.0 ml/min 09/25/23 05:56 Est GFR ( Amer) 10.8 ml/min 09/25/23 05:56 Est GFR (Non-Af Amer) 9.3 ml/min 09/25/23 05:56 BUN/Creatinine Ratio 13.9 (10-20) 09/25/23 05:56 Glucose 70 mg/dl (70-99(Fasting)) 09/25/23 05:56 POC Glucose 68 mg/dl (70-99) L* 09/25/23 08:40 Calcium 7.6 mg/dl (8.6-10.3) L 09/25/23 05:56 Phosphorus 6.7 mg/dl (2.5-4.9) H 09/24/23 07:37 Magnesium 1.9 mg/dl (1.7-2.4) 09/22/23 21: Total Bilirubin 0.4 mg/dl (0.2-1.0) 09/22/23 21: AST 22 U/L (13-39) 09/22/23 21: ALT 11 U/L (7-52) 09/22/23 21:23 Alkaline Phosphatase 67 U/L (34-104) 09/22/23 21: Total Creatine Kinase 267 U/L (26-192) H 09/22/23 21:23 B-Natriuretic Peptide 70 pg/ml (0-100) 09/22/23 21: Total Protein 7.0 gm/dl (6.0-8.3) 09/22/23 21: Albumin 3.3 gm/dl (3.4-5.0) L 09/24/23 07:37 Globulin 3.3 gm/dl (2.5-4.0) 09/22/23 21: Albumin/Globulin Ratio 1.1 (0.9-2) 09/22/23 21: Urine Color Yellow 09/22/23 21: Urine Appearance Cloudy (Clear) A 09/22/23 21: Urine pH 5.5 (4.5-7.5) 09/22/23 21: Ur Specific [place] 1.015 (1.000-1.030) 09/22/23 21: Urine Protein 4+ (Negative) H 09/22/23 21: Urine Glucose (UA) 1+ (Negative) H 09/22/23 21: Urine Ketones Negative (Negative) 09/22/23 21: Urine Blood Negative (Negative) 09/22/23 21: Urine Nitrite Negative (Negative) 09/22/23 21:23 Urine Bilirubin Negative (Negative) 09/22/23 21: Urine Urobilinogen Negative (Negative) 09/22/23 21: Ur Leukocyte Esterase Negative (Negative) 09/22/23 21: Urine WBC (Auto) 0-5 /hpf (0-5) 09/22/23 21:23 Urine RBC (Auto) 0-2 /hpf (0-2) 09/22/23 21: U Hyaline Cast (Auto) >20 /lpf (0-2) H 09/22/23 21:23 U Epithel Cells (Auto) 6-10 /hpf (0-2) H 09/22/23 21:23 Urine Bacteria (Auto) 1+ (None Seen) H 09/22/23 21:23 Ur Random Creatinine 81.3 mg/dl 09/23/23 Unknown Ur Random Sodium 56 mmol/L 09/23/23 Unknown Impressions Renal Ultrasound 09/23/23 00:05 US renal/blad retro comp CLINICAL HISTORY: ТАТЬЯНА on CKD TECHNIQUE: Multiple sonographic real-time images of the kidneys and bladder were obtained. COMPARISON: None available at the time of this dictation. FINDINGS: The right kidney measures 10.1 cm in length, and the left kidney measures 9.1 cm in length. The right kidney is normal in size, contour, cortical thickness, and echogenicity. No hydronephrosis is identified. Nonobstructive nephrolithiasis is seen. The left kidney is normal in size, contour, cortical thickness and echogenicity. No hydronephrosis is identified. No renal lesion is identified. The bladder is partially distended. No large intraluminal mass is seen. IMPRESSION: No hydronephrosis or other acute abnormality. ACT 112: Negative or not required by law. Electronically signed by: Shaji James M.D. 09/23/2023 8:45 AM PG Care Time/CCT Total # of Minutes Spent Total Time Spent with Patient: Total time spent is greater than 50% in coordination of care (as documented) at patient's floor/unit and/or counseling patient: Coding Level of Care Code 86373 SUB INP/OBS CARE 3/50MIN Diagnoses Acute kidney injury superimposed on CKD N17.9; N18.9 Chronic kidney disease N18.9 Hypertension I10 Hypertension type: unspecified Diabetic nephropathy E11.21 (3) Hypertension Hypertension type: unspecified Qualified Code(s): I10 - Essential (primary) hypertension
--- NOTE | 2023-09-25 11:42 | Hospitalist Progress Note ---
Date of Service September 25, 2023 Assessment & Plan (1) Acute kidney injury superimposed on CKD: Plan: - Presented to the hospital due to worsening renal function noted on abnormal outpatient lab work. Patient has history of CKD 4 secondary to diabetic nephropathy with proteinuria, hypertension, and DM. - Patient's baseline Cr of 2-2.4. Presented with Cr of 4.78 on admission. - Potassium is WNL. She did have low serum bicarbonate at 15 on admission. Patient reports normal UOP with no urinary complaints. - CK elevated at 267 on admission - Urine random Na 56, urine random creatinine 81.3 - Urine culture revealed Lactobacillus species --> normal, no need for an tibiotics. - Renal ultrasound 09/23/23 showed no hydronephrosis or other acute abnormality, mild renal asymmetry. -- Repeat renal artery Doppler ordered 09/25/23 - pending. - Uncertain if there is an acute cause for patient's decline in renal function vs chronic progression of her kidney disease secondary to HTN, DM - Nephrology consultation appreciated -- ТТАЬЯНА likely due to relative dehydration in the setting of ACEi therapy. -- Lisinopril reinstituted 09/24/23 because of BP remaining elevated and kidney function improving. However, poorly tolerated by patient and serum Cr increased to 5.26 on 09/25/23. -- Discontinue lisinopril and chlorthalidone. -- Gentle IVF. Monitor I&O, PRP. -Avoid nephrotoxic agents -Renal dosing where needed -Patient will require close outpatient nephrology follow-up (2) Hypertension: Plan: - Patient reports that she was not taking her antihypertensive medications for about 2 months, then resumed her antihypertensives approximately 2 weeks prior to admission. - Patient has been intolerant of CCB in the past due to LE swelling. - Lisinopril reinstituted 09/24/23, however, poorly tolerated and patient became hypotensive. -- Patient experienced two falls on 09/24/23 without head strike, LOC, or injury. - Patient had another fall on 09/25/23 coming out of the bathroom. -- Head strike with epistaxis. Tender to palpation on sternum. -- CT head and face ordered. CXR ordered. Results pending. -- Check orthostatic vital signs. -- Apply ice to nose Q4HWA. - BP remains labile. ?Autonomic dysfunction secondary to diabetes - Continue labetalol and hydralazine. - Closely monitor BP and kidney function. Patient will require close outpatient follow-up with Dr. Montaño in nephrology upon discharge. (3) Type 2 diabetes mellitus: Plan: Patient reports overall well controlled blood sugars of late. She does not always take her insulin. Last EpiA7L=4.4 on 09/16/23 -Lantus 5u BID -ISS -Goal blood sugar 110 - 140 -Cautious use of insulin given patient's degree of renal compromise -- may have delayed clearance. -Morbid obesity with BMI 42.8 (4) Anxiety: Plan: Chronic. -Continue Citalopram 10mg po daily -Continue Hydroxyzine 25mg po QID Plan Updated patient's at bedside Closely monitored BP readings Discontinued lisinopril and chlorthalidone Ordered CT head and face and CXR CODE STATUS: Full code Admission and Anticipated Discharge Date Admission Date: September 22, 2023 Subjective Patient seen and evaluated at bedside. Lisinopril was resumed yesterday because BP remained elevated and kidney function was improving. However, this was poorly tolerated and patient became hypotensive. She experienced two falls yesterday evening, without LOC, head strike, or injury. She denies any nausea or vomiting today. She has no complaints at this time. In the afternoon, patient experienced another fall when coming out of the bathroom. She reports that when she got up from the toilet, her "vision disappeared" and "my ears weren't ringing, but I couldn't hear anything." She states that "next thing I knew I was on the ground." Epistaxis and swelling around the nose noted. Physical Exam Physical Exam: General: No acute distress, nondiaphoretic, well-developed, well-nourished. Skin: The skin was without rashes, erythema, edema. Bruise on right arm from fall on 09/24/23. Nose swollen from fall on 09/25/23. Cardiac: Regular rate and rhythm without murmurs gallops or rubs. Tender to palpation near sternum after fall on 09/25/23. Pulm: Clear to auscultation bilaterally without wheezes, rales or rhonchi. No retractions or accessory muscle use. Abdominal: Positive bowel sounds x 4. Soft, nontender, without masses or organomegaly. No guarding or rebound tenderness. Neuro: A&O x3. No focal neurological deficits. Results & Data Results & Data Vital Signs (Past 12 Hours) Vital Signs Temp Pulse Pulse Resp BP Pulse Ox O2 Del Method 09/25/23 08:03 36.6 C 87 16 154/80 H 91 Room Air 09/25/23 06:40 83 09/25/23 03:04 36.5 C 79 16 135/74 95 Room Air Laboratory Results Reviewed CBC Reviewed BMP, Creatinine increased secondary to lisinopril Reviewed LFTs Diagnostic Findings CT Head 09/25/23 CT Face 09/25/23 CXR 09/25/23 PG Care Time/CCT Total # of Minutes Spent Total Time Spent with Patient: Total time spent is greater than 50% in coordination of care (as documented) at patient's floor/unit and/or counseling patient: Coding Level of Care Code 96843 SUB INP/OBS CARE 3/50MIN Diagnoses Acute kidney injury superimposed on CKD N17.9; N18.9 Hypertension I10 Hypertension type: unspecified Type 2 diabetes mellitus E11.9 Anxiety F41.9 (2) Hypertension Hypertension type: unspecified Qualified Code(s): I10 - Essential (primary) hypertension
[2023-09-25] MEDS: SODIUM CHLORIDE 0.9% 1,000 ML IV SCH (12:51)
[2023-09-25 14:30] LABS: Albumin Level 3.1 gm/dl (3.4-5.0); Bilirubin Direct 0.1 mg/dl (0-0.2); Bilirubin,Total 0.4 mg/dl (0.2-1.0); Total Protein 5.7 gm/dl (6.0-8.3)
--- NOTE | 2023-09-25 16:26 | XRay Report ---
XR chest 1V portable CLINICAL HISTORY: Chest pain after fall TECHNIQUE: Single frontal radiograph of the chest was obtained. Comparison: Comparison is made to chest radiograph 10/05/2021 FINDINGS: No lines and tubes are seen. Cardiomegaly is noted. The lungs are clear. No evidence of pleural effus ion or pneumothorax. IMPRESSION: No acute chest disease. ACT 112: Negative or not required by law. Electronically signed by: Shaji James M.D. 09/25/2023 4:25 PM
--- NOTE | 2023-09-25 16:32 | CT Scan Report ---
CT head/brain wo con CLINICAL HISTORY: Fall with head strike Technique: Contiguous axial CT images of the head were acquired from the base of the skull to the jose nuvia without intravenous contrast administration. Images were viewed in brain, subdural and bone backus hospitalo ws. Automated dose lowering techniques and/or adjustment according to patient size were utilized for this exam. Comparison: Comparison is made to CT head 10/05/2021 Findings: The ventricles, basal cisterns, and cerebral sulci are normal. There is no acute intracranial hemorrh age or evidence of acute territorial infarction. Neither mass effect, shift of the midline structures , nor abnormal extra-axial fluid collections are shown. Chronic appearing lacunar infarcts are seen bilaterally. Imaged portions of the paranasal sinuses and mastoid air cells are clear. The orbits appear normal. There are no acute fractures of the calvaria or scalp swelling. Impression: No acute intracranial hemorrhage, no evidence of acute territorial infarction or other acute intracra nial disease process. ACT 112: Negative or not required by law. Electronically signed by: Shaji James M.D. 09/25/2023 4:30 PM
--- NOTE | 2023-09-25 16:49 | CT Scan Report ---
CT facial bones wo con CLINICAL HISTORY: Fall with head strike TECHNIQUE: Multidetector row helical CT of the maxillofacial bones was performed without administrati on of intravenous contrast, and processed with bone and soft tissue algorithms. Coronal and sagittal reformations were obtained. Automated dose lowering techniques and/or adjustment according to patient size were utilized for this exam. CT DOSE: 821.82 mGy.cm Comparison: None available at the time of this dictation. FINDINGS: Discontinuity is seen in the nasal bones which may represent an acute fracture. Surrounding soft tiss ue swelling is seen. The mandible is intact. The temporomandibular joints are anatomically aligned. Pterygoid plates are intact. Zygomatic arches are intact. The globes are normal and symmetric, without proptosis, obvious disruption or lens dislocation. Ther e is no orbital radiopaque foreign body. The orbital trinidad are intact. The retrobulbar fat is without evidence of disruption. Extraocular muscles are normal and symmetric. Optic nerve sheath complexes are normal in course and caliber. Imaged portions of the paranasal sinuses and mastoid air cells are clear. IMPRESSION: Likely nasal bone fracture with associated soft tissue swelling. ACT 112: Negative or not required by law. Electronically signed by: Shaji James M.D. 09/25/2023 4:47 PM
[2023-09-25] MEDS: AMOXICILLIN/CLAVULANATE 500 MG TAB PO SCH (20:13)
[2023-09-26 08:10] LABS: Hemoglobin 10.4 g/dl (12.0-16.0); Mean Corpuscular Hemoglobin 28.6 pg (25.0-34.0); Mean Corpuscular Hgb Conc 31.5 g/dL (32.0-36.0); Mean Corpuscular Volume 90.7 fL (80.0-100.0); Mean Platelet Volume 9.8 fL (9.4-12.4); Platelet Count 272 K/uL (130-400); RDW Coefficient of Variation 13.5 % (11.5-14.5); RDW Standard Deviation 45.3 fL (36.4-46.3); Red Blood Count 3.64 M/uL (4.20-5.40); White Blood Count 8.31 K/ul (4.8-10.8)
--- NOTE | 2023-09-26 08:33 | Nephrology Progress Note ---
Date of Service September 26, 2023 Assessment & Plan (1) Acute kidney injury superimposed on CKD: Plan: * ТАТЬЯНА likely due to relative dehydration in the setting of ACEi therapy * Patient is nonoliguric but remains in injury phase of ATN. Continue to hold diuretic and BAYLEE/ARB. Encourage oral hydration. Monitor I&O, PRP. No acute indication for HD at this time * Reviewed w/ patient and today that [employer] may become necessary if kidney function fails to improve with conservative medical therapy. Indications/benefits to dialysis discussed. (2) Chronic kidney disease: Plan: * Baseline creatinine ~3.0 mg/dL. CKD IV A3. Kidney biopsy in 2021 demonstrating significantly advanced changes of arterionephrosclerosis and DKD. Close outpatient nephrology follow up will be required. (3) Hypertension: Plan: * BP was controlled overnight * Intolerant of CCB due to LE swelling, ACEi results in ТАТЬЯНА * Continue Labetalol, Hydralazine * Mild renal asymmetry noted on US. 09/26/23 renal artery doppler was negative for TRAVIS (4) Diabetic nephropathy: Plan: * Goals of care reviewed. Importance of close follow up discussed. Due to advanced CKD and possible ТАТЬЯНА, avoid SGLT2i, MRA Admission and Anticipated Discharge Date Admission Date: September 22, 2023 Subjective Mrs. Newman was evaluated in her hospital room this morning. Her was present via speaker phone. Mrs. Newman suffered a mechanical fall in the BR last evening. Face CT revealed fracture of the nasal bone. Head CT was negative for bleed. Renal artery doppler this am was negative for TRAVIS Review of Systems Constitutional: no fever Eyes: no problem reported Ear, Nose, Mouth, Throat: no problem reported Respiratory: no cough and no dyspnea Cardiovascular: no chest pain Gastrointestinal: no abdominal pain, no nausea, no vomiting and no diarrhea/loose stools Genitourinary: no dysuria and no hematuria Integumentary: no rash Neurologic: no headache(s) Physical Exam Constitutional: not in distress Eyes: PERRL, conjunctivae normal, anicteric sclerae ENMT: external ear and nose normal, oropharynx normal Neck: trachea midline, no thyromegaly Respiratory: normal respiratory effort, lungs clear to auscultation Cardiovascular: RRR, no murmur, no edema Gastrointestinal (Abdomen): normal bowel sounds, soft, nontender, no hepatosplenomegaly Musculoskeletal: Extremities: no cyanosis Skin: no rashes, warm and dry Neurologic: PERRL, EOMI, accommodation nl, no face palsy, no dysarthria Psychiatric: Insight: + limited insight Results & Data Vital Signs (Past 12 Hours) Vital Signs Temp Pulse Pulse Resp BP Pulse Ox O2 Del Method 09/26/23 07:53 36.0 C L 80 15 138/79 95 Room Air 09/26/23 07:13 72 09/26/23 03:11 36.5 C 79 16 136/76 94 Room Air 09/26/23 02:32 73 09/25/23 23:26 36.3 C L 76 16 134/77 96 Room Air Laboratory Results Laboratory Results - last 24 hr 09/25/23 09/25/23 09/25/23 05:56 12:43 17:09 WBC RBC Hgb Hct MCV MCH MCHC RDW Std Deviation RDW Coeff of Jessica Plt Count MPV Sodium Potassium Chloride Carbon Dioxide Anion Gap BUN Creatinine Est Cr Clr Drug Dosing Est GFR ( Amer) Est GFR (Non-Af Amer) BUN/Creatinine Ratio Glucose POC Glucose 86 102 H Calcium Phosphorus Magnesium Total Bilirubin 0.4 Direct Bilirubin 0.1 AST 12 L ALT 8 Alkaline Phosphatase 59 Total Protein 5.7 L Albumin 3.1 L 09/25/23 09/26/23 09/26/23 20:17 07:29 08:13 WBC 8.31 RBC 3.64 L Hgb 10.4 L Hct 33.0 L MCV 90.7 MCH 28.6 MCHC 31.5 L RDW Std Deviation 45.3 RDW Coeff of Jessica 13.5 Plt Count 272 MPV 9.8 Sodium 136 Potassium 3.9 Chloride 109 H Carbon Dioxide 17 L Anion Gap 10 BUN 76 H Creatinine 5.54 H* Est Cr Clr Drug Dosing 15.4 Est GFR ( Amer) 10.2 Est GFR (Non-Af Amer) 8.8 BUN/Creatinine Ratio 13.7 Glucose 78 POC Glucose 95 86 Calcium 7.6 L Phosphorus 5.4 H Magnesium 1.9 Total Bilirubin Direct Bilirubin AST ALT Alkaline Phosphatase Total Protein Albumin PG Care Time/CCT Total # of Minutes Spent Total Time Spent with Patient: Total time spent is greater than 50% in coordination of care (as documented) at patient's floor/unit and/or counseling patient: Coding Level of Care Code 35072 SUB INP/OBS CARE 3/50MIN Diagnoses Acute kidney injury superimposed on CKD N17.9; N18.9 Chronic kidney disease N18.9 Hypertension I10 Hypertension type: unspecified Diabetic nephropathy E11.21 (3) Hypertension Hypertension type: unspecified Qualified Code(s): I10 - Essential (primary) hypertension
[2023-09-26 09:32] LABS: BUN Creatinine Ratio 13.7 (10-20); Calcium 7.6 mg/dl (8.6-10.3); Creatinine Clr Calc Pharmacy 15.4 ml/min; Est GFR (African American) 10.2 ml/min; Est GFR (Non-African American) 8.8 ml/min; Magnesium 1.9 mg/dl (1.7-2.4); Phosphorus 5.4 mg/dl (2.5-4.9); Potassium 3.9 mmol/L (3.5-5.1)
--- NOTE | 2023-09-26 09:45 | Ultrasound Report ---
DOPPLER ULTRASOUND OF THE RENAL ARTERIES CLINICAL HISTORY: Hypertension. COMPARISON STUDY: Renal artery Doppler ultrasound October 07, 2021. TECHNIQUE: Color and duplex Doppler sonography of the abdominal aorta and renal arteries was kelly segundo FINDINGS: Peak systolic velocity within the abdominal aorta was 101 cm/s. The peak systolic velocity within the left renal artery was 169 cm/s. The peak systolic velocity within the right renal artery w as 82 cm/s. Segmental waveforms within the bilateral kidneys were normal. Bilateral renal veins were patent. IMPRESSION: No sonographic evidence for renal artery stenosis. ACT 112: Negative or not required by law. Electronically signed by: Chalino Jacobsen M.D. 09/26/2023 9:43 AM
--- NOTE | 2023-09-26 10:55 | Hospitalist Progress Note ---
Date of Service September 26, 2023 Assessment & Plan (1) Acute kidney injury superimposed on CKD: Plan: - Presented to the hospital due to worsening renal function noted on abnormal outpatient lab work. Patient has history of CKD 4 secondary to diabetic nephropathy with proteinuria, hypertension, and DM. - Patient's baseline Cr of 2-2.4. Presented with Cr of 4.78 on admission. - Potassium is WNL. She did have low serum bicarbonate at 15 on admission. Patient reports normal UOP with no urinary complaints. - CK elevated at 267 on admission - Urine random Na 56, urine random creatinine 81.3 - Urine culture revealed Lactobacillus species --> normal, no need for an tibiotics. - Renal ultrasound 09/23/23 showed no hydronephrosis or other acute abnormality, mild renal asymmetry. - Renal artery duplex showed no renal artery stenosis 09/26/23. - Uncertain if there is an acute cause for patient's decline in renal function vs chronic progression of her kidney disease secondary to HTN, DM - Nephrology consulted, recommendations appreciated -- ТАТЬЯНА likely due to relative dehydration in the setting of ACEi therapy. -- Lisinopril reinstituted 09/24/23 because of BP remaining elevated and kidney function improving. However, poorly tolerated by patient and serum Cr increased to 5.26 on 09/25/23. -- Discontinued lisinopril and chlorthalidone. -- Continue labetalol and hydralazine. -- Reassess kidney function in a.m. If worse, will need to consider initiation of hemodialysis. If improved, patient can be discharged with close outpatient nephrology follow-up. -Continue to hold diuretic and BAYLEE/ARB. Encourage oral hydration. Monitor I&Os. -Avoid nephrotoxic agents -Renal dosing where needed -Patient will require close outpatient nephrology follow-up (2) Hypertension: Plan: - Patient reports that she was not taking her antihypertensive medications for about 2 months, then resumed her antihypertensives approximately 2 weeks prior to admission. - Patient has been intolerant of CCB in the past due to LE swelling. - Lisinopril reinstituted 09/24/23, however, poorly tolerated and patient became hypotensive. -- Patient experienced two falls on 09/24/23 without head strike, LOC, or injury. - Patient had another fall on 09/25/23 coming out of the bathroom. -- Head strike with epistaxis. Tender to palpation on sternum. -- CT face revealed nasal bone fracture with soft tissue swelling. CT head negative for acute intracranial process. CXR negative for acute chest disease. -- Augmentin initiated for empiric coverage for infectious process within s inuses. Last dose 09/30/2023. -- Apply ice to nose Q4HWA. - BP remains labile. ?Autonomic dysfunction secondary to diabetes - Continue labetalol and hydralazine. - Closely monitor BP and kidney function. Patient will require close outpatient follow-up with Dr. Motnaño in nephrology upon discharge. (3) Type 2 diabetes mellitus: Plan: Patient reports overall well controlled blood sugars of late. She does not always take her insulin. Last WrvX9Z=2.4 on 09/16/23 -Lantus 5u BID -ISS -Goal blood sugar 110 - 140 -Cautious use of insulin given patient's degree of renal compromise -- may have delayed clearance. -Morbid obesity with BMI 42.8 (4) Anxiety: Plan: Chronic. -Continue Citalopram 10mg po daily -Continue Hydroxyzine 25mg po QID Plan Discussed the case with Dr. Ayon Closely monitored BP readings Reviewed CT head, CT face, CXR, renal artery Doppler CODE STATUS: Full code Admission and Anticipated Discharge Date Admission Date: September 22, 2023 Subjective Patient seen and evaluated and bedside. She reports some congestion in her nose and tenderness to palpation of her chest since her fall yesterday. Her orthostatic VS were positive yesterday, will recheck today. She denies lightheadedness, dizziness, shortness of breath, urinary symptoms. We had a discussion about the plan moving forward, including checking labs tomorrow morning to determine if she needs HD or can be discharged home with close outpatient nephrology follow-up. Patient is agreeable. Physical Exam Physical Exam: General: No acute distress, nondiaphoretic, well-developed, well-nourished. Skin: Bruise on right arm from fall on 09/24/23. Periorbital ecchymosis bilaterally and nose swollen from fall on 09/25/23. Cardiac: Regular rate and rhythm without murmurs gallops or rubs. Tender to palpation near sternum after fall on 09/25/23. Pulm: Clear to auscultation bilaterally without wheezes, rales or rhonchi. No retractions or accessory muscle use. Abdominal: Positive bowel sounds x 4. Soft, nontender, without masses or organomegaly. No guarding or rebound tenderness. Neuro: A&O x3. No focal neurological deficits. Results & Data Results & Data Vital Signs (Past 12 Hours) Vital Signs Temp Pulse Pulse Resp BP Pulse Ox O2 Del Method 09/26/23 07:53 36.0 C L 80 15 138/79 95 Room Air 09/26/23 07:13 72 09/26/23 03:11 36.5 C 79 16 136/76 94 Room Air 09/26/23 02:32 73 09/25/23 23:26 36.3 C L 76 16 134/77 96 Room Air Laboratory Results Reviewed CBC Reviewed BMP Diagnostic Findings Reviewed Renal Artery Duplex 09/26/23: FINDINGS: Peak systolic velocity within the abdominal aorta was 101 cm/s. The peak systolic velocity within the left renal artery was 169 cm/s. The peak systolic velocity within the right renal artery was 82 cm/s. Segmental waveforms within the bilateral kidneys were normal. Bilateral renal veins were patent. IMPRESSION: No sonographic evidence for renal artery stenosis. Reviewed CT head 09/25/2023: Findings: The ventricles, basal cisterns, and cerebral sulci are normal. There is no acute intracranial hemorrhage or evidence of acute territorial infarction. Neither mass effect, shift of the midline structures, nor abnormal extra-axial fluid collections are shown. Chronic appearing lacunar infarcts are seen bilaterally. Imaged portions of the paranasal sinuses and mastoid air cells are clear. The orbits appear normal. There are no acute fractures of the calvaria or scalp swelling. Impression: No acute intracranial hemorrhage, no evidence of acute territorial infarction or other acute intracranial disease process. Reviewed CT face 09/25/2023: FINDINGS: Discontinuity is seen in the nasal bones which may represent an acute fracture. Surrounding soft tissue swelling is seen. The mandible is intact. The temporomandibular joints are anatomically aligned. Pterygoid plates are intact. Zygomatic arches are intact. The globes are normal and symmetric, without proptosis, obvious disruption or lens dislocation. There is no orbital radiopaque foreign body. The orbital trinidad are intact. The retrobulbar fat is without evidence of disruption. Extraocular muscles are normal and symmetric. Optic nerve sheath complexes are normal in course and caliber. Imaged portions of the paranasal sinuses and mastoid air cells are clear. IMPRESSION: Likely nasal bone fracture with associated soft tissue swelling. Reviewed CXR 09/25/2023: FINDINGS: No lines and tubes are seen. Cardiomegaly is noted. The lungs are clear. No evidence of pleural effusion or pneumothorax. IMPRESSION: No acute chest disease. PG Care Time/CCT Total # of Minutes Spent Total Time Spent with Patient: Total time spent is greater than 50% in coordination of care (as documented) at patient's floor/unit and/or counseling patient: Coding Level of Care Code 49025 SUB INP/OBS CARE 350MIN Diagnoses Acute kidney injury superimposed on CKD N17.9; N18.9 Hypertension I10 Hypertension type: unspecified Type 2 diabetes mellitus E11.9 Anxiety F41.9 (2) Hypertension Hypertension type: unspecified Qualified Code(s): I10 - Essential (primary) hypertension
[2023-09-26] MEDS: CARBOHYDRATES FOR HYPOGLYCEMIA PO PRN (12:32)
[2023-09-27 06:40] LABS: Hematocrit (blood only) 32.8 % (37.0-47.0); Hemoglobin 10.3 g/dl (12.0-16.0); Mean Corpuscular Hemoglobin 28.1 pg (25.0-34.0); Mean Corpuscular Hgb Conc 31.4 g/dL (32.0-36.0); Mean Corpuscular Volume 89.4 fL (80.0-100.0); Mean Platelet Volume 9.8 fL (9.4-12.4); Platelet Count 266 K/uL (130-400); RDW Coefficient of Variation 13.3 % (11.5-14.5); RDW Standard Deviation 43.8 fL (36.4-46.3); Red Blood Count 3.67 M/uL (4.20-5.40); White Blood Count 7.03 K/ul (4.8-10.8)
[2023-09-27 07:11] LABS: INR 0.9 (0.9-1.1); Prothrombin Time 10.3 Seconds (9.0-12.0)
[2023-09-27 07:31] LABS: Calcium 7.8 mg/dl (8.6-10.3); Creatinine Clr Calc Pharmacy 15.4 ml/min; Est GFR (Non-African American) 8.7 ml/min; Potassium 4.2 mmol/L (3.5-5.1)
--- NOTE | 2023-09-27 08:31 | Nephrology Progress Note ---
Date of Service September 27, 2023 Assessment & Plan (1) Acute kidney injury superimposed on CKD: Plan: * ТАТЬЯНА likely due to relative dehydration in the setting of ACEi therapy * Patient had marginal kidney function prior to hospitalization. She remains oliguric. UO only 500 cc last 24 hours. Cr continues to rise (5.6 today). Discussed indications/benefits to HD w/ patient and today. Will request consultation w/ Vascular Surgery for IJ TCC. (2) Chronic kidney disease: Plan: * Baseline creatinine ~3.0 mg/dL. CKD IV A3. Kidney biopsy in 2021 demonstrating significantly advanced changes of arterionephrosclerosis and DKD. (3) Hypertension: Plan: * BP remains acceptable * Intolerant of CCB due to LE swelling, ACEi results in ТАТЬЯНА * Continue Labetalol, Hydralazine * Mild renal asymmetry noted on US. 09/26/23 renal artery doppler was negative for TRAVIS (4) Diabetic nephropathy: Plan: * Due to advanced CKD avoid SGLT2i, MRA Admission and Anticipated Discharge Date Admission Date: September 22, 2023 Subjective Mrs. Newman was evaluated in her hospital room this morning. She denied fever, flank pain, dyspnea or uremic symptoms. Review of Systems Constitutional: no fever Eyes: no problem reported Ear, Nose, Mouth, Throat: no problem reported Respiratory: no cough and no dyspnea Cardiovascular: no chest pain Gastrointestinal: no abdominal pain, no nausea, no vomiting and no diarrhea/loose stools Genitourinary: no dysuria and no hematuria Integumentary: no rash Neurologic: no headache(s) Physical Exam Constitutional: not in distress Eyes: PERRL, conjunctivae normal, anicteric sclerae ENMT: external ear and nose normal, oropharynx normal Neck: trachea midline, no thyromegaly Respiratory: normal respiratory effort, lungs clear to auscultation Cardiovascular: RRR, no murmur, no edema Gastrointestinal (Abdomen): normal bowel sounds, soft, nontender, no hepatosplenomegaly Musculoskeletal: Extremities: no cyanosis Skin: no rashes, warm and dry Neurologic: PERRL, EOMI, accommodation nl, no face palsy, no dysarthria Psychiatric: Insight: + limited insight Results & Data Vital Signs (Past 12 Hours) Vital Signs Temp Pulse Pulse Resp BP Pulse Ox O2 Del Method 09/27/23 08:01 36.4 C L 80 18 118/71 93 Room Air 05/14/24 06:59 78 09/27/23 04:01 36.6 C 81 20 131/76 93 Room Air 09/27/23 00:43 72 09/26/23 23:38 36.7 C 76 20 114/68 92 Room Air Laboratory Results Laboratory Results - last 48 hr 09/25/23 09/25/23 09/25/23 05:56 08:40 09:47 WBC RBC Hgb Hct MCV MCH MCHC RDW Std Deviation RDW Coeff of Jessica Plt Count MPV PT INR Sodium Potassium Chloride Carbon Dioxide Anion Gap BUN Creatinine Est Cr Clr Drug Dosing Est GFR ( Amer) Est GFR (Non-Af Amer) BUN/Creatinine Ratio Glucose POC Glucose 68 L* 94 Calcium Phosphorus Magnesium Total Bilirubin 0.4 Direct Bilirubin 0.1 AST 12 L ALT 8 Alkaline Phosphatase 59 Total Protein 5.7 L Albumin 3.1 L 09/25/23 09/25/23 09/25/23 12:43 17:09 20:17 WBC RBC Hgb Hct MCV MCH MCHC RDW Std Deviation RDW Coeff of Jessica Plt Count MPV PT INR Sodium Potassium Chloride Carbon Dioxide Anion Gap BUN Creatinine Est Cr Clr Drug Dosing Est GFR ( Amer) Est GFR (Non-Af Amer) BUN/Creatinine Ratio Glucose POC Glucose 86 102 H 95 Calcium Phosphorus Magnesium Total Bilirubin Direct Bilirubin AST ALT Alkaline Phosphatase Total Protein Albumin 09/26/23 09/26/23 09/26/23 07:29 08:13 12:15 WBC 8.31 RBC 3.64 L Hgb 10.4 L Hct 33.0 L MCV 90.7 MCH 28.6 MCHC 31.5 L RDW Std Deviation 45.3 RDW Coeff of Jessica 13.5 Plt Count 272 MPV 9.8 PT INR Sodium 136 Potassium 3.9 Chloride 109 H Carbon Dioxide 17 L Anion Gap 10 BUN 76 H Creatinine 5.54 H* Est Cr Clr Drug Dosing 15.4 Est GFR ( Amer) 10.2 Est GFR (Non-Af Amer) 8.8 BUN/Creatinine Ratio 13.7 Glucose 78 POC Glucose 86 65 L* Calcium 7.6 L Phosphorus 5.4 H Magnesium 1.9 Total Bilirubin Direct Bilirubin AST ALT Alkaline Phosphatase Total Protein Albumin 09/26/23 09/26/23 09/26/23 12:52 13:16 17:05 WBC RBC Hgb Hct MCV MCH MCHC RDW Std Deviation RDW Coeff of Jessica Plt Count MPV PT INR Sodium Potassium Chloride Carbon Dioxide Anion Gap BUN Creatinine Est Cr Clr Drug Dosing Est GFR ( Amer) Est GFR (Non-Af Amer) BUN/Creatinine Ratio Glucose POC Glucose 69 L* 85 134 H Calcium Phosphorus Magnesium Total Bilirubin Direct Bilirubin AST ALT Alkaline Phosphatase Total Protein Albumin 09/26/23 09/27/23 09/27/23 20:30 06:05 08:06 WBC 7.03 RBC 3.67 L Hgb 10.3 L Hct 32.8 L MCV 89.4 MCH 28.1 MCHC 31.4 L RDW Std Deviation 43.8 RDW Coeff of Jessica 13.3 Plt Count 266 MPV 9.8 PT 10.3 INR 0.9 Sodium 138 Potassium 4.2 Chloride 110 H Carbon Dioxide 16 L Anion Gap 12 H BUN 78 H Creatinine 5.59 H* Est Cr Clr Drug Dosing 15.4 Est GFR ( Amer) 10.0 Est GFR (Non-Af Amer) 8.7 BUN/Creatinine Ratio 14.0 Glucose 79 POC Glucose 108 H 77 Calcium 7.8 L Phosphorus Magnesium Total Bilirubin Direct Bilirubin AST ALT Alkaline Phosphatase Total Protein Albumin PG Care Time/CCT Total # of Minutes Spent Total Time Spent with Patient: Total time spent is greater than 50% in coordination of care (as documented) at patient's floor/unit and/or counseling patient: Coding Level of Care Code 63776 SUB INP/OBS CARE 3/50MIN Diagnoses Acute kidney injury superimposed on CKD N17.9; N18.9 Chronic kidney disease N18.9 Hypertension I10 Hypertension type: unspecified Diabetic nephropathy E11.21 (3) Hypertension Hypertension type: unspecified Qualified Code(s): I10 - Essential (primary) hypertension
--- NOTE | 2023-09-27 10:43 | Consultation ---
Date of Consultation September 27, 2023 Assessment & Plan (1) Acute kidney injury superimposed on CKD: Pt with ТАТЬЯНА on CKD, requiring HD per nephrology. Pt discussed with Dr Caceres, recommends permcath insertion tomorrow in OR. Procedure, risks, benefits, and alternatives discussed wtih pt by myself at Dr Caceres's request. Pt expresses understanding and agremeent to proceed. Pt's was on speakerphone per her request. History of Present Illness Reason for Consultation: ТАТЬЯНА Attending Physician: Sher Encinas MD History of Present Illness 43 yo f with hx of HTN, DMII, anxiety, PCOS, anemia, CKD, admitted with ТАТЬЯНА, seen in consultation today for permcath insertion to initiate HD. Pt states no hx of HD before. Admits general malaise, but states otherwise feeling ok. Denies CHERRY, fever, chest pain, SOB, abd pain, N/V, rest pain, claudication, other complaints. Allergies Allergy/AdvReac Type Severity Reaction Status Date / Time omeprazole Allergy Unknown Hives Verified 09/22/23 23:19 nifedipine AdvReac Severe Edema, Verified 09/22/23 23:19 Congestive Heart Failure Home Medications Medication Instructions Recorded Confirmed Type lancets 33 gauge ([facility] ea 03/05/18 09/22/23 Rx Lancets) pen needle, diabetic 31 gauge x #200 ea 02/05/21 09/22/23 Rx 1/" blood sugar diagnostic #200 ea 06/08/21 09/22/23 Rx lancing device with lancets kit #1 ea 06/08/21 09/22/23 Rx (OneTouch Delica Lancing Device kit) hydralazine 100 mg tablet 100 mg PO TID 12/28/22 09/22/23 History insulin aspart U-100 100 unit/mL 1 sliding scale dose subcut UD 12/28/22 09/22/23 History (3 mL) subcutaneous pen (Novolog FlexPen U-100 Insulin aspart) insulin detemir U-100 100 unit/mL 16 unit subcut HS 12/29/22 09/22/23 History (3 mL) subcutaneous pen (Levemir FlexPen) blood sugar diagnostic (MyEdu #400 strips 04/18/23 09/22/23 Rx Ultra Test strips) chlorthalidone 25 mg tablet 25 mg PO QAM 09/22/23 09/22/23 History citalopram 10 mg tablet 10 mg PO QAM 09/22/23 09/22/23 History hydroxyzine HCl 25 mg tablet 25 mg PO QID #360 tabs 09/22/23 09/22/23 Rx labetalol 200 mg tablet 600 mg PO TID 09/22/23 09/22/23 History lisinopril 40 mg tablet 40 mg PO QAM 09/22/23 09/22/23 History spironolactone 25 mg tablet 50 mg PO QAM 09/22/23 09/22/23 History Patient History Medical History Diabetes mellitus, type 2 History of COVID-19 2020 + Fall 2021>no current symptoms Social anxiety disorder History of PCOS History of pre-eclampsia Demyelinating disease Per [facility] neurology visit 01/02/21, "doubt that she has multiple sclerosis. However.. 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, left Per remote [facility] neurology notes (12/2020) Learning disability Issues with multiple or complex instructions Endometriosis Hx Hirsutism Surgical History Hx of total hysterectomy with removal of both tubes and ovaries 12/2022[place] [facility] [place] History of dilatation and curettage S/P section 09/11/21 S/P section 07/15/20 [facility] Hx of tonsillectomy Family History Unknown Endometriosis Grandmother (Maternal) Type 2 diabetes mellitus Denies family history of Ovarian cancer Prostate cancer Myocardial infarction Breast cancer Colorectal cancer Social History Smoking Status: Never smoker Second Hand Exposure: No; Do You Dip or Chew Tobacco: No; Tobacco Cessation Education Requested by Patient: No Hx Alcohol Use: No Hx Substance Use: No Preferred Language: Hungarian Communication Ability: Effective Communication Ability Comment: learning disability with complex or mulitple instructions Visual Impairment: No Limitations Hearing Ability: Normal Sole Rougher Required: No Beliefs That Will Affect Care: None marital status: marital status details: Deny Newman (43) [phone] Current Living Situation: Spouse and Family Current Living Situation Comment: Deny - spouse and 2 daughters and one cat current occupational status: unemployed 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 Other Information That Helps Us Care for You: No Feels Safe at Home: Yes Safety Concerns: Feels Safe At This Time Childhood Exposure to Second-Hand Smoke: Yes Diet: diabetic Dental Care, Regularly: Yes Physical Activity Frequency: Does not Exercise Seatbelt Use: always Sunscreen Use: Yes Assistive Devices: Glasses Review of Systems Review of Systems: All systems reviewed & are unremarkable except as noted in HPI & below Physical Exam Constitutional: WD/WN, vitals as above + obese and cooperative; not in distress ENMT: Ears: no hearing impairment Neck: trachea midline Respiratory: normal respiratory effort, lungs clear to auscultation Auscultation: + diminished lung sounds Cardiovascular: Rate/Rhythm: regular rate and regular rhythm Vessels: posterior tibial pulses present, dorsalis pedis pulses present and radial pulses present; + abnormal peripheral pulses Extremities: + edema Gastrointestinal (Abdomen): Inspection/Auscultation: abdomen normal to inspection and normal bowel sounds Percussion/Palpation: abdomen soft; abdomen nontender Musculoskeletal: Extremities: extremities normal to inspection Skin: no rashes, warm and dry Neurologic: moves all extremities and awake; no focal motor deficits and not confused Psychiatric: A+Ox3, euthymic affect Results & Data Vital Signs (Past 12 Hours) Vital Signs Temp Pulse Pulse Resp BP Pulse Ox O2 Del Method 09/27/23 08:01 36.4 C L 80 18 118/71 93 Room Air 09/27/23 06:59 78 09/27/23 04:01 36.6 C 81 20 131/76 93 Room Air 09/27/23 00:43 72 09/26/23 23:38 36.7 C 76 20 114/68 92 Room Air
--- NOTE | 2023-09-27 17:22 | Hospitalist Progress Note ---
Date of Service September 27, 2023 Assessment & Plan (1) Acute kidney injury superimposed on CKD: Plan: - Presented to the hospital due to worsening renal function noted on abnormal outpatient lab work. Patient has history of CKD 4 secondary to diabetic nephropathy with proteinuria, hypertension, and DM. - Patient's baseline Cr of 2-2.4. Presented with Cr of 4.78 on admission. - Potassium is WNL. She did have low serum bicarbonate at 15 on admission. Patient reports normal UOP with no urinary complaints. - CK elevated at 267 on admission - Urine random Na 56, urine random creatinine 81.3 - Urine culture revealed Lactobacillus species --> normal, no need for an tibiotics. - Renal ultrasound 09/23/23 showed no hydronephrosis or other acute abnormality, mild renal asymmetry. - Renal artery duplex showed no renal artery stenosis 09/26/23. - Uncertain if there is an acute cause for patient's decline in renal function vs chronic progression of her kidney disease secondary to HTN, DM - Nephrology consulted, recommendations appreciated -- ТАТЬЯНА likely due to relative dehydration in the setting of ACEi therapy. -- Lisinopril reinstituted 09/24/23 because of BP remaining elevated and kidney function improving. However, poorly tolerated by patient and serum Cr increased to 5.26 on 09/25/23. -- Discontinued lisinopril and chlorthalidone. -- Continue labetalol and hydralazine. - Patient remains oliguric. OU only 500 cc last 24 hours 09/27/2023. - Creatinine continues to rise, 5.6 today with increased potassium and decreased bicarb 09/27/2023. -- Moving forward with hemodialysis. Permacath insertion scheduled for with Dr. Caceres. N.p.o. at midnight. -Continue to hold diuretic and BAYLEE/ARB. Encourage oral hydration. Monitor I&Os. -Avoid nephrotoxic agents -Renal dosing where needed -Patient will require close outpatient nephrology follow-up (2) Hypertension: Plan: - Patient reports that she was not taking her antihypertensive medications for about 2 months, then resumed her antihypertensives approximately 2 weeks prior to admission. - Patient has been intolerant of CCB in the past due to LE swelling. - Lisinopril reinstituted 09/24/23, however, poorly tolerated and patient became hypotensive. -- Patient experienced two falls on 09/24/23 without head strike, LOC, or injury. - Patient had another fall on 09/25/23 coming out of the bathroom. -- Head strike with epistaxis. Tender to palpation on sternum. -- CT face revealed nasal bone fracture with soft tissue swelling. CT head negative for acute intracranial process. CXR negative for acute chest disease. -- Augmentin initiated for empiric coverage for infectious process within sinuses. Last dose 09/30/2023. -- Apply ice to nose Q4HWA. - BP remains labile. ?Autonomic dysfunction secondary to diabetes - Continue labetalol and hydralazine. - Closely monitor BP and kidney function. Patient will require close outpatient follow-up with Dr. Montaño in nephrology upon discharge. (3) Type 2 diabetes mellitus: Plan: Patient reports overall well controlled blood sugars of late. She does not always take her insulin. Last AoeI4E=5.4 on 09/16/23 -Lantus 5u BID -ISS -Goal blood sugar 110 - 140 -Cautious use of insulin given patient's degree of renal compromise -- may have delayed clearance. -Morbid obesity with BMI 42.8 (4) Anxiety: Plan: Chronic. -Continue Citalopram 10mg po daily -Continue Hydroxyzine 25mg po QID Plan Discussed treatment plan with Dr. Ayon Moving forward with hemodialysis. Permacath insertion in OR tomorrow. N.p.o. at midnight Closely monitored BP readings CODE STATUS: Full code Admission and Anticipated Discharge Date Admission Date: September 22, 2023 Subjective Patient seen and evaluated at bedside. She continues to report some tenderness to palpation near her sternum and tenderness to her nose. We discussed the plan for permacath insertion in the OR tomorrow and proceeding with hemodialysis. Patient understands and is in agreement with the treatment plan. She denies nausea, vomiting, diarrhea, dizziness, lightheadedness, shortness of breath, difficulty breathing. Physical Exam Physical Exam: General: No acute distress, nondiaphoretic, well-developed, well-nourished. Skin: Bruise on right arm from fall on 09/24/23. Periorbital ecchymosis bilaterally and nose swollen from fall on 09/25/23. Cardiac: Regular rate and rhythm without murmurs gallops or rubs. Tender to palpation near sternum after fall on 09/25/23. Pulm: Clear to auscultation bilaterally without wheezes, rales or rhonchi. No retractions or accessory muscle use. Abdominal: Positive bowel sounds x 4. Soft, nontender, without masses or organomegaly. No guarding or rebound tenderness. Neuro: A&O x3. No focal neurological deficits. Results & Data Results & Data Vital Signs (Past 12 Hours) Vital Signs Temp Pulse Pulse Resp BP Pulse Ox O2 Del Method 09/27/23 15:25 36.5 C 74 18 126/77 94 Room Air 09/27/23 14:50 73 09/27/23 11:35 36.6 C 75 17 107/68 91 Room Air 09/27/23 08:01 36.4 C L 80 18 118/71 93 Room Air 09/27/23 06:59 78 Laboratory Results Reviewed CBC Reviewed BMP PG Care Time/CCT Total # of Minutes Spent Total Time Spent with Patient: Total time spent is greater than 50% in coordination of care (as documented) at patient's floor/unit and/or counseling patient: Coding Level of Care Code 71836 SUB INP/OBS CARE 3/50MIN Diagnoses Acute kidney injury superimposed on CKD N17.9; N18.9 Hypertension I10 Hypertension type: unspecified Type 2 diabetes mellitus E11.9 Anxiety F41.9 (2) Hypertension Hypertension type: unspecified Qualified Code(s): I10 - Essential (primary) hypertension
--- NOTE | 2023-09-28 07:41 | History & Physical Bridge Note ---
Date of Service September 28, 2023 History & Physical Bridge Note I have examined the patient, reviewed the History & Physical and in the interval since the performance of the History & Physical I have noted the following changes of clinical significance: no changes noted
[2023-09-28 07:46] LABS: BUN Creatinine Ratio 13.1 (10-20); Calcium 8.3 mg/dl (8.6-10.3); Creatinine Clr Calc Pharmacy 14.8 ml/min; Est GFR (African American) 9.6 ml/min; Est GFR (Non-African American) 8.3 ml/min; Potassium 4.6 mmol/L (3.5-5.1)
--- NOTE | 2023-09-28 07:47 | Pre Anesthesia Assessment ---
Date of Service September 28, 2023 Pre Sedation Assessment Vital Signs Temp Pulse Pulse Resp BP BP Pulse Ox 09/28/23 07:19 36.5 C 78 20 170/90 H 95 09/28/23 03:06 36.4 C L 79 16 150/78 H 93 09/27/23 23:38 77 09/27/23 23:01 36.4 C L 79 16 155/89 H 95 09/27/23 19:33 36.5 C 73 16 104/66 95 09/27/23 15:25 36.5 C 74 18 126/77 94 09/27/23 14:50 73 09/27/23 11:35 36.6 C 75 17 107/68 91 09/27/23 08:01 36.4 C L 80 18 118/71 93 O2 Del Method 09/28/23 07:19 Room Air 09/28/23 03:06 Room Air 09/27/23 23:38 09/27/23 23:01 Room Air 09/27/23 19:33 Room Air 09/27/23 15:25 Room Air 09/27/23 14:50 09/27/23 11:35 Room Air 09/27/23 08:01 Room Air Cardiovascular RRR, no murmur, no edema Respiratory normal respiratory effort, lungs clear to auscultation Pre-Sedation Airway Assessment Smoking Status: Never smoker Hx Sleep Apnea: No Short, Thick Neck: No Thyromental Distance: > or= 3.5 Finger Breadths Oral Cavity: + WNL Mallampati Class: III ASA: ASA4 NPO Status Date of Last Intake of Fluids: 09/28/23 Time of Last Intake of Fluids: 00:00 Date of Last Intake of Solid Food: 09/28/23 Time of Last Intake of Solid Foods: 00:00 Procedure Planning Contraindications for Sedation: none Current Medications Reviewed: Yes Notes The planned sedation has been discussed with the patient. Informed Consent was obtained. I have identified the patient, determined the appropriateness of sedation and have assessed the patient immediately prior to the procedure. All medicine(s) and interventions are by my order.
[2023-09-28 07:49] LABS: Hematocrit (blood only) 33.7 % (37.0-47.0); Hemoglobin 10.7 g/dl (12.0-16.0); Mean Corpuscular Hemoglobin 28.4 pg (25.0-34.0); Mean Corpuscular Hgb Conc 31.8 g/dL (32.0-36.0); Mean Corpuscular Volume 89.4 fL (80.0-100.0); Mean Platelet Volume 9.8 fL (9.4-12.4); Platelet Count 273 K/uL (130-400); RDW Coefficient of Variation 13.3 % (11.5-14.5); RDW Standard Deviation 43.8 fL (36.4-46.3); Red Blood Count 3.77 M/uL (4.20-5.40); White Blood Count 7.78 K/ul (4.8-10.8)
[2023-09-28] MEDS: ceFAZolin 2000MG 2,000 MG/15 ML SYR IV ONE (07:50)
[2023-09-28] MEDS: ceFAZolin 2,000 MG/15 ML IV PUSH IV ONE (08:09)
[2023-09-28] MEDS: MIDAZOLAM HCL 1 MG/ML 2ML VIAL ONE ×2 (08:15→08:36)
[2023-09-28] MEDS: fentaNYL citrate PF 100 MCG/2 ML VIAL ONE ×2 (08:15→08:35)
[2023-09-28] MEDS ORDERED: SODIUM CHLORIDE 0.9% 1,000 ML IV PRN (08:40)
--- NOTE | 2023-09-28 08:42 | Nephrology Progress Note ---
Date of Service September 28, 2023 Assessment & Plan (1) Acute kidney injury superimposed on CKD: Plan: * Patient had marginal kidney function prior to hospitalization. ТАТЬЯНА likely due to relative dehydration in the setting of ACEi therapy. Cr now 5.8. UO only 450 cc last 24 hours. Patient has likely progressed to ESKD * R IJ TCC placed this morning by Dr. Caceres. Will schedule 1st run HD today * Will plan 2nd HD treatment for am * [facility] (2) Chronic kidney disease: Plan: * Baseline creatinine ~3.0 mg/dL. CKD IV A3. Kidney biopsy in 2021 demonstrating significantly advanced changes of arterionephrosclerosis and DKD. (3) Hypertension: Plan: * BP remains acceptable * Intolerant of CCB due to LE swelling, ACEi results in ТАТЬЯНА * Continue Labetalol, Hydralazine * Mild renal asymmetry noted on US. 09/26/23 renal artery doppler was negative for TRAVIS (4) Diabetic nephropathy: Plan: * Due to advanced CKD avoid SGLT2i, MRA Admission and Anticipated Discharge Date Admission Date: September 22, 2023 Subjective Mrs. Newman was evaluated in her hospital room this morning. She denied fever, flank pain, dyspnea or uremic symptoms. R IJ TCC is in place w/ clean dry dressing Review of Systems Constitutional: no fever Eyes: no problem reported Ear, Nose, Mouth, Throat: no problem reported Respiratory: no cough and no dyspnea Cardiovascular: no chest pain Gastrointestinal: no abdominal pain, no nausea, no vomiting and no diarrhea/loose stools Genitourinary: no dysuria and no hematuria Integumentary: no rash Neurologic: no headache(s) Physical Exam Constitutional: not in distress Eyes: PERRL, conjunctivae normal, anicteric sclerae ENMT: external ear and nose normal, oropharynx normal Neck: trachea midline, no thyromegaly Respiratory: normal respiratory effort, lungs clear to auscultation Cardiovascular: RRR, no murmur, no edema Gastrointestinal (Abdomen): normal bowel sounds, soft, nontender, no hepatosplenomegaly Musculoskeletal: Extremities: no cyanosis Skin: no rashes, warm and dry Neurologic: PERRL, EOMI, accommodation nl, no face palsy, no dysarthria Psychiatric: Insight: + limited insight Results & Data Vital Signs (Past 12 Hours) Vital Signs Temp Pulse Pulse Resp BP BP Pulse Ox 09/28/23 08:40 71 18 176/88 H 100 09/28/23 08:35 88 18 189/92 H 99 09/28/23 08:30 81 18 185/90 H 99 09/28/23 08:25 81 18 190/100 H 99 09/28/23 08:20 79 18 195/106 H 99 09/28/23 08:15 80 18 202/97 H 99 09/28/23 08:05 80 18 200/98 H 99 09/28/23 07:19 36.5 C 78 20 170/90 H 95 09/28/23 03:06 36.4 C L 79 16 150/78 H 93 09/27/23 23:38 77 09/27/23 23:01 36.4 C L 79 16 155/89 H 95 O2 Del Method O2 Flow Rate 09/28/23 08:40 Oxymask 4 09/28/23 08:35 Oxymask 4 09/28/23 08:30 Oxymask 4 09/28/23 08:25 Oxymask 4 09/28/23 08:20 Oxymask 4 09/28/23 08:15 Oxymask 4 09/28/23 08:05 Oxymask 4 09/28/23 07:19 Room Air 09/28/23 03:06 Room Air 09/27/23 23:38 09/27/23 23:01 Room Air Laboratory Results Laboratory Results - last 24 hr 09/27/23 09/27/23 09/27/23 12:13 17:07 20:13 WBC RBC Hgb Hct MCV MCH MCHC RDW Std Deviation RDW Coeff of Jessica Plt Count MPV Sodium Potassium Chloride Carbon Dioxide Anion Gap BUN Creatinine Est Cr Clr Drug Dosing Est GFR ( Amer) Est GFR (Non-Af Amer) BUN/Creatinine Ratio Glucose POC Glucose 128 H 103 H 139 H Calcium 09/28/23 09/28/23 06:32 07:25 WBC 7.78 RBC 3.77 L Hgb 10.7 L Hct 33.7 L MCV 89.4 MCH 28.4 MCHC 31.8 L RDW Std Deviation 43.8 RDW Coeff of Jessica 13.3 Plt Count 273 MPV 9.8 Sodium 138 Potassium 4.6 Chloride 110 H Carbon Dioxide 18 L Anion Gap 10 BUN 76 H Creatinine 5.81 H* Est Cr Clr Drug Dosing 14.8 Est GFR ( Amer) 9.6 Est GFR (Non-Af Amer) 8.3 BUN/Creatinine Ratio 13.1 Glucose 99 POC Glucose 98 Calcium 8.3 L PG Care Time/CCT Total # of Minutes Spent Total Time Spent with Patient: Total time spent is greater than 50% in coordination of care (as documented) at patient's floor/unit and/or counseling patient: Coding Level of Care Code 91825 SUB INP/OBS CARE 3/50MIN Diagnoses Acute kidney injury superimposed on CKD N17.9; N18.9 Chronic kidney disease N18.9 Hypertension I10 Hypertension type: unspecified Diabetic nephropathy E11.21 (3) Hypertension Hypertension type: unspecified Qualified Code(s): I10 - Essential (primary) hypertension
--- NOTE | 2023-09-28 08:48 | Post Operative Brief Note ---
Immediate Post Op Note v1 Date of Surgery September 28, 2023 Pre & Post Diagnosis Operation Date: 09/28/23 08:00 Pre-Op Diagnosis: ТАТЬЯНА Post-Op Diagnosis: ТАТЬЯНА I identified the patient and participated in the time-out.: Yes Procedure Operation Date: 09/28/23 08:00 Actual Procedures p Perm Catheter Insertion, Right Internal Jugular Approach, Ultrasound Localization of Right Internal Jugular Vein, Fluoroscopy for Positioning, Moderate Sedation 0815-(Right) - Valerio Caceres MD Surgeon Valerio Caceres MD [employer] MD [place] Estimated Blood Loss 3 Findings Consistent with Post-Op Diagnosis Anesthesia Type RN Sedation Complications none Disposition Accompanied Patient To Recovery: No Disposition: Recovery Room
--- NOTE | 2023-09-28 08:57 | Procedure Note ---
Angiogram Post Procedure Fluoroscopy Time (minutes): 0.5 Conscious Sedation Time (minutes): 40 Radiation (mGy): 5 Contrast: 0 Post Operative Report Pre & Post Diagnosis Operation Date: 09/28/23 08:00 Pre-Op Diagnosis: ТАТЬЯНА Post-Op Diagnosis: ТАТЬЯНА I identified the patient and participated in the time-out.: Yes Procedure Operation Date: 09/28/23 08:00 Actual Procedures p Perm Catheter Insertion, Right Internal Jugular Approach, Ultrasound Localization of Right Internal Jugular Vein, Fluoroscopy for Positioning, Moderate Sedation [id number](Right) - Valerio Caceres MD Surgeon Valerio Caceres MD Shank Taper MD [place] Estimated Blood Loss 3 Findings See Below Both lumens of the PermCath flush and aspirate blood. Fluids <50mL Specimens none Drains none Anesthesia Type RN Sedation Complications none Disposition Accompanied Patient To Recovery: Yes Disposition: Recovery Room Indications ТАТЬЯНА with need for diaylsis access Description of Procedure Patient was taken to the angio suite and placed in the supine position. The right side of the neck and chest wall were prepped and draped in a sterile manner. Local anesthesia was then administered to the appropriate areas of the neck and chest wall. Ultrasound was then used to locate the right internal jugular vein. The vein compressed easily, had no filing defects, and was patent. The vein was then punctured under direct ultrasound imaging. A guidewire was then passed centrally under fluoroscopic imaging. A stab wound was then made in the anterior chest wall and a 19cm permcath was passed from the stab wound on the chest wall to the puncture site on the neck. The puncture site was then dilated till the 14Fr peel away sheath was inserted. The permcath was then inserted through the sheath to a central position in the distal superior vena cava. The peel away sheath was then removed. The catheter was then sutured in place using nylon sutures. The puncture was then closed using a 4-0 Vicryl subcuticular suture. Dermabond was used for a dressing on the puncture site. Both ports aspirated and flushed easily and were then packed with heparin. A sterile dressing was applied to the catheter. The patient left the angio suite in good condition and tolerated the procedure well. Dr. Caceres was present and scrubbed for the entire procedure. I attest to the content of the Intraoperative Record and any orders documented therein. Any exceptions are noted below.
--- NOTE | 2023-09-28 09:07 | Post Anesthesia Assessment ---
Date of Service September 28, 2023 Post Sedation Assessment Vital Signs Temp Pulse Pulse Resp BP BP Pulse Ox 09/28/23 09:06 36.4 C L 80 18 124/79 93 09/28/23 08:55 78 18 164/87 H 98 09/28/23 08:50 80 18 176/86 H 100 09/28/23 08:45 80 18 178/92 H 100 09/28/23 08:40 71 18 176/88 H 100 09/28/23 08:35 88 18 189/92 H 99 09/28/23 08:30 81 18 185/90 H 99 09/28/23 08:25 81 18 190/100 H 99 09/28/23 08:20 79 18 195/106 H 99 09/28/23 08:15 80 18 202/97 H 99 09/28/23 08:05 80 18 200/98 H 99 09/28/23 07:19 36.5 C 78 20 170/90 H 95 09/28/23 03:06 36.4 C L 79 16 150/78 H 93 09/27/23 23:38 77 09/27/23 23:01 36.4 C L 79 16 155/89 H 95 09/27/23 19:33 36.5 C 73 16 104/66 95 09/27/23 15:25 36.5 C 74 18 126/77 94 09/27/23 14:50 73 09/27/23 11:35 36.6 C 75 17 107/68 91 O2 Del Method O2 Flow Rate 09/28/23 09:06 Room Air 09/28/23 08:55 Room Air 09/28/23 08:50 Oxymask 4 09/28/23 08:45 Oxymask 4 09/28/23 08:40 Oxymask 4 09/28/23 08:35 Oxymask 4 09/28/23 08:30 Oxymask 4 09/28/23 08:25 Oxymask 4 09/28/23 08:20 Oxymask 4 09/28/23 08:15 Oxymask 4 09/28/23 08:05 Oxymask 4 09/28/23 07:19 Room Air 09/28/23 03:06 Room Air 09/27/23 23:38 09/27/23 23:01 Room Air 09/27/23 19:33 Room Air 09/27/23 15:25 Room Air 09/27/23 14:50 09/27/23 11:35 Room Air Recovery Score Activity: Moves 4 extremities Respiration: Deep Breath/Cough Circulation: +/-20% PreAnes Value Consciousness: Fully Awake Oxygen Saturation: > 92% On Room Air Post Anesthesia Score: 10 Discharge Sedation Level of Care: Fast Track Phase II Post Sedation Plan On clinical assessment, the patient appears to have tolerated the sedation without complications. Patient is recovering as anticipated. Patient will continue to be monitored by nursing and may be discharged when sedation discharge criteria are met per below protocol. Upon Completions of procedure up to 15 minutes continue every 5 minute vital signs and the P.A.R. score; then discharge to a Phase I or Fast Track to Phase II per the following guidelines: * Discharge Patient to appropriate Phase II area if PAR is 8 or greater or return to pre- procedure baseline. The post - procedure orders will be as di rected. * If PAR score is less than 8 or not return to pre-procedure baseline then patient will follow Phase I monitoring till PAR is reached for Phase II. The Phase I may be done in procedure room or may call to secure a Phase I area. * If naloxone or flumazenil are used for reversal, hold in Phase I for continued monitoring from when last reversal dose was given for a minimum of 60 minutes or longer pending the nurse and/or physician discretion of patient condition before discharge to Phase II. Please call the Sedation Physician to re-evaluate and complete post-note for discharge to Phase II area. Do NOT discharge from procedure sedation or Phase 1 until post- sedation evaluation note is complete by procedure /sedation MD Sedation Discharge Instructions to be given to the patient at discharge to home.
[2023-09-28] MEDS: HEPARIN SOD (PORCINE) 5,000 UNITS/ML VIAL ONE (10:23)
[2023-09-28] MEDS: LIDOCAINE 1% LOCAL 20 ML VIAL ONE ×2 (10:24)
--- NOTE | 2023-09-28 13:59 | Hospitalist Progress Note ---
Date of Service September 28, 2023 Assessment & Plan (1) Acute kidney injury superimposed on CKD: Plan: - Presented to the hospital due to worsening renal function noted on abnormal outpatient lab work. Patient has history of CKD 4 secondary to diabetic nephropathy with proteinuria, hypertension, and DM. - Patient's baseline Cr of 2-2.4. Presented with Cr of 4.78 on admission. - Potassium is WNL. She did have low serum bicarbonate at 15 on admission. Patient reports normal UOP with no urinary complaints. - CK elevated at 267 on admission - Urine random Na 56, urine random creatinine 81.3 - Urine culture revealed Lactobacillus species --> normal, no need for an tibiotics. - Renal ultrasound 09/23/23 showed no hydronephrosis or other acute abnormality, mild renal asymmetry. - Renal artery duplex showed no renal artery stenosis 09/26/23. - Uncertain if there is an acute cause for patient's decline in renal function vs chronic progression of her kidney disease secondary to HTN, DM - Nephrology consulted, recommendations appreciated -- ТАТЬЯНА likely due to relative dehydration in the setting of ACEi therapy. -- Lisinopril reinstituted 09/24/23 because of BP remaining elevated and kidney function improving. However, poorly tolerated by patient and serum Cr increased to 5.26 on 09/25/23. -- Discontinued lisinopril and chlorthalidone. -- Continue labetalol and hydralazine. - Patient remains oliguric. OU only 450 cc last 24 hours 09/28/2023. - Creatinine continues to rise, 5.8 today with increased potassium and decreased bicarb 09/28/2023. - PermCath inserted on 09/28/[address] Caceres. - First hemodialysis treatment 09/28/2023. Plan for second HD tomorrow, 09/28. -Continue to hold diuretic and BAYLEE/ARB. Encourage oral hydration. Monitor I&Os. -Avoid nephrotoxic agents -Renal dosing where needed -Patient will require close outpatient nephrology follow-up (2) Hypertension: Plan: - Patient reports that she was not taking her antihypertensive medications for about 2 months, then resumed her antihypertensives approximately 2 weeks prior to admission. - Patient has been intolerant of CCB in the past due to LE swelling. - Lisinopril reinstituted 09/24/23, however, poorly tolerated and patient became hypotensive. -- Patient experienced two falls on 09/24/23 without head strike, LOC, or injury. - Patient had another fall on 09/25/23 coming out of the bathroom. -- Head strike with epistaxis. Tender to palpation on sternum. -- CT face revealed nasal bone fracture with soft tissue swelling. CT head negative for acute intracranial process. CXR negative for acute chest disease. -- Augmentin initiated for empiric coverage for infectious process within sinuses. Last dose 09/30/2023. -- Apply ice to nose Q4HWA. - BP remains labile. ?Autonomic dysfunction secondary to diabetes - Continue labetalol and hydralazine. - Closely monitor BP and kidney function. Patient will require close outpatient follow-up with Dr. Montaño in nephrology upon discharge. (3) Type 2 diabetes mellitus: Plan: Patient reports overall well controlled blood sugars of late. She does not always take her insulin. Last YdrB7A=0.4 on 09/16/23 -Lantus 5u BID -ISS -Goal blood sugar 110 - 140 -Cautious use of insulin given patient's degree of renal compromise -- may have delayed clearance. -Morbid obesity with BMI 42.8 (4) Anxiety: Plan: Chronic. -Continue Citalopram 10mg po daily -Continue Hydroxyzine 25mg po QID Plan Second HD treatment scheduled for 516 AM Closely monitored BP readings Reviewed nephrology's documentation on plan moving forward CODE STATUS: Full code Admission and Anticipated Discharge Date Admission Date: September 22, 2023 Subjective Patient seen and evaluated at bedside shortly after she completed her first hemodialysis treatment. She had a PermCath placed this morning in the OR. Patient reports she tolerated the catheter insertion and hemodialysis well. She continues to report some nasal congestion and tenderness to palpation along her sternum. She reports no other complaints at this time. Plan for second round of hemodialysis tomorrow morning. Physical Exam Physical Exam: General: No acute distress, nondiaphoretic, well-developed, well-nourished. Skin: Bruise on right arm from fall on 09/24/23. Periorbital ecchymosis bilaterally and nose swollen from fall on 09/25/23. PermCath in place on right chest wall. Cardiac: Regular rate and rhythm without murmurs gallops or rubs. Tender to palpation near sternum after fall on 09/25/23. Pulm: Clear to auscultation bilaterally without wheezes, rales or rhonchi. No retractions or accessory muscle use. Abdominal: Positive bowel sounds x 4. Soft, nontender, without masses or organomegaly. No guarding or rebound tenderness. Neuro: A&O x3. No focal neurological deficits. Results & Data Results & Data Vital Signs (Past 12 Hours) Vital Signs Temp Pulse Pulse Pulse Resp BP BP 09/28/23 13:33 72 09/28/23 13:20 36.6 C 78 18 09/28/23 12:30 72 136/82 09/28/23 12:00 71 139/83 09/28/23 11:30 70 138/75 09/28/23 11:00 72 157/95 H 09/28/23 10:52 36.4 C L 73 09/28/23 10:25 77 09/28/23 09:06 36.4 C L 80 18 09/28/23 08:55 78 18 164/87 H 09/28/23 08:50 80 18 176/86 H 09/28/23 08:45 80 18 178/92 H 09/28/23 08:40 71 18 176/88 H 09/28/23 08:35 88 18 189/92 H 09/28/23 08:30 81 18 185/90 H 09/28/23 08:25 81 18 190/100 H 09/28/23 08:20 79 18 195/106 H 09/28/23 08:15 80 18 202/97 H 09/28/23 08:05 80 18 200/98 H 09/28/23 07:19 36.5 C 78 20 09/28/23 03:06 36.4 C L 79 16 150/78 H BP Pulse Ox O2 Del Method O2 Flow Rate 09/28/23 13:33 09/28/23 13:20 187/96 H 96 Room Air 09/28/23 12:30 09/28/23 12:00 09/28/23 11:30 09/28/23 11:00 09/28/23 10:52 09/28/23 10:25 09/28/23 09:06 124/79 93 Room Air 09/28/23 08:55 98 Room Air 09/28/23 08:50 100 Oxymask 4 09/28/23 08:45 100 Oxymask 4 09/28/23 08:40 100 Oxymask 4 09/28/23 08:35 99 Oxymask 4 09/28/23 08:30 99 Oxymask 4 09/28/23 08:25 99 Oxymask 4 09/28/23 08:20 99 Oxymask 4 09/28/23 08:15 99 Oxymask 4 09/28/23 08:05 99 Oxymask 4 09/28/23 07:19 170/90 H 95 Room Air 09/28/23 03:06 93 Room Air Laboratory Results Reviewed CBC Reviewed BMP PG Care Time/CCT Total # of Minutes Spent Total Time Spent with Patient: Total time spent is greater than 50% in coordination of care (as documented) at patient's floor/unit and/or counseling patient: Coding Level of Care Code 93408 SUB INP/OBS CARE 235MIN Diagnoses Acute kidney injury superimposed on CKD N17.9; N18.9 Hypertension I10 Hypertension type: unspecified Type 2 diabetes mellitus E11.9 Anxiety F41.9 (2) Hypertension Hypertension type: unspecified Qualified Code(s): I10 - Essential (primary) hypertension
[2023-09-29] MEDS ORDERED: SODIUM CHLORIDE 0.9% 1,000 ML IV PRN (07:00)
[2023-09-29 07:07] LABS: Hematocrit (blood only) 31.1 % (37.0-47.0); Mean Corpuscular Hemoglobin 28.2 pg (25.0-34.0); Mean Corpuscular Hgb Conc 32.2 g/dL (32.0-36.0); Mean Corpuscular Volume 87.6 fL (80.0-100.0); Platelet Count 224 K/uL (130-400); RDW Coefficient of Variation 13.2 % (11.5-14.5); RDW Standard Deviation 42.7 fL (36.4-46.3); Red Blood Count 3.55 M/uL (4.20-5.40); White Blood Count 7.05 K/ul (4.8-10.8)
[2023-09-29 07:30] LABS: BUN Creatinine Ratio 13.2 (10-20); Calcium 8.2 mg/dl (8.6-10.3); Creatinine Clr Calc Pharmacy 19.6 ml/min; Est GFR (African American) 13.8 ml/min; Est GFR (Non-African American) 11.9 ml/min; Potassium 4.5 mmol/L (3.5-5.1)
[2023-09-29] MEDS: NEPHROCAPS PO SCH (08:23)
--- NOTE | 2023-09-29 08:34 | Nephrology Progress Note ---
Date of Service September 29, 2023 Assessment & Plan (1) ESRD (end stage renal disease): Plan: * Patient had marginal kidney function prior to hospitalization. ТАТЬЯНА likely due to relative dehydration in the setting of ACEi therapy. Cr peaked at 5.8 and patient became oligo/anuric. R IJ TCC placed 09/28/[address] Caceres. First HD completed 09/28/23 * 2nd HD today. Orders entered into EMR and HD RN notified * Case management to set up outpatient HD at [facility] w/ Dr. Montaño. Patient prefers TTS schedule. Awaiting Hep B serology (2) Chronic kidney disease: Plan: * Baseline creatinine ~3.0 mg/dL. CKD IV A3. Kidney biopsy in 2021 demonstrating significantly advanced changes of arterionephrosclerosis and DKD. (3) Hypertension: Plan: * BP remains acceptable * Intolerant of CCB due to LE swelling, ACEi results in ТАТЬЯНА * Continue Labetalol, Hydralazine * Mild renal asymmetry noted on US. 09/26/23 renal artery doppler was negative for TRAVIS (4) Diabetic nephropathy: Plan: * Due to advanced CKD avoid SGLT2i, MRA Admission and Anticipated Discharge Date Admission Date: September 22, 2023 Subjective Mrs. Newman was evaluated in her hospital room this morning. She denied fever, flank pain, dyspnea or uremic symptoms. R IJ TCC is in place w/ clean dry dressing. Mrs. Newman completed her 1st HD treatment yesterday without complication. 1L UF obtained. Review of Systems Constitutional: no fever Eyes: no problem reported Ear, Nose, Mouth, Throat: no problem reported Respiratory: no cough and no dyspnea Cardiovascular: no chest pain Gastrointestinal: no abdominal pain, no nausea, no vomiting and no diarrhea/loose stools Genitourinary: no dysuria and no hematuria Integumentary: no rash Neurologic: no headache(s) Physical Exam Constitutional: not in distress Eyes: PERRL, conjunctivae normal, anicteric sclerae ENMT: external ear and nose normal, oropharynx normal Neck: trachea midline, no thyromegaly R IJ TCC with clean dry dressing in place Respiratory: normal respiratory effort, lungs clear to auscultation Cardiovascular: RRR, no murmur, no edema Gastrointestinal (Abdomen): normal bowel sounds, soft, nontender, no hepatosplenomegaly Musculoskeletal: Extremities: no cyanosis Skin: no rashes, warm and dry Neurologic: PERRL, EOMI, accommodation nl, no face palsy, no dysarthria Psychiatric: Insight: + limited insight Results & Data Vital Signs (Past 12 Hours) Vital Signs Temp Pulse Pulse Pulse Resp BP BP 09/29/23 07:46 36.6 C 72 18 143/83 H 09/29/23 03:15 36.6 C 74 18 126/76 09/28/23 23:55 78 18 144/77 H 09/28/23 22:22 36.9 C 77 18 180/93 H 09/28/23 21:58 82 Pulse Ox O2 Del Method 09/29/23 07:46 94 Room Air 09/29/23 03:15 95 Room Air 09/28/23 23:55 09/28/23 22:22 94 Room Air 09/28/23 21:58 Laboratory Results Laboratory Results - last 24 hr 09/28/23 09/28/23 09/28/23 09:09 13:25 17:17 WBC RBC Hgb Hct MCV MCH MCHC RDW Std Deviation RDW Coeff of Jessica Plt Count MPV Sodium Potassium Chloride Carbon Dioxide Anion Gap BUN Creatinine Est Cr Clr Drug Dosing Est GFR ( Amer) Est GFR (Non-Af Amer) BUN/Creatinine Ratio Glucose POC Glucose 125 H 142 H 150 H Calcium Hep Bs Antigen Hep Bs Ag Confirmation Hep Bs Antibody, Quant Hep B Core IgM Ab 09/28/23 09/29/23 09/29/23 20:39 06:44 08:10 WBC 7.05 RBC 3.55 L Hgb 10.0 L Hct 31.1 L MCV 87.6 MCH 28.2 MCHC 32.2 RDW Std Deviation 42.7 RDW Coeff of Jessica 13.2 Plt Count 224 MPV 10.0 Sodium 136 Potassium 4.5 Chloride 106 Carbon Dioxide 23 Anion Gap 7 BUN 57 H Creatinine 4.31 H D Est Cr Clr Drug Dosing 19.6 Est GFR ( Amer) 13.8 Est GFR (Non-Af Amer) 11.9 BUN/Creatinine Ratio 13.2 Glucose 125 H POC Glucose 155 H 124 H Calcium 8.2 L Hep Bs Antigen Pending Hep Bs Ag Confirmation Pending Hep Bs Antibody, Quant Pending Hep B Core IgM Ab Pending PG Care Time/CCT Total # of Minutes Spent Total Time Spent with Patient: Total time spent is greater than 50% in coordination of care (as documented) at patient's floor/unit and/or counseling patient: Coding Level of Care Code 93708 SUB INP/OBS CARE 350MIN Diagnoses ESRD (end stage renal disease) N18.6 Chronic kidney disease N18.9 Hypertension I10 Hypertension type: unspecified Diabetic nephropathy E11.21 (3) Hypertension Hypertension type: unspecified Qualified Code(s): I10 - Essential (primary) hypertension
[2023-09-29] MEDS: HEPARIN SOD (PORCINE) 1000 UNIT/ML IV ONE (11:36)
--- NOTE | 2023-09-29 17:23 | Hospitalist Progress Note ---
Date of Service September 29, 2023 Assessment & Plan (1) Acute kidney injury superimposed on CKD: Plan: - Presented to the hospital due to worsening renal function noted on abnormal outpatient lab work. Patient has history of CKD 4 secondary to diabetic nephropathy with proteinuria, hypertension, and DM. - Patient's baseline Cr of 2-2.4. Presented with Cr of 4.78 on admission. - Potassium is WNL. She did have low serum bicarbonate at 15 on admission. Patient reports normal UOP with no urinary complaints. - CK elevated at 267 on admission - Urine random Na 56, urine random creatinine 81.3 - Urine culture revealed Lactobacillus species --> normal, no need for an tibiotics. - Renal ultrasound 09/23/23 showed no hydronephrosis or other acute abnormality, mild renal asymmetry. - Renal artery duplex showed no renal artery stenosis 09/26/23. - Uncertain if there is an acute cause for patient's decline in renal function vs chronic progression of her kidney disease secondary to HTN, DM - Nephrology consulted, recommendations appreciated -- ТАТЬЯНА likely due to relative dehydration in the setting of ACEi therapy. -- Lisinopril reinstituted 09/24/23 because of BP remaining elevated and kidney function improving. However, poorly tolerated by patient and serum Cr increased to 5.26 on 09/25/23. -- Discontinued lisinopril and chlorthalidone. -- Continue labetalol and hydralazine. - Creatinine peaked at 5.8 and patient became oliguric/anuric. She had permacat h inserted on 09/28/[address] Caceres. First HD completed 09/28/2023. - Patient had second HD treatment today, 09/29/2023. Some fatigue afterwards, but well-tolerated. - Plan for outpatient HD at [facility] with Dr. Montaño. Hepatitis B serology pending. -Continue to hold diuretic and BAYLEE/ARB. Encourage oral hydration. Monitor I&Os. -Avoid nephrotoxic agents -Renal dosing where needed -Patient will require close outpatient nephrology follow-up (2) Hypertension: Plan: - Patient reports that she was not taking her antihypertensive medications for about 2 months, then resumed her antihypertensives approximately 2 weeks prior to admission. - Patient has been intolerant of CCB in the past due to LE swelling. - Lisinopril reinstituted 09/24/23, however, poorly tolerated and patient became hypotensive. -- Patient experienced two falls on 09/24/23 without head strike, LOC, or injury. - Patient had another fall on 09/25/23 coming out of the bathroom. -- Head strike with epistaxis. Tender to palpation on sternum. -- CT face revealed nasal bone fracture with soft tissue swelling. CT head negative for acute intracranial process. CXR negative for acute chest disease. -- Augmentin initiated for empiric coverage for infectious process within sinuses. Last dose 09/30/2023. -- Apply ice to nose Q4HWA. - BP remains labile. ?Autonomic dysfunction secondary to diabetes - Continue labetalol and hydralazine. - Closely monitor BP and kidney function. Patient will require close outpatient follow-up with Dr. Montaño in nephrology upon discharge. (3) Type 2 diabetes mellitus: Plan: Patient reports overall well controlled blood sugars of late. She does not always take her insulin. Last LkqY5P=5.4 on 09/16/23 -Lantus 5u BID -ISS -Goal blood sugar 110 - 140 -Cautious use of insulin given patient's degree of renal compromise -- may have delayed clearance. -Morbid obesity with BMI 42.8 (4) Anxiety: Plan: Chronic. -Continue Citalopram 10mg po daily -Continue Hydroxyzine 25mg po QID Plan Updated patient's at bedside Third HD treatment scheduled for 09/29 AM Closely monitored BP readings Reviewed nephrology's documentation on plan moving forward CODE STATUS: Full code Admission and Anticipated Discharge Date Admission Date: September 22, 2023 Subjective Patient seen and evaluated at bedside with her . She had her second round of hemodialysis treatment this morning. She reports feeling tired since then, but has no other complaints. She denies uremic symptoms, shortness of breath, flank pain, chest pain, and fever/chills. Physical Exam Physical Exam: General: No acute distress, nondiaphoretic, well-developed, well-nourished. Skin: Bruise on right arm from fall on 09/24/23. Periorbital ecchymosis bilaterally and nose swollen from fall on 09/25/23. PermCath in place on right chest wall. Cardiac: Regular rate and rhythm without murmurs gallops or rubs. Tender to palpation near sternum after fall on 09/25/23. Pulm: Clear to auscultation bilaterally without wheezes, rales or rhonchi. No retractions or accessory muscle use. Abdominal: Positive bowel sounds x 4. Soft, nontender, without masses or organomegaly. No guarding or rebound tenderness. Neuro: A&O x3. No focal neurological deficits. Results & Data Results & Data Vital Signs (Past 12 Hours) Vital Signs Temp Pulse Pulse Pulse Resp BP BP 09/29/23 15:51 36.5 C 76 18 136/76 09/29/23 14:59 75 09/29/23 13:06 78 186/99 H 09/29/23 12:40 36.7 C 72 155/67 H 09/29/23 12:30 71 157/92 H 09/29/23 12:00 73 158/89 H 09/29/23 11:30 77 116/65 09/29/23 11:00 69 112/63 09/29/23 10:30 72 108/63 09/29/23 10:00 74 120/77 09/29/23 09:34 71 164/94 H 09/29/23 07:46 36.6 C 72 18 143/83 H 09/29/23 07:30 79 Pulse Ox O2 Del Method 09/29/23 15:51 92 Room Air 09/29/23 14:59 09/29/23 13:06 09/29/23 12:40 09/29/23 12:30 09/29/23 12:00 09/29/23 11:30 09/29/23 11:00 09/29/23 10:30 09/29/23 10:00 09/29/23 09:34 09/29/23 07:46 94 Room Air 09/29/23 07:30 Laboratory Results Reviewed CBC Reviewed BMP Hepatitis B panel pending PG Care Time/CCT Total # of Minutes Spent Total Time Spent with Patient: Total time spent is greater than 50% in coordination of care (as documented) at patient's floor/unit and/or counseling patient: Coding Level of Care Code 01618 SUB INP/OBS CARE 2/35MIN Diagnoses Acute kidney injury superimposed on CKD N17.9; N18.9 Hypertension I10 Hypertension type: unspecified Type 2 diabetes mellitus E11.9 Anxiety F41.9 (2) Hypertension Hypertension type: unspecified Qualified Code(s): I10 - Essential (primary) hypertension
[2023-09-30 06:47] LABS: Hematocrit (blood only) 31.9 % (37.0-47.0); Hemoglobin 10.3 g/dl (12.0-16.0); Mean Corpuscular Hemoglobin 28.5 pg (25.0-34.0); Mean Corpuscular Hgb Conc 32.3 g/dL (32.0-36.0); Mean Corpuscular Volume 88.1 fL (80.0-100.0); Mean Platelet Volume 9.8 fL (9.4-12.4); Platelet Count 211 K/uL (130-400); RDW Coefficient of Variation 13.2 % (11.5-14.5); RDW Standard Deviation 42.7 fL (36.4-46.3); Red Blood Count 3.62 M/uL (4.20-5.40); White Blood Count 7.01 K/ul (4.8-10.8)
[2023-09-30] MEDS ORDERED: SODIUM CHLORIDE 0.9% 1,000 ML IV PRN (07:00)
[2023-09-30 07:13] LABS: BUN Creatinine Ratio 10.8 (10-20); Calcium 8.2 mg/dl (8.6-10.3); Creatinine Clr Calc Pharmacy 24.8 ml/min; Est GFR (African American) 18.7 ml/min; Est GFR (Non-African American) 16.2 ml/min; Potassium 4.6 mmol/L (3.5-5.1)
--- NOTE | 2023-09-30 08:39 | Nephrology Progress Note ---
Date of Service September 30, 2023 Assessment & Plan (1) ESRD (end stage renal disease): Plan: * Patient had marginal kidney function prior to hospitalization. ТАТЬЯНА likely due to relative dehydration in the setting of ACEi therapy. Cr peaked at 5.8 and patient became oligo/anuric. R IJ TCC placed 09/28/[address] Caceres. First HD completed 09/28/23 * Will provide 3rd HD this morning. Orders entered into EMR and HD RN notified * Case management to set up outpatient HD at [facility] w/ Dr. Montaño. Patient prefers TTS schedule. I have called both case management and [facility] this morning to help facilitate patient's discharge (2) Chronic kidney disease: Plan: * Baseline creatinine ~3.0 mg/dL. CKD IV A3. Kidney biopsy in 2021 demonstrating significantly advanced changes of arterionephrosclerosis and DKD. (3) Hypertension: Plan: * BP remains acceptable * Intolerant of CCB due to LE swelling, ACEi results in ТАТЬЯНА * Continue Labetalol, Hydralazine * Mild renal asymmetry noted on US. 09/26/23 renal artery doppler was negative for TRAVIS (4) Diabetic nephropathy: Plan: * Due to advanced CKD avoid SGLT2i, MRA Admission and Anticipated Discharge Date Admission Date: September 22, 2023 Subjective Mrs. Newman was evaluated in her hospital room this morning. She denied fever, flank pain, dyspnea or uremic symptoms. R IJ TCC is in place w/ clean dry dressing. Mrs. Newman completed her 2nd HD treatment yesterday without complication. 1L UF obtained. Review of Systems Constitutional: no fever Eyes: no problem reported Ear, Nose, Mouth, Throat: no problem reported Respiratory: no cough and no dyspnea Cardiovascular: no chest pain Gastrointestinal: no abdominal pain, no nausea, no vomiting and no diarrhea/loose stools Genitourinary: no dysuria and no hematuria Integumentary: no rash Neurologic: no headache(s) Physical Exam Constitutional: not in distress Eyes: PERRL, conjunctivae normal, anicteric sclerae ENMT: external ear and nose normal, oropharynx normal Neck: trachea midline, no thyromegaly Respiratory: normal respiratory effort, lungs clear to auscultation Cardiovascular: RRR, no murmur, no edema Gastrointestinal (Abdomen): normal bowel sounds, soft, nontender, no hepatosplenomegaly Musculoskeletal: Extremities: no cyanosis Skin: no rashes, warm and dry Neurologic: PERRL, EOMI, accommodation nl, no face palsy, no dysarthria Psychiatric: Insight: + limited insight Results & Data Vital Signs (Past 12 Hours) Vital Signs Temp Pulse Pulse Pulse Resp BP BP 09/30/23 07:48 36.6 C 74 18 157/96 H 09/30/23 02:48 36.7 C 81 16 120/71 09/29/23 22:22 36.5 C 78 16 157/81 H 09/29/23 22:01 76 Pulse Ox O2 Del Method 09/30/23 07:48 93 Room Air 09/30/23 02:48 93 Room Air 09/29/23 22:22 91 Room Air 09/29/23 22:01 Laboratory Results Laboratory Results - last 24 hr 09/29/23 09/29/23 09/29/23 12:50 17:25 20:17 WBC RBC Hgb Hct MCV MCH MCHC RDW Std Deviation RDW Coeff of Jessica Plt Count MPV Sodium Potassium Chloride Carbon Dioxide Anion Gap BUN Creatinine Est Cr Clr Drug Dosing Est GFR ( Amer) Est GFR (Non-Af Amer) BUN/Creatinine Ratio Glucose POC Glucose 217 H 99 120 H Calcium 09/30/23 09/30/23 06:08 08:04 WBC 7.01 RBC 3.62 L Hgb 10.3 L Hct 31.9 L MCV 88.1 MCH 28.5 MCHC 32.3 RDW Std Deviation 42.7 RDW Coeff of Jessica 13.2 Plt Count 211 MPV 9.8 Sodium 136 Potassium 4.6 Chloride 103 Carbon Dioxide 25 Anion Gap 8 BUN 36 H D Creatinine 3.34 H D Est Cr Clr Drug Dosing 24.8 Est GFR ( Amer) 18.7 Est GFR (Non-Af Amer) 16.2 BUN/Creatinine Ratio 10.8 Glucose 104 H POC Glucose 103 H Calcium 8.2 L PG Care Time/CCT Total # of Minutes Spent Total Time Spent with Patient: Total time spent is greater than 50% in coordination of care (as documented) at patient's floor/unit and/or counseling patient: Coding Level of Care Code 46768 SUB INP/OBS CARE 3/50MIN Diagnoses ESRD (end stage renal disease) N18.6 Chronic kidney disease N18.9 Hypertension I10 Hypertension type: unspecified Diabetic nephropathy E11.21 (3) Hypertension Hypertension type: unspecified Qualified Code(s): I10 - Essential (primary) hypertension
[2023-09-30] MEDS: HEPARIN SOD (PORCINE) 1000 UNIT/ML IV ONE (09:52)
[2023-09-30] MEDS: EPOETIN ALFA 10,000 UNITS/ML VIAL IV ONE (10:54)
[2023-09-30] MEDS: HEPARIN SOD (PORCINE) 1000 UNIT/ML IV SCH (10:55)
[2023-09-30 11:56] LABS: HBSAG NON-REACTIVE (NON-REACTIVE); Hepatitis B Core Antibody IgM NON-REACTIVE (NON-REACTIVE); Hepatitis B Surface Ab, Quant <5 mIU/mL (> OR = 10)
--- NOTE | 2023-09-30 13:42 | Hospitalist Progress Note ---
Date of Service September 30, 2023 Assessment & Plan (1) Acute kidney injury superimposed on CKD: Plan: Unstable - Presented to the hospital due to worsening renal function noted on abnormal outpatient lab work. Patient has history of CKD 4 secondary to diabetic nephropathy with proteinuria, hypertension, and DM. - Uncertain if there is an acute cause for patient's decline in renal function vs chronic progression of her kidney disease secondary to HTN, DM - Nephrology consulted, recommendations appreciated - Creatinine peaked at 5.8 and patient became oliguric/anuric. She had permacath inserted on 09/28/[address] Caceres. First HD completed 09/28/2023. - Patient had second HD treatment today, 09/29/2023. Some fatigue afterwards, but well-tolerated. - Plan for outpatient HD at [facility] with Dr. Montaño on , , Tue schedule. Hepatitis B serology pending. - Continue to hold diuretic and BAYLEE/ARB and avoid nephrotoxic meds. Encourage oral hydration. Monitor I&Os. 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 - Patient has been intolerant of CCB in the past due to LE swelling. - Lisinopril reinstituted 09/24/23, however, poorly tolerated and patient became hypotensive, subsequently Chlorthalidone and Lisinopril d/c'd - BP stable - Continue labetalol, clonidine, and hydralazine. - Closely monitor BP and kidney function. (3) Type 2 diabetes mellitus: Plan: Chronic/stable - Patient reports overall well controlled blood sugars of late. She does not always take her insulin. Last [id number]=3.4 on 09/16/23 - Previously ordered Lantus 5u BID and Sliding scale which at some point was discontinued - Her BSG ranges 65 to 217 since admission - Lantus was subsequently discontinued - Reorder sliding scale with a range of 110-180, CF 40 and CR 20 - Pharmacy consulted to assist with glycemic management, appreciate assistance (4) Anxiety: Plan: Chronic. - Continue Citalopram 10mg daily & Hydroxyzine 25mg QID Admission and Anticipated Discharge Date Admission Date: September 22, 2023 Subjective Delaney was seen today in dialysis on daily rounds. She is resting comfortably and tolerating HD session. She has no c/o chest pain, dyspnea, n/v/d, f/c, headache, or gu symptoms. She is still making urine. She is unable to quantify if she is producing a normal amount or less than usual. She started HD on 09/27, received treatment on 09/28 and this is her third session. She plans to continue on a , , and Tuesday schedule which has been arranged by case management but they are still waiting for her Hep B panel to come back before they can finalize arrangements. Review of Systems 2 Review of Systems: All systems reviewed and are unremarkable except as noted in HPI and below. Denies fever, chills, fatigue, headache, nasal congestion, sore throat, cough, chest pain, shortness of breath, palpitations, orthopnea, PND, abdominal pain, n/v/d, constipation, dysuria, hematuria, frequency, back pain, joint pain or swelling, easy bruising or bleeding, skin lesions or rashes. Physical Exam 2 Physical Exam: GENERAL: 43 yo WD/WN WF. A&Ox3. Pleasant and cooperative. No distress. LUNGS: CTAB. No W/R/R. CARDIOVASCULAR: RRR. ABDOMEN: Soft, NT/ND. Bowel sounds normoactive x 4 quad. EXTREMITIES: No edema. Non-tender. Peripheral pulses +2/4. SKIN: Warm, dry, intact. No rashes or lesions. Perm-a-cath site to right anterior chest wall. Clean, dry. Results & Data Results & Data Vital Signs (Past 12 Hours) Vital Signs Temp Pulse Pulse Pulse Resp BP BP 09/30/23 12:30 68 106/63 09/30/23 12:00 67 115/67 09/30/23 11:30 64 113/70 09/30/23 11:00 57 L 105/73 09/30/23 10:30 57 L 123/69 09/30/23 10:00 73 114/78 09/30/23 09:30 74 140/88 09/30/23 09:28 73 156/95 H 09/30/23 09:20 36.3 C L 75 09/30/23 07:48 36.6 C 74 18 09/30/23 07:30 84 09/30/23 02:48 36.7 C 81 16 120/71 BP Pulse Ox O2 Del Method 09/30/23 12:30 09/30/23 12:00 09/30/23 11:30 09/30/23 11:00 09/30/23 10:30 09/30/23 10:00 09/30/23 09:30 09/30/23 09:28 09/30/23 09:20 09/30/23 07:48 157/96 H 93 Room Air 09/30/23 07:30 09/30/23 02:48 93 Room Air Laboratory Results 09/30/23 06:08 09/30/23 06:08 PG Care Time/CCT Total # of Minutes Spent Total Time Spent with Patient: Total time spent is greater than 50% in coordination of care (as documented) at patient's floor/unit and/or counseling patient: Coding Diagnoses Acute kidney injury superimposed on CKD N17.9; N18.9 Hypertension I10 Hypertension type: unspecified Type 2 diabetes mellitus with stage 4 chronic kidney disease, without long-term current use of insulin E11.22; N18.4 Diabetes mellitus database security administrator insulin use: without database security administrator use Diabetes mellitus complication status: with kidney complications Diabetes mellitus complication detail: with chronic kidney disease Chronic kidney disease stage: stage 4 (severe) Anxiety F41.9 (2) Hypertension Hypertension type: unspecified Qualified Code(s): I10 - Essential (primary) hypertension (3) Type 2 diabetes mellitus Diabetes mellitus senior living insulin use: without database security administrator use Diabetes mellitus complication status: with kidney complications Diabetes mellitus complication detail: with chronic kidney disease Chronic kidney disease stage: stage 4 (severe) Qualified Code(s): E11.22 - Type 2 diabetes mellitus with diabetic chronic kidney disease; N18.4 - Chronic kidney disease, stage 4 (severe)
[2023-09-30] MEDS ORDERED: PHARMACY GLYCEMIC MGMT CONSULT PRN (14:03)
[2023-09-30] MEDS ORDERED: DEXTROSE 50% 50 ML SYRINGE IV PRN (14:03)
--- NOTE | 2023-09-30 14:56 | Pharmacy Report ---
Pharmacy Glycemic Short Note 2 - Date of Service September 30, 2023 - Glycemic Short BSG Results (Last 24 hours): 09/29/23 09/29/23 09/30/23 17:25 20:17 06:08 Glucose 104 H POC Glucose 99 120 H 09/30/23 08:04 Glucose POC Glucose 103 H OUTPATIENT ANTIDIABETIC REGIMEN: * Insulin Detemir 16 units QHS * Insulin Aspart SSI UD ASSESSMENT: * 43 year old female, new start on hemodialysis for ТАТЬЯНА. PMH CKD, HTN, anxiety. * Restarting Novolog sliding scale conservatively to prevent hypoglycemia. * Patient was previously on long acting insulin, however due to new start to hemodialysis, anticipate lower basal requirements PLAN FOR INPATIENT GLYCEMIC CONTROL: * Hold outpatient oral diabetes medications * Hold basal insulin * Bolus insulin * NovoLog per scale ACHS * Goal Range: Low 110 mg/dL - High 140 mg/dL * Correction Factor: 40 mg/dL/unit * Nutritional / Prandial insulin per carb ratio of 1 unit per 20 grams CHO consumed
--- NOTE | 2023-09-30 15:16 | Discharge Summary ---
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 Patient had blood work performed on 09/16/23 and was found to have an elevated creatinine at 4.21. She had the blood work repeated today which again confirmed elevated Cr of 4.78 so patient was instructed to come to the ER. Patient with no complaints. She denies fever, chills, cough, chest pain or shortness of breath. She denies abdominal pain, nausea, vomiting, diarrhea. No urinary complaints, no hematuria or dysuria. She has some foamy urine but not as bad as it has been in the past. She reports she is eating and drinking normally. No NSAID use. Patient follows with Nephrology - last seen on 01/28/23. 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 Baseline Cr of 2-2.4. She has history of proteinuria - 9gm. Patient has variable compliance with her blood pressure medications. When she takes her medications regularly her blood pressure is well controlled - 140mmHg systolic at the highest. However, she does not routinely take her medications so her blood pressure is often 160-180 mmHg and at times up to 230 mmHg. She reports that her blood sugars have been well controlled lately - typically in the 100's. Principal Diagnosis ESRD New hemodialysis patient Discharge Exam GENERAL: 43 yo wd/wn WF. A&O x3. No distress. LUNGS: Clear to auscultation bilaterally. No W/R/R. CARDIOVASCULAR: Regular rate and rhythm. ABDOMEN: Soft, non-tender and non-distended. BS normoactive x 4 quad. EXTREMITIES: No edema. Non-tender. Peripheral pulses +2/4. PSYCHIATRIC: Cooperative. Appropriate mood and affect. SKIN: Warm, dry, intact. No rashes or lesions. Right chest wall perm-a-cath site dressed, clean and dry. Discharge Data Allergies Allergy/AdvReac Type Severity Reaction Status Date / Time omeprazole Allergy Unknown Hives Verified 09/28/23 07:18 nifedipine AdvReac Severe Edema, Verified 09/28/23 07:18 Congestive Heart Failure Consultations 09/22/23 22:37 ED Decision to Admit Stat 09/23/23 00:05 Consult Nephrology Routine 09/27/23 09:10 Consult Vascular Surgery Routine Procedures Performed Operation Date: 09/28/23 08:00 Actual Procedures p Perm Catheter Insertion, Right Internal Jugular Approach, Ultrasound Localization of Right Internal Jugular Vein, Fluoroscopy for Positioning, Moderate Sedation [id number](Right) - Valerio Caceres MD Ordered Studies Renal Ultrasound 09/23/23 00:05 US renal/blad retro comp CLINICAL HISTORY: ТАТЬЯНА on CKD TECHNIQUE: Multiple sonographic real-time images of the kidneys and bladder were obtained. COMPARISON: None available at the time of this dictation. FINDINGS: The right kidney measures 10.1 cm in length, and the left kidney measures 9.1 cm in length. The right kidney is normal in size, contour, cortical thickness, and echogenicity. No hydronephrosis is identified. Nonobstructive nephrolithiasis is seen. The left kidney is normal in size, contour, cortical thickness and echogenicity. No hydronephrosis is identified. No renal lesion is identified. The bladder is partially distended. No large intraluminal mass is seen. IMPRESSION: No hydronephrosis or other acute abnormality. ACT 112: Negative or not required by law. Electronically signed by: Shaji James M.D. 09/23/2023 8:45 AM Chest X-Ray 09/25/23 14:04 XR chest 1V portable CLINICAL HISTORY: Chest pain after fall TECHNIQUE: Single frontal radiograph of the chest was obtained. Comparison: Comparison is made to chest radiograph 10/05/2021 FINDINGS: No lines and tubes are seen. Cardiomegaly is noted. The lungs are clear. No evidence of pleural effusion or pneumothorax. IMPRESSION: No acute chest disease. ACT 112: Negative or not required by law. Electronically signed by: Shaji James M.D. 09/25/2023 4:[address] 09/25/23 14:04 CT facial bones wo con CLINICAL HISTORY: Fall with head strike TECHNIQUE: Multidetector row helical CT of the maxillofacial bones was performed without administration of intravenous contrast, and processed with bone and soft tissue algorithms. Coronal and sagittal reformations were obtained. Automated dose lowering techniques and/or adjustment according to patient size were utilized for this exam. CT DOSE: 821.82 mGy.cm Comparison: None available at the time of this dictation. FINDINGS: Discontinuity is seen in the nasal bones which may represent an acute fracture. Surrounding soft tissue swelling is seen. The mandible is intact. The temporomandibular joints are anatomically aligned. Pterygoid plates are intact. Zygomatic arches are intact. The globes are normal and symmetric, without proptosis, obvious disruption or lens dislocation. There is no orbital radiopaque foreign body. The orbital trinidad are intact. The retrobulbar fat is without evidence of disruption. Extraocular muscles are normal and symmetric. Optic nerve sheath complexes are normal in course and caliber. Imaged portions of the paranasal sinuses and mastoid air cells are clear. IMPRESSION: Likely nasal bone fracture with associated soft tissue swelling. ACT 112: Negative or not required by law. Electronically signed by: Shaji James M.D. 09/25/2023 4:[address] 09/25/23 14:04 CT head/brain wo con CLINICAL HISTORY: Fall with head strike Technique: Contiguous axial CT images of the head were acquired from the base of the skull to the vertex without intravenous contrast administration. Images were viewed in brain, subdural and bone windows. Automated dose lowering techniques and/or adjustment according to patient size were utilized for this exam. Comparison: Comparison is made to CT head 10/05/2021 Findings: The ventricles, basal cisterns, and cerebral sulci are normal. There is no acute intracranial hemorrhage or evidence of acute territorial infarction. Neither mass effect, shift of the midline structures, nor abnormal extra-axial fluid collections are shown. Chronic appearing lacunar infarcts are seen bilaterally. Imaged portions of the paranasal sinuses and mastoid air cells are clear. The orbits appear normal. There are no acute fractures of the calvaria or scalp swelling. Impression: No acute intracranial hemorrhage, no evidence of acute territorial infarction or other acute intracranial disease process. ACT 112: Negative or not required by law. Electronically signed by: Shaji James M.D. 09/25/2023 4:30 PM Renal Artery Duplex 09/26/23 00:00 DOPPLER ULTRASOUND OF THE RENAL ARTERIES CLINICAL HISTORY: Hypertension. COMPARISON STUDY: Renal artery Doppler ultrasound October 07, 2021. TECHNIQUE: Color and duplex Doppler sonography of the abdominal aorta and renal arteries was performed. FINDINGS: Peak systolic velocity within the abdominal aorta was 101 cm/s. The peak systolic velocity within the left renal artery was 169 cm/s. The peak systolic velocity within the right renal artery was 82 cm/s. Segmental waveforms within the bilateral kidneys were normal. Bilateral renal veins were patent. IMPRESSION: No sonographic evidence for renal artery stenosis. ACT 112: Negative or not required by law. Electronically signed by: Chalino Jacobsen M.D. 09/26/2023 9:43 AM Hospital Course (1) Acute kidney injury superimposed on CKD: - Presented to the hospital due to worsening renal function noted on abnormal outpatient lab work. Patient has history of CKD 4 secondary to diabetic nephropathy with proteinuria, hypertension, and DM. - Patient's baseline Cr of 2-2.4. Presented with Cr of 4.78 on admission. - Potassium is WNL. She did have low serum bicarbonate at 15 on admission. Patient reports normal UOP with no urinary complaints. - CK elevated at 267 on admission - Urine random Na 56, urine random creatinine 81.3 - Urine culture revealed Lactobacillus species --> normal, no need for antibiotics. - Renal ultrasound 09/23/23 showed no hydronephrosis or other acute abnormality, mild renal asymmetry. - Renal artery duplex showed no renal artery stenosis 09/26/23. - Uncertain if there is an acute cause for patient's decline in renal function vs chronic progression of her kidney disease secondary to HTN, DM - Nephrology consulted, recommendations appreciated - ТАТЬЯНА likely due to relative dehydration in the setting of ACEi therapy. - Lisinopril reinstituted 09/24/23 because of BP remaining elevated and kidney function improving. However, poorly tolerated by patient and serum Cr increased to 5.26 on 09/25/23. - Discontinued lisinopril and chlorthalidone. - Continue labetalol and hydralazine. - Creatinine peaked at 5.8 and patient became oliguric/anuric. She had permacath inserted on 09/28/[address] Caceres. First HD completed 09/13. - Patient had second HD treatment today, 09/29/2023. Some fatigue afterwards, but well-tolerated. - Plan for outpatient HD at [facility] with Dr. Montaño. Hepatitis B serology negative/nonreactive. - Patient will require close outpatient nephrology follow-up (2) Hypertension: Chronic/stable - Patient reports that she was not taking her antihypertensive medications for about 2 months, then resumed her antihypertensives approximately 2 weeks prior to admission. - Patient has been intolerant of CCB in the past due to LE swelling. - Lisinopril reinstituted 09/24/23, however, poorly tolerated and patient became hypotensive. -- Patient experienced two falls on 09/24/23 without head strike, LOC, or injury. - Patient had another fall on 09/25/23 coming out of the bathroom. -- Head strike with epistaxis. Tender to palpation on sternum. -- CT face revealed nasal bone fracture with soft tissue swelling. CT head negative for acute intracranial process. CXR negative for acute chest disease. -- Augmentin initiated for empiric coverage for infectious process within sinuses. Last dose 09/30/2023. -- Apply ice to nose Q4HWA. - BP remains labile. ?Autonomic dysfunction secondary to diabetes - Continue labetalol and hydralazine. - Closely monitor BP and kidney function. Patient will require close outpatient follow-up with Dr. Montaño in nephrology upon discharge. (3) Type 2 diabetes mellitus: Chronic/stable - Patient reports overall well controlled blood sugars of late. She does not always take her insulin. Last UazX8T=4.4 on 09/16/23 - Lantus 5u BID - ISS - Goal blood sugar 110 - 140 - Cautious use of insulin given patient's degree of renal compromise -- may have delayed clearance. - Morbid obesity with BMI 42.8 (4) Anxiety: Chronic/stable - Continue Citalopram 10mg po daily - Continue Hydroxyzine 25mg po QID Plan Patient is medically and hemodynamically stable. Discussed with nephrology, of which she will need to follow up with closely. Will plan to start outpatient HD on Monday 10/02 and then follow MWF schedule. Above plan of care has been d/w Dr. Laureano who is in agreement with the aforementioned. Total Time Total Time Spent Total Time Spent (In Minutes): 35 Discharge Plan Discharge Items Patient Disposition: Home - Self-Care Reason For Visit: ТАТЬЯНА ON CKD Discharge Diagnosis: Kidney failure Activity: Resume your previous activity Non-emergency contact: Primary Care Provider and Belt Lacer Call non-emergency contact if: you have any medication questions and your symptoms worsen Follow-up/Referrals: Charles Gonzalez, [Primary Care Provider] - 10/04/23 10:00 am Diet: Carb Consistent or DM2 and Dialysis Renal Addtl Attending Provider Instructions: 1. Take all medications as directed. 2. Medications that have been discontinued this admission: Lisinopril, Spironolactone, Chlorthalidone, and insulin. 3. Medications started: Renal caps and Sodium Bicarb. These medications have be en sent to your pharmacy. 4. Follow up with nephrology. Hemodialysis scheduled for Tuesday, Tuesday and Tuesday at [facility]. 5. Follow up with PCP within 1 week of discharge. Pending Studies at Discharge: No Stand-Alone Forms: My [facility] Delight, Smoking Cessation Medications and DC Order Prescriptions: New sodium bicarbonate 650 mg Tablet 650 mg PO BID Qty: 60 0RF Renal Caps 1 mg Capsule 1 cap PO QAM Qty: 30 0RF Continued (DME) pen needle, diabetic 31 gauge x 1/4" needle See Dose Instructions .ROUTE .MEDSUPPLY Qty: 200 5RF Dose Instruction: As directed Rx Instructions: INJECT INSULIN TWICE DAILY; DX CODE- E11.65 (DME) OneTouch Ultra Test Strip See Rx Instructions .ROUTE .COMPLEX Qty: 400 1RF Dose Instruction: USE UP TO 4 STRIPS DAILY. DX E11.65 Rx Instructions: USE UP TO 4 STRIPS DAILY. DX E11.65 (DME) blood sugar diagnostic Strip See Rx Instructions miscellaneous .MEDSUPPLY Qty: 200 8RF Rx Instructions: As directed to check blood sugars 4-6 times a day during (DME) lancing device with lancets [OneTouch Delica Lanc Device] Kit See Rx Instructions miscellaneous .MEDSUPPLY Qty: 1 0RF Rx Instructions: As directed (DME) lancets [OneTouch Delica Lancets] [facility] See Dose Instructions .ROUTE .MEDSUPPLY Qty: 100 0RF Dose Instruction: As directed Rx Instructions: As directed hydralazine 100 mg tablet 100 mg PO TID citalopram 10 mg tablet 10 mg PO QAM labetalol 200 mg Tablet 600 mg PO TID Discontinued insulin aspart U-100 [Novolog FlexPen U-100 Insulin] 100 unit/mL (3 mL) insulin pen 1 sliding scale dose subcut UD Rx Instructions: up to 20 units a day per sliding scale. Levemir FlexPen 100 unit/mL (3 mL) insulin pen 16 unit subcut HS lisinopril 40 mg Tablet 40 mg PO QAM chlorthalidone 25 mg tablet 25 mg PO QAM Rx Instructions: TAKE 1 TABLET BY MOUTH EVERY DAY IN THE MORNING spironolactone 25 mg tablet 50 mg PO QAM Rx Instructions: TAKE 2 TABLETS BY MOUTH EVERY DAY IN THE MORNING No Action hydroxyzine HCl 25 mg tablet 25 mg PO QID Qty: 360 1RF Discharge Orders: Discharge Order (Routine); Ordered 09/30/23 Ordered By: Mirta Vasquez Admission Data Admit Date/Time: 09/22/23 23:03 Attending Provider: Valeriy Laureano Admit Provider: Chiara Haque Primary Care Provider: Charles Gonzalez Other Providers: Chiara Haque; Keon Rojas; Valerio Caceres Other Interventions: Discharge Summary Assessment (RN) Last Done: 09/30/23 15:59 Supervising Physician Co-Signing Physician Notes During face to face encounter, I obtained a brief physical examination, discussed hospital stay with patient and discharge instructions with patient. I discussed discharge plan of care with MAVIS Vasquez. I reviewed above note and agree with it except for the following: Patient admitted with ТАТЬЯНА on CKD. will continue outpatient dialysis. Coding Level of Care Code 93054 INP/OBS DISCH >30 MIN Diagnoses Acute kidney injury superimposed on CKD N17.9; N18.9 Hypertension I10 Hypertension type: unspecified Type 2 diabetes mellitus with stage 4 chronic kidney disease, without long-term current use of insulin E11.22; N18.4 Chronic kidney disease stage: stage 4 (severe) Diabetes mellitus complication detail: with chronic kidney disease Diabetes mellitus complication status: with kidney complications Diabetes mellitus intermediate card tender insulin use: without [facility] use Anxiety F41.9
[2023-09-30] MEDS ORDERED: INSULIN ASPART PER UNIT CHARGE SC SCH (16:30)
== END 2023-09-30 17:29 | disposition home or self-care (01) | DRG 674 ==
LOC: ED 20:50 → 2N 23:03 → SUATTDRO 23:03 → 2N 23:31
DX: Z88.8 Allergy status to other drugs, medicaments and biological substances; E66.01 Morbid (severe) obesity due to excess calories; Y92.239 Unspecified place in hospital as the place of occurrence of the external cause; N17.0 Acute kidney failure with tubular necrosis; E11.22 Type 2 diabetes mellitus with diabetic chronic kidney disease; N18.6 End stage renal disease; I12.0 Hypertensive chronic kidney disease with stage 5 chronic kidney disease or end stage renal disease; E86.0 Dehydration; W18.39XA Other fall on same level, initial encounter; D63.8 Anemia in other chronic diseases classified elsewhere; Z86.16 Personal history of COVID-19; S02.2XXA Fracture of nasal bones, initial encounter for closed fracture; Z68.41 Body mass index [BMI] 40.0-44.9, adult; F41.9 Anxiety disorder, unspecified; Z79.4 Long term (current) use of insulin

== ENCOUNTER 2023-11-16 17:02 | Inpatient (IN) ==
[2023-11-16] MEDS: ONDANSETRON INJ 2 MG/ML 2 ML VIAL IV STA (18:37)
[2023-11-16 19:57] LABS: Basophils # (auto) 0.07 K/uL (0.00-0.20); Basophils % (auto) 0.7 %; Eosinophils # (auto) 0.06 K/uL (0.00-0.50); Eosinophils % (auto) 0.6 %; Hematocrit (blood only) 37.1 % (37.0-47.0); Hemoglobin 11.9 g/dl (12.0-16.0); Immature Granulocytes # (auto) 0.04 K/uL (0.01-0.20); Immature Granulocytes % (auto) 0.4 %; Lymphocytes # (auto) 1.33 K/uL (1.20-3.40); Lymphocytes % (auto) 12.8 %; Mean Corpuscular Hemoglobin 28.8 pg (25.0-34.0); Mean Corpuscular Hgb Conc 32.1 g/dL (32.0-36.0); Mean Corpuscular Volume 89.8 fL (80.0-100.0); Mean Platelet Volume 9.8 fL (9.4-12.4); Monocytes # (auto) 0.73 K/uL (0.11-0.59); Neutrophils # (auto) 8.14 K/uL (1.40-6.50); Neutrophils % (auto) 78.5 %; Platelet Count 290 K/uL (130-400); RDW Coefficient of Variation 12.3 % (11.5-14.5); Red Blood Count 4.13 M/uL (4.20-5.40); White Blood Count 10.37 K/ul (4.8-10.8)
[2023-11-16 20:09] LABS: Alanine Aminotransferase 18 U/L (7-52); Albumin Globulin Ratio 1.4 (0.9-2); Albumin Level 4.6 gm/dl (3.4-5.0); Alkaline Phosphatase 80 U/L (34-104); Anion Gap 16 (3-11); Aspartate Aminotransferase 25 U/L (13-39); BUN Creatinine Ratio 4.7 (10-20); Bilirubin,Total 0.9 mg/dl (0.2-1.0); Blood Urea Nitrogen 16 mg/dl (6-23); Carbon Dioxide 30 mmol/L (21-32); Chloride 93 mmol/L (98-107); Est GFR (African American) 18.1 ml/min; Est GFR (Non-African American) 15.6 ml/min; Globulin 3.2 gm/dl (2.5-4.0); Glucose 127 mg/dl (70-99(Fasting)); Potassium 3.8 mmol/L (3.5-5.1); Sodium 139 mmol/L (136-145); Total Protein 7.8 gm/dl (6.0-8.3)
[2023-11-16 21:26] LABS: Adenovirus PCR Not Detected (NotDetected); Bordetella parapertussis PCR Not Detected (NotDetected); Bordetella pertussis PCR Not Detected (NotDetected); Chlamydia pneumoniae PCR Not Detected (NotDetected); Coronavirus 229E PCR Not Detected (NotDetected); Coronavirus CoV-2 (COVID19)PCR Not Detected (NotDetected); Coronavirus HKU1 PCR Not Detected (NotDetected); Coronavirus NL63 PCR Not Detected (NotDetected); Coronavirus OC43PCR Not Detected (NotDetected); Human Metapneumovirus PCR Not Detected (NotDetected); Influenza A PCR Not Detected (NotDetected); Influenza B PCR Not Detected (NotDetected); Mycoplasma pneumoniae PCR Not Detected (NotDetected); Parainfluenza Virus 1 PCR Not Detected (NotDetected); Parainfluenza Virus 2 PCR Not Detected (NotDetected); Parainfluenza Virus 3 PCR Not Detected (NotDetected); Parainfluenza Virus 4 PCR Not Detected (NotDetected); Respiratory Syncytial VirusPCR Not Detected (NotDetected); Rhinovirus/Enterovirus PCR DETECTED (NotDetected)
[2023-11-16] MEDS: LABETALOL HCL IV 5 MG/ML 20ML IV STA (22:00)
[2023-11-16] MEDS: FAMOTIDINE 20MG IV PUSH 20 MG/5 ML SYR IV STA (22:00)
[2023-11-16 22:05] LABS: Appearance Urine Cloudy (Clear); Bacteria Urine Automated 2+ (None Seen); Bilirubin Urine Negative (Negative); Blood Urine Negative (Negative); Cast Urine Automated >20 /lpf (0-2); Color Urine Dark Yellow; Glucose Urine UA Trace (Negative); Hyaline Casts Urine Present /lpf (None Presnt); Ketones Urine 1+ (Negative); Leukocyte Esterase Urine Trace (Negative); Nitrite Urine Negative (Negative); Protein Urine 4+ (Negative); RBC Urine Automated 0-2 /hpf (0-2); Urobilinogen Urine Negative (Negative); WBC Urine Automated 0-5 /hpf (0-5); pH Urine 7.5 (4.5-7.5)
[2023-11-16 22:19] LABS: Magnesium 1.9 mg/dl (1.7-2.4)
[2023-11-16 22:26] LABS: Troponin I High Sensitivity 23.1 pg/ml (0-14)
--- NOTE | 2023-11-16 23:09 | CT Scan Report ---
Exam(s): CT ABDOMEN + PELVIS Without Contrast EXAM: CT Abdomen and Pelvis Without Intravenous Contrast CLINICAL HISTORY: Reason for exam: n/v pain, ESRD. TECHNIQUE: Axial computed tomography images of the abdomen and pelvis without intravenous contrast. CTDI is 28.12 mGy and DLP is 1442.09 mGy-cm. Automated exposure control was utilized for the study. A dose lowering technique was utilized adhering to the principles of ALARA. COMPARISON: No relevant prior studies available. FINDINGS: Lung bases: Unremarkable. No mass. No consolidation. Mediastinum: Abnormal thickening distal wall of the esophagus with mild surrounding inflammatory stranding likely infectious or inflammatory in etiology. Consider further correlation with direct endoscopic visualization. ABDOMEN: Liver: Unremarkable. 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 No evidence for acute cholecystitis. No ductal dilation. Pancreas: Unremarkable. No ductal dilation. Spleen: Unremarkable. No splenomegaly. Adrenals: Unremarkable. No mass. Kidneys and ureters: Unremarkable. No obstructing stones. No hydronephrosis. Stomach and bowel: Unremarkable. No obstruction. No mucosal thickening. PELVIS: Appendix: No findings to suggest acute appendicitis. Bladder: Unremarkable. No stones. Reproductive: Post hysterectomy. ABDOMEN and PELVIS: Intraperitoneal space: Unremarkable. No free air. No significant fluid collection. Bones/joints: No acute fracture. No dislocation. Soft tissues: Unremarkable. Vasculature: Unremarkable. No abdominal aortic aneurysm. Lymph nodes: Unremarkable. No enlarged lymph nodes. IMPRESSION: 1. Abnormal thickening distal wall of the esophagus with mild surrounding inflammatory stranding likely infectious or inflammatory in etiology. Consider further correlation with direct endoscopic visualization. 2. 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 No evidence for acute cholecystitis. Electronically signed by: Dionicio Tapia MD 11/16/23 23:08 PM
--- NOTE | 2023-11-16 23:13 | Emergency Department Note ---
History of Present Illness General Chief complaint: Flu Like Symptoms Stated complaint: VOMITING, SWEATS/CHILLS Time Seen by Provider: 11/16/23 21:38 History of Present Illness This 43-year-old female with end-stage renal disease who gets dialysis Tuesday presents ER for nausea vomiting and generalized illness for the past day. Patient denies chest pain, dyspnea, cough, congestion, diarrhea. She states she still makes urine. She has not missed dialysis. Home Medications Medication Instructions Recorded Confirmed Type lancets 33 gauge (OneTouch Delica #100 ea 03/05/18 10/27/23 Rx Lancets) pen needle, diabetic 31 gauge x #200 ea 02/05/21 10/27/23 Rx 1/4" blood sugar diagnostic #200 ea 06/08/21 10/27/23 Rx lancing device with lancets kit #1 ea 06/08/21 10/27/23 Rx (OneTouch Delica Lancing Device kit) blood sugar diagnostic (OneTouch #400 strips 04/18/23 10/27/23 Rx Ultra Test strips) citalopram 10 mg tablet 10 mg PO QAM 09/22/23 11/16/23 History insulin aspart U-100 100 unit/mL 1 sliding scale dose subcut UD #15 10/05/23 11/16/23 Rx (3 mL) subcutaneous pen (Novolog mL FlexPen U-100 Insulin aspart) insulin detemir U-100 100 unit/mL 16 unit (0.16 mL) subcut HS #15 mL 10/05/23 11/16/23 Rx (3 mL) subcutaneous pen (Levemir FlexPen) blood-glucose sensor (FreeStyle #3 ea 11/11/23 11/11/23 Rx [place] 3 Sensor device) fluticasone propionate 50 2 spray intranasal BID PRN 11/16/23 11/16/23 History mcg/actuation nasal Congestion spray,suspension hydralazine 50 mg tablet 50 mg PO TID 11/16/23 11/16/23 History Allergies Allergy/AdvReac Type Severity Reaction Status Date / Time omeprazole Allergy Intermediate Hives Verified 11/16/23 22:31 nifedipine AdvReac Severe Edema, Verified 11/16/23 22:31 Congestive Heart Failure Past Med/Surg History Problem List (Updated 11/16/23 @ 23:16 by Kia Robin PA-C) Elevated troponin (Acute) Enterovirus infection (Acute) ESRD (end stage renal disease) Hypertension Acute kidney injury superimposed on CKD Chronic kidney disease (Acute) Neck mass (Acute) Type 2 diabetes mellitus Anxiety Intellectual disability PCOS (polycystic ovarian syndrome) Diabetic nephropathy Peripheral edema 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 Cerebrovascular disease Elderly multigravida History of delivery, currently Anemia of chronic disease Chronic kidney disease, stage 4 (severe) Medical History ТАТЬЯНА (acute kidney injury) Severe preeclampsia Hyperemesis gravidarum before end of 22 week gestation, dehydration Chronic hypertension affecting Diabetes mellitus, type 2 History of COVID-19 2020 + Fall 2021>no current symptoms Social anxiety disorder History of PCOS History of pre-eclampsia Demyelinating disease Per [facility] neurology visit 01/02/21, "doubt that she has multiple sclerosis. However.. 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, left Per remote [facility] neurology notes (12/2020) Learning disability Issues with multiple or complex instructions Endometriosis Hx Hirsutism Surgical History Previous delivery affecting , antepartum Hx of total hysterectomy with removal of both tubes and ovaries 12/2022; [facility], one ovary remains History of dilatation and curettage S/P section 09/11/21 S/P section 07/15/20 [facility] [place] Hx of tonsillectomy Family History Unknown Endometriosis Grandmother (Maternal) Type 2 diabetes mellitus Denies family history of Ovarian cancer Prostate cancer Myocardial infarction Breast cancer Colorectal cancer Social History Smoking Status: Never smoker Second Hand Exposure: No; Do You Dip or Chew Tobacco: No; Hx Alcohol Use: No Hx Substance Use: No Preferred Language: Comoran Communication Ability: Effective Communication Ability Comment: learning disability with complex or mulitple instructions Visual Impairment: No Limitations Hearing Ability: Normal Traffic Chief Required: No Beliefs That Will Affect Care: None marital status: marital status details: Deny Newman (43) [phone] Current Living Situation: Spouse and Family Current Living Situation Comment: Deny - spouse and 2 daughters and one cat current occupational status: unemployed 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 How many Children do You have: 2 Feels Safe at Home: Yes Childhood Exposure to Second-Hand Smoke: Yes Diet: diabetic caffeine: Yes during the past year weight has: remained stable Dental Care, Regularly: Yes Physical Activity Frequency: Does not Exercise Seatbelt Use: always Sunscreen Use: Yes Assistive Devices: Glasses Review of Systems A total of 10 systems reviewed and were otherwise negative Physical Exam Vital Signs Vital Signs - 24 hr 11/16/23 17:41 11/16/23 20:58 11/16/23 21:00 Temperature 36.7 C Temperature Source Temporal Artery Scan Pulse Rate 71 77 75 Pulse Rate from SpO2 Sensor 78 Pulse Rhythm Respiratory Rate 16 16 Respiratory Effort / Characteristics Non-Labored Spontaneous Respiratory Depth Normal Blood Pressure 180/103 H 198/115 H Blood Pressure Mean 128 141 Blood Pressure Position Sitting Pulse Oximetry 99 94 Oxygen Delivery Method Room Air Room Air Sepsis Recent Fever Within 48 Hours No Sepsis New/Unexplained Change in Mental Status N/A Sepsis Action Taken by Nursing No Action Required 11/16/23 21:15 11/16/23 21:36 11/16/23 21:39 Temperature Temperature Source Pulse Rate 78 88 72 Pulse Rate from SpO2 Sensor 78 90 74 Pulse Rhythm Respiratory Rate 16 17 13 Respiratory Effort / Characteristics Respiratory Depth Blood Pressure 158/119 H 201/94 H 204/135 H Blood Pressure Mean 143 129 158 Blood Pressure Position Pulse Oximetry 93 94 95 Oxygen Delivery Method Room Air Room Air Room Air Sepsis Recent Fever Within 48 Hours Sepsis New/Unexplained Change in Mental Status Sepsis Action Taken by Nursing 11/16/23 21:46 11/16/23 21:57 11/16/23 22:00 Temperature Temperature Source Pulse Rate 84 70 Pulse Rate from SpO2 Sensor Pulse Rhythm Respiratory Rate 16 Respiratory Effort / Characteristics Respiratory Depth Blood Pressure 227/116 H 227/116 H 191/108 H Blood Pressure Mean 131 153 Blood Pressure Position Pulse Oximetry 98 98 Oxygen Delivery Method Room Air Room Air Sepsis Recent Fever Within 48 Hours Sepsis New/Unexplained Change in Mental Status Sepsis Action Taken by Nursing 11/16/23 22:00 11/16/23 22:03 11/16/23 22:11 Temperature Temperature Source Pulse Rate 89 74 80 Pulse Rate from SpO2 Sensor 80 Pulse Rhythm Regular Respiratory Rate 18 16 16 Respiratory Effort / Characteristics Respiratory Depth Blood Pressure 243/113 H 168/114 H Blood Pressure Mean 156 122 Blood Pressure Position Pulse Oximetry 100 98 98 Oxygen Delivery Method Room Air Room Air Room Air Sepsis Recent Fever Within 48 Hours Sepsis New/Unexplained Change in Mental Status Sepsis Action Taken by Nursing 11/16/23 22:15 11/16/23 22:30 11/16/23 23:00 Temperature Temperature Source Pulse Rate 80 75 88 Pulse Rate from SpO2 Sensor 69 88 Pulse Rhythm Respiratory Rate 16 16 Respiratory Effort / Characteristics Respiratory Depth Blood Pressure 168/114 H 214/104 H 186/100 H Blood Pressure Mean 139 158 Blood Pressure Position Pulse Oximetry 93 93 Oxygen Delivery Method Room Air Room Air Sepsis Recent Fever Within 48 Hours Sepsis New/Unexplained Change in Mental Status Sepsis Action Taken by Nursing VITALS: Vitals are noted on the nurse's note and reviewed by myself. Vital signs stable. GENERAL: White female, in no acute distress, nondiaphoretic, well-developed well-nourished. SKIN: Capillary reflex less than 2 seconds. HEENT: Normocephalic. PERRLA. EOMI. Nares patent. Mucous membranes moist. Neck is supple without nuchal rigidity. HEART: Regular rate and rhythm LUNGS: Clear to auscultation bilaterally without wheezes, rales or rhonchi. No retractions or accessory muscle use. ABDOMEN: Positive bowel sounds x 4. Normal tympanic percussion. Soft, tender epigastric region, without masses or organomegaly. Hurst sign negative. No guarding or rebound tenderness. no CVA tenderness MUSCULOSKELETAL: No gross musculoskeletal defects. NEURO: Patient was alert and oriented to person place and time. No focal neurological deficits. Course Administered Medications Discontinued Medications Famotidine (Pepcid 20mg Iv Push) 20 mg in 5 mls @ 2.5 mls/min IV NOW STA Stop: 11/16/23 21:51 Last Admin: 11/16/23 22:00 Dose: 2.5 mls/min Documented By: LUCIUS Labetalol HCl (Labetalol Hcl Iv 5 Mg/Ml 20ml) 10 mg IV NOW STA Stop: 11/16/23 21:51 Last Admin: 11/16/23 22:00 Dose: 10 mg Documented By: LUCIUS Co-signed By: Ondansetron HCl (Ondansetron Inj 2 Mg/Ml 2 Ml Vial) 4 mg IV NOW STA Stop: 11/16/23 17:47 Last Admin: 11/16/23 18:37 Dose: 4 mg Documented By: RD Medical Decision Making Medical Records Attestation: I reviewed the patient's medical records. Home Medications Current Medication List: was personally reviewed by in Laboratory Data Attestation: I reviewed the patient's lab results. 11/16/23 19:03 11/16/23 19:03 Lab Results 11/16/23 11/16/23 11/16/23 Range/Units 19:03 20:24 22:00 WBC 10.37 (4.8-10.8) K/ul RBC 4.13 L (4.20-5.40) M/uL Hgb 11.9 L (12.0-16.0) g/dl Hct 37.1 (37.0-47.0) % MCV 89.8 (80.0-100.0) fL MCH 28.8 (25.0-34.0) pg MCHC 32.1 (32.0-36.0) g/dL RDW Std Deviation 40.0 (36.4-46.3) fL RDW Coeff of Jessica 12.3 (11.5-14.5) % Plt Count 290 (130-400) K/uL MPV 9.8 (9.4-12.4) fL Immature Gran % (Auto) 0.4 % Neut % (Auto) 78.5 % Lymph % (Auto) 12.8 % [place] % (Auto) 7.0 % Eos % (Auto) 0.6 % Baso % (Auto) 0.7 % Neut # (Auto) 8.14 H (1.40-6.50) K/uL Lymph # (Auto) 1.33 (1.20-3.40) K/uL [place] # (Auto) 0.73 H (0.11-0.59) K/uL Eos # (Auto) 0.06 (0.00-0.50) K/uL Baso # (Auto) 0.07 (0.00-0.20) K/uL Immature Gran # (Auto) 0.04 (0.01-0.20) K/uL VBG pH VBG pCO2 VBG pO2 VBG HCO3 VBG O2 Saturation VBG Base Excess Barometric Pressure Sodium 139 (136-145) mmol/L Potassium 3.8 (3.5-5.1) mmol/L Chloride 93 L (98-107) mmol/L Carbon Dioxide 30 (21-32) mmol/L Anion Gap 16 H (3-11) BUN 16 (6-23) mg/dl Creatinine 3.44 H (0.6-1.2) mg/dl Est Cr Clr Drug Dosing Not Reportable Est GFR ( Amer) 18.1 ml/min Est GFR (Non-Af Amer) 15.6 ml/min BUN/Creatinine Ratio 4.7 L (10-20) Glucose 127 H (70-99(Fasting)) mg/dl Lactate 1.1 (0.4-2.0) mmol/L Calcium 10.0 (8.6-10.3) mg/dl Magnesium 1.9 (1.7-2.4) mg/dl Total Bilirubin 0.9 (0.2-1.0) mg/dl AST 25 (13-39) U/L ALT 18 (7-52) U/L Alkaline Phosphatase 80 (34-104) U/L Troponin I High Sens 23.1 H (0-14) pg/ml Total Protein 7.8 (6.0-8.3) gm/dl Albumin 4.6 (3.4-5.0) gm/dl Globulin 3.2 (2.5-4.0) gm/dl Albumin/Globulin Ratio 1.4 (0.9-2) Procalcitonin 0.13 (0-0.5) ng/ml Urine Color Urine Appearance (Clear) Urine pH (4.5-7.5) Ur Specific [place] (1.000-1.030) Urine Protein (Negative) Urine Glucose (UA) (Negative) Urine Ketones (Negative) Urine Blood (Negative) Urine Nitrite (Negative) Urine Bilirubin (Negative) Urine Urobilinogen (Negative) Ur Leukocyte Esterase (Negative) Urine WBC (Auto) (0-5) /hpf Urine RBC (Auto) (0-2) /hpf U Hyaline Cast (Auto) (0-2) /lpf U Epithel Cells (Auto) (0-2) /hpf Urine Bacteria (Auto) (None Seen) Hyaline Casts (None Presnt) /lpf Adenovirus (PCR) Not Detected (NotDetected) B. pertussis DNA (PCR) Not Detected (NotDetected) B.parapertussis DNA PCR Not Detected (NotDetected) C. pneumoniae DNA (PCR) Not Detected (NotDetected) Coronavirus OC43 (PCR) Not Detected (NotDetected) Coronavirus HKU1 (PCR) Not Detected (NotDetected) Coronavirus 229E (PCR) Not Detected (NotDetected) SARS-CoV-2 (PCR) Not Detected (NotDetected) Coronavirus NL63 (PCR) Not Detected (NotDetected) Human Metapneumovir PCR Not Detected (NotDetected) Influenza Type A (PCR) Not Detected (NotDetected) Influenza Type B (PCR) Not Detected (NotDetected) M. pneumoniae (PCR) Not Detected (NotDetected) Parainfluenza 1 (PCR) Not Detected (NotDetected) Parainfluenza 2 (PCR) Not Detected (NotDetected) Parainfluenza 3 (PCR) Not Detected (NotDetected) Parainfluenza 4 (PCR) Not Detected (NotDetected) RSV (PCR) Not Detected (NotDetected) Entero/Rhino (PCR) DETECTED A (NotDetected) 11/16/23 11/16/23 11/16/23 Range/Units 22:52 23:44 Unknown WBC (4.8-10.8) K/ul RBC (4.20-5.40) M/uL Hgb (12.0-16.0) g/dl Hct (37.0-47.0) % MCV (80.0-100.0) fL MCH (25.0-34.0) pg MCHC (32.0-36.0) g/dL RDW Std Deviation (36.4-46.3) fL RDW Coeff of Jessica (11.5-14.5) % Plt Count (130-400) K/uL MPV (9.4-12.4) fL Immature Gran % (Auto) % Neut % (Auto) % Lymph % (Auto) % [place] % (Auto) % Eos % (Auto) % Baso % (Auto) % Neut # (Auto) (1.40-6.50) K/uL Lymph # (Auto) (1.20-3.40) K/uL [place] # (Auto) (0.11-0.59) K/uL Eos # (Auto) (0.00-0.50) K/uL Baso # (Auto) (0.00-0.20) K/uL Immature Gran # (Auto) (0.01-0.20) K/uL VBG pH Cancelled 7.47 H VBG pCO2 Cancelled 47 VBG pO2 Cancelled 37 VBG HCO3 Cancelled 34 VBG O2 Saturation Cancelled 62.6 VBG Base Excess Cancelled 9.1 Barometric Pressure Cancelled Sodium (136-145) mmol/L Potassium (3.5-5.1) mmol/L Chloride (98-107) mmol/L Carbon Dioxide (21-32) mmol/L Anion Gap (3-11) BUN (6-23) mg/dl Creatinine (0.6-1.2) mg/dl Est Cr Clr Drug Dosing Est GFR ( Amer) ml/min Est GFR (Non-Af Amer) ml/min BUN/Creatinine Ratio (10-20) Glucose (70-99(Fasting)) mg/dl Lactate (0.4-2.0) mmol/L Calcium (8.6-10.3) mg/dl Magnesium (1.7-2.4) mg/dl Total Bilirubin (0.2-1.0) mg/dl AST (13-39) U/L ALT (7-52) U/L Alkaline Phosphatase (34-104) U/L Troponin I High Sens 25.8 H (0-14) pg/ml Total Protein (6.0-8.3) gm/dl Albumin (3.4-5.0) gm/dl Globulin (2.5-4.0) gm/dl Albumin/Globulin Ratio (0.9-2) Procalcitonin (0-0.5) ng/ml Urine Color Dark Yellow Urine Appearance Cloudy A (Clear) Urine pH 7.5 (4.5-7.5) Ur Specific [place] 1.020 (1.000-1.030) Urine Protein 4+ H (Negative) Urine Glucose (UA) Trace H (Negative) Urine Ketones 1+ H (Negative) Urine Blood Negative (Negative) Urine Nitrite Negative (Negative) Urine Bilirubin Negative (Negative) Urine Urobilinogen Negative (Negative) Ur Leukocyte Esterase Trace H (Negative) Urine WBC (Auto) 0-5 (0-5) /hpf Urine RBC (Auto) 0-2 (0-2) /hpf U Hyaline Cast (Auto) >20 H (0-2) /lpf U Epithel Cells (Auto) 6-10 H (0-2) /hpf Urine Bacteria (Auto) 2+ H (None Seen) Hyaline Casts Present A (None Presnt) /lpf Adenovirus (PCR) (NotDetected) B. pertussis DNA (PCR) (NotDetected) B.parapertussis DNA PCR (NotDetected) C. pneumoniae DNA (PCR) (NotDetected) Coronavirus OC43 (PCR) (NotDetected) Coronavirus HKU1 (PCR) (NotDetected) Coronavirus 229E (PCR) (NotDetected) SARS-CoV-2 (PCR) (NotDetected) Coronavirus NL63 (PCR) (NotDetected) Human Metapneumovir PCR (NotDetected) Influenza Type A (PCR) (NotDetected) Influenza Type B (PCR) (NotDetected) M. pneumoniae (PCR) (NotDetected) Parainfluenza 1 (PCR) (NotDetected) Parainfluenza 2 (PCR) (NotDetected) Parainfluenza 3 (PCR) (NotDetected) Parainfluenza 4 (PCR) (NotDetected) RSV (PCR) (NotDetected) Entero/Rhino (PCR) (NotDetected) Imaging Data Attestation: I personally reviewed and interpreted this imaging study as follows: Radiologist's Impression: Abdomen/Pelvis CT 11/16/23 21:50 Exam(s): CT ABDOMEN + PELVIS Without Contrast EXAM: CT Abdomen and Pelvis Without Intravenous Contrast CLINICAL HISTORY: Reason for exam: n/v pain, ESRD. TECHNIQUE: Axial computed tomography images of the abdomen and pelvis without intravenous contrast. CTDI is 28.12 mGy and DLP is 1442.09 mGy-cm. Automated exposure control was utilized for the study. A dose lowering technique was utilized adhering to the principles of ALARA. COMPARISON: No relevant prior studies available. FINDINGS: Lung bases: Unremarkable. No mass. No consolidation. Mediastinum: Abnormal thickening distal wall of the esophagus with mild surrounding inflammatory stranding likely infectious or inflammatory in etiology. Consider further correlation with direct endoscopic visualization. ABDOMEN: Liver: Unremarkable. 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 No evidence for acute cholecystitis. No ductal dilation. Pancreas: Unremarkable. No ductal dilation. Spleen: Unremarkable. No splenomegaly. Adrenals: Unremarkable. No mass. Kidneys and ureters: Unremarkable. No obstructing stones. No hydronephrosis. Stomach and bowel: Unremarkable. No obstruction. No mucosal thickening. PELVIS: Appendix: No findings to suggest acute appendicitis. Bladder: Unremarkable. No stones. Reproductive: Post hysterectomy. ABDOMEN and PELVIS: Intraperitoneal space: Unremarkable. No free air. No significant fluid collection. Bones/joints: No acute fracture. No dislocation. Soft tissues: Unremarkable. Vasculature: Unremarkable. No abdominal aortic aneurysm. Lymph nodes: Unremarkable. No enlarged lymph nodes. IMPRESSION: 1. Abnormal thickening distal wall of the esophagus with mild surrounding inflammatory stranding likely infectious or inflammatory in etiology. Consider further correlation with direct endoscopic visualization. 2. 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 No evidence for acute cholecystitis. Electronically signed by: Dionicio Tapia MD 11/16/23 23:08 PM [facility] Narrative Prior records/ancillary studies reviewed. Triage Nursing notes reviewed. Additional history obtained from nursing The patient's history was concerning for nausea, vomiting, and abdominal pain. Differential diagnosis: Etiologies such as gastroenteritis, food borne illness, infections, appendicitis, diverticulitis, inflammatory bowel disease, obstruction, GI bleed, biliary pathology, as well as others were entertained. Physical examination findings: As above. Abdominal examination revealed mild epigastric tenderness. Vital signs reviewed and revealed stable. ER treatment provided: Zofran and Pepcid were ordered On reassessment the patient felt better. Patient was tolerating p.o. intake. Diagnostics interpretation by me: EKG ordered for epigastric pain EKG: Normal sinus, poor baseline, prolonged QT, rate of 81. Impression normal sinus rhythm poor baseline prolonged QT interval interpreted The labs Independently Interpreted by myself revealed minimally elevated troponin repeat was ordered Positive enterovirus Imaging studies: CT as above Chest x-ray with no acute consolidation, pneumothorax or free air per my independent interpretation. Dialysis cath present. Consultation: A consultation was placed with the hospitalist. The case was discussed and diagnostics were reviewed. The patient was evaluated in the ER for further treatment. This appears to be consistent with enterovirus nausea and vomiting and dialysis patient with an elevated troponin most consistent with a type II [place]. Medicine is consulted case discussed. Patient admitted to the medical service.. By the evaluation outlined above emergent etiologies such as appendicitis, diverticulitis, obstruction, cardiac sources, mesenteric ischemia, aortic pathology, inflammatory bowel disease, renal colic, biliary pathology, UTI, as well as others were deemed relatively unlikely. The pt informed about the findings as listed above. All questions were answered and pleased with the treatment. The chart was completed utilizing [employer] Speech voice recognition software. Grammatical errors, random word insertions, pronoun errors, and incomplete sentences are an occassional consequence of this system due to software limitations, ambient noise, and hardware issues. Any formal questions or concerns about the content, text, or information contained within the body of this dictation should be directly addressed to the physician apartment community assistant manager for clarification. Impression & Plan Enterovirus infection, Elevated troponin Discharge Plan Visit Data Chief Complaint: Flu Like Symptoms Stated Complaint: VOMITING, SWEATS/CHILLS ED Provider: Baltazar Mitchell ED Midlevel Provider: Kia Robin Discharge Problem: Enterovirus infection, Elevated troponin Patient Disposition: Admitted As Inpatient Condition: Good Forms Stand Alone Forms: [facility] [employer]oyDoc Prescriptions Prescriptions: No Action (DME) pen needle, diabetic 31 gauge x 1/4" needle See Dose Instructions .ROUTE .MEDSUPPLY Qty: 200 5RF Dose Instruction: As directed Rx Instructions: INJECT INSULIN TWICE DAILY; DX CODE- E11.65 (DME) OneTouch Ultra Test Strip See Rx Instructions .ROUTE .COMPLEX Qty: 400 1RF Dose Instruction: USE UP TO 4 STRIPS DAILY. DX E11.65 Rx Instructions: USE UP TO 4 STRIPS DAILY. DX E11.65 (DME) blood sugar diagnostic Strip See Rx Instructions miscellaneous .MEDSUPPLY Qty: 200 8RF Rx Instructions: As directed to check blood sugars 4-6 times a day during (DME) lancing device with lancets [OneTouch [employer] Lanc Device] Kit See Rx Instructions miscellaneous .MEDSUPPLY Qty: 1 0RF Rx Instructions: As directed insulin aspart U-100 [Novolog FlexPen U-100 Insulin] 100 unit/mL (3 mL) insulin pen 1 sliding scale dose subcut UD Qty: 15 0RF Rx Instructions: up to 20 units a day per sliding scale. Levemir FlexPen 100 unit/mL (3 mL) insulin pen 16 unit subcut HS Qty: 15 0RF Hold Instructions: hypoglycemia (DME) FreeStyle [place] 3 Sensor Device See Rx Instructions .Route Qty: 3 5RF Rx Instructions: As directed (DME) lancets [OneTouch Delica Lancets] 33 gauge misc See Dose Instructions .ROUTE .MEDSUPPLY Qty: 100 0RF Dose Instruction: As directed Rx Instructions: As directed citalopram 10 mg tablet 10 mg PO QAM hydralazine 50 mg tablet 50 mg PO TID fluticasone propionate 50 mcg/actuation spray,suspension 2 spray intranasal BID PRN (Reason: Congestion) Rx Instructions: 2 sprays each nostril twice daily Referrals Referrals: Charles Gonzalez, DO [Primary Care Provider] -
--- NOTE | 2023-11-16 23:23 | History & Physical Report ---
Date of Service November 16, 2023 Assessment & Plan (1) Enterovirus infection: Plan: Pt is a 43 yo female with PMH of CKD stage 5 (dialysis MWF) and DM presenting d/t uncontrollable N/V. She had dialysis today and was referred to the ER d/t her symptoms. Enterovirus infection - lab work significant for no leukocytosis Hgb 11.9, electrolytes WNL, Cr 3.44, lactate 1.1, trop 23.1, procal 0.13 - RVP + for enterovirus - CTAP showed signs of infectious/inflammatory esophagitis most likely secondary to vomiting - CXR WNL - blood cx pending - symptomatic tx with gentle fluids, zofran PRN, tylenol PRN CKD stage 5 - current dialysis MWF (did have dialysis day of admission) - Cr 3.44 upon admission; electrolytes WNL - trend BMP DM - last A1c 09/2023 7.4% - will cover with insulin glargine 15u BID; SSI- adjust PRN HTN - pt requiring 10 mg of labetalol in the ER d/t BP >200/100; given hydralazine 5 mg IV upon admission - resume home hydralazine 50 mg TID Anxiety - continue citalopram 10 mg daily Diet: dialysis diet, LR at 80 mL/hr x2 Code: full DVT ppx: expect short duration of stay; defer upon admission Dispo: admit to med/surg (2) ESRD (end stage renal disease): (3) Hypertension: (4) Type 2 diabetes mellitus: History of Present Illness Chief Complaint: N/V Primary Care Provider: Charles Gonzalez DO Pt is a 43 yo female with PMH of CKD stage 5 (dialysis MWF) and DM presenting d/t uncontrollable N/V. She had dialysis today and was referred to the ER d/t her symptoms. Pt notes that she started feeling ill ~2-3 days ago including N/V. She has dialysis today which made her feel more ill and prompted her to present to the ER. She endorses some chest pain when she feels that she might vomit which feels like acid in her throat. She denies overt chest pain, SOB, abdominal pain, and diarrhea. In the ER, pt was given labetalol 10 mg, famotidine 20 mg, and ondansetron 4 mg. Allergies Allergy/AdvReac Type Severity Reaction Status Date / Time omeprazole Allergy Intermediate Hives Verified 11/16/23 22:31 nifedipine AdvReac Severe Edema, Verified 11/16/23 22:31 Congestive Heart Failure Home Medications Medication Instructions Recorded Confirmed Type lancets 33 gauge (OneTouch Delica #100 ea 03/05/18 10/27/23 Rx Lancets) pen needle, diabetic 31 gauge x #200 ea 02/05/21 10/27/23 Rx 1/" blood sugar diagnostic #200 ea 06/08/21 10/27/23 Rx lancing device with lancets kit #1 ea 06/08/21 10/27/23 Rx (OneTouch Delica Lancing Device kit) blood sugar diagnostic (SebaciaTouch #400 strips 04/18/23 10/27/23 Rx Ultra Test strips) citalopram 10 mg tablet 10 mg PO QAM 09/22/23 11/16/23 History insulin aspart U-100 100 unit/mL 1 sliding scale dose subcut UD #15 10/05/23 11/16/23 Rx (3 mL) subcutaneous pen (Novolog mL FlexPen U-100 Insulin aspart) insulin detemir U-100 100 unit/mL 16 unit (0.16 mL) subcut HS #15 mL 10/05/23 11/16/23 Rx (3 mL) subcutaneous pen (Levemir FlexPen) blood-glucose sensor (FreeStyle #3 ea 11/11/23 11/11/23 Rx [place] 3 Sensor device) fluticasone propionate 50 2 spray intranasal BID PRN 11/16/23 11/16/23 History mcg/actuation nasal Congestion spray,suspension hydralazine 50 mg tablet 50 mg PO TID 11/16/23 11/16/23 History Past Med/Surg History Problem List (Updated 11/16/23 @ 23:16 by Kia Robin PA-C) Elevated troponin (Acute) Enterovirus infection (Acute) ESRD (end stage renal disease) Hypertension Acute kidney injury superimposed on CKD Chronic kidney disease (Acute) Neck mass (Acute) Type 2 diabetes mellitus Anxiety Intellectual disability PCOS (polycystic ovarian syndrome) Diabetic nephropathy Peripheral edema 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 Cerebrovascular disease Elderly multigravida History of delivery, currently Anemia of chronic disease Chronic kidney disease, stage 4 (severe) Medical History ТАТЬЯНА (acute kidney injury) Severe preeclampsia Hyperemesis gravidarum before end of 22 week gestation, dehydration Chronic hypertension affecting Diabetes mellitus, type 2 History of COVID-19 2020 + Fall 2021>no current symptoms Social anxiety disorder History of PCOS History of pre-eclampsia Demyelinating disease Per [facility] 01/02/21, "doubt that she has multiple sclerosis. However.. 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, left Per remote [facility] notes (12/2020) Learning disability Issues with multiple or complex instructions Endometriosis Hx Hirsutism Surgical History Previous delivery affecting , antepartum Hx of total hysterectomy with removal of both tubes and ovaries 12/2022; [facility], one ovary remains History of dilatation and curettage S/P section 09/11/21 S/P section 07/15/20 [facility] Hx of tonsillectomy Family History Unknown Endometriosis Grandmother (Maternal) Type 2 diabetes mellitus Denies family history of Ovarian cancer Prostate cancer Myocardial infarction Breast cancer Colorectal cancer Social History Smoking Status: Never smoker Second Hand Exposure: No; Do You Dip or Chew Tobacco: No; Hx Alcohol Use: No Hx Substance Use: No Preferred Language: Maori Communication Ability: Effective Communication Ability Comment: learning disability with complex or mulitple instructions Visual Impairment: No Limitations Hearing Ability: Normal Black Oxide Coating Equipment Tender Required: No Beliefs That Will Affect Care: None marital status: marital status details: Deny Newman (43) [phone] Current Living Situation: Spouse and Family Current Living Situation Comment: Deny - spouse and 2 daughters and one cat current occupational status: unemployed 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 Eyes: Conjunctivae normal. Respiratory: CTA bilaterally. Non labored breathing. No rhonchi, wheezing, or crackles. Cardiovascular: RRR. No murmurs noted. No LE edema. Gastrointestinal (Abdomen): Soft, nontender, +BS. No masses noted. Skin: No rashes or skin lesions noted. Neurologic: Sensation grossly intact. No FND appreciated. Psychiatric: Speech of normal pace and content. Mood and affect congruent. Results & Data Results & Data Vital Signs (Past 12 Hours) Vital Signs Temp Pulse Resp BP Pulse Ox O2 Del Method 11/16/23 23:00 88 16 186/100 H 93 Room Air 11/16/23 22:30 75 16 214/104 H 93 Room Air 11/16/23 22:15 80 168/114 H 11/16/23 22:11 80 16 168/114 H 98 Room Air 11/16/23 22:03 74 16 243/113 H 98 Room Air 11/16/23 22:00 89 18 100 Room Air 11/16/23 22:00 70 191/108 H 11/16/23 21:57 84 16 227/116 H 98 Room Air 11/16/23 21:46 227/116 H 98 Room Air 11/16/23 21:39 72 13 204/135 H 95 Room Air 11/16/23 21:36 88 17 201/94 H 94 Room Air 11/16/23 21:15 78 16 158/119 H 93 Room Air 11/16/23 21:00 75 16 198/115 H 94 Room Air 11/16/23 20:58 77 11/16/23 17:41 36.7 C 71 16 180/103 H 99 Room Air Laboratory Results Laboratory Results WBC 10.37 K/ul (4.8-10.8) 11/16/23 19:03 RBC 4.13 M/uL (4.20-5.40) L 11/16/23 19:03 Hgb 11.9 g/dl (12.0-16.0) L 11/16/23 19:03 Hct 37.1 % (37.0-47.0) 11/16/23 19:03 MCV 89.8 fL (80.0-100.0) 11/16/23 19:03 MCH 28.8 pg (25.0-34.0) 11/16/23 19:03 MCHC 32.1 g/dL (32.0-36.0) 11/16/23 19:03 RDW Std Deviation 40.0 fL (36.4-46.3) 11/16/23 19:03 RDW Coeff of Jessica 12.3 % (11.5-14.5) 11/16/23 19:03 Plt Count 290 K/uL (130-400) 11/16/23 19:03 MPV 9.8 fL (9.4-12.4) 11/16/23 19:03 Immature Gran % (Auto) 0.4 % 11/16/23 19:03 Neut % (Auto) 78.5 % 11/16/23 19:03 Lymph % (Auto) 12.8 % 11/16/23 19:03 [place] % (Auto) 7.0 % 11/16/23 19:03 Eos % (Auto) 0.6 % 11/16/23 19:03 Baso % (Auto) 0.7 % 11/16/23 19:03 Neut # (Auto) 8.14 K/uL (1.40-6.50) H 11/16/23 19:03 Lymph # (Auto) 1.33 K/uL (1.20-3.40) 11/16/23 19:03 [place] # (Auto) 0.73 K/uL (0.11-0.59) H 11/16/23 19:03 Eos # (Auto) 0.06 K/uL (0.00-0.50) 11/16/23 19:03 Baso # (Auto) 0.07 K/uL (0.00-0.20) 11/16/23 19:03 Immature Gran # (Auto) 0.04 K/uL (0.01-0.20) 11/16/23 19:03 VBG pH 7.47 (7.36-7.41) H 07/03/24 23:44 VBG pCO2 47 mmHg (38-50) 11/16/23 23:44 VBG pO2 37 mmHg 11/16/23 23:44 VBG HCO3 34 mmol/L 11/16/23 23:44 VBG O2 Saturation 62.6 % 11/16/23 23:44 VBG Base Excess 9.1 mEq/L 11/16/23 23:44 Barometric Pressure Cancelled 11/16/23 22:52 Sodium 139 mmol/L (136-145) 11/16/23 19:03 Potassium 3.8 mmol/L (3.5-5.1) 11/16/23 19:03 Chloride 93 mmol/L (98-107) L 11/16/23 19:03 Carbon Dioxide 30 mmol/L (21-32) 11/16/23 19:03 Anion Gap 16 (3-11) H 11/16/23 19:03 BUN 16 mg/dl (6-23) 11/16/23 19:03 Creatinine 3.44 mg/dl (0.6-1.2) H 11/16/23 19:03 Est Cr Clr Drug Dosing Not Reportable 11/16/23 19:03 Est GFR ( Amer) 18.1 ml/min 11/16/23 19:03 Est GFR (Non-Af Amer) 15.6 ml/min 11/16/23 19:03 BUN/Creatinine Ratio 4.7 (10-20) L 11/16/23 19:03 Glucose 127 mg/dl (70-99(Fasting)) H 11/16/23 19:03 Lactate 1.1 mmol/L (0.4-2.0) 11/16/23 22:00 Calcium 10.0 mg/dl (8.6-10.3) 11/16/23 19:03 Magnesium 1.9 mg/dl (1.7-2.4) 11/16/23 19:03 Total Bilirubin 0.9 mg/dl (0.2-1.0) 11/16/23 19:03 AST 25 U/L (13-39) 11/16/23 19:03 ALT 18 U/L (7-52) 11/16/23 19:03 Alkaline Phosphatase 80 U/L (34-104) 11/16/23 19:03 Troponin I High Sens 25.8 pg/ml (0-14) H 11/16/23 22:52 Total Protein 7.8 gm/dl (6.0-8.3) 11/16/23 19:03 Albumin 4.6 gm/dl (3.4-5.0) 11/16/23 19:03 Globulin 3.2 gm/dl (2.5-4.0) 11/16/23 19:03 Albumin/Globulin Ratio 1.4 (0.9-2) 11/16/23 19:03 Procalcitonin 0.13 ng/ml (0-0.5) 11/16/23 19:03 Urine Color Dark Yellow 11/16/23 Unknown Urine Appearance Cloudy (Clear) A 11/16/23 Unknown Urine pH 7.5 (4.5-7.5) 11/16/23 Unknown Ur Specific [place] 1.020 (1.000-1.030) 11/16/23 Unknown Urine Protein 4+ (Negative) H 11/16/23 Unknown Urine Glucose (UA) Trace (Negative) H 11/16/23 Unknown Urine Ketones 1+ (Negative) H 11/16/23 Unknown Urine Blood Negative (Negative) 11/16/23 Unknown Urine Nitrite Negative (Negative) 11/16/23 Unknown Urine Bilirubin Negative (Negative) 11/16/23 Unknown Urine Urobilinogen Negative (Negative) 11/16/23 Unknown Ur Leukocyte Esterase Trace (Negative) H 11/16/23 Unknown Urine WBC (Auto) 0-5 /hpf (0-5) 11/16/23 Unknown Urine RBC (Auto) 0-2 /hpf (0-2) 11/16/23 Unknown U Hyaline Cast (Auto) >20 /lpf (0-2) H 11/16/23 Unknown U Epithel Cells (Auto) 6-10 /hpf (0-2) H 11/16/23 Unknown Urine Bacteria (Auto) 2+ (None Seen) H 11/16/23 Unknown Hyaline Casts Present /lpf (None Presnt) A 11/16/23 Unknown Adenovirus (PCR) Not Detected (NotDetected) 11/16/23 20:24 B. pertussis DNA (PCR) Not Detected (NotDetected) 11/16/23 20:24 B.parapertussis DNA PCR Not Detected (NotDetected) 11/16/23 20:24 C. pneumoniae DNA (PCR) Not Detected (NotDetected) 11/16/23 20:24 Coronavirus OC43 (PCR) Not Detected (NotDetected) 11/16/23 20:24 Coronavirus HKU1 (PCR) Not Detected (NotDetected) 11/16/23 20:24 Coronavirus 229E (PCR) Not Detected (NotDetected) 11/16/23 20:24 SARS-CoV-2 (PCR) Not Detected (NotDetected) 11/16/23 20:24 Coronavirus NL63 (PCR) Not Detected (NotDetected) 11/16/23 20:24 Human Metapneumovir PCR Not Detected (NotDetected) 11/16/23 20:24 Influenza Type A (PCR) Not Detected (NotDetected) 11/16/23 20:24 Influenza Type B (PCR) Not Detected (NotDetected) 11/16/23 20:24 M. pneumoniae (PCR) Not Detected (NotDetected) 11/16/23 20:24 Parainfluenza 1 (PCR) Not Detected (NotDetected) 11/16/23 20:24 Parainfluenza 2 (PCR) Not Detected (NotDetected) 11/16/23 20:24 Parainfluenza 3 (PCR) Not Detected (NotDetected) 11/16/23 20:24 Parainfluenza 4 (PCR) Not Detected (NotDetected) 11/16/23 20:24 RSV (PCR) Not Detected (NotDetected) 11/16/23 20:24 Entero/Rhino (PCR) DETECTED (NotDetected) A 11/16/23 20:24 Impressions Abdomen/Pelvis CT 11/16/23 21:50 Exam(s): CT ABDOMEN + PELVIS Without Contrast EXAM: CT Abdomen and Pelvis Without Intravenous Contrast CLINICAL HISTORY: Reason for exam: n/v pain, ESRD. TECHNIQUE: Axial computed tomography images of the abdomen and pelvis without intravenous contrast. CTDI is 28.12 mGy and DLP is 1442.09 mGy-cm. Automated exposure control was utilized for the study. A dose lowering technique was utilized adhering to the principles of ALARA. COMPARISON: No relevant prior studies available. FINDINGS: Lung bases: Unremarkable. No mass. No consolidation. Mediastinum: Abnormal thickening distal wall of the esophagus with mild surrounding inflammatory stranding likely infectious or inflammatory in etiology. Consider further correlation with direct endoscopic visualization. ABDOMEN: Liver: Unremarkable. 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 No evidence for acute cholecystitis. No ductal dilation. Pancreas: Unremarkable. No ductal dilation. Spleen: Unremarkable. No splenomegaly. Adrenals: Unremarkable. No mass. Kidneys and ureters: Unremarkable. No obstructing stones. No hydronephrosis. Stomach and bowel: Unremarkable. No obstruction. No mucosal thickening. PELVIS: Appendix: No findings to suggest acute appendicitis. Bladder: Unremarkable. No stones. Reproductive: Post hysterectomy. ABDOMEN and PELVIS: Intraperitoneal space: Unremarkable. No free air. No significant fluid collection. Bones/joints: No acute fracture. No dislocation. Soft tissues: Unremarkable. Vasculature: Unremarkable. No abdominal aortic aneurysm. Lymph nodes: Unremarkable. No enlarged lymph nodes. IMPRESSION: 1. Abnormal thickening distal wall of the esophagus with mild surrounding inflammatory stranding likely infectious or inflammatory in etiology. Consider further correlation with direct endoscopic visualization. 2. 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 No evidence for acute cholecystitis. Electronically signed by: Dionicio Tapia MD 11/16/23 23:08 PM Supervising Physician Co-Signing Physician Notes Patient seen and examined, chart reviewed, case discussed with Dr. Arcos and I agree with the assessment and plan as above. In brief, patient is a 43yo female with history of ESRD on HD, DM presenting with nausea, vomiting, chest discomfort In the ER she is markedly hypertensive at times Also had a brief run of SVT which self-terminated On exam patient is ill in appearance. Answering questions appropriately Skin without rash HEENT - MMM Heart - +S1/S2, regular Lungs - CTA anteriorly Abd - obese, soft, NT/ND Labs and images reviewed Assessment/Plan 43yo female with intractable nausea and vomiting, found to have Enterovirus infection Symptomatic management Remainder as above Telemetry monitoring - patient with brief episode of SVT in the ER Resident Activity Tracking Resident Involvement: Resident Care Provided Care Provided: Adult Hospital Medicine (3) Hypertension Hypertension type: unspecified Qualified Code(s): I10 - Essential (primary) hypertension (4) Type 2 diabetes mellitus Chronic kidney disease stage: stage 4 (severe) Diabetes mellitus complication detail: with chronic kidney disease Diabetes mellitus complication status: with kidney complications 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
[2023-11-16 23:50] LABS: Base Excess VBG 9.1 mEq/L; HCO3 VBG 34 mmol/L; Oxygen Saturation VBG 62.6 %; PCO2 VBG 47 mmHg (38-50); PO2 VBG 37 mmHg; pH VBG 7.47 (7.36-7.41)
[2023-11-16] MEDS ORDERED: ACETAMINOPHEN 325 MG TAB PO PRN (23:58)
[2023-11-16] MEDS ORDERED: POLYETHYLENE (MIRALAX) 17 GM PACK PO PRN (23:58)
[2023-11-17] MEDS: hydrALAZINE HCL 20 MG/ML VIAL IV ONE (01:09)
[2023-11-17] MEDS: LACTATED RINGER'S 500 ML IV ONE (01:58)
[2023-11-17] MEDS: LACTATED RINGER'S 1,000 ML IV SCH ×2 (01:58→03:41)
--- NOTE | 2023-11-17 03:14 | Billing Data ---
Date of Service November 16, 2023 Coding Level of Care Code 84103 INT INP/OBS CARE
[2023-11-17] MEDS ORDERED: DEXTROSE 50% 50 ML SYRINGE IV PRN (03:40)
[2023-11-17] MEDS ORDERED: GLUCOSE 10 TAB/TUBE PO PRN (03:40)
[2023-11-17] MEDS ORDERED: GLUCAGON FOR INJ 1 MG VIAL SQ PRN (03:40)
[2023-11-17] MEDS ORDERED: CARBOHYDRATES FOR HYPOGLYCEMIA PO PRN (03:40)
[2023-11-17] MEDS ORDERED: GLUCOSE 40% GEL 15 GM TUBE PO PRN (03:40)
[2023-11-17 07:09] LABS: Hematocrit (blood only) 32.6 % (37.0-47.0); Hemoglobin 10.4 g/dl (12.0-16.0); Mean Corpuscular Hemoglobin 28.9 pg (25.0-34.0); Mean Corpuscular Hgb Conc 31.9 g/dL (32.0-36.0); Mean Corpuscular Volume 90.6 fL (80.0-100.0); Mean Platelet Volume 9.8 fL (9.4-12.4); Platelet Count 257 K/uL (130-400); RDW Coefficient of Variation 12.4 % (11.5-14.5); RDW Standard Deviation 40.6 fL (36.4-46.3); White Blood Count 9.89 K/ul (4.8-10.8)
--- NOTE | 2023-11-17 07:23 | XRay Report ---
XR chest 2V PA/lateral CLINICAL HISTORY: feverish TECHNIQUE: 2 views of the chest were obtained. Comparison: Comparison is made to chest radiograph 09/25/2023 FINDINGS: Dual lumen catheter is seen on the right terminating in the cavoatrial junction. The cardiomediastina l silhouette is normal. The lungs are clear. No evidence of pleural effusion or pneumothorax. IMPRESSION: No acute abnormalities and in particular no radiographic evidence of pneumonia. ACT 112: Negative or not required by law. Electronically signed by: Shaji James M.D. 11/17/2023 7:22 AM
[2023-11-17 07:30] LABS: BUN Creatinine Ratio 5.3 (10-20); Calcium 8.9 mg/dl (8.6-10.3); Est GFR (African American) 14.5 ml/min; Est GFR (Non-African American) 12.5 ml/min; Potassium 3.7 mmol/L (3.5-5.1)
[2023-11-17 07:37] LABS: Troponin I High Sensitivity 31.5 pg/ml (0-14)
[2023-11-17] MEDS: INSULIN ASPART PER UNIT CHARGE SC SCH (10:42)
[2023-11-17] MEDS: LANTUS PER UNIT CHARGE SQ SCH (10:46)
[2023-11-17] MEDS: hydrALAZINE TAB 50 MG TAB PO SCH (10:47)
[2023-11-17] MEDS: CITALOPRAM 20 MG TAB PO SCH (10:47)
--- NOTE | 2023-11-17 12:03 | Gastrointestinal Consultation ---
Date of Consultation November 17, 2023 Assessment & Plan (1) Nausea and vomiting: Nausea and vomiting the patient nausea and vomiting appears to have resolved she was enterovirus positive and that is the most likely etiology currently the patient denies any specific GI complaints no abdominal pain diarrhea or constipation she had a CAT scan she which showed that there was thickening of the lower esophagus in light of this abnormal finding of the CAT scan we will plan for an EGD Porcelain gallbladder Would consult surgery for evaluation in light of the risk for gallbladder cancer associated with porcelain gallbladder Thank you for allowing us to take part in the care of your patient we will continue to follow her with you History of Present Illness Reason for Consultation: Nausea and vomiting Requesting Physician: Pineda Arrieta Attending Physician: Cindy Valentine MD History of Present Illness A very pleasant 43-year-old female with a past medical history significant for renal insufficiency who is on dialysis diabetes mellitus and hypertension who was referred to the ER from her dialysis center because of nausea and vomiting of note she was found to be enterovirus positive she denies any dysphagia does sometimes have reflux symptoms depending upon what she eats he states the nausea and vomiting is better she denies any abdominal pain she states he has a bowel movement every second day or so when she has not had a bowel movement for the last 2 days either in the ER she had a CAT scan which showed that she had thickening of his lower esophagus as well as a porcelain gallbladder currently she is feeling quite good and denies any active GI complaints Allergies Allergy/AdvReac Type Severity Reaction Status Date / Time omeprazole Allergy Intermediate Hives Verified 11/16/23 22:31 nifedipine AdvReac Severe Edema, Verified 11/16/23 22:31 Congestive Heart Failure Home Medications Medication Instructions Recorded Confirmed Type lancets 33 gauge (OneTouch Delica #100 ea 03/05/18 10/27/23 Rx Lancets) pen needle, diabetic 31 gauge x #200 ea 02/05/21 10/27/23 Rx 1/" blood sugar diagnostic #200 ea 06/08/21 10/27/23 Rx lancing device with lancets kit #1 ea 06/08/21 10/27/23 Rx (OneTouch Delica Lancing Device kit) blood sugar diagnostic (LolaboxTouch #400 strips 04/18/23 10/27/23 Rx Ultra Test strips) citalopram 10 mg tablet 10 mg PO QAM 05/09/24 07/03/24 History insulin aspart U-100 100 unit/mL 1 sliding scale dose subcut UD #15 10/05/23 11/16/23 Rx (3 mL) subcutaneous pen (Novolog mL FlexPen U-100 Insulin aspart) insulin detemir U-100 100 unit/mL 16 unit (0.16 mL) subcut HS #15 mL 10/05/23 11/16/23 Rx (3 mL) subcutaneous pen (Levemir FlexPen) blood-glucose sensor (FreeStyle #3 ea 11/11/23 11/11/23 Rx [place] 3 Sensor device) fluticasone propionate 50 2 spray intranasal BID PRN 11/16/23 11/16/23 History mcg/actuation nasal Congestion spray,suspension hydralazine 50 mg tablet 50 mg PO TID 11/16/23 11/16/23 History Patient History Medical History ТАТЬЯНА (acute kidney injury) Severe preeclampsia Hyperemesis gravidarum before end of 22 week gestation, dehydration Chronic hypertension affecting Diabetes mellitus, type 2 History of COVID-19 2020 + Fall 2021>no current symptoms Social anxiety disorder History of PCOS History of pre-eclampsia Demyelinating disease Per [facility] [place] 01/02/21, "doubt that she has multiple sclerosis. However.. 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, left Per remote [facility] neurology notes (12/2020) Learning disability Issues with multiple or complex instructions Endometriosis Hx Hirsutism Surgical History Previous delivery affecting , antepartum Hx of total hysterectomy with removal of both tubes and ovaries 12/2022; [facility] [place] History of dilatation and curettage S/P section 09/11/21 S/P section 07/15/20 [facility] Hx of tonsillectomy Family History Unknown Endometriosis Grandmother (Maternal) Type 2 diabetes mellitus Denies family history of Ovarian cancer Prostate cancer Myocardial infarction Breast cancer Colorectal cancer Social History Smoking Status: Never smoker Second Hand Exposure: No; Do You Dip or Chew Tobacco: No; Hx Alcohol Use: No Hx Substance Use: No Preferred Language: Polish Communication Ability: Effective Communication Ability Comment: learning disability with complex or mulitple instructions Visual Impairment: No Limitations Hearing Ability: Normal Bee Tender Required: No Beliefs That Will Affect Care: None marital status: marital status details: Deny Newman (43) [phone] Current Living Situation: Spouse and Family Current Living Situation Comment: Deny - spouse and 2 daughters and one cat current occupational status: unemployed 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 Physical Exam Physical Exam: Constitutional: WD/WN, vitals as above. Respiratory: normal respiratory effort, lungs clear to auscultation. Cardiovascular: RRR, no murmur, no edema. Gastrointestinal (Abdomen): normal bowel sounds, soft, nontender, no hepatosplenomegaly obese Results & Data Vital Signs (Past 12 Hours) Vital Signs Temp Pulse Pulse Pulse Resp BP BP 11/17/23 11:05 36.5 C 88 20 192/80 H 11/17/23 07:26 36.6 C 90 18 11/17/23 04:14 11/17/23 03:57 85 11/17/23 03:49 36.6 C 85 18 11/17/23 02:48 37.0 C 83 12 183/94 H 11/17/23 01:51 68 11/17/23 01:39 138 H 11/17/23 01:13 140 H 11/17/23 01:02 89 16 152/92 H BP Pulse Ox O2 Del Method 11/17/23 11:05 96 Room Air 11/17/23 07:26 178/96 H 96 Room Air 11/17/23 04:14 Room Air 11/17/23 03:57 11/17/23 03:49 143/91 H 97 Room Air 11/17/23 02:48 97 Room Air 11/17/23 01:51 11/17/23 01:39 11/17/23 01:13 11/17/23 01:02 99 Room Air Laboratory Results reviewed Diagnostic Findings On CT abdomen she had thickening of her lower esophagus as well as porcelain gallbladder PG Care Time/CCT Total # of Minutes Spent Total Time Spent with Patient: Total time spent is greater than 50% in coordination of care (as documented) at patient's floor/unit and/or counseling patient: [place] [address] IN/OBS CONSULT LVL 3,45M Patient Type New History Expanded Problem Focused Exam Expanded Problem Focused Medical Decision Making Low Complexity Diagnoses Nausea and vomiting R11.2
--- NOTE | 2023-11-17 12:17 | Electrocardiogram Report ---
Test Reason : Blood Pressure : / mmHG Vent. Rate : 081 BPM Atrial Rate : 081 BPM P-R Int : 144 ms QRS Dur : 074 ms QT Int : 498 ms P-R-T Axes : 062 020 076 degrees QTc Int : 578 ms Normal sinus rhythm with sinus arrhythmia Possible Left atrial enlargement Septal infarct , age undetermined Prolonged QT Abnormal ECG When compared with ECG of 29-DEC-2022 07:57, Septal infarct is now Present Nonspecific T wave abnormality now evident in Lateral leads QT has lengthened Confirmed by Balwinder Arellano ([id number]) on 11/17/2023 12:17:36 PM Referred By: REFERRED SELF Confirmed By:Balwinder Arellano
--- NOTE | 2023-11-17 12:17 | Hospitalist Progress Note ---
Date of Service November 17, 2023 Assessment & Plan (1) Nausea and vomiting: Plan: Pt is a 43 yo female with PMH of CKD stage 5 (dialysis MWF) and DM presenting d/t uncontrollable N/V. She had dialysis today and was referred to the ER d/t her symptoms. CTAP: abnormal thickening distal wall of the esophagus with mild surrounding inflammatory stranding likely infectious or inflammatory in etiology. Cholelithasis with calcified gallbladder wall, characteristic for porcelain gallbladder. GI consulted - EGD tomorrow General surgery consulted will see patient tomorrow Trop has not peaked - repeat this afternoon UA - suspicious for UA, but patient asymptomatic - UC pending Allergy to omperazole, has never had pantoprazole. Will continue with Pepcid - really dosed is every other day (2) Enterovirus infection: Plan: - RVP + for enterovirus - likely contribtuing to nausea and vomiting - supportive care - CXR no acute abnormalities (3) ESRD (end stage renal disease): Plan: CKD stage 5 - current dialysis MWF (did have dialysis day of admission) - Cr 3.44 upon admission; - nephrology consult for dialysis tomorrow Also with HTN - significantly elevated pressures in the ER, received labetalol and IV hydralazine - Continue home hydralazine 50mg TID - Resume labetalol at 200 mg TID (home dose is apparently 600mg TID but not on her home med rec or showing she has picked up recently, patient reports she takes this. Was held several times last admission for parameters or patient refusal so will start at lower dose) - appreciate nephrology recommendations AM [facility] (4) Diabetes mellitus, type 2: Plan: Patient insulin was discontinued at discharge 09/2023. A1c 09/2023 7.4 - PCP notes recieved, patient sometimes uses her SSI at home - hold lantus, just SSI at this time Plan Chronic Stable Medical Problems: * Anxiety- continue citalopram 10 mg daily Diet: dialysis diet, full liquid DVT proh: SCDs Admission and Anticipated Discharge Date Admission Date: November 16, 2023 Supervising Physician Co-Signing Physician Notes PA Supervision Note: I did not personally see or examine the patient today, but I verified all jansen points of SALOMÓN Castellano's assessment and plan with the following exceptions/additions: None Subjective Patient seen resting in bed in room 251. States her nausea has improved but her throat feels weird. pain when she ate breakfast this morning Not sure if she has seen nephrology since last discharge - not outpatient notes in chart. Skeptical about further dialysis since she got sick after yesterdays session BM every 2-3 days has been here normal since she started dialysis prior to that was once a month. No abdominal pain currently Tele - 80-90s Physical Exam Physical Exam: General: NAD, VS as above Resp: normal respiratory effort, lungs clear to auscultation. no cough CV: RRR, no murmur, Abd: soft non tender, no hepatosplenomegaly Extremities: Moves all extremities, Neuro: A&O x3, Results & Data Results & Data Vital Signs (Past 12 Hours) Vital Signs Temp Pulse Pulse Pulse Resp BP BP 11/17/23 11:05 36.5 C 88 20 192/80 H 11/17/23 07:26 36.6 C 90 18 11/17/23 04:14 11/17/23 03:57 85 11/17/23 03:49 36.6 C 85 18 11/17/23 02:48 37.0 C 83 12 183/94 H 11/17/23 01:51 68 11/17/23 01:39 138 H 11/17/23 01:13 140 H 11/17/23 01:02 89 16 152/92 H BP Pulse Ox O2 Del Method 11/17/23 11:05 96 Room Air 11/17/23 07:26 178/96 H 96 Room Air 11/17/23 04:14 Room Air 11/17/23 03:57 11/17/23 03:49 143/91 H 97 Room Air 11/17/23 02:48 97 Room Air 11/17/23 01:51 11/17/23 01:39 11/17/23 01:13 11/17/23 01:02 99 Room Air Laboratory Results CBC and chemistry PG Care Time/CCT Total # of Minutes Spent Total Time Spent with Patient: Total time spent is greater than 50% in coordination of care (as documented) at patient's floor/unit and/or counseling patient: Coding Level of Care Code 82109 SUB INP/OBS CARE 3/50MIN Diagnoses Nausea and vomiting R11.2 Enterovirus infection B34.1 ESRD (end stage renal disease) N18.6 Diabetes mellitus, type 2 E11.9
[2023-11-17] MEDS: LABETALOL HCL 200 MG TAB PO SCH (15:05)
[2023-11-17] MEDS: MELATONIN 3 MG TAB PO PRN (20:23)
[2023-11-18] MEDS: ONDANSETRON INJ 2 MG/ML 2 ML VIAL IV PRN (03:23)
[2023-11-18 05:26] LABS: Hematocrit (blood only) 32.4 % (37.0-47.0); Hemoglobin 10.3 g/dl (12.0-16.0); Mean Corpuscular Hemoglobin 28.9 pg (25.0-34.0); Mean Corpuscular Hgb Conc 31.8 g/dL (32.0-36.0); Mean Platelet Volume 9.8 fL (9.4-12.4); Platelet Count 253 K/uL (130-400); RDW Coefficient of Variation 12.3 % (11.5-14.5); RDW Standard Deviation 41.1 fL (36.4-46.3); Red Blood Count 3.56 M/uL (4.20-5.40); White Blood Count 6.34 K/ul (4.8-10.8)
[2023-11-18 05:39] LABS: Albumin Globulin Ratio 1.5 (0.9-2); BUN Creatinine Ratio 5.3 (10-20); Bilirubin,Total 0.8 mg/dl (0.2-1.0); Calcium 9.2 mg/dl (8.6-10.3); Creatinine Clr Calc Pharmacy 14.9 ml/min; Est GFR (African American) 10.8 ml/min; Est GFR (Non-African American) 9.4 ml/min; Globulin 2.7 gm/dl (2.5-4.0); Potassium 3.5 mmol/L (3.5-5.1); Total Protein 6.7 gm/dl (6.0-8.3)
[2023-11-18 05:43] LABS: A calco-baum cmplx NotReported Not Detected (NotDetected); Bact fragilis Not Reported Not Detected (NotDetected); Blood Culture Id Panel See PCR Comment (NotDetected); C auris Not Reported Not Detected (NotDetected); Calbicans Not Reported Not Detected (NotDetected); Candida glabrata Not Reported Not Detected (NotDetected); Candida krusei Not Reported Not Detected (NotDetected); Cneoformans/gatti Not Reported Not Detected (NotDetected); Cparapsilosis Not Reported Not Detected (NotDetected); E cloacae compx Not Reported Not Detected (NotDetected); Efaecalis Not Reported Not Detected (NotDetected); Efaecium Not Reported Not Detected (NotDetected); Enterobacterales Not Reported Not Detected (NotDetected); Escherichia coli Not Reported Not Detected (NotDetected); H influenzae Not Reported Not Detected (NotDetected); K aerogenes Not Reported Not Detected (NotDetected); Koxytoca Not Reported Not Detected (NotDetected); Kpneumoniae grp Not Reported Not Detected (NotDetected); Lmonocyt Not Reported Not Detected (NotDetected); N meningitidis Not Reported Not Detected (NotDetected); P aeruginosa Not Reported Not Detected (NotDetected); Proteus spp Not Reported Not Detected (NotDetected); Salmonella spp Not Reported Not Detected (NotDetected); Staph lugdunensis Not Reported Not Detected (NotDetected); Staph spp. Not Reported DETECTED (NotDetected); Staphaureus Not Reported Not Detected (NotDetected); Staphepi Not Reported Not Detected (NotDetected); Stenmaltophilia Not Reported Not Detected (NotDetected); Strep agal(GrpB) Not Reported Not Detected (NotDetected); Strep pneum Not Reported Not Detected (NotDetected); Strep pyog (GrpA) Not Reported Not Detected (NotDetected); Strep spp Not Reported Not Detected (NotDetected)
[2023-11-18 05:58] LABS: Staphylococcus spp. DETECTED (NotDetected)
--- NOTE | 2023-11-18 08:47 | Surgery Consultation ---
Date of Consultation November 18, 2023 Assessment & Plan (1) Porcelain gallbladder: Her CT images and results were personally viewed and interpreted by myself No signs of cholecystitis, she can follow up with me as an OP to discuss cholecystectomy Surgery will sign off at this time, please call with any questions or concerns History of Present Illness Reason for Consultation: Porcelain Gallbladder Attending Physician: Cindy Valentine MD History of Present Illness This is a 43 yo female who is here with enterovirus infection. Surgery has been consulted due to an incidental finding of porcelain gallbladder on CT. She currently denies any abdominal pain or N/V. She denies any fevers or chills. She has a history of x 2 and total hysterectomy at [facility] in 2022. She is on dialysis. Allergies Allergy/AdvReac Type Severity Reaction Status Date / Time omeprazole Allergy Intermediate Hives Verified 11/16/23 22:31 nifedipine AdvReac Severe Edema, Verified 11/16/23 22:31 Congestive Heart Failure Home Medications Medication Instructions Recorded Confirmed Type lancets 33 gauge (OneTouch Delica #100 ea 03/05/18 10/27/23 Rx Lancets) pen needle, diabetic 31 gauge x #200 ea 02/05/21 10/27/23 Rx 1/4" blood sugar diagnostic #200 ea 06/08/21 10/27/23 Rx lancing device with lancets kit #1 ea 06/08/21 10/27/23 Rx (OneTouch Delica Lancing Device kit) blood sugar diagnostic (OneTouch #400 strips 04/18/23 10/27/23 Rx Ultra Test strips) citalopram 10 mg tablet 10 mg PO QAM 09/22/23 11/16/23 History insulin aspart U-100 100 unit/mL 1 sliding scale dose subcut UD #15 10/05/23 11/16/23 Rx (3 mL) subcutaneous pen (Novolog mL FlexPen U-100 Insulin aspart) insulin detemir U-100 100 unit/mL 16 unit (0.16 mL) subcut HS #15 mL 10/05/23 11/16/23 Rx (3 mL) subcutaneous pen (Levemir FlexPen) blood-glucose sensor (FreeStyle #3 ea 11/11/23 11/11/23 Rx [place] 3 Sensor device) fluticasone propionate 50 2 spray intranasal BID PRN 11/16/23 11/16/23 History mcg/actuation nasal Congestion spray,suspension hydralazine 50 mg tablet 50 mg PO TID 11/16/23 11/16/23 History Patient History Medical History ТАТЬЯНА (acute kidney injury) Severe preeclampsia Hyperemesis gravidarum before end of 22 week gestation, dehydration Chronic hypertension affecting Diabetes mellitus, type 2 History of COVID-19 2020 + Fall 2021>no current symptoms Social anxiety disorder History of PCOS History of pre-eclampsia Demyelinating disease Per [facility] neurology visit 01/02/21, "doubt that she has multiple sclerosis. However.. 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, left Per remote [facility] neurology notes (12/2020) Learning disability Issues with multiple or complex instructions Endometriosis Hx Hirsutism Surgical History Previous delivery affecting , antepartum Hx of total hysterectomy with removal of both tubes and ovaries 12/2022; [facility], one ovary remains History of dilatation and curettage S/P section 09/11/21 S/P section 07/15/20 [facility] Hx of tonsillectomy Family History Unknown Endometriosis Grandmother (Maternal) Type 2 diabetes mellitus Denies family history of Ovarian cancer Prostate cancer Myocardial infarction Breast cancer Colorectal cancer Social History Smoking Status: Never smoker Second Hand Exposure: No; Do You Dip or Chew Tobacco: No; Hx Alcohol Use: No Hx Substance Use: No Preferred Language: [place] Communication Ability: Effective Communication Ability Comment: learning disability with complex or mulitple instructions Visual Impairment: No Limitations Hearing Ability: Normal Equipment Worker Required: No Beliefs That Will Affect Care: None marital status: marital status details: Deny Newman ([phone] Current Living Situation: Spouse and Family Current Living Situation Comment: Deny - spouse and 2 daughters and one cat current occupational status: unemployed 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 How many Children do You have: 2 Feels Safe at Home: Yes Childhood Exposure to Second-Hand Smoke: Yes Diet: diabetic caffeine: Yes during the past year weight has: remained stable Dental Care, Regularly: Yes Physical Activity Frequency: Does not Exercise Seatbelt Use: always Sunscreen Use: Yes Assistive Devices: Glasses Review of Systems Constitutional: no fever and no chills Eyes: no blind spots and no worsening vision Ear, Nose, Mouth, Throat: no ear pain and no hearing loss Respiratory: no cough and no dyspnea Cardiovascular: no chest pain and no dyspnea on exertion Gastrointestinal: no abdominal pain, no nausea, no vomiting and no constipation Genitourinary: no dysuria and no urinary urgency Musculoskeletal: no back pain and no neck pain Integumentary: no acne, no skin ulcer and no sores Neurologic: no confusion and no memory loss Psychiatric: no behavioral changes and no depression Hematologic / Lymphatic: no easy bleeding and no easy bruising Physical Exam Constitutional: WD/WN, vitals as above Eyes: PERRL, conjunctivae normal, anicteric sclerae ENMT: external ear and nose normal, oropharynx normal Neck: trachea midline, no thyromegaly Respiratory: normal respiratory effort, lungs clear to auscultation Cardiovascular: RRR, no murmur, no edema Gastrointestinal (Abdomen): Inspection/Auscultation: abdomen normal to inspection; abdomen not distended Percussion/Palpation: abdomen soft; abdomen nontender and no guarding Musculoskeletal: no cyanosis or clubbing, extremities motor strength 5/5 Skin: no rashes, warm and dry Neurologic: PERRL, EOMI, accommodation nl, no face palsy, no dysarthria Psychiatric: A+Ox3, euthymic affect Results & Data Vital Signs (Past 12 Hours) Vital Signs Temp Pulse Pulse Resp BP Pulse Ox O2 Del Method 11/18/23 07:42 75 11/18/23 07:30 Room Air 11/18/23 07:22 36.7 C 86 18 183/100 H 92 Room Air 11/18/23 03:19 36.7 C 88 18 174/89 H 94 Room Air 07/05/24 00:56 36.8 C 81 20 115/72 93 Room Air 11/17/23 21:36 78 PG Care Time/CCT Total # of Minutes Spent Total Time Spent with Patient: Total time spent is greater than 50% in coordination of care (as documented) at patient's floor/unit and/or counseling patient: Coding Level of Care Code 33986 IN/OBS CONSULT LVL 5,80M Diagnoses Porcelain gallbladder K82.8
--- NOTE | 2023-11-18 09:01 | Gastroenterology Progress Note ---
Date of Service November 18, 2023 Assessment & Plan (1) Nausea and vomiting: Plan: 43 year old female with history of CKD stage 5 (dialysis MWF) and DM presenting d/t uncontrollable N/V planned for EGD evaluation this AM given abnormal CT w/ esophageal wall thickening. Maintain NPO status for EGD evaluation. Continue present medications. We appreciate assistance in the management of any serological abnormality and corrections to include: hemoglobin >7, INR <2, platelets >50,000, potassium levels >3.5 but <5.3, and sodium levels within 5 points of the reference range prior to endoscopic evaluation. Thank you for allowing us to participate in the care of this patient. Please call with any acute changes, questions or concerns. Please see addendum below with additional recommendation from my supervising physician. Admission and Anticipated Discharge Date Admission Date: November 16, 2023 Subjective Pt was seen and evaluated, chart reviewed. NPO for EGD this AM. Denies nausea, vomiting. No BM since admission. CTAP 2023: Abnormal thickening distal wall of the esophagus with mild surrounding inflammatory stranding likely infectious or inflammatory in etiology. Consider further correlation with direct endoscopic visualization. 2. 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 No evidence for acute cholecystitis. Review of Systems Review of Systems: All other findings negative except as noted in HPI. Physical Exam Constitutional: WD/WN, vitals as above Respiratory: normal respiratory effort, lungs clear to auscultation Cardiovascular: Rate/Rhythm: regular rate and regular rhythm Gastrointestinal (Abdomen): normal bowel sounds, soft, nontender, no hepatosplenomegaly Skin: no rashes, warm and dry Results & Data Results & Data Vital Signs (Past 12 Hours) Vital Signs Temp Pulse Pulse Resp BP Pulse Ox O2 Del Method 11/18/23 07:42 75 11/18/23 07:30 Room Air 11/18/23 07:22 36.7 C 86 18 183/100 H 92 Room Air 11/18/23 03:19 36.7 C 88 18 174/89 H 94 Room Air 11/18/23 00:56 36.8 C 81 20 115/72 93 Room Air 11/17/23 21:36 78 Diagnostic Findings 11/18/23 11/18/23 11/17/23 Range/Units 08:00 04:30 20:18 WBC 6.34 (4.8-10.8) K/ul RBC 3.56 L (4.20-5.40) M/uL Hgb 10.3 L (12.0-16.0) g/dl Hct 32.4 L (37.0-47.0) % MCV 91.0 (80.0-100.0) fL MCH 28.9 (25.0-34.0) pg MCHC 31.8 L (32.0-36.0) g/dL RDW Std Deviation 41.1 (36.4-46.3) fL RDW Coeff of Jessica 12.3 (11.5-14.5) % Plt Count 253 (130-400) K/uL MPV 9.8 (9.4-12.4) fL Sodium 138 (136-145) mmol/L Potassium 3.5 (3.5-5.1) mmol/L Chloride 96 L (98-107) mmol/L Carbon Dioxide 29 (21-32) mmol/L Anion Gap 13 H (3-11) BUN 28 H (6-23) mg/dl Creatinine 5.25 H* D (0.6-1.2) mg/dl Est Cr Clr Drug Dosing 14.9 ml/min Est GFR ( Amer) 10.8 ml/min Est GFR (Non-Af Amer) 9.4 ml/min BUN/Creatinine Ratio 5.3 L (10-20) Glucose 94 (70-99(Fasting)) mg/dl POC Glucose 102 H 133 H (70-99) mg/dl Calcium 9.2 (8.6-10.3) mg/dl Total Bilirubin 0.8 (0.2-1.0) mg/dl AST 19 (13-39) U/L ALT 14 (7-52) U/L Alkaline Phosphatase 68 (34-104) U/L Troponin I High Sens (0-14) pg/ml Total Protein 6.7 (6.0-8.3) gm/dl Albumin 4.0 (3.4-5.0) gm/dl Globulin 2.7 (2.5-4.0) gm/dl Albumin/Globulin Ratio 1.5 (0.9-2) Staphylococcus sp PCR (NotDetected) Bld Cult ID Panel PCR (NotDetected) 11/17/23 11/17/2311/16/24 Range/Units 16:30 12:33 11:50 WBC (4.8-10.8) K/ul RBC (4.20-5.40) M/uL Hgb (12.0-16.0) g/dl Hct (37.0-47.0) % MCV (80.0-100.0) fL MCH (25.0-34.0) pg MCHC (32.0-36.0) g/dL RDW Std Deviation (36.4-46.3) fL RDW Coeff of Jessica (11.5-14.5) % Plt Count (130-400) K/uL MPV (9.4-12.4) fL Sodium (136-145) mmol/L Potassium (3.5-5.1) mmol/L Chloride (98-107) mmol/L Carbon Dioxide (21-32) mmol/L Anion Gap (3-11) BUN (6-23) mg/dl Creatinine (0.6-1.2) mg/dl Est Cr Clr Drug Dosing ml/min Est GFR ( Amer) ml/min Est GFR (Non-Af Amer) ml/min BUN/Creatinine Ratio (10-20) Glucose (70-99(Fasting)) mg/dl POC Glucose 155 H 94 (70-99) mg/dl Calcium (8.6-10.3) mg/dl Total Bilirubin (0.2-1.0) mg/dl AST (13-39) U/L ALT (7-52) U/L Alkaline Phosphatase (34-104) U/L Troponin I High Sens 32.6 H (0-14) pg/ml Total Protein (6.0-8.3) gm/dl Albumin (3.4-5.0) gm/dl Globulin (2.5-4.0) gm/dl Albumin/Globulin Ratio (0.9-2) Staphylococcus sp PCR (NotDetected) Bld Cult ID Panel PCR (NotDetected) 11/16/23 Range/Units 22:00 WBC (4.8-10.8) K/ul RBC (4.20-5.40) M/uL Hgb (12.0-16.0) g/dl Hct (37.0-47.0) % MCV (80.0-100.0) fL MCH (25.0-34.0) pg MCHC (32.0-36.0) g/dL RDW Std Deviation (36.4-46.3) fL RDW Coeff of Jessica (11.5-14.5) % Plt Count (130-400) K/uL MPV (9.4-12.4) fL Sodium (136-145) mmol/L Potassium (3.5-5.1) mmol/L Chloride (98-107) mmol/L Carbon Dioxide (21-32) mmol/L Anion Gap (3-11) BUN (6-23) mg/dl Creatinine (0.6-1.2) mg/dl Est Cr Clr Drug Dosing ml/min Est GFR ( Amer) ml/min Est GFR (Non-Af Amer) ml/min BUN/Creatinine Ratio (10-20) Glucose (70-99(Fasting)) mg/dl POC Glucose (70-99) mg/dl Calcium (8.6-10.3) mg/dl Total Bilirubin (0.2-1.0) mg/dl AST (13-39) U/L ALT (7-52) U/L Alkaline Phosphatase (34-104) U/L Troponin I High Sens (0-14) pg/ml Total Protein (6.0-8.3) gm/dl Albumin (3.4-5.0) gm/dl Globulin (2.5-4.0) gm/dl Albumin/Globulin Ratio (0.9-2) Staphylococcus sp PCR DETECTED A (NotDetected) Bld Cult ID Panel PCR See PCR Comment (NotDetected) PG Care Time/CCT Total # of Minutes Spent Total Time Spent with Patient: Total time spent is greater than 50% in coordination of care (as documented) at patient's floor/unit and/or counseling patient: Coding Level of Care Code None Diagnoses Nausea and vomiting R11.2
--- NOTE | 2023-11-18 09:47 | Nephrology Consultation ---
Date of Consultation November 18, 2023 Assessment & Plan (1) ESRD (end stage renal disease): (2) Hypertension: (3) Anemia of chronic disease: (4) Type 2 diabetes mellitus: (5) Enterovirus infection: (6) Nausea and vomiting: Plan 43-year-old female with end-stage kidney disease secondary to diabetic nephropathy, on hemodialysis Tuesday, , Tuesday via right IJ tunneled dialysis catheter. Has been having regular dialysis treatment, last dialysis was Tuesday. Admitted with 2 to 3 days history of nausea vomiting and overall feeling poorly. Workup revealed enterovirus infection. 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 Blood pressure has been running high. Nausea vomiting seems to have resolved, overall she is feeling better and feels like she is back to her baseline. Hemoglobin stable. Electrolyte, volume status acceptable. Blood pressure running high but she reports better blood pressure at home. -- Plan for dialysis today for 3 hours 45 minutes as a regular schedule with 3K bath. UF 1 to 1.5 L as tolerated as she seems to be at or under her dry weight. -- Continue on Nephrocaps daily -- Hemoglobin above 10, will hold off on MUKESH today considering significantly elevated blood pressure -- Left arm nephrology precaution for future AV fistula -- Dose medications for EGFR less than 10. Thank you for allowing me to participate in your patient's care. It was a pleasure to see Delaney. History of Present Illness Reason for Consultation: ESKD on HD Attending Physician: Cindy Valentine MD History of Present Illness Ms. Delaney holloway is a 43 yo female with PMH of ESKD, on HD, HTN, DM admitted to the hospital with nausea vomiting secondary to enterovirus infection. Nephrology consulted close treated for management of hemodialysis while inpatient. EMR records were reviewed in detail during patient's visit. Delaney presented to ER for on 11/16/2023 with feeling unwell for 2 to 3 days, nausea, vomiting. She had dialysis Tuesday as regular schedule after dialysis she felt even worse and decided to come to ER with above symptoms. Evaluation in ER was notable for enterovirus infection. 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 Electrolytes has been acceptable. Her blood pressure has been running high but her blood pressure generally better controlled at home. In ER she was given labetalol, Zofran. Volume status acceptable. Never smoker. ESKD, secondary to diabetic nephropathy, started on hemodialysis in August 2023. Currently dialyzes at [facility] on Tuesday, Tuesday, Tuesday via right IJ tunneled dialysis catheter. She is still makes decent amount of urine. She reports generally feeling poorly immediately after dialysis for few hours. Overall she reports feeling better, nausea and vomiting resolved. No shortness of breath or chest pain. She is eager to go home. Allergies Allergy/AdvReac Type Severity Reaction Status Date / Time omeprazole Allergy Intermediate Hives Verified 11/16/23 22:31 nifedipine AdvReac Severe Edema, Verified 11/16/23 22:31 Congestive Heart Failure Home Medications Medication Instructions Recorded Confirmed Type lancets 33 gauge (OneTouch Delica #100 ea 03/05/18 10/27/23 Rx Lancets) pen needle, diabetic 31 gauge x #200 ea 02/05/21 10/27/23 Rx 1/4" blood sugar diagnostic #200 ea 06/08/21 10/27/23 Rx lancing device with lancets kit #1 ea 06/08/21 10/27/23 Rx (OneTouch Delica Lancing Device kit) blood sugar diagnostic (OneTouch #400 strips 04/18/23 10/27/23 Rx Ultra Test strips) citalopram 10 mg tablet 10 mg PO QAM 09/22/23 11/16/23 History insulin aspart U-100 100 unit/mL 1 sliding scale dose subcut UD #15 10/05/23 11/16/23 Rx (3 mL) subcutaneous pen (Novolog mL FlexPen U-100 Insulin aspart) insulin detemir U-100 100 unit/mL 16 unit (0.16 mL) subcut HS #15 mL 10/05/23 11/16/23 Rx (3 mL) subcutaneous pen (Levemir FlexPen) blood-glucose sensor (FreeStyle #3 ea 11/11/23 11/11/23 Rx [place] 3 Sensor device) fluticasone propionate 50 2 spray intranasal BID PRN 11/16/23 11/16/23 History mcg/actuation nasal Congestion spray,suspension hydralazine 50 mg tablet 50 mg PO TID 11/16/23 11/16/23 History Patient History Medical History ТАТЬЯНА (acute kidney injury) Severe preeclampsia Hyperemesis gravidarum before end of 22 week gestation, dehydration Chronic hypertension affecting Diabetes mellitus, type 2 History of COVID-19 2020 + Fall 2021>no current symptoms Social anxiety disorder History of PCOS History of pre-eclampsia Demyelinating disease Per [facility] neurology visit 01/02/21, "doubt that she has multiple sclerosis. However.. 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 neurology notes (12/2020) Learning disability Issues with multiple or complex instructions Endometriosis Hx Hirsutism Surgical History Previous delivery affecting , antepartum Hx of total hysterectomy with removal of both tubes and ovaries [place] [facility] [place] History of dilatation and curettage S/P section 09/11/21 S/P section 07/15/20 [facility] [place] of [place]illectomy Family History Unknown Endometriosis Grandmother (Maternal) Type 2 diabetes mellitus Denies family history of Ovarian cancer Prostate cancer Myocardial infarction Breast cancer Colorectal cancer Social History Smoking Status: Never smoker Second Hand Exposure: No; Do You Dip or Chew Tobacco: No; Hx Alcohol Use: No Hx Substance Use: No Preferred Language: Swiss Communication Ability: Effective Communication Ability Comment: learning disability with complex or mulitple instructions Visual Impairment: No Limitations Hearing Ability: Normal Computer Operations Supervisor Required: No Beliefs That Will Affect Care: None marital status: marital status details: Deny Holloway (43) [phone] Current Living Situation: Spouse and Family Current Living Situation Comment: Deny - spouse and 2 daughters and one cat current occupational status: unemployed 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 Physical Exam Constitutional: WD/WN, vitals as above no acute distress Eyes: + anicteric sclerae Neck: Rt IJ TDC Respiratory: Auscultation: lungs clear to auscultation bilaterally Cardiovascular: RRR, no murmur, no edema Gastrointestinal (Abdomen): Inspection/Auscultation: abdomen normal to inspection Percussion/Palpation: abdomen soft; abdomen nontender Musculoskeletal: Extremities: extremities normal to inspection Skin: no rashes, warm and dry Neurologic: no focal motor deficits and not confused Psychiatric: Orientation: alert and oriented x 3 Affect: euthymic affect Results & Data Vital Signs (Past 12 Hours) Vital Signs Temp Pulse Pulse Resp BP Pulse Ox O2 Del Method 11/18/23 07:42 75 11/18/23 07:30 Room Air 11/18/23 07:22 36.7 C 86 18 183/100 H 92 Room Air 11/18/23 03:19 36.7 C 88 18 174/89 H 94 Room Air 11/18/23 00:56 36.8 C 81 20 115/72 93 Room Air PG Care Time/CCT Total # of Minutes Spent Total Time Spent with Patient: Total time spent is greater than 50% in coordination of care (as documented) at patient's floor/unit and/or counseling patient: Coding Level of Care Code 32564 INT INP/OBS CARE 3/75MIN Diagnoses ESRD (end stage renal disease) N18.6 Hypertension I10 Hypertension type: unspecified Anemia of chronic disease D63.8 Type 2 diabetes mellitus with stage 4 chronic kidney disease, without long-term current use of insulin E11.22; N18.4 Diabetes mellitus longwall foreman insulin use: without usp use Diabetes mellitus complication status: with kidney complications Diabetes mellitus complication detail: with chronic kidney disease Chronic kidney disease stage: stage 4 (severe) Enterovirus infection B34.1 Nausea and vomiting R11.2 (2) Hypertension Hypertension type: unspecified Qualified Code(s): I10 - Essential (primary) hypertension (4) Type 2 diabetes mellitus Diabetes mellitus usp insulin use: without usp use Diabetes mellitus complication status: with kidney complications Diabetes mellitus complication detail: with chronic kidney disease Chronic kidney disease stage: stage 4 (severe) Qualified Code(s): E11.22 - Type 2 diabetes mellitus with diabetic chronic kidney disease; N18.4 - Chronic kidney disease, stage 4 (severe)
--- NOTE | 2023-11-18 10:24 | Anesthesiology Consultation ---
Date of Service November 18, 2023 Assessment & Plan Chart Review Chart Review: Acceptable Risk for Surgery and Patient NOT seen in Pre Admission Testing Consults Requested none ASA ASA4 Proposed Anesthesia Anesthesia Type: MAC Risk / Benefits Reviewed With: PT / POA / Parent / Guardian, Accepts Plan and Informed Consent Obtained History Surgery Operation Date: 11/18/23 16:30 Proposed Procedures p Esophagogastroduodenoscopy Meenakshi Arrieta MD Height/Weight Height: 5 ft 2 in Weight: 94.1 kg Allergies Allergy/AdvReac Type Severity Reaction Status Date / Time omeprazole Allergy Intermediate Hives Verified 11/16/23 22:31 nifedipine AdvReac Severe Edema, Verified 11/16/23 22:31 Congestive Heart Failure Medications Home Medications Medication Instructions Recorded Confirmed Last Taken lancets 33 gauge (OneTouch Delica #100 ea 03/05/18 10/27/23 Unknown Lancets) pen needle, diabetic 31 gauge x #200 ea 02/05/21 10/27/23 Unknown 05/19" blood sugar diagnostic #200 ea 06/08/21 10/27/23 Unknown lancing device with lancets kit #1 ea 06/08/21 10/27/23 Unknown (OneTouch Delica Lancing Device kit) blood sugar diagnostic (OneTouch #400 strips 04/18/23 10/27/23 Unknown Ultra Test strips) citalopram 10 mg tablet 10 mg PO QAM 09/22/23 11/16/23 11/16/23 insulin aspart U-100 100 unit/mL 1 sliding scale dose subcut UD #15 10/05/23 11/16/23 Unknown (3 mL) subcutaneous pen (Novolog mL FlexPen U-100 Insulin aspart) insulin detemir U-100 100 unit/mL 16 unit (0.16 mL) subcut HS #15 mL 10/05/23 11/16/23 Unknown (3 mL) subcutaneous pen (Levemir FlexPen) blood-glucose sensor (FreeStyle #3 ea 11/11/23 11/11/23 Unknown [place] 3 Sensor device) fluticasone propionate 50 2 spray intranasal BID PRN 11/16/23 11/16/23 Unknown mcg/actuation nasal Congestion spray,suspension hydralazine 50 mg tablet 50 mg PO TID 11/16/23 11/16/23 11/16/23 Active Medications Generic Name Dose Route Start Last Admin Trade Name Freq PRN Reason Stop Dose Admin Citalopram Hydrobromide 10 mg 11/17/23 09:00 11/18/23 08:55 Citalopram 20 Mg Tab PO 12/17/23 08:59 10 mg QAM HUGO Administration Hydralazine HCl 50 mg 11/17/23 09:00 11/18/23 08:55 Hydralazine Tab 50 Mg Tab PO 12/17/23 08:59 50 mg TID HUGO Administration Insulin Aspart 0 units 11/17/23 07:30 11/18/23 08:55 Insulin Aspart Per Unit Charge SC 12/17/23 07:29 Not Given ACHS HUGO Insulin Glargine 15 units 11/17/23 09:00 11/17/23 10:46 Lantus Per Unit Charge SQ 12/17/23 08:59 Not Given BID HUGO Labetalol HCl 200 mg 11/17/23 14:00 11/18/23 08:55 Labetalol Hcl 200 Mg Tab PO 12/17/23 13:59 200 mg TID HUGO Administration Melatonin 3 mg 11/16/23 23:58 11/17/23 20:23 Melatonin 3 Mg Tab PO 12/16/23 23:57 3 mg HS PRN Administration Insomnia Ondansetron HCl 4 mg 11/16/23 23:58 11/18/23 03:23 Ondansetron Inj 2 Mg/Ml 2 Ml Vial IV 12/16/23 23:57 4 mg Q6H PRN Administration Nausea NPO Date Last Intake of Fluids: 11/18/23 Time Last Intake of Fluids: 04:00 Date Last Intake of Solids: 11/16/23 Time Last Intake of Solids: 17:00 Past Medical History Medical History ТАТЬЯНА (acute kidney injury) Severe preeclampsia Hyperemesis gravidarum before end of 22 week gestation, dehydration Chronic hypertension affecting Diabetes mellitus, type 2 History of COVID-19 2020 + Fall 2021>no current symptoms Social anxiety disorder History of PCOS History of pre-eclampsia Demyelinating disease Per [facility] neurology visit 01/02/21, "doubt that she has multiple sclerosis. However.. 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 neurology notes (12/2020) Learning disability Issues with multiple or complex instructions Endometriosis Hx Hirsutism Exercise / Class Metabolic Activity II 4-5 Yardwork/Stairs/Walk up hill Past Family History Family History Unknown Endometriosis Grandmother (Maternal) Type 2 diabetes mellitus Denies family history of Ovarian cancer Prostate cancer Myocardial infarction Breast cancer Colorectal cancer Past Surgical History Surgical History Previous delivery affecting , antepartum Hx of total hysterectomy with removal of both tubes and ovaries 12/2022; [facility], one ovary remains History of dilatation and curettage S/P section 09/11/21 S/P section 07/15/20 [facility] Hx of tonsillectomy Past Anesthesia History No Hx of Anesthesia Complications and No Family Hx of Anesthesia Complications History of PONV No Hx of PONV and No Hx of Motion Sickness Social History Smoking Status: Never smoker Do You Dip or Chew Tobacco: No Hx Alcohol Use: No Hx Substance Use: No substance use type: does not use Physical Exam Vital Signs Last Vital Signs Temp 36.7 C 11/18/23 10:15 Pulse 81 11/18/23 10:15 Resp 18 11/18/23 10:15 BP 159/88 H 11/18/23 10:15 Pulse Ox 94 11/18/23 10:15 O2 Del Method Room Air 11/18/23 10:15 ENMT Mouth: no dentition abnormality Thyromental Distance: > or= 3.5 Finger Breadths Mallampati Class: II Neck normal visual inspection Respiratory normal respiratory effort Auscultation: lungs clear to auscultation bilaterally Cardiovascular Rate/Rhythm: regular rate and regular rhythm Psychiatric Orientation: alert Testing Laboratory Results 11/18/23 04:30 11/18/23 04:30 Urine Color Dark Yellow 11/16/23 Unknown Urine Appearance Cloudy (Clear) A 11/16/23 Unknown Urine pH 7.5 (4.5-7.5) 11/16/23 Unknown Ur Specific [place] 1.020 (1.000-1.030) 11/16/23 Unknown Urine Protein 4+ (Negative) H 11/16/23 Unknown Urine Glucose (UA) Trace (Negative) H 11/16/23 Unknown Urine Ketones 1+ (Negative) H 11/16/23 Unknown Urine Nitrite Negative (Negative) 11/16/23 Unknown Ur Leukocyte Esterase Trace (Negative) H 11/16/23 Unknown Urine WBC (Auto) 0-5 /hpf (0-5) 11/16/23 Unknown Urine RBC (Auto) 0-2 /hpf (0-2) 11/16/23 Unknown U Hyaline Cast (Auto) >20 /lpf (0-2) H 11/16/23 Unknown U Epithel Cells (Auto) 6-10 /hpf (0-2) H 11/16/23 Unknown Urine Bacteria (Auto) 2+ (None Seen) H 11/16/23 Unknown 11/16/23 22:00 Aerobic Blood Culture - Preliminary Blood Gram positive cocci Anaerobic Blood Culture - Preliminary No growth in Anaerobic bottle after 24 hours. 11/16/23 22:52 Aerobic Blood Culture - Preliminary Blood No growth in Aerobic bottle after 24 hours. Anaerobic Blood Culture - Preliminary No growth in Anaerobic bottle after 24 hours. 11/16/23 Unknown Urine Culture - Preliminary Urine,Clean Catch Pin-point growth present, reincubating. 11/18/23 08:00 POC Glucose 102 H Electrocardiogram Date: 11/16/23 Findings: + NSR @ prolonged qt Chest X-Ray Date: 11/16/23 Findings: + NAD
--- NOTE | 2023-11-18 10:33 | History & Physical Bridge Note ---
Date of Service November 18, 2023 History & Physical Bridge Note I have examined the patient, reviewed the History & Physical and in the interval since the performance of the History & Physical I have noted the following changes of clinical significance: no changes noted
--- NOTE | 2023-11-18 10:56 | Communication Note ---
Date of Service: November 18, 2023 EGD w/ grade C esophagitis. She has reports of hives with omeprazole. Discussed with pharmacy. GI would recommend use Pepcid 40 mg twice daily for 12 weeks for the esophagitis. This would need to be discussed with her nephrology providers. To try a different PPI, pharmacy recommended to premedicate with Benadryl. This would not be a medical terminologist management option. I did ask about the use of vonoprazan in this situation. The pharmacy does not have this available while inpatient, but if the esophagitis does not respond to Pepcid, this can be considered as an outpatient. Recall GI as needed. Thank you for allowing us to participate in the care of this patient. Please call with any acute changes, questions or concerns. Please see addendum below with additional recommendation from my supervising physician.
--- NOTE | 2023-11-18 11:12 | GI REPORT ---
[facility] Patient: MARC DUNBAR : 1980 Sex at : Female Age: 43 Years Procedure: Upper GI endoscopy Date: 11/18/2023 Attending Physician: Pineda Arrieta MD Referring MD: Referred Self; Cindy Valentine Md Indications: - Abnormal imaging on CT scan Medications: - Monitored Anesthesia Care Complications: - No immediate complications. Estimated Blood Loss: - Estimated blood loss: none. Procedure: - Prior to the procedure, a History and Physical was performed, and patient medications and allergies were reviewed. The patient's tolerance of previous anesthesia was also reviewed. The risks and benefits of the procedure and the sedation options and risks were discussed with the patient. All questions were answered, and informed consent was obtained. After reviewing the risks and benefits, the patient was deemed in satisfactory condition to undergo the procedure. - The egd scope was introduced through the mouth and advanced to the second part of the duodenum. - The upper GI endoscopy was accomplished without difficulty. - The patient tolerated the procedure well. Findings: - Grade C esophagitis Impression: - Grade C esophagitis - No specimens collected. Recommendation: - Patient has allergy to omeprazole Will start on Pepcid 40 mg BID. Hospital formulary does not have venoprazan but can start as OP. Repeat EGD in 3 months to evaluate for healing and r/o underlying Barretts - Resume previous diet. Procedure Code(s): - 94874, Esophagogastroduodenoscopy, flexible, transoral; diagnostic, including collection of specimen(s) by brushing or washing, when performed (separate procedure) CPT(R) - 2023 copyright [employer]. All Rights Reserved. The CPT codes, CCI edits and ICD codes generated are intended as suggestions and were generated based on input data. These codes are preliminary and upon off premise service representative review may be revised to meet current compliance and payer requirements. The provider is responsible for the final determination of appropriate codes, and modifiers. Pineda Arrieta This document has been electronically signed. Note Initiated:11/18/2023 Note Completed:11/18/2023 11:12 AM [id number]
[2023-11-18] MEDS: NEPHROCAPS PO SCH (11:33)
--- NOTE | 2023-11-18 11:56 | Anesthesiology Progress Note ---
Date of Service November 18, 2023 Anesthesia Post Procedure Vital Signs Vital Signs: Temp Pulse Pulse Pulse Resp BP Pulse Ox 11/18/23 11:39 36.6 C 63 18 193/93 H 95 11/18/23 11:12 70 12 198/101 H 95 11/18/23 10:57 55 L 19 172/90 H 97 11/18/23 10:42 76 16 113/89 99 11/18/23 10:15 36.7 C 81 18 159/88 H 94 11/18/23 07:42 75 11/18/23 07:30 11/18/23 07:22 36.7 C 86 18 183/100 H 92 11/18/23 03:19 36.7 C 88 18 174/89 H 94 11/18/23 00:56 36.8 C 81 20 115/72 93 11/17/23 21:36 78 11/17/23 20:15 11/17/23 20:07 36.6 C 76 20 178/98 H 93 11/17/23 16:30 175/89 H 11/17/23 15:04 36.5 C 87 18 190/84 H 94 11/17/23 15:00 89 11/17/23 14:24 84 O2 Del Method O2 Flow Rate 11/18/23 11:39 Room Air 11/18/23 11:12 Room Air 11/18/23 10:57 Room Air 11/18/23 10:42 Oxymask 10 11/18/23 10:15 Room Air 11/18/23 07:42 11/18/23 07:30 Room Air 11/18/23 07:22 Room Air 11/18/23 03:19 Room Air 11/18/23 00:56 Room Air 11/17/23 21:36 11/17/23 20:15 Room Air 11/17/23 20:07 Room Air 11/17/23 16:30 11/17/23 15:04 Room Air 11/17/23 15:00 11/17/23 14:24 Pain Intensity Upper Abdomen: Pain Intensity: 2 Transfer of Care Handoff Completed per policy Notes Mental Status: alert / awake / arousable Patient Amnestic to Procedure: Yes Nausea / Vomiting: adequately controlled Pain: adequately controlled Airway Patency, RR, SpO2: stable & adequate BP & HR: stable & adequate Hydration State: stable & adequate Anesthetic Complications: no major complications apparent
[2023-11-18] MEDS ORDERED: VANCOMYCIN CONSULT ACTIVE PRN (11:59)
--- NOTE | 2023-11-18 13:44 | Pharmacy Report ---
Pharmacy PK ABX Note - Date of Service November 18, 2023 - Assessment and Plan Assessment 43 year old F receiving vancomycin for treatment of GPC Bacteremia. Pertinent microbiologic data includes: blood culture growing 05/19 BCID2 Staph species, urine culture pending, repeat blood cultures pending. August has ESRD and is on HD MWF. . Day # 1 of antimicrobial therapy. Plan Vancomycin * Loading dose: 2000 mg IV x 1 * Will dose further vancomycin per levels due to ESRD * Will target a goal trough of 15-20mcg/mL for bacteremia. * Random level ordered for: 11/19/23 with AM labs Pharmacy will continue to follow and will adjust dose/frequency as necessary. Thank you. Pharmacy has transitioned to AUC monitoring for vancomycin. AUC/KIRSTIE is the preferred PK/PD target and is associated with decreased risk of nephrotoxicity compared to traditional trough targets.
[2023-11-18] MEDS: VANCOMYCIN HCL 2,000 MG in SODIUM CHLORIDE 0.9% 500 ML IV ONE (15:50)
[2023-11-18] MEDS: LABETALOL HCL 200 MG TAB PO SCH (15:51)
[2023-11-18] MEDS: FAMOTIDINE 20MG IV PUSH 20 MG/5 ML SYR IV SCH (17:02)
--- NOTE | 2023-11-18 17:06 | Hospitalist Progress Note ---
Date of Service November 18, 2023 Assessment & Plan (1) Nausea and vomiting: Plan: Pt is a 43 yo female with PMH of CKD stage 5 (dialysis MWF) and DM presenting d/t uncontrollable N/V. She had dialysis today and was referred to the ER d/t her symptoms. CTAP: abnormal thickening distal wall of the esophagus with mild surrounding inflammatory stranding likely infectious or inflammatory in etiology. Cholelithiasis with calcified gallbladder wall, characteristic for porcelain gallbladder. GI consulted - EGD with Grade C esophagitis - PPI allergy so plan for Pepcid x12 weeks (20mg q48H renally dosed) General surgery consulted - follow up outpatient to discuss repeat cholecystectomy Trop has not peaked - repeat this afternoon UA - suspicious for UA, but patient asymptomatic - UC contaminated BC 05/19 with Staph species - unclear if contaminant or not - repeat UC - repeat BC, drawn one from Dialysis catheter - Vancomycin started AM CBC, BMP, procal (2) Enterovirus infection: Plan: - RVP + for enterovirus - likely contribtuing to nausea and vomiting - supportive care - CXR no acute abnormalities (3) ESRD (end stage renal disease): Plan: CKD stage 5 - current dialysis MWF (did have dialysis day of admission) - nephrology consult - continue Nephrocaps - left arm nephrology precautions - dose meds for EGFR less than 10 Also with HTN - significantly elevated pressures in the ER, received labetalol and IV hydralazine - Continue home hydralazine 50mg TID - labetalol increased to 400 mg TID (home dose is apparently 600mg TID but not on her home med rec or showing she has picked up recently, patient reports she takes this. Was held several times last admission for parameters or patient refusal so will start at lower dose) AM BMP (4) Diabetes mellitus, type 2: Plan: Patient insulin was discontinued at discharge 09/2023. A1c 09/2023 7.4 - PCP notes recieved, patient sometimes uses her SSI at home - sugars well controlled with SSI, lantus discontinued Plan Chronic Stable Medical Problems: * Anxiety- continue citalopram 10 mg daily Dispo: continued inpatient stay following cultures DVT proh: SCDs Admission and Anticipated Discharge Date Admission Date: November 16, 2023 Supervising Physician Co-Signing Physician Notes PA Supervision Note: I did not personally see or examine the patient today, but I verified all jansen points of SALOMÓN Castellano's assessment and plan with the following exceptions/additions: None Subjective Patient seen during dialysis. reports feeling okay - not nauseous. Discussed EGD findings - denies NSAID or ETOH use. discussed positive blood culture, no fevers, chills, urinary symptoms or known skin infections Tele 70-80s Review of Systems Review of Systems: All systems reviewed & are unremarkable except as noted in Subjective Physical Exam Physical Exam: General: NAD, VS as above Resp: normal respiratory effort, lungs clear to auscultation. no cough CV: RRR, no murmur, Abd: soft non tender, no hepatosplenomegaly Extremities: Moves all extremities, Neuro: A&O x3, SKIN: no rashes seen Results & Data Results & Data Vital Signs (Past 12 Hours) Vital Signs Temp Pulse Pulse Pulse Pulse Resp BP 11/18/23 15:37 36.6 C 88 18 11/18/23 15:25 36.7 C 78 11/18/23 15:00 70 131/86 11/18/23 14:35 62 11/18/23 14:30 75 127/65 11/18/23 14:00 79 132/80 11/18/23 13:30 84 120/76 11/18/23 13:00 72 178/101 H 11/18/23 12:30 68 213/118 H 11/18/23 12:05 36.4 C L 74 199/114 H 11/18/23 12:00 36.4 C L 64 11/18/23 11:39 36.6 C 63 18 11/18/23 11:12 70 12 11/18/23 10:57 55 L 19 11/18/23 10:42 76 16 11/18/23 10:15 36.7 C 81 18 11/18/23 07:42 75 11/18/23 07:30 11/18/23 07:22 36.7 C 86 18 BP Pulse Ox O2 Del Method O2 Flow Rate 11/18/23 15:37 138/78 93 Room Air 11/18/23 15:25 156/90 H 11/18/23 15:00 11/18/23 14:35 11/18/23 14:30 11/18/23 14:00 11/18/23 13:30 11/18/23 13:00 11/18/23 12:30 11/18/23 12:05 11/18/23 12:00 11/18/23 11:39 193/93 H 95 Room Air 11/18/23 11:12 198/101 H 95 Room Air 11/18/23 10:57 172/90 H 97 Room Air 11/18/23 10:42 113/89 99 Oxymask 10 11/18/23 10:15 159/88 H 94 Room Air 11/18/23 07:42 11/18/23 07:30 Room Air 11/18/23 07:22 183/100 H 92 Room Air Laboratory Results CBC and chemistry and blood cultures reviewed Diagnostic Findings EGD reviewed PG Care Time/CCT Total # of Minutes Spent Total Time Spent with Patient: Total time spent is greater than 50% in coordination of care (as documented) at patient's floor/unit and/or counseling patient: Coding Level of Care Code 09335 SUB INP/OBS CARE 3/50MIN Diagnoses Nausea and vomiting R11.2 Enterovirus infection B34.1 ESRD (end stage renal disease) N18.6 Diabetes mellitus, type 2 E11.9
[2023-11-19 06:14] LABS: Basophils # (auto) 0.06 K/uL (0.00-0.20); Basophils % (auto) 1.2 %; Eosinophils # (auto) 0.22 K/uL (0.00-0.50); Eosinophils % (auto) 4.3 %; Hematocrit (blood only) 30.8 % (37.0-47.0); Hemoglobin 9.8 g/dl (12.0-16.0); Immature Granulocytes # (auto) 0.02 K/uL (0.01-0.20); Immature Granulocytes % (auto) 0.4 %; Lymphocytes # (auto) 1.42 K/uL (1.20-3.40); Lymphocytes % (auto) 27.6 %; Mean Corpuscular Hemoglobin 29.2 pg (25.0-34.0); Mean Corpuscular Hgb Conc 31.8 g/dL (32.0-36.0); Mean Corpuscular Volume 91.7 fL (80.0-100.0); Mean Platelet Volume 9.9 fL (9.4-12.4); Monocytes # (auto) 0.45 K/uL (0.11-0.59); Monocytes % (auto) 8.8 %; Neutrophils # (auto) 2.97 K/uL (1.40-6.50); Neutrophils % (auto) 57.7 %; Platelet Count 224 K/uL (130-400); RDW Coefficient of Variation 12.4 % (11.5-14.5); RDW Standard Deviation 41.5 fL (36.4-46.3); Red Blood Count 3.36 M/uL (4.20-5.40); White Blood Count 5.14 K/ul (4.8-10.8)
[2023-11-19 06:30] LABS: Calcium 8.5 mg/dl (8.6-10.3); Creatinine Clr Calc Pharmacy 20.9 ml/min; Est GFR (African American) 16.1 ml/min; Est GFR (Non-African American) 13.9 ml/min; Potassium 3.6 mmol/L (3.5-5.1)
--- NOTE | 2023-11-19 09:42 | Pharmacy Report ---
Pharmacy PK ABX Note - Date of Service November 19, 2023 - Assessment and Plan Assessment 11/18: Day # 2 vancomycin monotherapy. 11/15 blood cultures (+) GPC in 05/19. Repeat blood cultures pending. 11/17: 43 year old F receiving vancomycin for treatment of GPC Bacteremia. Pertinent microbiologic data includes: blood culture growing 05/19 BCID2 Staph species, urine culture pending, repeat blood cultures pending. August has ESRD and is on HD MWF. Plan Vancomycin * S/p iHD yesterday afternoon. Received vancomycin 2gm IV X 1 post HD. * Random vanc level this AM, 31.6mcg/mL-- represents a 14h post-HD level. Expected to maintain therapeutic concentration until next dialysis session. * Will plan for another pre-HD level once next HD scheduled and re-dose once level <25mcg/mL if vancomycin continued. Pharmacy will continue to follow and will adjust dose/frequency as necessary. Thank you. Pharmacy has transitioned to AUC monitoring for vancomycin. AUC/KIRSTIE is the preferred PK/PD target and is associated with decreased risk of nephrotoxicity compared to traditional trough targets.
--- NOTE | 2023-11-19 11:28 | Nephrology Progress Note ---
Date of Service November 19, 2023 Assessment & Plan (1) ESRD (end stage renal disease): (2) Hypertension: (3) Anemia of chronic disease: (4) Type 2 diabetes mellitus: (5) Enterovirus infection: (6) Nausea and vomiting: Plan 43-year-old female with end-stage kidney disease secondary to diabetic nephropathy, on hemodialysis Tuesday, , Tuesday via right IJ tunneled dialysis catheter. Has been having regular dialysis treatment, last dialysis was Tuesday. Admitted with 2 to 3 days history of nausea vomiting and overall feeling poorly. Workup revealed enterovirus infection. 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 Blood pressure has been running high. Nausea vomiting seems to have resolved, overall she is feeling better and feels like she is back to her baseline. Hemoglobin stable. Blood culture x 1 was positive for gram-positive cocci, received 1 dose of vancomycin empirically, pending repeat culture but clinically asymptomatic. Electrolyte, volume status acceptable. Blood pressure running high but she reports better blood pressure at home. -- Waiting on repeat culture considering high risk for bacteremia with tunneled dialysis catheter in place although clinically asymptomatic. -- Continue on Nephrocaps daily -- Hemoglobin above 10, will hold off on MUKESH today considering significantly elevated blood pressure -- Left arm nephrology precaution for future AV fistula -- Dose medications for EGFR less than 10. Admission and Anticipated Discharge Date Admission Date: November 16, 2023 Subjective Delaney was seen and evaluated this morning. Overall she reports feeling well, no fever or chills, shortness of breath or chest pain. Had dialysis yesterday. Blood pressure has been variable. 1 set of blood culture came positive and repeat culture is pending, received 1 dose of vancomycin. Review of Systems Review of Systems: Detailed review of system was done and pertinent positives and negatives are mentioned above. Physical Exam Constitutional: WD/WN, vitals as above no acute distress Respiratory: Auscultation: lungs clear to auscultation bilaterally Cardiovascular: RRR, no murmur, no edema Extremities: + vascular access device (Rt IJ TDC site without discharge, erythema or tenderness) Musculoskeletal: Extremities: extremities normal to inspection Skin: no rashes, warm and dry Neurologic: no focal motor deficits Psychiatric: Orientation: alert and oriented x 3 Affect: euthymic affect Results & Data Vital Signs (Past 12 Hours) Vital Signs Temp Pulse Pulse Pulse Resp BP Pulse Ox 11/19/23 09:00 11/19/23 07:34 84 11/19/23 07:26 36.8 C 115 H 18 167/89 H 98 11/19/23 02:45 36.6 C 73 18 136/79 96 O2 Del Method 11/19/23 09:00 Room Air 11/19/23 07:34 11/19/23 07:26 Room Air 11/19/23 02:45 Room Air PG Care Time/CCT Total # of Minutes Spent Total Time Spent with Patient: Total time spent is greater than 50% in coordination of care (as documented) at patient's floor/unit and/or counseling patient: Coding Level of Care Code 65114 SUB INP/OBS CARE 2/35MIN Diagnoses ESRD (end stage renal disease) N18.6 Hypertension I10 Hypertension type: unspecified Anemia of chronic disease D63.8 Type 2 diabetes mellitus with stage 4 chronic kidney disease, without long-term current use of insulin E11.22; N18.4 Diabetes mellitus exterminator helper insulin use: without senior care use Diabetes mellitus complication status: with kidney complications Diabetes mellitus complication detail: with chronic kidney disease Chronic kidney disease stage: stage 4 (severe) Enterovirus infection B34.1 Nausea and vomiting R11.2 (2) Hypertension Hypertension type: unspecified Qualified Code(s): I10 - Essential (primary) hypertension (4) Type 2 diabetes mellitus Diabetes mellitus exterminator helper insulin use: without exterminator helper use Diabetes mellitus complication status: with kidney complications Diabetes mellitus complication detail: with chronic kidney disease Chronic kidney disease stage: stage 4 (severe) Qualified Code(s): E11.22 - Type 2 diabetes mellitus with diabetic chronic kidney disease; N18.4 - Chronic kidney disease, stage 4 (severe)
--- NOTE | 2023-11-19 12:36 | Hospitalist Progress Note ---
Date of Service November 19, 2023 Assessment & Plan (1) Nausea and vomiting: Plan: Pt is a 43 yo female with PMH of CKD stage 5 (dialysis MWF) and DM presenting d/t uncontrollable N/V. She had dialysis today and was referred to the ER d/t her symptoms. CTAP: abnormal thickening distal wall of the esophagus with mild surrounding inflammatory stranding likely infectious or inflammatory in etiology. Cholelithiasis with calcified gallbladder wall, characteristic for porcelain gallbladder. GI consulted - EGD with Grade C esophagitis - PPI allergy so plan for Pepcid x12 weeks (20mg q48H renally dosed) General surgery consulted - follow up outpatient to discuss repeat cholecystectomy Trop elevated likely second to demand and poor clearance with diaysis pt UA - suspicious for UA, but patient asymptomatic - UC contaminated BC 05/19 with Staph species and cornybacterium - unclear if contaminant or not - repeat UC - no growth - repeat BC prepherially: no growth 24 hours - repeat BC dialysis site: pending - Vancomycin started AM CBC, BMP, (2) Enterovirus infection: Plan: - RVP + for enterovirus - likely contribtuing to nausea and vomiting - supportive care - CXR no acute abnormalities (3) ESRD (end stage renal disease): Plan: CKD stage 5 - current dialysis MWF (did have dialysis day of admission) - nephrology consult - continue Nephrocaps - left arm nephrology precautions - dose meds for EGFR less than 10 Also with HTN - significantly elevated pressures in the ER, received labetalol and IV hydralazine - Continue home hydralazine 50mg TID - labetalol increased to 400 mg TID (home dose is apparently 600mg TID but not on her home med rec or showing she has picked up recently, patient reports she takes this. Was held several times last admission for parameters or patient refusal so will start at lower dose) - with better control of her BP AM BMP (4) Diabetes mellitus, type 2: Plan: Patient insulin was discontinued at discharge 09/2023. A1c 09/2023 7.4 - PCP notes recieved, patient sometimes uses her SSI at home - sugars well controlled with SSI, lantus discontinued Plan Chronic Stable Medical Problems: * Anxiety- continue citalopram 10 mg daily Dispo: continued inpatient stay following cultures DVT proh: SCDs Admission and Anticipated Discharge Date Admission Date: November 16, 2023 Supervising Physician Co-Signing Physician Notes SALOMÓN Supervision Note: I did not personally see or examine the patient today, but I verified all jansen points of SALOMÓN Castellano's assessment and plan with the following exceptions/additions: None Subjective Patient sitting in bed. Denies fevers or chills. no abdominal pain no urinary symptoms states throat pain has improved - ready to advance diet Review of Systems Review of Systems: All systems reviewed & are unremarkable except as noted in Subjective Physical Exam Physical Exam: General: NAD, VS as above Resp: normal respiratory effort, lungs clear to auscultation. no cough CV: RRR, no murmur, Abd: soft, mild RUQ tenderness Extremities: Moves all extremities, Neuro: A&O x3, SKIN: no rashes seen Results & Data Results & Data Vital Signs (Past 12 Hours) Vital Signs Temp Pulse Pulse Pulse Resp BP Pulse Ox 11/19/23 11:56 36.7 C 78 18 101/68 96 11/19/23 09:00 11/19/23 07:34 84 11/19/23 07:26 36.8 C 115 H 18 167/89 H 98 11/19/23 02:45 36.6 C 73 18 136/79 96 O2 Del Method 11/19/23 11:56 Room Air 11/19/23 09:00 Room Air 11/19/23 07:34 11/19/23 07:26 Room Air 11/19/23 02:45 Room Air Laboratory Results cbc, chemistry, vanc level reviewed blood cultures reviewed urine cultures reviewed PG Care Time/CCT Total # of Minutes Spent Total Time Spent with Patient: Total time spent is greater than 50% in coordination of care (as documented) at patient's floor/unit and/or counseling patient: Coding Level of Care Code 21794 SUB INP/OBS CARE 2/35MIN Diagnoses Nausea and vomiting R11.2 Enterovirus infection B34.1 ESRD (end stage renal disease) N18.6 Diabetes mellitus, type 2 E11.9
[2023-11-20 08:14] LABS: Basophils # (auto) 0.05 K/uL (0.00-0.20); Basophils % (auto) 1.1 %; Eosinophils # (auto) 0.22 K/uL (0.00-0.50); Eosinophils % (auto) 4.8 %; Hematocrit (blood only) 28.5 % (37.0-47.0); Hemoglobin 9.2 g/dl (12.0-16.0); Immature Granulocytes # (auto) 0.01 K/uL (0.01-0.20); Immature Granulocytes % (auto) 0.2 %; Lymphocytes # (auto) 1.38 K/uL (1.20-3.40); Lymphocytes % (auto) 30.1 %; Mean Corpuscular Hgb Conc 32.3 g/dL (32.0-36.0); Mean Corpuscular Volume 89.9 fL (80.0-100.0); Monocytes % (auto) 8.7 %; Neutrophils # (auto) 2.53 K/uL (1.40-6.50); Neutrophils % (auto) 55.1 %; Platelet Count 224 K/uL (130-400); RDW Coefficient of Variation 12.2 % (11.5-14.5); RDW Standard Deviation 39.8 fL (36.4-46.3); Red Blood Count 3.17 M/uL (4.20-5.40); White Blood Count 4.59 K/ul (4.8-10.8)
[2023-11-20 08:37] LABS: BUN Creatinine Ratio 4.1 (10-20); Calcium 8.7 mg/dl (8.6-10.3); Creatinine Clr Calc Pharmacy 15.5 ml/min; Est GFR (African American) 11.1 ml/min; Est GFR (Non-African American) 9.5 ml/min; Potassium 3.3 mmol/L (3.5-5.1)
[2023-11-20] MEDS: LIDOCAINE 2% 2 ML VIAL/AMP(20MG/ML) INFIL ONE (09:30)
[2023-11-20] MEDS: fentaNYL citrate PF 100 MCG/2 ML VIAL ONE (09:30)
[2023-11-20] MEDS: PROPOFOL IV EMULSION 10 MG/ML 20 ML VIAL IV ONE ×3 (09:30)
[2023-11-20] MEDS: HEPARIN 100 UNIT/ML 5ML FLUSH FLUSH ONE (09:31)
--- NOTE | 2023-11-20 11:19 | Nephrology Progress Note ---
Date of Service November 20, 2023 Assessment & Plan (1) ESRD (end stage renal disease): (2) Hypertension: (3) Anemia of chronic disease: (4) Type 2 diabetes mellitus: (5) Enterovirus infection: (6) Nausea and vomiting: Plan 43-year-old female with end-stage kidney disease secondary to diabetic nephropathy, on hemodialysis Tuesday, , Tuesday via right IJ tunneled dialysis catheter. Has been having regular dialysis treatment, last dialysis was Tuesday. Admitted with 2 to 3 days history of nausea vomiting and overall feeling poorly. Workup revealed enterovirus infection. 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 Blood pressure has been running high. Nausea vomiting seems to have resolved, overall she is feeling better and feels like she is back to her baseline. Hemoglobin stable. Blood culture x 1 was positive for gram-positive cocci, received 1 dose of vancomycin empirically, pending repeat culture but clinically asymptomatic. Electrolyte, volume status acceptable. Blood pressure has been variable. --Okay to be discharged from nephrology standpoint and, she can go to the outpatient unit for dialysis tomorrow. -- Continue on Nephrocaps daily -- Left arm nephrology precaution for future AV fistula -- Dose medications for EGFR less than 10. Admission and Anticipated Discharge Date Admission Date: November 16, 2023 Subjective August was seen and evaluated this morning. Overall she reports feeling well, no fever or chills, shortness of breath or chest pain. Had dialysis Tuesday. Blood pressure has been variable. Repeat blood culture came back negative suggesting the first blood culture positive was the contamination. Review of Systems Review of Systems: Detailed review of system was otherwise unremarkable. Physical Exam Constitutional: WD/WN, vitals as above no acute distress Respiratory: Auscultation: lungs clear to auscultation bilaterally Cardiovascular: RRR, no murmur, no edema Extremities: + vascular access device (Rt IJ TDC site without discharge, erythema or tenderness) Musculoskeletal: Extremities: extremities normal to inspection Skin: no rashes, warm and dry Neurologic: no focal motor deficits Psychiatric: Orientation: alert and oriented x 3 Affect: euthymic affect Results & Data Vital Signs (Past 12 Hours) Vital Signs Temp Pulse Pulse Pulse Resp BP Pulse Ox 11/20/23 11:12 36.4 C L 81 18 115/72 93 11/20/23 08:30 11/20/23 08:20 36.6 C 78 18 158/83 H 93 11/20/23 07:17 84 11/20/23 03:41 36.5 C 72 16 149/80 H 92 11/19/23 23:28 36.8 C 74 18 152/87 H 94 O2 Del Method 11/20/23 11:12 Room Air 11/20/23 08:30 Room Air 11/20/23 08:20 Room Air 11/20/23 07:17 11/20/23 03:41 Room Air 11/19/23 23:28 Room Air PG Care Time/CCT Total # of Minutes Spent Total Time Spent with Patient: Total time spent is greater than 50% in coordination of care (as documented) at patient's floor/unit and/or counseling patient: Coding Level of Care Code 19599 SUB INP/OBS CARE MIN Diagnoses ESRD (end stage renal disease) N18.6 Hypertension I10 Hypertension type: unspecified Anemia of chronic disease D63.8 Type 2 diabetes mellitus with stage 4 chronic kidney disease, without long-term current use of insulin E11.22; N18.4 Diabetes mellitus assisted insulin use: without bottom steep tender use Diabetes mellitus complication status: with kidney complications Diabetes mellitus complication detail: with chronic kidney disease Chronic kidney disease stage: stage 4 (severe) Enterovirus infection B34.1 Nausea and vomiting R11.2 (2) Hypertension Hypertension type: unspecified Qualified Code(s): I10 - Essential (primary) hypertension (4) Type 2 diabetes mellitus Diabetes mellitus assisted insulin use: without bottom steep tender use Diabetes mellitus complication status: with kidney complications Diabetes mellitus complication detail: with chronic kidney disease Chronic kidney disease stage: stage 4 (severe) Qualified Code(s): E11.22 - Type 2 diabetes mellitus with diabetic chronic kidney disease; N18.4 - Chronic kidney disease, stage 4 (severe)
--- NOTE | 2023-11-20 12:00 | Discharge Summary ---
Discharge Summary Date of Service November 20, 2023 Principal Dx & Hospital Course #1 = Principal Diagnosis (1) Nausea and vomiting: Pt is a 43 yo female with PMH of ESRD (dialysis MWF) and DM presenting d/t uncontrollable N/V. She had dialysis on the day of admission and was referred to the ER d/t her symptoms. CTAP: abnormal thickening distal wall of the esophagus with mild surrounding inflammatory stranding likely infectious or inflammatory in etiology. Cholelithiasis with calcified gallbladder wall, characteristic for porcelain gallbladder. GI consulted - EGD with Grade C esophagitis - PPI allergy so plan for Pepcid x12 weeks (20mg q48H renally dosed) - outpatient GI follow up Nausea vomiting improved she was tolerating regular diet prior to discharge General surgery consulted for porcelain gallbladder - follow up outpatient to discuss cholecystectomy Trop elevated likely second to demand ischemia and poor clearance of troponin with dialysis pt UA - suspicious for UA, but patient asymptomatic - UC contaminated BC 05/19 with coagulase-negative Staphylococcus, not lugdunensis, and corynebacterium and diphtheroids - likely contaminant as repeat cultures have remained negative, no elevated white blood cell count fever or other clinical signs - repeat UC - Lactobacillus, no urinary symptoms. No systemic symptoms. Likely contaminant. - repeat BC peripherally: no growth 24 hours - repeat BC dialysis site: no growth 24 hours - Vancomycin Received x 1, no indication for continued antibiotics at discharge discharged to home today (2) Enterovirus infection: - RVP + for enterovirus - likely contribtuing to nausea and vomiting - supportive care - CXR no acute abnormalities (3) ESRD (end stage renal disease): CKD stage 5 - current dialysis MWF (did have dialysis day of admission) - nephrology consult - continue Nephrocaps - left arm nephrology precautions - dose meds for EGFR less than 10 Also with HTN - significantly elevated pressures in the ER, received labetalol and IV hydralazine - Continue home hydralazine 50mg TID - labetalol increased to 400 mg TID while inpatient. Discussed with Dr. Dr. Goyal would like patient to return to 600 mg dose 3 times daily at discharge dialysis at outpatient center tomorrow (4) Diabetes mellitus, type 2: Patient insulin was discontinued at discharge 09/2023. A1c 09/2023 7.4 - PCP notes reviewed, patient sometimes uses her SSI at home - sugars well controlled with SSI, lantus discontinued should contact patient should continue her sliding scale insulin at home Plan Chronic Stable Medical Problems: * Anxiety- continue citalopram 10 mg daily Dispo: discharge to home. Dialysis tomorrow Discussed case with Dr. Montaño, nephrology Notes For Next Care Provider Delaney was admitted for nausea and vomiting, found to have enterovirus with also esophageal thickening. EGD showed grade 3 esophagitis. Due to her reaction to a PPI previously was started on Pepcid renally dosed his every 48 hours. She had a positive blood culture that has not resulted became more likely contaminant. As we are waiting for this result she had repeat blood cultures including 1 from her dialysis catheter (this is the one collected 11/18/2023 at 20:11). so far all the repeat blood cultures remain no growth at 24 hours. Clinically patient is stable without signs of infections. Decision was made to discharge her home today without any antibiotics - blood cultures pending - needs outpatient follow-up with general surgery for her porcelain gallbladder - needs GI follow-up for grade C esophagitis dialysis as scheduled for Monday 11/20 Medication Changes From Visit Pepcid every 48 hours Admission HPI Per Admitting Provider Pt is a 43 yo female with PMH of CKD stage 5 (dialysis MWF) and DM presenting d/t uncontrollable N/V. She had dialysis today and was referred to the ER d/t her symptoms. Pt notes that she started feeling ill ~2-3 days ago including N/V. She has dialysis today which made her feel more ill and prompted her to present to the ER. She endorses some chest pain when she feels that she might vomit which feels like acid in her throat. She denies overt chest pain, SOB, abdominal pain, and diarrhea. In the ER, pt was given labetalol 10 mg, famotidine 20 mg, and ondansetron 4 mg. Discharge Exam General: NAD, VS as above Resp: normal respiratory effort, lungs clear to auscultation. no cough CV: RRR, no murmur, Abd: soft, no abdominal pain Extremities: Moves all extremities, Neuro: A&O x3, SKIN: no rashes seen Updated Medication List Medication Instructions Recorded Confirmed Type lancets 33 gauge ([employer] #100 ea 03/05/18 10/27/23 Rx Lancets) pen needle, diabetic 31 gauge x #200 ea 02/05/21 10/27/23 Rx 1/4" blood sugar diagnostic #200 ea 06/08/21 10/27/23 Rx lancing device with lancets kit #1 ea 06/08/21 10/27/23 Rx (OneTouch Delica Lancing Device kit) blood sugar diagnostic (OneTouch #400 strips 04/18/23 10/27/23 Rx Ultra Test strips) citalopram 10 mg tablet 10 mg PO QAM 09/22/23 11/16/23 History insulin aspart U-100 100 unit/mL 1 sliding scale dose subcut UD #15 10/05/23 11/16/23 Rx (3 mL) subcutaneous pen (Novolog mL FlexPen U-100 Insulin aspart) blood-glucose sensor (FreeStyle #3 ea 11/11/23 11/11/23 Rx [place] 3 Sensor device) fluticasone propionate 50 2 spray intranasal BID PRN 11/16/23 11/16/23 History mcg/actuation nasal Congestion spray,suspension hydralazine 50 mg tablet 50 mg PO TID 11/16/23 11/16/23 History famotidine 20 mg tablet (Pepcid) 20 mg PO Q48H 12 weeks #42 tabs 11/20/23 Rx labetalol 200 mg tablet 600 mg (3 x 200 mg) PO TID 30 days 11/20/23 Rx #270 tabs vitamin B complex and vitamin C 1 cap PO QAM #30 caps 11/20/23 Rx no.20-folic acid 1 mg capsule (Renal Caps) Hospital Stay Data Consultations 11/16/23 23:27 ED Decision to Admit Stat 11/17/23 08:40 Consult Gastroenterology Routine 11/17/23 12:09 Consult Nephrology Routine 11/17/23 12:11 Consult General Surgery Routine Procedures Performed Operation Date: 11/18/23 16:30 Actual Procedures p Esophagogastroduodenoscopy - Pineda Arrieta MD Diagnostic Imagining Performed Chest X-Ray 11/16/23 19:19 XR chest 2V PA/lateral CLINICAL HISTORY: feverish TECHNIQUE: 2 views of the chest were obtained. Comparison: Comparison is made to chest radiograph 09/25/2023 FINDINGS: Dual lumen catheter is seen on the right terminating in the cavoatrial junction. The cardiomediastinal silhouette is normal. The lungs are clear. No evidence of pleural effusion or pneumothorax. IMPRESSION: No acute abnormalities and in particular no radiographic evidence of pneumonia. ACT 112: Negative or not required by law. Electronically signed by: Shaji James M.D. 11/17/2023 7:22 AM Abdomen/Pelvis CT 11/16/23 21:50 Exam(s): CT ABDOMEN + PELVIS Without Contrast EXAM: CT Abdomen and Pelvis Without Intravenous Contrast CLINICAL HISTORY: Reason for exam: n/v pain, ESRD. TECHNIQUE: Axial computed tomography images of the abdomen and pelvis without intravenous contrast. CTDI is 28.12 mGy and DLP is 1442.09 mGy-cm. Automated exposure control was utilized for the study. A dose lowering technique was utilized adhering to the principles of ALARA. COMPARISON: No relevant prior studies available. FINDINGS: Lung bases: Unremarkable. No mass. No consolidation. Mediastinum: Abnormal thickening distal wall of the esophagus with mild surrounding inflammatory stranding likely infectious or inflammatory in etiology. Consider further correlation with direct endoscopic visualization. ABDOMEN: Liver: Unremarkable. 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 No evidence for acute cholecystitis. No ductal dilation. Pancreas: Unremarkable. No ductal dilation. Spleen: Unremarkable. No splenomegaly. Adrenals: Unremarkable. No mass. Kidneys and ureters: Unremarkable. No obstructing stones. No hydronephrosis. Stomach and bowel: Unremarkable. No obstruction. No mucosal thickening. PELVIS: Appendix: No findings to suggest acute appendicitis. Bladder: Unremarkable. No stones. Reproductive: Post hysterectomy. ABDOMEN and PELVIS: Intraperitoneal space: Unremarkable. No free air. No significant fluid collection. Bones/joints: No acute fracture. No dislocation. Soft tissues: Unremarkable. Vasculature: Unremarkable. No abdominal aortic aneurysm. Lymph nodes: Unremarkable. No enlarged lymph nodes. IMPRESSION: 1. Abnormal thickening distal wall of the esophagus with mild surrounding inflammatory stranding likely infectious or inflammatory in etiology. Consider further correlation with direct endoscopic visualization. 2. 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 No evidence for acute cholecystitis. Electronically signed by: Dionicio Tapia MD 11/16/23 23:08 PM Pending Results Patient Have Any Pending Studies at Discharge: Yes ( Blood cultures) Discharge Instructions Given to Patient (Per Discharging Provider) Ms. Brown, You were hospitalized after having nausea and vomiting. You were found to have enterovirus as well as thickening of your esophagus. You were seen by the GI team who performed an EGD (upper scope) which Showed grade C esophagitis, for which you were started on Pepcid 20mg every 48 hours. You were also found to have a porcelain gallbladder. You were seen by general surgery and they recommend outpatient follow-up to discuss possible surgical procedure. Your stay was prolonged due to a positive blood culture; thankfully this was likely a contaminant. We did repeat multiple blood cultures and these are negative at 24 hours at discharge. It takes 5 days for these to become final results; if these grow bacteria, you will be notified. You will not be sent home with any antibiotics. If you develop any fevers or chills, please contact your primary care doctor or return to the ER. You were also seen by Dr. Montaño while inpatient and received dialysis. She recommends that you continue your Nephrocaps and your blood pressure medications as prescribed, labetalol 600 mg 3 times daily, as well as the hydralazine. Recommendations: * Esophagitis- full liquid/low residue diet, good dental care, avoid NSAIDs/alcohol/spicy/acidic foods. Take Pepcid as prescribed. * Hypertensioncontinue medications as prescribed, if you are continuing to get lightheaded or dizzy you can scale them back and discuss with Dr. Montaño * outpatient follow-up with general surgery * dialysis tomorrow as usual * dietfollow dialysis renal diet with your esophagitis just continue with mainly liquids. Advance to bland/low residue foods as tolerated. Handouts provided. Total Time Total Time Spent Total Time Spent (In Minutes): Time spend day of discharge 35 minutes including direct patient care, medication reconciliation, documentation, review of labs and images, and coordination of care. Supervising Physician Co-Signing Physician Notes PA Supervision Note: I personally saw and examined the patient. I verified all jansen points and agree with SALOMÓN Castellano with the following exceptions and/or additions: S-patient feeling much better tolerating regular food without nausea or vomiting. No chest or abdominal pains. Has no concerns. O- Vitals reviewed, remains afebrile Gen: AAOx3, NAD HEENT: Anicteric sclerae, EOMI CV: RRR no mgr nl S1S2 Pulm: CTAB no wcr Abd: +BS soft NT ND no masses or hernias A/V-36-gqyx-old female here with intractable nausea/vomiting secondary to enterovirus which caused her to have significant esophagitis. Treated with Pepcid. Appreciate GI consultation for EGD Received her usual dialysis Contaminated blood culture, not true bacteremia Stable for discharge Coding Level of Care Code 34330 INP/OBS DISCH >30 MIN Diagnoses Nausea and vomiting R11.2 Enterovirus infection B34.1 ESRD (end stage renal disease) N18.6 Diabetes mellitus, type 2 E11.9
[2023-11-21] MEDS ORDERED: EPOETIN ALFA 10,000 UNITS/ML VIAL IV SCH (09:00)
== END 2023-11-20 13:59 | disposition home or self-care (01) | DRG 391 ==
LOC: ED 17:02 → SUATTDRO 23:58 → 2W 23:58
DX: F41.9 Anxiety disorder, unspecified; Z99.2 Dependence on renal dialysis; B34.1 Enterovirus infection, unspecified; I12.0 Hypertensive chronic kidney disease with stage 5 chronic kidney disease or end stage renal disease; Z79.4 Long term (current) use of insulin; Z88.8 Allergy status to other drugs, medicaments and biological substances; K20.90 Esophagitis, unspecified without bleeding; K82.8 Other specified diseases of gallbladder; Z79.899 Other long term (current) drug therapy; E11.22 Type 2 diabetes mellitus with diabetic chronic kidney disease; I24.89 Other forms of acute ischemic heart disease; E11.21 Type 2 diabetes mellitus with diabetic nephropathy; N18.6 End stage renal disease

== ENCOUNTER 2024-01-19 16:38 | Inpatient (IN) ==
[2024-01-19] MEDS: ONDANSETRON INJ 2 MG/ML 2 ML VIAL IV STA ×2 (17:05→19:28)
[2024-01-19 17:30] LABS: Basophils # (auto) 0.06 K/uL (0.00-0.20); Basophils % (auto) 0.6 %; Eosinophils # (auto) 0.04 K/uL (0.00-0.50); Eosinophils % (auto) 0.4 %; Hematocrit (blood only) 36.3 % (37.0-47.0); Hemoglobin 12.3 g/dl (12.0-16.0); Immature Granulocytes # (auto) 0.03 K/uL (0.01-0.20); Immature Granulocytes % (auto) 0.3 %; Lymphocytes # (auto) 1.45 K/uL (1.20-3.40); Lymphocytes % (auto) 15.1 %; Mean Corpuscular Hemoglobin 30.1 pg (25.0-34.0); Mean Corpuscular Hgb Conc 33.9 g/dL (32.0-36.0); Mean Platelet Volume 9.1 fL (9.4-12.4); Monocytes # (auto) 0.56 K/uL (0.11-0.59); Monocytes % (auto) 5.8 %; Neutrophils # (auto) 7.46 K/uL (1.40-6.50); Neutrophils % (auto) 77.8 %; Platelet Count 294 K/uL (130-400); RDW Coefficient of Variation 13.2 % (11.5-14.5); RDW Standard Deviation 43.1 fL (36.4-46.3); Red Blood Count 4.08 M/uL (4.20-5.40)
[2024-01-19 17:43] LABS: Pregnancy Test, Serum Negative (Negative)
[2024-01-19 18:00] LABS: Alanine Aminotransferase 18 U/L (7-52); Albumin Globulin Ratio 1.4 (0.9-2); Albumin Level 4.9 gm/dl (3.4-5.0); Alkaline Phosphatase 84 U/L (34-104); Anion Gap 18 (3-11); Aspartate Aminotransferase 25 U/L (13-39); BUN Creatinine Ratio 10.3 (10-20); Bilirubin,Total 0.7 mg/dl (0.2-1.0); Blood Urea Nitrogen 49 mg/dl (6-23); Calcium 10.6 mg/dl (8.6-10.3); Carbon Dioxide 27 mmol/L (21-32); Chloride 94 mmol/L (98-107); Est GFR (African American) 12.2 ml/min; Est GFR (Non-African American) 10.5 ml/min; Globulin 3.4 gm/dl (2.5-4.0); Glucose 184 mg/dl (70-99(Fasting)); Lipase 29 U/L (11-82); Potassium 3.9 mmol/L (3.5-5.1); Sodium 139 mmol/L (136-145); Total Protein 8.3 gm/dl (6.0-8.3)
[2024-01-19] MEDS: SODIUM CHLORIDE 0.9% 500 ML IV ONE (19:27)
[2024-01-19] MEDS: LABETALOL HCL IV 5 MG/ML 20ML IV STA (19:27)
[2024-01-19 19:31] LABS: Adenovirus PCR Not Detected (NotDetected); Bordetella parapertussis PCR Not Detected (NotDetected); Bordetella pertussis PCR Not Detected (NotDetected); Chlamydia pneumoniae PCR Not Detected (NotDetected); Coronavirus 229E PCR Not Detected (NotDetected); Coronavirus CoV-2 (COVID19)PCR Not Detected (NotDetected); Coronavirus HKU1 PCR Not Detected (NotDetected); Coronavirus NL63 PCR Not Detected (NotDetected); Coronavirus OC43PCR Not Detected (NotDetected); Human Metapneumovirus PCR Not Detected (NotDetected); Influenza A PCR Not Detected (NotDetected); Influenza B PCR Not Detected (NotDetected); Mycoplasma pneumoniae PCR Not Detected (NotDetected); Parainfluenza Virus 1 PCR Not Detected (NotDetected); Parainfluenza Virus 2 PCR Not Detected (NotDetected); Parainfluenza Virus 3 PCR Not Detected (NotDetected); Parainfluenza Virus 4 PCR Not Detected (NotDetected); Respiratory Syncytial VirusPCR Not Detected (NotDetected); Rhinovirus/Enterovirus PCR Not Detected (NotDetected)
--- NOTE | 2024-01-19 19:33 | Emergency Department Note ---
Impression & Plan Nausea & vomiting, Hypertension, ESRD (end stage renal disease) ED Provider Note Provider: Patrice Cr MD DATE OF SERVICE: 01/19/2024 CHIEF COMPLAINT: Vomiting, weakness, chills HISTORY OF PRESENT ILLNESS: Patient is a 43-year-old female history of type 2 diabetes, end-stage renal disease on Tuesday dialysis presenting here today reporting 3 days of worsening symptoms. Started with some nausea yesterday 1 episode of vomiting today multiple episodes of vomiting about 4 but no abdominal pain. Feeling weak and having some chills and sweating at time. No chest pain or shortness of breath. Denies URI symptoms of cough cold or runny nose. No rashes reported. Denies any heartburn symptoms. If an episode over the summer in November when she was here had similar nausea issues but was having heartburn and stuff at that time that is not occurring. Has been taking her meds until just midday when she has been vomiting. No blood in the vomit reported. No diarrhea reported. Did complete dialysis yesterday. PAST MEDICAL HISTORY: As noted above MEDICATIONS: Reviewed home medications SOCIAL HISTORY: Non-smoker PHYSICAL EXAM: GENERAL: alert and oriented fatigued in appearance resting in bed. Head: normocephalic and atraumatic EYES: No injection, discharge or icterus. NECK: Trachea midline. Supple. ENT: Mucous membranes pink and moist. LUNGS: Airway patent. No retractions or tachypnea HEART: Regular rate and rhythm. ABDOMEN: Soft and non-tender, without guarding or rebound. No Hurst sign. SKIN: Acyanotic, warm, dry, without rashes EXTREMITIES: Without swelling, tenderness or deformity NEUROLOGICAL: No focal deficits. No aphasia. No facial droop or slurred speech. EK bpm sinus rhythm with sinus arrhythmia no PVC. QTc 548. No acute ST segment elevation with some nonspecific T wave changes and artifact in V6 noted. CONTINUOUS CARDIAC MONITORING: was ordered and showed a heart rate of 60s-80s bpm in sinus rhythm Patient's laboratory studies and imaging reviewed. 1 view KUB without evidence of air-fluid levels or obstructive findings. Differential includes Gastroenteritis, food borne illness, infections, appendicitis, diverticulitis, inflammatory bowel disease, obstruction, GI bleed, biliary pathology, volvulus, as well as other pathologies. 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 3 days of symptoms initially nausea now vomiting. Nonbloody. Denies abdominal pain. Seen at time of high-volume and acute in the ER. On my evaluation did receive some Zofran but still nauseous. Asking for some ice chips. EKG obtained. Given additional Zofran. No severe electrolyte abnormalities. Lipase and LFTs without severe abnormality and doubt hepatitis pancreatitis. Respiratory viral panel negative. Negative . Will send blood culture and procalcitonin given her increased risk for possible occult infection. Procalcitonin not elevated. No fevers reported. Given a dose of IV labetalol to help with her blood pressure. Minimal effect and given some hydralazine IV. She is on oral hydralazine at home as well. KUB obtained without evidence of obstruction. Again without abdominal pain or concerning findings for peritonitis do not feel we need abdominal CT imaging at this time. Given her persistent symptoms with nausea and weakness and difficulty taking oral medications of which she needs for her severe hypertension we will bring into the hospital. DIAGNOSIS: Nausea and vomiting, weakness, end-stage renal disease on hemodialysis, hypertensive urgency DISPOSITION: Hospitalist will evaluate Patient was agreeable with this plan. Past Med/Surg History Problem List (Updated 01/19/24 @ 20:52 by Patrice Cr M.D.) Nausea & vomiting (Acute) ESRD (end stage renal disease) (Acute) Diabetes mellitus, type 2 Anemia of chronic disease Social anxiety disorder Hypertension (Acute) Demyelinating disease [place] [facility] [place], "doubt that she has multiple sclerosis. However.. 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 Type 2 diabetes mellitus ТАТЬЯНА (acute kidney injury) Severe preeclampsia Hyperemesis gravidarum before end of 22 week gestation, dehydration Chronic hypertension affecting History of COVID-19 2020 + Fall 2021>no current symptoms History of PCOS History of pre-eclampsia 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, left [place] [facility] [place]) Endometriosis Hx Hirsutism Surgical History Previous delivery affecting , antepartum Hx of total hysterectomy with removal of both tubes and ovaries 12/2022; [facility], one ovary remains History of dilatation and curettage S/P section 09/11/21 S/P section 07/15/20 [facility] Hx of tonsillectomy Family History Unknown Endometriosis Grandmother (Maternal) Type 2 diabetes mellitus Denies family history of Ovarian cancer Prostate cancer Myocardial infarction Breast cancer Colorectal cancer Social History Smoking Status: Never smoker Second Hand Exposure: No; Do You Dip or Chew Tobacco: No; Hx Alcohol Use: No Hx Substance Use: No Preferred Language: Citizen Of [place] Communication Ability: Effective Communication Ability Comment: learning disability with complex or mulitple instructions Visual Impairment: No Limitations Hearing Ability: Normal Level Vial Inspector Required: No Beliefs That Will Affect Care: None marital status: marital status details: Deny Newman [phone] Current Living Situation: Spouse Current Living Situation Comment: Deny - spouse and 2 daughters and one cat current occupational status: unemployed 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 How many Children do You have: 2 Other Information That Helps Us Care for You: No Feels Safe at Home: Yes Safety Concerns: Feels Safe At This Time Childhood Exposure to Second-Hand Smoke: Yes Diet: diabetic caffeine: Yes during the past year weight has: remained stable Dental Care, Regularly: Yes Physical Activity Frequency: Does not Exercise Seatbelt Use: always Sunscreen Use: Yes Assistive Devices: Glasses Allergies Allergies Allergy/AdvReac Type Severity Reaction Status Date / Time omeprazole Allergy Intermediate Hives Verified 11/16/23 22:31 nifedipine AdvReac Severe Edema, Verified 11/16/23 22:31 Congestive Heart Failure Home Meds Home Medications Medication Instructions Recorded Confirmed fluticasone propionate 50 2 spray intranasal BID PRN 11/16/23 11/16/23 mcg/actuation nasal Congestion spray,suspension hydralazine 50 mg tablet 50 mg PO TID 11/16/23 11/16/23 Previous Rx's Medication Instructions Recorded lancets 33 gauge (OneTouch Delica #100 ea 03/05/18 Lancets) pen needle, diabetic 31 gauge x #200 ea 02/05/21 1" blood sugar diagnostic #200 ea 06/08/21 lancing device with lancets kit #1 ea 06/08/21 (OneTouch Delica Lancing Device kit) blood sugar diagnostic (AppdraTouch #400 strips 04/18/23 Ultra Test strips) famotidine 20 mg tablet (Pepcid) 20 mg PO Q48H 12 weeks #42 tabs 11/20/23 blood-glucose sensor (FreeStyle #3 ea 11/21/23 [place] 3 Sensor device) blood-glucose meter,continuous #1 ea 12/23/23 (Dexcom G7 Planner) blood-glucose sensor (Dexcom G7 #1 ea 12/23/23 Sensor device) insulin aspart U-100 100 unit/mL 1 sliding scale dose subcut UD #15 12/28/23 (3 mL) subcutaneous pen (Novolog mL FlexPen U-100 Insulin aspart) vitamin B complex and vitamin C 1 cap PO QAM #90 caps 12/28/23 no.20-folic acid 1 mg capsule (Renal Caps) citalopram 10 mg tablet 10 mg PO QAM #90 tabs 12/30/23 Results & Data (ED) Vital Signs Vital Signs - 24 hr 01/19/24 16:43 01/19/24 18:15 01/19/24 19:34 Temperature 36.3 C L Temperature Source Oral Pulse Rate 66 69 Pulse Rate [Right Finger] 72 Pulse Rate from SpO2 Sensor Pulse Rhythm [Right Finger] Regular Pulse Strength [Right Finger] Normal Respiratory Rate 16 18 Respiratory Effort / Characteristics Non-Labored Spontaneous Non-Labored Spontaneous Respiratory Depth Normal Normal Respiratory Pattern Regular Blood Pressure Blood Pressure [Right Arm] 214/103 H Blood Pressure Mean Blood Pressure Mean [Right Arm] 140 Blood Pressure Position [Right Arm] Sitting Pulse Oximetry 98 99 Oxygen Delivery Method Room Air Room Air Sepsis Recent Fever Within 48 Hours No Sepsis New/Unexplained Change in Mental Status No Sepsis Action Taken by Nursing No Action Required 01/19/24 20:51 01/19/24 21:00 Temperature Temperature Source Pulse Rate 76 78 Pulse Rate [Right Finger] Pulse Rate from SpO2 Sensor 84 83 Pulse Rhythm [Right Finger] Pulse Strength [Right Finger] Respiratory Rate 33 H 16 Respiratory Effort / Characteristics Respiratory Depth Respiratory Pattern Blood Pressure 195/117 H 192/92 H Blood Pressure [Right Arm] Blood Pressure Mean 143 125 Blood Pressure Mean [Right Arm] Blood Pressure Position [Right Arm] Pulse Oximetry 94 95 Oxygen Delivery Method Sepsis Recent Fever Within 48 Hours Sepsis New/Unexplained Change in Mental Status Sepsis Action Taken by Nursing Laboratory Data 01/19/24 17:07 01/19/24 17:07 Lab Results 01/19/24 01/19/24 Range/Units 17:07 18:26 WBC 9.60 (4.8-10.8) K/ul RBC 4.08 L (4.20-5.40) M/uL Hgb 12.3 (12.0-16.0) g/dl Hct 36.3 L (37.0-47.0) % MCV 89.0 (80.0-100.0) fL MCH 30.1 (25.0-34.0) pg MCHC 33.9 (32.0-36.0) g/dL RDW Std Deviation 43.1 (36.4-46.3) fL RDW Coeff of Jessica 13.2 (11.5-14.5) % Plt Count 294 (130-400) K/uL MPV 9.1 L (9.4-12.4) fL Immature Gran % (Auto) 0.3 % Neut % (Auto) 77.8 % Lymph % (Auto) 15.1 % [place] % (Auto) 5.8 % Eos % (Auto) 0.4 % Baso % (Auto) 0.6 % Neut # (Auto) 7.46 H (1.40-6.50) K/uL Lymph # (Auto) 1.45 (1.20-3.40) K/uL [place] # (Auto) 0.56 (0.11-0.59) K/uL Eos # (Auto) 0.04 (0.00-0.50) K/uL Baso # (Auto) 0.06 (0.00-0.20) K/uL Immature Gran # (Auto) 0.03 (0.01-0.20) K/uL Sodium 139 (136-145) mmol/L Potassium 3.9 (3.5-5.1) mmol/L Chloride 94 L (98-107) mmol/L Carbon Dioxide 27 (21-32) mmol/L Anion Gap 18 H (3-11) BUN 49 H (6-23) mg/dl Creatinine 4.76 H* (0.6-1.2) mg/dl Est Cr Clr Drug Dosing Not Reportable Est GFR ( Amer) 12.2 ml/min Est GFR (Non-Af Amer) 10.5 ml/min BUN/Creatinine Ratio 10.3 (10-20) Glucose 184 H (70-99(Fasting)) mg/dl Calcium 10.6 H (8.6-10.3) mg/dl Magnesium 2.1 (1.7-2.4) mg/dl Total Bilirubin 0.7 (0.2-1.0) mg/dl AST 25 (13-39) U/L ALT 18 (7-52) U/L Alkaline Phosphatase 84 (34-104) U/L Total Protein 8.3 (6.0-8.3) gm/dl Albumin 4.9 (3.4-5.0) gm/dl Globulin 3.4 (2.5-4.0) gm/dl Albumin/Globulin Ratio 1.4 (0.9-2) Lipase 29 (11-82) U/L Procalcitonin 0.10 (0-0.5) ng/ml HCG, Qual Negative (Negative) Adenovirus (PCR) Not Detected (NotDetected) B. pertussis DNA (PCR) Not Detected (NotDetected) B.parapertussis DNA PCR Not Detected (NotDetected) C. pneumoniae DNA (PCR) Not Detected (NotDetected) Coronavirus OC43 (PCR) Not Detected (NotDetected) Coronavirus HKU1 (PCR) Not Detected (NotDetected) Coronavirus 229E (PCR) Not Detected (NotDetected) SARS-CoV-2 (PCR) Not Detected (NotDetected) Coronavirus NL63 (PCR) Not Detected (NotDetected) Human Metapneumovir PCR Not Detected (NotDetected) Influenza Type A (PCR) Not Detected (NotDetected) Influenza Type B (PCR) Not Detected (NotDetected) M. pneumoniae (PCR) Not Detected (NotDetected) Parainfluenza 1 (PCR) Not Detected (NotDetected) Parainfluenza 2 (PCR) Not Detected (NotDetected) Parainfluenza 3 (PCR) Not Detected (NotDetected) Parainfluenza 4 (PCR) Not Detected (NotDetected) RSV (PCR) Not Detected (NotDetected) Entero/Rhino (PCR) Not Detected (NotDetected) Administered Medications Discontinued Medications Hydralazine HCl (Hydralazine Hcl 20 Mg/Ml Vial) 10 mg IV NOW STA Stop: 01/19/24 19:54 Last Admin: 01/19/24 20:18 Dose: 10 mg Documented By: GILA Sodium Chloride (Nss) 500 mls @ 999 mls/hr IV .Q31M ONE Stop: 01/19/24 19:48 Last Infusion: 01/19/24 20:32 Dose: Infused Documented By: Admin: 01/19/24 19:27 Dose: 999 mls/hr Documented By: GILA Labetalol HCl (Labetalol Hcl Iv 5 Mg/Ml 20ml) 10 mg IV NOW STA Stop: 01/19/24 19:19 Last Admin: 01/19/24 19:27 Dose: 10 mg Documented By: GILA Ondansetron HCl (Ondansetron Inj 2 Mg/Ml 2 Ml Vial) 4 mg IV NOW STA Stop: 01/19/24 16:48 Last Admin: 01/19/24 17:05 Dose: 4 mg Documented By: KG Ondansetron HCl (Ondansetron Inj 2 Mg/Ml 2 Ml Vial) 4 mg IV NOW STA Stop: 01/19/24 19:19 Last Admin: 01/19/24 19:28 Dose: 4 mg Documented By: GILA Discharge Plan Visit Data Chief Complaint: Flu Like Symptoms Stated Complaint: VOMITING/SOME BLOOD LIKE COLOR, SWEATS/COLD ED Provider: Patrice Cr Discharge Problem: Nausea & vomiting, Hypertension, ESRD (end stage renal disease) Patient Disposition: Being Evaluated by Hospitalist Discharge Instructions Interventions: ED Discharge Assessment Last Done: 01/19/24 22:09
[2024-01-19] MEDS: hydrALAZINE HCL 20 MG/ML VIAL IV STA (20:18)
--- NOTE | 2024-01-19 21:28 | History & Physical Report ---
Date of Service January 19, 2024 Assessment & Plan (1) Nausea & vomiting: Plan: 43yo female with ESRD, HTN and DM presenting with hypertensive urgency in setting of ongoing nausea/vomiting and PO intolerance. Patient has not been able to take her oral medications/anti-hypertensives for several days. Uncertain why persistent nausea - patient did present similarly in the past and thought to be secondary to GERD, possible Enterovirus contributing at that time. -Admit to PCU -Limited use of anti-emetic agents given prolonged QT interval of 528. Would consider Ativan if needed -IVF - LR at 80mL/hr x 1L. Patient reports that she still makes urine. -Continue Famotidine 20mg po q48 hours -Maalox as needed (2) Hypertension: Plan: Patient with hypertensive urgency upon arrival - BP of 214/103, no evidence of end-organ damage. Most likely secondary to missing her medications in setting of ongoing nausea/vomiting and PO intolerance. She was given IV Labetalol as well as Hydralazine with improvement. -Admit to PCU -Continue home medications - Labetalol 600mg po TID which was started during last hospital stay. - Hydralazine 50mg po TID -Clonidine 0.1mg po TID as needed for blood pressure >180/110. Would not use this agent as a scheduled anti-hypertensive due to risk for rebound hypertension - is effective, however, as a short term oral PRN agent (3) ESRD (end stage renal disease): Plan: ESRD on HD M/W/F. -Nephrology consultation for HD in AM -Continue Nephrocaps daily -Renal diet as tolerated (4) Diabetes mellitus, type 2: Plan: Chronic. Elevated blood sugar at 184 -Lantus 5u BID -ISS F/E/N - LR at 80mL/hr x 1, electroytes WNL, Renal diet as tolerated Ppx - Heparin for DVT ppx Code - Full Dispo - Admit to PCU History of Present Illness Chief Complaint: nausea, vomiting, unable to take po medications Primary Care Provider: Charles Gonzalez DO Delaney Newman is a 43yo female with history of ESRD on HD, HTN, DM presenting with nausea, vomiting and hypertension. Patient reports that for the last three days she has had significant nausea and vomiting. She has not been able to tolerate PO intake and has not been able to take her medications. She endorses chills as well as subjective fevers. Otherwise denies chest pain, cough, SOB. Denies abdominal pain or diarrhea. No sick contacts. Symptoms possibly started after she ate at the [facility] but she is not certain of the timeframe. Upon arrival patient with ongoing nausea and vomiting. Hypertensive with BP of 214/103. She denies chest pain, SOB, headache, numbness/tingling/weakness ER Course: Zofran 4mg IV x 2 doses NSS x 500mL Labetalol 10mg IV Hydralazine 10mg IV Allergies Allergy/AdvReac Type Severity Reaction Status Date / Time omeprazole Allergy Intermediate Hives Verified 11/16/23 22:31 nifedipine AdvReac Severe Edema, Verified 11/16/23 22:31 Congestive Heart Failure Home Medications Medication Instructions Recorded Confirmed Type lancets 33 gauge (Sealedica #100 ea 03/05/18 10/27/23 Rx Lancets) pen needle, diabetic 31 gauge x #200 ea 02/05/21 10/27/23 Rx 1/4" blood sugar diagnostic #200 ea 06/08/21 10/27/23 Rx lancing device with lancets kit #1 ea 06/08/21 10/27/23 Rx (Luxe Hair Exoticsuch Delica Lancing Device kit) blood sugar diagnostic (Payfone #400 strips 04/18/23 10/27/23 Rx Ultra Test strips) fluticasone propionate 50 2 spray intranasal BID PRN 11/16/23 01/20/24 History mcg/actuation nasal Congestion spray,suspension hydralazine 50 mg tablet 50 mg PO TID 11/16/23 01/20/24 History famotidine 20 mg tablet (Pepcid) 20 mg PO Q48H 12 weeks #42 tabs 11/20/23 01/20/24 Rx blood-glucose sensor (FreeStyle #3 ea 11/21/23 Rx [place] 3 Sensor device) blood-glucose meter,continuous #1 ea 12/23/23 Rx (Dexcom G7 Clothes Model) blood-glucose sensor (Dexcom G7 #1 ea 12/23/23 Rx Sensor device) insulin aspart U-100 100 unit/mL 1 sliding scale dose subcut UD #15 12/28/23 01/20/24 Rx (3 mL) subcutaneous pen (Novolog mL FlexPen U-100 Insulin aspart) vitamin B complex and vitamin C 1 cap PO QAM #90 caps 12/28/23 Rx no.20-folic acid 1 mg capsule (Renal Caps) citalopram 10 mg tablet 10 mg PO QAM #90 tabs 12/30/23 01/20/24 Rx Past Med/Surg History Problem List Nausea & vomiting (Acute) ESRD (end stage renal disease) (Acute) Diabetes mellitus, type 2 Anemia of chronic disease Social anxiety disorder Hypertension (Acute) Demyelinating disease Per [facility] neurology visit 01/02/21, "doubt that she has multiple sclerosis. However.. 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 Type 2 diabetes mellitus ТАТЬЯНА (acute kidney injury) Severe preeclampsia Hyperemesis gravidarum before end of 22 week gestation, dehydration Chronic hypertension affecting History of COVID-2020 + Fall 2021>no current symptoms History of PCOS History of pre-eclampsia 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, left Per remote [facility] neurology notes (12/2020) Endometriosis Hx Hirsutism Surgical History Previous delivery affecting , antepartum Hx of total hysterectomy with removal of both tubes and ovaries 12/2022; [facility], one ovary remains History of dilatation and curettage S/P section 09/11/21 S/P section 07/15/20 [facility] Hx of tonsillectomy Family History Unknown Endometriosis Grandmother (Maternal) Type 2 diabetes mellitus Denies family history of Ovarian cancer Prostate cancer Myocardial infarction Breast cancer Colorectal cancer Social History Smoking Status: Never smoker Second Hand Exposure: No; Do You Dip or Chew Tobacco: No; Hx Alcohol Use: No Hx Substance Use: No Preferred Language: Palauan Communication Ability: Effective Communication Ability Comment: learning disability with complex or mulitple instructions Visual Impairment: No Limitations Hearing Ability: Normal Developing Machine Tender Required: No Beliefs That Will Affect Care: None marital status: marital status details: Deny Newman ([phone] Current Living Situation: Spouse Current Living Situation Comment: Deny - spouse and 2 daughters and one cat current occupational status: unemployed 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 How many Children do You have: 2 Other Information That Helps Us Care for You: No Feels Safe at Home: Yes Safety Concerns: Feels Safe At This Time Childhood Exposure to Second-Hand Smoke: Yes Diet: diabetic caffeine: Yes during the past year weight has: remained stable Dental Care, Regularly: Yes Physical Activity Frequency: Does not Exercise Seatbelt Use: always Sunscreen Use: Yes Assistive Devices: Glasses Review of Systems Review of Systems: All systems reviewed & are unremarkable except as noted in HPI & below Physical Exam Physical Exam: General: patient ill in appearance, vomiting Skin: warm, dry, intact, no rashes or lesions HEENT: NC/AT, PERRL, EOMI, anicteric sclera, conjunctiva without injection, external ear normal to inspection and nontender, nares patent, moist mucus memb ranes, dentition intact, no oropharyngeal lesions, neck supple, trachea midline, no LAD, no thyromegaly, no JVD Heart: +S1/S2, regular, no m/r/g Lungs: equal air entry bilaterally, no rales/rhonchi/wheezes Abd: +BS, soft, NT/ND, no masses/organomegaly/ascites Ext: warm, 2+ pulses in UE/LE bilaterally, no clubbing/cyanosis or edema Neuro: nonfocal, patient AA&O x 4, speech intact, no facial droop, moving all extremities on command with equal strength 5/5 Results & Data Results & Data Vital Signs (Past 12 Hours) Vital Signs Temp Pulse Pulse Resp BP Pulse Ox O2 Del Method 01/19/24 19:34 69 01/19/24 18:15 72 18 214/103 H 99 Room Air 01/19/24 16:43 36.3 C L 66 16 98 Room Air Laboratory Results Laboratory Results WBC 9.60 K/ul (4.8-10.8) 01/19/24 17:07 RBC 4.08 M/uL (4.20-5.40) L 01/19/24 17:07 Hgb 12.3 g/dl (12.0-16.0) 01/19/24 17:07 Hct 36.3 % (37.0-47.0) L 01/19/24 17:07 MCV 89.0 fL (80.0-100.0) 01/19/24 17:07 MCH 30.1 pg (25.0-34.0) 01/19/24 17:07 MCHC 33.9 g/dL (32.0-36.0) 01/19/24 17:07 RDW Std Deviation 43.1 fL (36.4-46.3) 01/19/24 17:07 RDW Coeff of Jessica 13.2 % (11.5-14.5) 01/19/24 17:07 Plt Count 294 K/uL (130-400) 01/19/24 17:07 MPV 9.1 fL (9.4-12.4) L 01/19/24 17:07 Immature Gran % (Auto) 0.3 % 01/19/24 17:07 Neut % (Auto) 77.8 % 01/19/24 17:07 Lymph % (Auto) 15.1 % 01/19/24 17:07 Bath % (Auto) 5.8 % 01/19/24 17:07 Eos % (Auto) 0.4 % 01/19/24 17:07 Baso % (Auto) 0.6 % 01/19/24 17:07 Neut # (Auto) 7.46 K/uL (1.40-6.50) H 01/19/24 17:07 Lymph # (Auto) 1.45 K/uL (1.20-3.40) 01/19/24 17:07 Bath # (Auto) 0.56 K/uL (0.11-0.59) 01/19/24 17:07 Eos # (Auto) 0.04 K/uL (0.00-0.50) 01/19/24 17:07 Baso # (Auto) 0.06 K/uL (0.00-0.20) 01/19/24 17:07 Immature Gran # (Auto) 0.03 K/uL (0.01-0.20) 01/19/24 17:07 Sodium 139 mmol/L (136-145) 01/19/24 17:07 Potassium 3.9 mmol/L (3.5-5.1) 01/19/24 17:07 Chloride 94 mmol/L (98-107) L 01/19/24 17:07 Carbon Dioxide 27 mmol/L (21-32) 01/19/24 17:07 Anion Gap 18 (3-11) H 01/19/24 17:07 BUN 49 mg/dl (6-23) H 01/19/24 17:07 Creatinine 4.76 mg/dl (0.6-1.2) H* 01/19/24 17:07 Est Cr Clr Drug Dosing Not Reportable 01/19/24 17:07 Est GFR ( Amer) 12.2 ml/min 01/19/24 17:07 Est GFR (Non-Af Amer) 10.5 ml/min 01/19/24 17:07 BUN/Creatinine Ratio 10.3 (10-20) 01/19/24 17:07 Glucose 184 mg/dl (70-99(Fasting)) H 01/19/24 17:07 POC Glucose 188 mg/dl (70-99) H 01/19/24 23:32 Calcium 10.6 mg/dl (8.6-10.3) H 01/19/24 17:07 Magnesium 2.1 mg/dl (1.7-2.4) 01/19/24 17:07 Total Bilirubin 0.7 mg/dl (0.2-1.0) 01/19/24 17:07 AST 25 U/L (13-39) 01/19/24 17:07 ALT 18 U/L (7-52) 01/19/24 17:07 Alkaline Phosphatase 84 U/L (34-104) 01/19/24 17:07 Total Protein 8.3 gm/dl (6.0-8.3) 01/19/24 17:07 Albumin 4.9 gm/dl (3.4-5.0) 01/19/24 17:07 Globulin 3.4 gm/dl (2.5-4.0) 01/19/24 17:07 Albumin/Globulin Ratio 1.4 (0.9-2) 01/19/24 17:07 Lipase 29 U/L (11-82) 01/19/24 17:07 Procalcitonin 0.10 ng/ml (0-0.5) 01/19/24 17:07 HCG, Qual Negative (Negative) 01/19/24 17:07 Adenovirus (PCR) Not Detected (NotDetected) 01/19/24 18:26 B. pertussis DNA (PCR) Not Detected (NotDetected) 01/19/24 18:26 B.parapertussis DNA PCR Not Detected (NotDetected) 01/19/24 18:26 C. pneumoniae DNA (PCR) Not Detected (NotDetected) 01/19/24 18:26 Coronavirus OC43 (PCR) Not Detected (NotDetected) 01/19/24 18:26 Coronavirus HKU1 (PCR) Not Detected (NotDetected) 01/19/24 18:26 Coronavirus 229E (PCR) Not Detected (NotDetected) 01/19/24 18:26 SARS-CoV-2 (PCR) Not Detected (NotDetected) 01/19/24 18:26 Coronavirus NL63 (PCR) Not Detected (NotDetected) 01/19/24 18:26 Human Metapneumovir PCR Not Detected (NotDetected) 01/19/24 18:26 Influenza Type A (PCR) Not Detected (NotDetected) 01/19/24 18:26 Influenza Type B (PCR) Not Detected (NotDetected) 01/19/24 18:26 M. pneumoniae (PCR) Not Detected (NotDetected) 01/19/24 18:26 Parainfluenza 1 (PCR) Not Detected (NotDetected) 01/19/24 18:26 Parainfluenza 2 (PCR) Not Detected (NotDetected) 01/19/24 18:26 Parainfluenza 3 (PCR) Not Detected (NotDetected) 01/19/24 18:26 Parainfluenza 4 (PCR) Not Detected (NotDetected) 01/19/24 18:26 RSV (PCR) Not Detected (NotDetected) 01/19/24 18:26 Entero/Rhino (PCR) Not Detected (NotDetected) 01/19/24 18:26 Diagnostic Findings KUB - per independent review - non-obstructive bowel gas pattern ECG Additional Comments: EKG with SR at 69bpm, normal axis, CR=316, QRS=76, QTc is prolonged at 548. No significant change when compared with prior study PG Care Time/CCT Total # of Minutes Spent Total Time Spent with Patient: Total time spent is greater than 50% in coordination of care (as documented) at patient's floor/unit and/or counseling patient: Coding Level of Care Code 14025 INT INP/OBS CARE 3/75MIN Diagnoses Nausea & vomiting R11.2 Hypertension I10 ESRD (end stage renal disease) N18.6 Diabetes mellitus, type 2 E11.9
[2024-01-19] MEDS ORDERED: ACETAMINOPHEN 325 MG TAB PO PRN (22:40)
[2024-01-19] MEDS ORDERED: GLUCOSE 10 TAB/TUBE PO PRN (22:40)
[2024-01-19] MEDS ORDERED: GLUCOSE 40% GEL 15 GM TUBE PO PRN (22:40)
[2024-01-19] MEDS ORDERED: CARBOHYDRATES FOR HYPOGLYCEMIA PO PRN (22:40)
[2024-01-19] MEDS ORDERED: DEXTROSE 50% 50 ML SYRINGE IV PRN (22:40)
[2024-01-19] MEDS ORDERED: GLUCAGON FOR INJ 1 MG VIAL SQ PRN (22:40)
--- OUTSIDE RECORDS SUMMARY | 2024-01-19 23:01 | External Medical Summary | Summary of Care ---
Author Name Unknown Organization [facility] Address [address] [place] [address] Phone [phone] Care Team Providers Care Program Attendant Name Role Phone Charles Gonzalez DO Primary Care Provider Encounter Details Date Type Department Care Team (Late st Contact Info) Description 01/13/2024 Population Health External Data Unspecified Department Allergies Active Allergy Reactions Criticality Noted Date Comments Omeprazole 04/25/2012 documented as of this encounter (statuses as of 01/13/2024) Medications Medication Sig Dispensed Refills Start Date End Date Status Blood Glucose Monitoring Suppl (ONETOUCH ULTRA SYSTEM) W/DEVICE KIT Use as directed 4 times a day as needed (diabetes). Use up to four times a day as directed 1 Kit 0 08/03/2015 Active ONETOUCH ULTRASOFT LANCETS MISC Use as directed 4 times a day as needed (diabetes). Use up to four times a day as directed 1 Box Dosing Unit 11 08/03/2015 Active Glucose Blood (ONETOUCH ULTRA BLUE) STRP Use as directed 4 times a day as needed (diabetes). 100 Strip 11 08/18/2015 Active Labetalol HCl 200 MG Oral Tablet (Normodyne) Take by mouth 400 mg in the morning AND 400 mg at noon AND 400 mg before bedtime. 08/18/2021 Active NovoLOG FlexPen 100 UNIT/ML Subcutaneous Solution Pen-injector (insulin aspart) Start: 06/30/21 11:49:00 EST, See Instructions, Disp# 15 mL, Refills: 2, Give 2 units per 12g of carbs before breakfast, lunch and dinner. Also follow sliding scale as previously given, other 06/30/2021 Active Citalopram Hydrobromide 10 MG Oral Tablet (CeleXA) Take 1 Tablet by mouth in the morning. Active RenaPlex-D Oral Tablet Take 1 Tablet by mouth in the morning. Active Famotidine 20 MG Oral Tablet (Pepcid) Take 1 Tablet by mouth every other day. Takes every other day Active documented as of this encounter (statuses as of 01/13/2024) Active Problems Problem Noted Date Diagnosed Date Intellectual disability 09/12/2015 Proteinuria 08/12/2015 Hyperlipidemia 08/12/2015 Type 2 diabetes mellitus wit h hemoglobin A1c goal of less than 7.0% 03/08/2012 Overview: ICD-10 update of inactive term PCOS (polycystic ovarian syndrome) 10/14/2011 documented as of this encounter (statuses as of 01/13/2024) Immunizations Name Administration Dates Next Due Hepatitis B, 20+ yrs 04/29/2016 Pneumococcal Polysaccharide PPV23 (Pneumovax) Seasonal Influenza, Trivalen t, (IIV3), with Preserv, (Fluzone) 03/08/2012 TDAP (age 10 and older)(Boostrix) 03/20/2012 documented as of this encounter Social History Tobacco Use Types Packs/Day Years Used Date Smoking Tobacco: Never Smokeless Tobacco: Never Alcohol Use Standard Drinks/Week Comments No 0 (1 standard drink = 0.6 oz pur e alcohol) Hunger Vital Sign Answer Date Recorded Within the past 12 months, y ou worried that your food would run out before you got the money to buy more. Never true 10/03/19 24 Within the past 12 months, t he food you bought just didn't last and you didn't have money to get more. Never true 10/03/2023 Childcare Answer Date Recorded Do you feel overwhelmed with taking care of a child, family member or friend? No 10/03/2023 Does your family need help f inding childcare? (Household - for ages 0-17 years) Not on file 10/03/2023 Clothing Answer Date Recorded Have you been unable to get clothing when it was really needed? No 10/03/2023 Is your family able to get c lothes or diapers when needed? (Household - for ages 0-17 years) Not on file 10/03/2023 Personal Safety Answer Date Recorded Do you feel unsafe or have concerns for your saf ety? No 10/03/2023 Do you have concerns for you r family's safety? (Household - for ages 0-17 years) Not on file 10/03/2023 Utilities Answer Date Recorded Do you have trouble paying y our heating, water, or electric bill? No 10/03/2023 Is your family able to pay t he heat, water, or electric bill? (Household - for ages 0-17 years) Not on file 10/03/2023 Does your family have access to good internet? (Household - for ages 0-17 years) Not on file 10/03/2023 Employment Status Answer Date Recorded Are you unemployed or without regular income? No 10/03/2023 [facility] the [facility] have a [facility]? (Household - for ages 0-17 years) Not on file 10/03/2023 Social Connections Answer Date Recorded How often do you feel lonely or isolated from th ose around you? Never 10/03/2023 Financial Resource Strain Answer Date R ecorded Do you have any trouble payi ng for your medications, or do you think you might in the future? No 10/03/2023 Does your family have troubl e paying for medicine? (Household - for ages 0-17 years) Not on file 10/03/2023 Transportation Needs Answer Date Record ed READ ONLY Do you have troubl e getting a ride to medical visits or work? Never True 10/03/2023 Does your family have a hard time getting a ride to doctors visits? (Household - for ages 0-17 years) Not on file 10/03/2023 Has lack of transportation k ept you from medical appointments, meetings, work, or from getting things needed for daily living? Check all that apply. (Adult - for ages 18 years and over) Not on file 10/03/2023 Do you (or your family) have trouble finding or paying for a ride (transportation)? (Household - for ages 0-17 years) Not on file 10/03/2023 Housing Stability Answer Date Recorded Do you currently live in a s helter or have no steady place to sleep at night? No 10/03/2023 READ ONLY Do you think you a re at risk of becoming homeless? No 10/03/2023 Does your family worry about paying for your home or becoming homeless? (Household - for ages 0-17 years) Not on file 0 10/03/2023 Are you homeless or worried that you might be in the future? (Adult - for ages 18 years and over) Not on file Are you (or your family) manjula eless or worried that you might be in the future? (Household - for ages 0-17 years) Not on file Food Insecurity Answer Date Recorded Do you need food for this week? No 10/03/2023 Are you able to get enough f ood for your family? (Household - for ages 0-17 years) Not on file 10/03/2023 Does your family need food t his week? (Household - for ages 0-17 years) Not on file 10/03/2023 Do you always have enough fo od for your family? (Household - for ages 0-17 years) Not on file 10/03/2023 Sex and Gender Information Value Date Recorded Sex Assigned at Not on file Gender Identity Not on file Sexual Orientation Not on file Job Start Date Occupation Industry Not on file Not on file Not on file documented as of this encounter Plan of Treatment Health Maintenance Due Date Last Done Comments HIV Screening 1996 Hepatitis C Screening 08/21/1999 Pap Smear 2002 Cervical Cancer Screening 08/21/2011 HPV/Co-Test 08/21/2011 Pneumococcal Vaccine: Pediatrics (0 to 5 Years) and At-Risk Patients (6 to 64 Years) (2 of 2 - PCV) 03/08/2013 03/08/2012 Hepatitis B Vaccine (2 of 3 - 19+ 3-dose series) 05/27/2016 04/29/2016 Albumin/Creatinine Ratio 08/03/2016 08/04/2015, 02/14 Diabetic Foot Exam 08/03/2016 08/04/2015, 0 10/03/2014, 03/08/2012 Depression Screening 09/16/2016 09/17/2015 HbA1c 10/31/2016 05/02/2016, 07/15, 02/23/2012 Lipid Panel 05/02/2021 05/02/2016, 08/04/2015 Mammogram 2021 DTap/Tdap Vaccines (2 - Td or Tdap) 03/20/2022 03/20/2012 GFR 10/23/2022 10/23/2021, 04/15, 04/27/2016, Additional history exists Diabetic Eye Exam 10/28/2022 10/28/2021, , 08/19/2021, Additional history exists COVID-19 Vaccine ( season) 2023 Influenza Vaccine (FLU shot) (#1) 2024 03/08/2012 HPV (Gardasil) Vaccine Aged Out No lo nger eligible based on patient's age to complete this topic MENINGOCOCCAL (MENACTRA/MENVEO) Aged Out No longer eligible based on patient's age to complete this topic documented as of this encounter Medical Devices Not on filedocumented as of this encounter Care Teams Program Attendant Relationship Specialty Start Date End Date Charles Gonzalez DO [address] [place] [address] PCP - General Family Medicine 10/22/21 documented as of this encounter
--- OUTSIDE RECORDS SUMMARY | 2024-01-19 23:01 | External Medical Summary | Summary of Care ---
Author Name Unknown Organization [facility] Address [address] [facility] [place] [address] Phone [phone] Care Team Providers Care Restaurant Manager Name Role Phone Tee Gonzalezraudel Hall DO Primary Care Provider Reason for Visit * Reason Onset Date Comments Diabetes Management 01/05/2024 Non-ce dm TRIAGE 01/05/2024 Encounter Details Date Type Department Care Team (Late st Contact Info) Description 01/05/2024 Telephone Centralized Clinical Pharmacy Services, Giselle Vo [address] [place] [address] [place] [address] [place] Barry Morton, [facility] [address] [place] [id number] Diabetes Management (Non-ce dm); TRIAGE Allergies Active Allergy Reactions Criticality Noted Date Comments Omeprazole 04/25/2012 documented as of this encounter (statuses as of 01/05/2024) Medications Medication Sig Dispensed Refills Start Date [...] as of this encounter (statuses as of 01/05/2024) Active Problems Problem Noted Date Diagnosed Date Intellectual disability 09/12/2015 Proteinuria 08/12/2015 Hyperlipidemia 08/12/2015 Type 2 diabetes mellitus wit h hemoglobin A1c goal of less than 7.0% 03/08/2012 Overview: ICD-10 update of inactive term PCOS (polycystic ovarian syndrome) 10/14/2011 documented as of this encounter (statuses as of 01/05/2024) Immunizations Name Administration Dates Next Due Hepatitis B, 20+ yrs 04/29/2016 Pneumococcal Polysaccharide PPV23 (Pneumovax) Seasonal Influenza, Split, IIV3, With Preserve, Inj 03/08/2012 TDAP (age 10 and older)(Boostrix) 03/20/2012 [...] No 10/03/2023 Does the household have a re lar source of income? (Household - for ages [...] on file documented as of this encounter Miscellaneous Notes * Telephone Encounter - Barry Dempsey, [facility] - 01/05/2024 9:35 AM EDT [facility] Non-Clinical [place] Diabetes Initiative THIS NOTE SERVES FOR TRIAGING PURPOSES ONLY AND IS NOT A PATIENT CONTACT. PATIENT MAY BE CONTACTED FOLLOWING MY ASSESSMENT. Patient was identified to be a candidate for the Non-CE telephonic program based on the following criteria: Pharmacy AND/OR Medical High Cost / No A1c result / PDC <80% Patient managed by [facility] provider? No; Is Pertinent Diabetes Info in Care Everywhere? Yes Last A1C: none Diabetes Diagnosis: Type 2 After chart review the following opportunities were identified: Mail Order Invite and Therapy Optimization (PRN) Action to be taken by hvac installation technician: Please contact and warm transfer to [facility] if patient is agreeable Needs Language Line: No Medication Claims Data (To verify during call): Med: INSULIN ASPART FLEXPEN 100 Fill date: 12/28/2023 Day Supply: 75 Quantity: 15 || Med: LEVEMIR FLEXPEN 100 UNIT/ML Fill date: 01/19/2023 Day Supply:90 Quantity: 15 Barry Dempsey [facility] Clinical Pharmacist 01/05/2024, 9:35 AM documented in this encounter Plan of Treatment Health Maintenance [...] Lipid Panel 05/02/2021 05/02/2016, 08/04/2015 Mammogram 2021 DTaP,Tdap,and Td Vaccines (2 - Td or Tdap) 03/20/2022 [...] filedocumented as of this encounter Care Teams Restaurant Manager Relationship Specialty Start Date End Date Charles Gonzalez DO [address] [place] [address] PCP - General Family Medicine 10/22/21 documented as of this encounter"
--- OUTSIDE RECORDS SUMMARY | 2024-01-19 23:02 | External Medical Summary | Summary of Care ---
Author Name Unknown Organization [facility] Address [address] [facility] [place] [address] Phone [phone] Care Team Providers Care Biochemical Development Engineer Name Role Phone Tee Gonzalezraudel Hall DO Primary Care Provider Reason for Visit * Reason Onset Date Comments Diabetes Management 01/05/2024 Non-ce dm TRIAGE 01/05/2024 Encounter Details Date Type Department Care Team (Late st Contact Info) Description 01/05/2024 Telephone Centralized Clinical Pharmacy Services, Giselle Vo [address] [place] [address] [place] [id number] [place] Barry Morton, [facility] [address] [place] [phone] Diabetes Management (Non-ce dm); TRIAGE Allergies Active [...] Notes * Telephone Encounter - Barry Dempsey, [facility] - 01/05/2024 9:35 AM EDT [facility] Non-Clinical [place] Diabetes Initiative THIS NOTE SERVES FOR TRIAGING PURPOSES ONLY AND IS NOT A PATIENT CONTACT. PATIENT MAY BE CONTACTED FOLLOWING MY ASSESSMENT. Patient was identified to be a candidate for the Non-CE telephonic program based on the following criteria: Pharmacy AND/OR Medical High Cost / No A1c result / PDC <80% Patient managed by [facility] provider? No; Is Pertinent Diabetes Info in Care Everywhere? Yes Last A1C: none Diabetes Diagnosis: Type 2 After chart review the following opportunities were identified: Mail Order Invite and Therapy Optimization (PRN) Action to be taken by pest control service technician: Please contact and warm transfer to [employer] if patient is agreeable Needs Language Line: No Medication Claims Data (To verify during call): Med: INSULIN ASPART FLEXPEN 100 Fill date: 12/28/2023 Day Supply: 75 Quantity: 15 || Med: LEVEMIR FLEXPEN 100 UNIT/ML Fill date: 01/19/2023 Day Supply:90 Quantity: 15 Barry Dempsey [facility] Clinical Pharmacist 01/05/2024, 9:35 AM documented in [...] filedocumented as of this encounter Care Teams Biochemical Development Engineer Relationship Specialty Start Date End Date Charles Gonzalez DO [address] [place] [address] PCP - General Family Medicine 10/22/21 documented as of this encounter"
--- OUTSIDE RECORDS SUMMARY | 2024-01-19 23:02 | External Medical Summary | Summary of Care ---
Author Name Unknown Organization [facility] Address [address] [facility] [place] [address] Phone [phone] Care Team Providers Care Vehicle Refinisher Name Role Phone Charles Gonzalez DO Primary Care Provider Encounter Details Date Type Department Care Team (Late st Contact Info) Description 11/21/2023 Population Health External Data Unspecified Department Allergies Active Allergy Reactions Criticality Noted Date Comments Omeprazole 04/25/2012 documented as of this encounter (statuses as of 11/21/2023) Medications Medication Sig Dispensed Refills Start Date [...] needed (diabetes). 100 Strip 11 08/18/2015 Active hydrALAZINE HCl 50 MG Oral Tablet (Apresoline) Take by mouth 100 mg in the morning AND 100 mg at noon AND 100 mg before bedtime. 08/28/2020 Active Labetalol HCl 200 MG Oral Tablet [...] scale as previously given, other 06/30/2021 Active hydrOXYzine HCl 25 MG Oral Tablet Take 1 Tablet by mouth 3 times a day as needed. Active Citalopram Hydrobromide 10 MG Oral Tablet (CeleXA) Take 1 Tablet by mouth in the morning. Active documented as of this encounter (statuses as of 11/21/2023) Active Problems Problem Noted Date Diagnosed Date Intellectual disability 09/12/2015 Proteinuria 08/12/2015 Hyperlipidemia 08/12/2015 Type 2 diabetes mellitus wit h hemoglobin A1c goal of less than 7.0% 03/08/2012 Overview: ICD-10 update of inactive term PCOS (polycystic ovarian syndrome) 10/14/2011 documented as of this encounter (statuses as of 11/21/2023) Immunizations Name Administration Dates Next Due Hepatitis [...] No 10/03/2023 Does the household have a [facility] source of income? (Household - for ages [...] filedocumented as of this encounter Care Teams Vehicle Refinisher Relationship Specialty Start Date End Date Charles Gonzalez DO [address] [place] [address] PCP - General Family Medicine 10/22/21 documented as of this encounter
[2024-01-19 23:14] LABS: Magnesium 2.1 mg/dl (1.7-2.4)
[2024-01-19] MEDS: LACTATED RINGER'S 1,000 ML IV SCH (23:41)
[2024-01-19] MEDS: cloNIDine HCL 0.1 MG TAB PO PRN (23:41)
[2024-01-19] MEDS: INSULIN ASPART PER UNIT CHARGE SC SCH (23:53)
[2024-01-20] MEDS: ALUMINUM/MAGNESIUM SUSP 30 ML UDC PO STA (01:08)
[2024-01-20] MEDS: hydrALAZINE TAB 50 MG TAB PO ONE (01:41)
[2024-01-20] MEDS ORDERED: ALUMINUM/MAGNESIUM SUSP 30 ML UDC PO PRN (02:07)
[2024-01-20] MEDS: HEPARIN SOD 5,000 UNIT/0.5 ML VIAL SQ SCH (05:55)
[2024-01-20 06:09] LABS: Hematocrit (blood only) 35.4 % (37.0-47.0); Hemoglobin 11.5 g/dl (12.0-16.0); Mean Corpuscular Hemoglobin 29.7 pg (25.0-34.0); Mean Corpuscular Hgb Conc 32.5 g/dL (32.0-36.0); Mean Corpuscular Volume 91.5 fL (80.0-100.0); Platelet Count 253 K/uL (130-400); RDW Coefficient of Variation 13.4 % (11.5-14.5); RDW Standard Deviation 44.4 fL (36.4-46.3); Red Blood Count 3.87 M/uL (4.20-5.40); White Blood Count 9.49 K/ul (4.8-10.8)
[2024-01-20 06:27] LABS: BUN Creatinine Ratio 10.4 (10-20); Calcium 9.4 mg/dl (8.6-10.3); Creatinine Clr Calc Pharmacy 15.6 ml/min; Est GFR (Non-African American) 9.5 ml/min; Potassium 3.8 mmol/L (3.5-5.1)
--- NOTE | 2024-01-20 08:07 | XRay Report ---
KUB HISTORY: vomiting COMPARISON: Abdomen and pelvis CT 11/16/2023. FINDINGS: The bowel gas pattern is unremarkable. There are no dilated loops of small bowel to suggest an obstruction. No renal calculi. No ureteral calculi. Calcifications in the deep pelvis likely rep resent phleboliths. Gallbladder wall calcifications with multiple gallstones again noted. No pneumope ritoneum or pneumatosis. IMPRESSION: 1. Nonobstructive bowel gas pattern. 2. Cholelithiasis with gallbladder wall calcifications consistent with a porcelain gallbladder. There fore, nonemergent surgical consultation recommended. ACT 112: Positive. There are findings on this exam that require communication between the performing entity and the patient following Patient Test Result Information Act ([place] Act 112) guidelines. Electronically signed by: Mark Mcclure M.D. 01/20/2024 8:04 AM
[2024-01-20] MEDS: LANTUS PER UNIT CHARGE SQ SCH (08:24)
[2024-01-20] MEDS: CITALOPRAM 20 MG TAB PO SCH (08:26)
[2024-01-20] MEDS: FAMOTIDINE 20 MG TAB PO SCH (08:27)
[2024-01-20] MEDS: NEPHROCAPS PO SCH (08:28)
--- NOTE | 2024-01-20 08:39 | Electrocardiogram Report ---
Test Reason : Blood Pressure : */* mmHG Vent. Rate : 69 BPM Atrial Rate : 69 BPM P-R Int : 166 ms QRS Dur : 76 ms QT Int : 512 ms P-R-T Axes : 56 10 38 degrees QTcB Int : 548 ms Sinus rhythm with marked sinus arrhythmia Nonspecific ST and T wave abnormality Prolonged QT Abnormal ECG When compared with ECG of 16-Nov-2023 22:06, No significant change was found Confirmed by Barry Gil ([id number]) on 01/20/2024 8:39:00 AM Referred By: REFERRED SELF Confirmed By: Barry Gil
--- NOTE | 2024-01-20 10:26 | Nephrology Consultation ---
Date of Consultation January 20, 2024 Assessment & Plan (1) ESRD (end stage renal disease): (2) Hypertension: (3) Nausea & vomiting: (4) Anemia of chronic disease: Plan 43-year-old female with end-stage kidney disease secondary to diabetic nephropathy, on hemodialysis Tuesday, , Tuesday via right IJ tunneled dialysis catheter. Has been having regular dialysis treatment, had dialysis Tuesday. Admitted with few days history of nausea vomiting which now resolved. 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 Blood pressure has been running high. Hemoglobin stable. Electrolyte, volume status acceptable. Blood pressure improved. -- Plan for dialysis today for 3 hours 30 minutes as a regular schedule with 3K bath. UF 1 L as tolerated. Discontinue IV fluid. -- Continue on Nephrocaps daily -- Left arm nephrology precaution for future AV fistula -- Dose medications for eGFR less than 10. Thank you for allowing me to participate in your patient's care. It was a pleasure to see Delaney. History of Present Illness Reason for Consultation: ESKD on HD Attending Physician: Valeriy Laureano History of Present Illness Ms. Delaney holloway is a 43 yo female with PMH of ESKD, on HD, HTN, DM admitted to the hospital with nausea vomiting fro few days. Nephrology consulted close treated for management of hemodialysis while inpatient. EMR records were reviewed in detail during patient's visit. Delaney presented to ER for on 01/19/2024 with nausea, vomiting for few days. She denied any fever but reports having some chills. Initially her blood pressure was significantly elevated but improved nicely. She reports eating out 2 days prior to her symptoms started. Her symptoms seem to have completely resolved, denied any nausea or vomiting this morning. No abdominal pain. Had similar symptoms when she was admitted in November and CT abdomen pelvis at that time was notable for porcelain gallbladder, seen by surgery, plan was to continue to have follow-up as an outpatient without any intervention. KUB on admission showed porcelain gallbladder but no evidence of bowel obstruction or other abnormality. Electrolytes has been acceptable. Never smoker. ESKD, secondary to diabetic nephropathy, started on hemodialysis in August 2023. Currently dialyzes at [facility]. On Tuesday, Tuesday, Tuesday via right IJ tunneled dialysis catheter. She still makes decent amount of urine. She reports generally feeling poorly immediately after dialysis for few hours. She had dialysis Tuesday, after dialysis she left close to her dry weight, 98.5 kg Overall she reports feeling better, nausea and vomiting completely resolved. No shortness of breath or chest pain. Allergies Allergy/AdvReac Type Severity Reaction Status Date / Time omeprazole Allergy Intermediate Hives Verified 11/16/23 22:31 nifedipine AdvReac Severe Edema, Verified 11/16/23 22:31 Congestive Heart Failure Home Medications Medication Instructions Recorded Confirmed Type lancets 33 gauge (Digital Assent Delica #100 ea 03/05/18 10/27/23 Rx Lancets) pen needle, diabetic 31 gauge x #200 ea 02/05/21 10/27/23 Rx 1/4" blood sugar diagnostic #200 ea 06/08/21 10/27/23 Rx lancing device with lancets kit #1 ea 06/08/21 10/27/23 Rx ([employer] Lancing Device kit) blood sugar diagnostic (Digital Assent #400 strips 04/18/23 10/27/23 Rx Ultra Test strips) fluticasone propionate 50 2 spray intranasal BID PRN 11/16/23 01/20/24 History mcg/actuation nasal Congestion spray,suspension hydralazine 50 mg tablet 50 mg PO TID 11/16/23 01/20/24 History famotidine 20 mg tablet (Pepcid) 20 mg PO Q48H 12 weeks #42 tabs 11/20/23 01/20/24 Rx blood-glucose sensor (FreeStyle #3 ea 11/21/23 Rx [place] 3 Sensor device) blood-glucose meter,continuous #1 ea 12/23/23 Rx (Dexcom G7 Delinquent Tax Collection Assistant) blood-glucose sensor (Dexcom G7 #1 ea 12/23/23 Rx Sensor device) insulin aspart U-100 100 unit/mL 1 sliding scale dose subcut UD #15 12/28/23 01/20/24 Rx (3 mL) subcutaneous pen (Novolog mL FlexPen U-100 Insulin aspart) vitamin B complex and vitamin C 1 cap PO QAM #90 caps 12/28/23 Rx no.20-folic acid 1 mg capsule (Renal Caps) citalopram 10 mg tablet 10 mg PO QAM #90 tabs 12/30/23 01/20/24 Rx Patient History Medical History Porcelain gallbladder Chronic kidney disease 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 Type 2 diabetes mellitus ТАТЬЯНА (acute kidney injury) Severe preeclampsia Hyperemesis gravidarum before end of 22 week gestation, dehydration Chronic hypertension affecting History of COVID-19 2020 + Fall 2021>no current symptoms History of PCOS History of pre-eclampsia 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, left Per remote [facility] neurology notes (12/2020) Endometriosis Hx Hirsutism Surgical History Previous delivery affecting , antepartum Hx of total hysterectomy with removal of both tubes and ovaries 12/2022; [facility], one ovary remains History of dilatation and curettage S/P section 09/11/21 S/P section 07/15/20 [facility] Hx of tonsillectomy Family History Unknown Endometriosis Grandmother (Maternal) Type 2 diabetes mellitus Denies family history of Ovarian cancer Prostate cancer Myocardial infarction Breast cancer Colorectal cancer Social History Smoking Status: Never smoker Second Hand Exposure: No; Do You Dip or Chew Tobacco: No; Hx Alcohol Use: No Hx Substance Use: No Preferred Language: Kazakh Communication Ability: Effective Communication Ability Comment: learning disability with complex or mulitple instructions Visual Impairment: No Limitations Hearing Ability: Normal Color Television Console Monitor Required: No Beliefs That Will Affect Care: None marital status: marital status details: Deny Holloway (43) [phone] Current Living Situation: Spouse Current Living Situation Comment: Deny - spouse and 2 daughters and one cat current occupational status: unemployed 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 Physical Exam Constitutional: WD/WN, vitals as above no acute distress Eyes: + anicteric sclerae Neck: normal visual inspection Respiratory: Auscultation: lungs clear to auscultation bilaterally Cardiovascular: RRR, no murmur, no edema Gastrointestinal (Abdomen): Inspection/Auscultation: abdomen normal to inspection and normal bowel sounds Percussion/Palpation: abdomen soft; abdomen nontender Musculoskeletal: Extremities: extremities normal to inspection Skin: no rashes, warm and dry Neurologic: no focal motor deficits Psychiatric: Orientation: alert and oriented x 3 Affect: euthymic affect Results & Data Vital Signs (Past 12 Hours) Vital Signs Temp Pulse Pulse Resp BP BP Pulse Ox 01/20/24 07:30 36.5 C 85 18 129/77 95 01/20/24 07:08 84 01/20/24 03:47 36.6 C 97 H 18 149/79 H 95 01/20/24 00:50 189/103 H 01/20/24 00:21 89 01/19/24 23:49 81 200/100 H 01/19/24 22:41 36.5 C 85 20 204/100 H 95 O2 Del Method 01/20/24 07:30 Room Air 01/20/24 07:08 01/20/24 03:47 Room Air 01/20/24 00:50 01/20/24 00:21 01/19/24 23:49 01/19/24 22:41 Room Air PG Care Time/CCT Total # of Minutes Spent Total Time Spent with Patient: Total time spent is greater than 50% in coordination of care (as documented) at patient's floor/unit and/or counseling patient: Coding Level of Care Code 65903 INT INP/OBS CARE 3/75MIN Diagnoses ESRD (end stage renal disease) N18.6 Hypertension I10 Nausea & vomiting R11.2 Anemia of chronic disease D63.8
[2024-01-20 11:01] LABS: Appearance Urine Clear (Clear); Bacteria Urine Automated None Seen (None Seen); Bilirubin Urine Negative (Negative); Blood Urine Negative (Negative); Color Urine Yellow; Epithelial Cell Urine Auto 0-2 /hpf (0-2); Glucose Urine UA 1+ (Negative); Ketones Urine 1+ (Negative); Leukocyte Esterase Urine Negative (Negative); Nitrite Urine Negative (Negative); Protein Urine 4+ (Negative); RBC Urine Automated 0-2 /hpf (0-2); Specific Gravity Urine 1.016 (1.000-1.030); Urobilinogen Urine Negative (Negative); WBC Urine Automated 0-5 /hpf (0-5); pH Urine 8.5 (4.5-7.5)
[2024-01-20] MEDS: LABETALOL HCL 300 MG TAB PO SCH (15:58)
[2024-01-20] MEDS: hydrALAZINE TAB 50 MG TAB PO SCH (15:59)
--- NOTE | 2024-01-21 06:32 | Hospitalist Progress Note ---
Date of Service January 20, 2024 Assessment & Plan (1) Nausea & vomiting: Plan: 43yo female with ESRD, HTN and DM presenting with hypertensive urgency in setting of ongoing nausea/vomiting and PO intolerance. Patient has not been able to take her oral medications/anti-hypertensives for several days. Uncertain why persistent nausea - patient did present similarly in the past and thought to be secondary to GERD, possible Enterovirus contributing at that time. -Admit to PCU -Limited use of anti-emetic agents given prolonged QT interval of 528. Would consider Ativan if needed -IVF - LR at 80mL/hr x 1L. Patient reports that she still makes urine. -Continue Famotidine 20mg po q48 hours -Maalox as needed On 01/19 nausea, vomiting has improved. will continue to monitor. (2) Hypertension: Plan: Patient with hypertensive urgency upon arrival - BP of 214/103, no evidence of end-organ damage. Most likely secondary to missing her medications in setting of ongoing nausea/vomiting and PO intolerance. She was given IV Labetalol as well as Hydralazine with improvement. -Admit to PCU -Continue home medications - Labetalol 600mg po TID which was started during last hospital stay. - Hydralazine 50mg po TID -Clonidine 0.1mg po TID as needed for blood pressure >180/110. Would not use this agent as a scheduled anti-hypertensive due to risk for rebound hypertension - is effective, however, as a short term oral PRN agent (3) ESRD (end stage renal disease): Plan: ESRD on HD M/W/. -Nephrology consultation for HD in AM -Continue Nephrocaps daily -Renal diet as tolerated (4) Diabetes mellitus, type 2: Plan: Chronic. Elevated blood sugar at 184 -Lantus 5u BID -ISS F/E/N - LR at 80mL/hr x 1, electroytes WNL, Renal diet as tolerated Ppx - Heparin for DVT ppx Code - Full Dispo - Admit to PCU Admission and Anticipated Discharge Date Admission Date: January 19, 2024 Subjective Patient reports feeling better. Her nausea has improved. Review of Systems Review of Systems: All systems reviewed & are unremarkable except as noted in HPI & below Physical Exam Physical Exam: General: patient ill in appearance, vomiting Skin: warm, dry, intact, no rashes or lesions HEENT: NC/AT Heart: +S1/S2, regular, no m/r/g Lungs: equal air entry bilaterally, no rales/rhonchi/wheezes Abd: +BS, soft, NT/ND, no masses/organomegaly/ascites Ext: warm, 2+ pulses in UE/LE bilaterally, no clubbing/cyanosis or edema Neuro: nonfocal, patient AA&O x 4, speech intact, no facial droop, moving all extremities on command with equal strength 5/5 Results & Data Results & Data Vital Signs (Past 12 Hours) Vital Signs Temp Pulse Pulse Resp BP Pulse Ox O2 Del Method 01/21/24 01:57 36.5 C 76 18 115/78 97 Room Air 01/21/24 00:16 76 01/20/24 23:13 36.4 C L 74 95 H 117/87 95 Room Air 01/20/24 19:42 36.5 C 73 18 96/68 L 95 Room Air PG Care Time/CCT Total # of Minutes Spent Total Time Spent with Patient: Total time spent is greater than 50% in coordination of care (as documented) at patient's floor/unit and/or counseling patient: Coding Level of Care Code 23577 SUB INP/OBS CARE 2/35MIN Diagnoses Nausea & vomiting R11.2 Hypertension I10 ESRD (end stage renal disease) N18.6 Diabetes mellitus, type 2 E11.9
[2024-01-21 08:01] LABS: Hematocrit (blood only) 32.4 % (37.0-47.0); Hemoglobin 10.8 g/dl (12.0-16.0); Mean Corpuscular Hemoglobin 30.5 pg (25.0-34.0); Mean Corpuscular Hgb Conc 33.3 g/dL (32.0-36.0); Mean Corpuscular Volume 91.5 fL (80.0-100.0); Mean Platelet Volume 9.2 fL (9.4-12.4); Platelet Count 206 K/uL (130-400); RDW Coefficient of Variation 13.2 % (11.5-14.5); RDW Standard Deviation 44.1 fL (36.4-46.3); Red Blood Count 3.54 M/uL (4.20-5.40); White Blood Count 7.83 K/ul (4.8-10.8)
[2024-01-21 08:14] LABS: BUN Creatinine Ratio 7.2 (10-20); Calcium 9.2 mg/dl (8.6-10.3); Creatinine Clr Calc Pharmacy 17.7 ml/min; Est GFR (African American) 12.8 ml/min; Potassium 3.9 mmol/L (3.5-5.1)
--- NOTE | 2024-01-21 09:59 | Discharge Summary ---
Discharge Summary Date of Service January 21, 2024 Principal Dx & Hospital Course #1 = Principal Diagnosis (1) Nausea & vomitinyo female with ESRD, HTN and DM presenting with hypertensive urgency in setting of ongoing nausea/vomiting and PO intolerance. Patient has not been able to take her oral medications/anti-hypertensives for several days. Uncertain why persistent nausea - patient did present similarly in the past and thought to be secondary to GERD, possible Enterovirus contributing at that time. -Admit to PCU -Limited use of anti-emetic agents given prolonged QT interval of 528. Would consider Ativan if needed -IVF - LR at 80mL/hr x 1L. Patient reports that she still makes urine. -Continue Famotidine 20mg po q48 hours -Maalox as needed On 01/19 nausea, vomiting has improved. will continue to monitor. (2) Hypertension: Patient with hypertensive urgency upon arrival - BP of 214/103, no evidence of end-organ damage. Most likely secondary to missing her medications in setting of ongoing nausea/vomiting and PO intolerance. She was given IV Labetalol as well as Hydralazine with improvement. -Admit to PCU -Continue home medications - Labetalol 600mg po TID which was started during last hospital stay. - Hydralazine 50mg po TID -Clonidine 0.1mg po TID as needed for blood pressure >180/110. Would not use this agent as a scheduled anti-hypertensive due to risk for rebound hypertension - is effective, however, as a short term oral PRN agent (3) ESRD (end stage renal disease): ESRD on HD M/W/. -Nephrology consultation for HD in AM -Continue Nephrocaps daily -Renal diet as tolerated (4) Diabetes mellitus, type 2: Chronic. Elevated blood sugar at 184 -Lantus 5u BID -ISS F/E/N - LR at 80mL/hr x 1, electroytes WNL, Renal diet as tolerated Ppx - Heparin for DVT ppx Code - Full Dispo - Admit to PCU Admission HPI Per Admitting Provider Delaney Newman is a 43yo female with history of ESRD on HD, HTN, DM presenting with nausea, vomiting and hypertension. Patient reports that for the last three days she has had significant nausea and vomiting. She has not been able to tolerate PO intake and has not been able to take her medications. She endorses chills as well as subjective fevers. Otherwise denies chest pain, cough, SOB. Denies abdominal pain or diarrhea. No sick contacts. Symptoms possibly started after she ate at the [facility] but she is not certain of the timeframe. Upon arrival patient with ongoing nausea and vomiting. Hypertensive with BP of 214/103. She denies chest pain, SOB, headache, numbness/tingling/weakness ER Course: Zofran 4mg IV x 2 doses NSS x 500mL Labetalol 10mg IV Hydralazine 10mg IV Discharge Plan Discharge Items Patient Disposition: Home - Self-Care Reason For Visit: HYPERTENSIVE Discharge Diagnosis: hypertensive/ nausea Activity: Resume your previous activity Non-emergency contact: Primary Care Provider Call non-emergency contact if: you have any medication questions Follow-up/Referrals: Charles Gonzalez, DO [Primary Care Provider] - Diet: Carb Consistent or DM2 and Dialysis Renal Addtl Attending Provider Instructions: You have been hospitalized for an acute medical problem. During your stay at [facility], we have made an effort to correct the problem that brought you to the hospital while keeping you as comfortable as possible. Medications were used to bring your condition under control and your discharge instructions will include directions for any medications you should take after leaving the hospital. Please make sure you see your Primary Care Provider as part of your follow up plan. Recommend close followup with PCP in 1-2 weeks Coniute your blood pressure medicine that you take 3 times a day. Remember you already took a dose today. SO you ave 2 doses remaining. Pending Studies at Discharge: No Stand-Alone Forms: My [facility], Smoking Cessation Medications and DC Order Prescriptions: New labetalol 300 mg Tablet 600 mg PO TID Qty: 90 0RF Continued (DME) pen needle, diabetic 31 gauge x 1/4" needle See Dose Instructions .ROUTE .MEDSUPPLY Qty: 200 5RF Dose Instruction: As directed Rx Instructions: INJECT INSULIN TWICE DAILY; DX CODE- E11.65 (DME) OneTouch Ultra Test Strip See Rx Instructions .ROUTE .COMPLEX Qty: 400 1RF Dose Instruction: USE UP TO 4 STRIPS DAILY. DX E11.65 Rx Instructions: USE UP TO 4 STRIPS DAILY. DX E11.65 (DME) FreeStyle [place] 3 Sensor Device See Rx Instructions .Route Qty: 3 5RF Rx Instructions: As directed (DME) Dexcom G7 Orthotist Or Prosthetist Misc See Rx Instructions .Route Qty: 1 0RF Rx Instructions: As directed (DME) Dexcom G7 Sensor Device See Rx Instructions .Route Qty: 1 0RF Rx Instructions: As directed insulin aspart U-100 [Novolog FlexPen U-100 Insulin] 100 unit/mL (3 mL) insulin pen 1 sliding scale dose subcut UD Qty: 15 1RF Rx Instructions: up to 20 units a day per sliding scale. Renal Caps 1 mg capsule 1 cap PO QAM Qty: 90 3RF citalopram 10 mg tablet 10 mg PO QAM Qty: 90 3RF Rx Instructions: TAKE 1 TABLET BY MOUTH DAILY (DME) blood sugar diagnostic Strip See Rx Instructions miscellaneous .MEDSUPPLY Qty: 200 8RF Rx Instructions: As directed to check blood sugars 4-6 times a day during (DME) lancing device with lancets [[employer] Lanc Device] Kit See Rx Instructions miscellaneous .MEDSUPPLY Qty: 1 0RF Rx Instructions: As directed (DME) lancets [OneTouch Delica Lancets] 33 gauge misc See Dose Instructions .ROUTE .MEDSUPPLY Qty: 100 0RF Dose Instruction: As directed Rx Instructions: As directed hydralazine 50 mg tablet 50 mg PO TID fluticasone propionate 50 mcg/actuation spray,suspension 2 spray intranasal BID PRN (Reason: Congestion) Rx Instructions: 2 sprays each nostril twice daily famotidine [Pepcid] 20 mg tablet 20 mg PO Q48H 84 Days Qty: 42 0RF Discharge Orders: Discharge Order (Routine); Ordered 01/21/24 Ordered By: Valeriy Laureano Admission Data Admit Date/Time: 01/19/24 21:28 Attending Provider: Valeriy Laureano Admit Provider: Chiara Haque Primary Care Provider: Charles Gonzalez. Other Providers: Chiara Haque; Katherine Montaño Hospital Stay Data Consultations 01/19/24 21:11 ED Decision to Admit Stat 01/20/24 02:09 Consult Nephrology Routine Pending Results Patient Have Any Pending Studies at Discharge: No Discharge Instructions Given to Patient (Per Discharging Provider) You have been hospitalized for an acute medical problem. During your stay at [facility], we have made an effort to correct the problem that brought you to the hospital while keeping you as comfortable as possible. Medications were used to bring your condition under control and your discharge instructions will include directions for any medications you should take after leaving the hospital. Please make sure you see your Primary Care Provider as part of your follow up plan. Recommend close followup with PCP in 1-2 weeks Coniute your blood pressure medicine that you take 3 times a day. Remember you already took a dose today. SO you ave 2 doses remaining. Coding Diagnoses Nausea & vomiting R11.2 Hypertension I10 ESRD (end stage renal disease) N18.6 Diabetes mellitus, type 2 E11.9
[2024-01-21] MEDS: PROCHLORPERAZINE 5 MG in SYRINGE 4 ML IV PRN (11:31)
--- NOTE | 2024-01-21 12:18 | Nephrology Progress Note ---
Date of Service January 21, 2024 Assessment & Plan (1) ESRD (end stage renal disease): (2) Hypertension: (3) Nausea & vomiting: (4) Anemia of chronic disease: Plan 43-year-old female with end-stage kidney disease secondary to diabetic nephropathy, on hemodialysis Tuesday, Tuesday, Tuesday via right IJ tunneled dialysis catheter. Admitted with few days history of nausea vomiting which now resolved. 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 Blood pressure has been variable. Hemoglobin stable. Electrolyte, volume status acceptable. Blood pressure improved. Had another episode of vomiting this morning. -- Continue on Nephrocaps daily -- Left arm nephrology precaution for future AV fistula -- Dose medications for eGFR less than 10. Admission and Anticipated Discharge Date Admission Date: January 19, 2024 Subjective Admit was seen and evaluated this morning. She was overall doing better and had dialysis yesterday however this morning she had another episode of vomiting after she had breakfast. Better now, denies abdominal pain or nausea. No fever or chills. BP variable. Review of Systems Review of Systems: Detailed review of system was done and pertinent positives and negatives are mentioned above. Physical Exam Constitutional: WD/WN, vitals as above + obese; no acute distress Eyes: + anicteric sclerae Neck: normal visual inspection Respiratory: Auscultation: lungs clear to auscultation bilaterally Cardiovascular: RRR, no murmur, no edema Gastrointestinal (Abdomen): Inspection/Auscultation: abdomen normal to inspection and normal bowel sounds Percussion/Palpation: abdomen soft; abdomen nontender Musculoskeletal: Extremities: extremities normal to inspection Skin: no rashes, warm and dry Neurologic: no focal motor deficits Psychiatric: Orientation: alert and oriented x 3 Affect: euthymic affect Results & Data Vital Signs (Past 12 Hours) Vital Signs Temp Pulse Pulse Resp BP Pulse Ox O2 Del Method 01/21/24 11:36 63 189/111 H 01/21/24 11:03 36.8 C 70 17 187/89 H 95 Room Air 01/21/24 07:31 36.8 C 72 17 126/71 95 Room Air 01/21/24 07:20 71 01/21/24 01:57 36.5 C 76 18 115/78 97 Room Air 01/21/24 00:16 76 PG Care Time/CCT Total # of Minutes Spent Total Time Spent with Patient: Total time spent is greater than 50% in coordination of care (as documented) at patient's floor/unit and/or counseling patient: Coding Level of Care Code 44235 SUB INP/OBS CARE 25MIN Diagnoses ESRD (end stage renal disease) N18.6 Hypertension I10 Nausea & vomiting R11.2 Anemia of chronic disease D63.8
[2024-01-21] MEDS: FUROSEMIDE 40 MG/4 ML VIAL IV ONE ×2 (20:32→21:22)
--- NOTE | 2024-01-22 07:36 | Hospitalist Progress Note ---
Date of Service January 21, 2024 Assessment & Plan (1) Nausea & vomiting: Plan: 43yo female with ESRD, HTN and DM presenting with hypertensive urgency in setting of ongoing nausea/vomiting and PO intolerance. Patient has not been able to take her oral medications/anti-hypertensives for several days. Uncertain why persistent nausea - patient did present similarly in the past and thought to be secondary to GERD, possible Enterovirus contributing at that time. -Admit to PCU -Limited use of anti-emetic agents given prolonged QT interval of 528. Would consider Ativan if needed -IVF - LR at 80mL/hr x 1L. Patient reports that she still makes urine. -Continue Famotidine 20mg po q48 hours -Maalox as needed On 01/19 nausea, vomiting has improved. will continue to monitor. On 01/20 N/V remains will monitor. continue anti nausea meds (2) Hypertension: Plan: Patient with hypertensive urgency upon arrival - BP of 214/103, no evidence of end-organ damage. Most likely secondary to missing her medications in setting of ongoing nausea/vomiting and PO intolerance. She was given IV Labetalol as well as Hydralazine with improvement. -Admit to PCU -Continue home medications - Labetalol 600mg po TID which was started during last hospital stay. - Hydralazine 50mg po TID -Clonidine 0.1mg po TID as needed for blood pressure >180/110. Would not use this agent as a scheduled anti-hypertensive due to risk for rebound hypertension - is effective, however, as a short term oral PRN agent (3) ESRD (end stage renal disease): Plan: ESRD on HD M//. -Nephrology consultation for HD in AM -Continue Nephrocaps daily -Renal diet as tolerated (4) Diabetes mellitus, type 2: Plan: Chronic. Elevated blood sugar at 184 -Lantus 5u BID -ISS F/E/N - LR at 80mL/hr x 1, electroytes WNL, Renal diet as tolerated Ppx - Heparin for DVT ppx Code - Full Dispo - Admit to PCU Admission and Anticipated Discharge Date Admission Date: January 19, 2024 Subjective Patient reports having nausea. Physical Exam Physical Exam: General: patient ill in appearance, vomiting Skin: warm, dry, intact, no rashes or lesions HEENT: NC/AT Heart: +S1/S2, regular, no m/r/g Lungs: equal air entry bilaterally, no rales/rhonchi/wheezes Abd: +BS, soft, NT/ND, no masses/organomegaly/ascites Ext: warm, 2+ pulses in UE/LE bilaterally, no clubbing/cyanosis or edema Neuro: nonfocal, patient AA&O x 4, speech intact, no facial droop, moving all extremities on command with equal strength 5/5 Results & Data Results & Data Vital Signs (Past 12 Hours) Vital Signs Temp Pulse Pulse Resp BP Pulse Ox O2 Del Method 01/22/24 07:11 36.5 C 76 20 159/90 H 97 Room Air 01/22/24 06:51 76 01/22/24 03:31 36.8 C 77 18 117/67 93 Room Air 01/22/24 00:00 72 01/21/24 23:03 36.6 C 74 18 109/64 97 Room Air 01/21/24 20:03 36.8 C 74 18 143/78 H 93 Room Air PG Care Time/CCT Total # of Minutes Spent Total Time Spent with Patient: Total time spent is greater than 50% in coordination of care (as documented) at patient's floor/unit and/or counseling patient: Coding Level of Care Code 51265 SUB INP/OBS CARE 2/35MIN Diagnoses Nausea & vomiting R11.2 Hypertension I10 ESRD (end stage renal disease) N18.6 Diabetes mellitus, type 2 E11.9
--- NOTE | 2024-01-22 10:55 | Discharge Summary ---
Discharge Summary Date of Service January 22, 2024 Principal Dx & Hospital Course #1 = Principal Diagnosis (1) Nausea & vomitinyo female with ESRD, HTN and DM presenting with hypertensive urgency in setting of ongoing nausea/vomiting and PO intolerance. Patient has not been able to take her oral medications/anti-hypertensives for several days. Uncertain why persistent nausea - patient did present similarly in the past and thought to be secondary to GERD, possible Enterovirus contributing at that time. -Admit to PCU -Limited use of anti-emetic agents given prolonged QT interval of 528. Would consider Ativan if needed -IVF - LR at 80mL/hr x 1L. Patient reports that she still makes urine. -Continue Famotidine 20mg po q48 hours -Maalox as needed On 01/19 nausea, vomiting has improved. will continue to monitor. On 01/20 N/V remains will monitor. continue anti nausea meds (2) Hypertension: Patient with hypertensive urgency upon arrival - BP of 214/103, no evidence of end-organ damage. Most likely secondary to missing her medications in setting of ongoing nausea/vomiting and PO intolerance. She was given IV Labetalol as well as Hydralazine with improvement. -Admit to PCU -Continue home medications - Labetalol 600mg po TID which was started during last hospital stay. - Hydralazine 50mg po TID -Clonidine 0.1mg po TID as needed for blood pressure >180/110. Would not use this agent as a scheduled anti-hypertensive due to risk for rebound hypertension - is effective, however, as a short term oral PRN agent (3) ESRD (end stage renal disease): ESRD on HD M//. -Nephrology consultation for HD in AM -Continue Nephrocaps daily -Renal diet as tolerated (4) Diabetes mellitus, type 2: Chronic. Elevated blood sugar at 184 -Lantus 5u BID -ISS F/E/N - LR at 80mL/hr x 1, electroytes WNL, Renal diet as tolerated Ppx - Heparin for DVT ppx Code - Full Dispo - Admit to PCU Admission HPI Per Admitting Provider Delaney Newman is a 43yo female with history of ESRD on HD, HTN, DM presenting with nausea, vomiting and hypertension. Patient reports that for the last three days she has had significant nausea and vomiting. She has not been able to tolerate PO intake and has not been able to take her medications. She endorses chills as well as subjective fevers. Otherwise denies chest pain, cough, SOB. Denies abdominal pain or diarrhea. No sick contacts. Symptoms possibly started after she ate at the [facility] but she is not certain of the timeframe. Upon arrival patient with ongoing nausea and vomiting. Hypertensive with BP of 214/103. She denies chest pain, SOB, headache, numbness/tingling/weakness ER Course: Zofran 4mg IV x 2 doses NSS x 500mL Labetalol 10mg IV Hydralazine 10mg IV Discharge Exam General: patient ill in appearance, vomiting Skin: warm, dry, intact, no rashes or lesions HEENT: NC/AT Heart: +S1/S2, regular, no m/r/g Lungs: equal air entry bilaterally, no rales/rhonchi/wheezes Abd: +BS, soft, NT/ND, no masses/organomegaly/ascites Ext: warm, 2+ pulses in UE/LE bilaterally, no clubbing/cyanosis or edema Neuro: nonfocal, patient AA&O x 4, speech intact, no facial droop, moving all extremities on command with equal strength 5/5 Discharge Plan Discharge Items Patient Disposition: Home - Self-Care Reason For Visit: HYPERTENSIVE Discharge Diagnosis: hypertensive/ nausea Activity: Resume your previous activity Non-emergency contact: Primary Care Provider Call non-emergency contact if: you have any medication questions Follow-up/Referrals: Charles Gonzalez, [Primary Care Provider] - Diet: Carb Consistent or DM2 and Dialysis Renal Addtl Attending Provider Instructions: You have been hospitalized for an acute medical problem. During your stay at [facility], we have made an effort to correct the problem that brought you to the hospital while keeping you as comfortable as possible. Medications were used to bring your condition under control and your discharge instructions will include directions for any medications you should take after leaving the hospital. Please make sure you see your Primary Care Provider as part of your follow up plan. Recommend close followup with PCP in 1-2 weeks Coniute your blood pressure medicine that you take 3 times a day. Remember you already took a dose today. SO you ave 2 doses remaining. Pending Studies at Discharge: No Stand-Alone Forms: My [facility] [employer], Smoking Cessation Medications and DC Order Prescriptions: New labetalol 300 mg Tablet 600 mg PO TID Qty: 90 0RF Continued (DME) pen needle, diabetic 31 gauge x 1/4" needle See Dose Instructions .ROUTE .MEDSUPPLY Qty: 200 5RF Dose Instruction: As directed Rx Instructions: INJECT INSULIN TWICE DAILY; DX CODE- E11.65 (DME) OneTouch Ultra Test Strip See Rx Instructions .ROUTE .COMPLEX Qty: 400 1RF Dose Instruction: USE UP TO 4 STRIPS DAILY. DX E11.65 Rx Instructions: USE UP TO 4 STRIPS DAILY. DX E11.65 (DME) FreeStyle [place] 3 Sensor Device See Rx Instructions .Route Qty: 3 5RF Rx Instructions: As directed (DME) Dexcom G7 Clinical Support Associate Misc See Rx Instructions .Route Qty: 1 0RF Rx Instructions: As directed (DME) Dexcom G7 Sensor Device See Rx Instructions .Route Qty: 1 0RF Rx Instructions: As directed insulin aspart U-100 [Novolog FlexPen U-100 Insulin] 100 unit/mL (3 mL) insu valerie pen 1 sliding scale dose subcut UD Qty: 15 1RF Rx Instructions: up to 20 units a day per sliding scale. Renal Caps 1 mg capsule 1 cap PO QAM Qty: 90 3RF citalopram 10 mg tablet 10 mg PO QAM Qty: 90 3RF Rx Instructions: TAKE 1 TABLET BY MOUTH DAILY (DME) blood sugar diagnostic Strip See Rx Instructions miscellaneous .MEDSUPPLY Qty: 200 8RF Rx Instructions: As directed to check blood sugars 4-6 times a day during (DME) lancing device with lancets [[employer] Lanc Device] Kit See Rx Instructions miscellaneous .MEDSUPPLY Qty: 1 0RF Rx Instructions: As directed (DME) lancets [OneTouch [employer] Lancets] 33 gauge misc See Dose Instructions .ROUTE .MEDSUPPLY Qty: 100 0RF Dose Instruction: As directed Rx Instructions: As directed hydralazine 50 mg tablet 50 mg PO TID fluticasone propionate 50 mcg/actuation spray,suspension 2 spray intranasal BID PRN (Reason: Congestion) Rx Instructions: 2 sprays each nostril twice daily famotidine [Pepcid] 20 mg tablet 20 mg PO Q48H 84 Days Qty: 42 0RF Discharge Orders: Discharge Order (Routine); Ordered 01/22/24 Ordered By: Valeriy Laureano Admission Data Admit Date/Time: 01/19/24 21:28 Attending Provider: Valeriy Laureano Admit Provider: Chiara Haque Primary Care Provider: Charles Gonzalez. Other Providers: Chiara Haque; Katherine Montaño Hospital Stay Data Consultations 01/19/24 21:11 ED Decision to Admit Stat 01/20/24 02:09 Consult Nephrology Routine Pending Results Patient Have Any Pending Studies at Discharge: No Discharge Instructions Given to Patient (Per Discharging Provider) You have been hospitalized for an acute medical problem. During your stay at [facility], we have made an effort to correct the problem that brought you to the hospital while keeping you as comfortable as possible. Medications were used to bring your condition under control and your discharge instructions will include directions for any medications you should take after leaving the hospital. Please make sure you see your Primary Care Provider as part of your follow up plan. Recommend close followup with PCP in 1-2 weeks Coniute your blood pressure medicine that you take 3 times a day. Remember you already took a dose today. SO you ave 2 doses remaining. Coding Diagnoses Nausea & vomiting R11.2 Hypertension I10 ESRD (end stage renal disease) N18.6 Diabetes mellitus, type 2 E11.9
[2024-01-22 11:03] VITALS: BP 127/83; PULSE 68; RESP 18; TEMP 98.1; O2SAT 95
--- NOTE | 2024-01-22 11:06 | Nephrology Progress Note ---
Date of Service January 22, 2024 Assessment & Plan (1) ESRD (end stage renal disease): (2) Hypertension: (3) Nausea & vomiting: (4) Anemia of chronic disease: Plan 43-year-old female with end-stage kidney disease secondary to diabetic nephropathy, on hemodialysis Tuesday, Tuesday, Tuesday via right IJ tunneled dialysis catheter. Admitted with few days history of nausea vomiting which now resolved. 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 Blood pressure has been variable. Hemoglobin stable. Overall doing better, nausea and vomiting resolved, no abdominal pain, tolerating regular diet. Electrolyte, volume status acceptable. Blood pressure improved. --Plan for dialysis tomorrow, if discharge anticipated she can go to her outpatient dialysis unit for dialysis tomorrow. -- Continue on Nephrocaps daily -- Left arm nephrology precaution for future AV fistula -- Dose medications for eGFR less than 10. Admission and Anticipated Discharge Date Admission Date: January 19, 2024 Subjective Delaney was seen and evaluated this morning. She reports overall feeling well, back to her baseline, denies any further episode of nausea or vomiting since yesterday. Has been tolerating regular diet without any abdominal pain, nausea or vomiting. Blood pressure remains variable. Volume status acceptable. Review of Systems Review of Systems: Detailed review of system was otherwise unremarkable. Physical Exam Constitutional: WD/WN, vitals as above + obese; no acute distress Respiratory: Auscultation: lungs clear to auscultation bilaterally Cardiovascular: RRR, no murmur, no edema Musculoskeletal: Extremities: extremities normal to inspection Skin: no rashes, warm and dry Neurologic: no focal motor deficits Psychiatric: Orientation: alert and oriented x 3 Affect: euthymic affect Results & Data Vital Signs (Past 12 Hours) Vital Signs Temp Pulse Pulse Resp BP Pulse Ox O2 Del Method 01/22/24 07:11 36.5 C 76 20 159/90 H 97 Room Air 01/22/24 06:51 76 01/22/24 03:31 36.8 C 77 18 117/67 93 Room Air 01/22/24 00:00 72 PG Care Time/CCT Total # of Minutes Spent Total Time Spent with Patient: Total time spent is greater than 50% in coordination of care (as documented) at patient's floor/unit and/or counseling patient: Coding Level of Care Code 03388 SUB INP/OBS CARE MIN Diagnoses ESRD (end stage renal disease) N18.6 Hypertension I10 Nausea & vomiting R11.2 Anemia of chronic disease D63.8
[2024-01-23] MEDS ORDERED: EPOETIN ALFA 10,000 UNITS/ML VIAL IV ONE (10:00)
== END 2024-01-22 14:13 | disposition home or self-care (01) | DRG 304 ==
LOC: ED 16:38 → 2E 21:28 → SUATTDRO 21:28 → 2E 22:09